=== PATIENT | male | born 1945 | race Caucasian/White ===

== ENCOUNTER 2019-05-14 01:59 | Inpatient (IN) ==
--- OUTSIDE RECORDS SUMMARY | 2019-05-14 02:05 | External Medical Summary | Continuity of Care Document ---
:1945 Author Name Mora Izaguirre, Provider Address Unavailable Unavailable , Care Team Providers Name Role Phone NonMNPG MRonal, Provider Unavailable [email or web address] Unavailable Unavailable Unavailable Unavailable Unavailable Problems BPH (benign prostatic hypertrophy) (600.00) (N40.0) Diastolic dysfunction (429.9) (I51.89) Hypertension (401.9) (I10) Hyponatremia (276.1) (E87.1) Trochanteric bursitis (726.5) (M70.60) Urinary retention with incomplete bladder emptying (788.21) (R33.9) Acid reflux (530.81) (K21.9) Elevated blood pressure reading with diagnosis of hypertensi on (401.9) (I10) First-degree atrioventricular block (426.11) (I44.0) Chronic rhinitis (472.0) (J31.0) Chest pain (786.50) (R07.9) Erectile dysfunction (607.84) (N52.9) Pain, joint, shoulder (719.41) (M25.519) Urinary frequency (788.41) (R35.0) Dermatitis (692.9) (L30.9) Sensorineural hearing loss (SNHL) of both ears (389.18) (H90 .3) Subjective tinnitus (388.31) (H93.19) Exostosis (726.91) (M89.8X9) Labial melanotic macule (709.09) (L81.8) Allergies and Adverse Reactions Atorvastatin Calcium TABS (Allergy) Reac tion: Hives Penicillins (Allergy) Reaction: Hives Plavix TABS (Allergy) Reaction: Hives Medications Vitamin C 500 MG Oral Tablet; TAKE 1 TABLET DAILY. Refills: 0 Glucosamine-Chondroitin 500-400 MG Oral Tablet; TAKE 1 TABLE T DAILY. Refills: 0 Lutein 15-0.7 MG Oral Capsule; TAKE 1 CAPSULE DAILY. Refills: 0 Vitamin B Complex Oral Tablet; TAKE 1 TABLET DAILY. Refills: 0 Turmeric CAPS; TAKE 1 CAPSULE DAILY. Refills: 0 Melville-3 Fish Oil 1000 MG Oral Capsule; TAKE 1 CAPSULE EVERY OTHER DAY. Refills: 0 Aspirin EC 81 MG Oral Tablet Delayed Release; Take 1 tablet twice daily Refills: 0 Triamcinolone Acetonide 0.1 % External L otion; APPLY SPARINGLY TO AFFECTED AREA(S) ONCE DAILY. Refills: 0 Cardura 4 MG Oral Tablet; TAKE 1 TABLET DAILY AT BEDTIME DIRECTED. Refills: 0 Losartan Potassium 25 MG Oral Tablet; TAKE 1 TABLET BY MOUTH DAILY 30 Tablet Bottle Refills: 5 CoQ10 100 MG Oral Capsule; TAKE 1 CAPSULE DAILY. Refills: 0 Procedures History of Colonoscopy Status: Completed Immunizations Immunizations not documented Family History Unknown Family Member Family history of Prostate cancer (185) (C61) Status: Active Comments: Family History Mother Family history of Hypertension (401.9) (I10) Status: Active Family history of Stroke (434.91) (I63.9) Status: Active Family history of Skin cancer (173.90) (C44.90) Status: Acti ve Father Family history of Aortic valve insufficiency (424.1) (I35.1) Status: Active Brother Family history of Endocrine disorder (259.9) (E34.9) Status: Active Family history of Skin cancer (173.90) (C44.90) Status: Acti ve Social History - Smoking Status Former smoker Plan of Treatment Planned Observations Planned Goals not documented Results No Known Results Results not documented Encounters Appointment; Althea Aldana PA-C 05-May-2018 15:00 Encounter Diagnosis: Problem not documented Appointment; Echo/Stress, Echo/Stress 24-Apr-2018 8:45 Encounter Diagnosis: Problem not documented Appointment; Mirza Vasquez M.D. 09-Jul-2017 15:45 Encounter Diagnosis: Problem not documented
[2019-05-14 02:19] LABS: Basophils # (auto) 0.01 K/uL (0-0.2); Basophils % (auto) 0.1 %; Eosinophils # (auto) 0.27 K/uL (0-0.5); Hematocrit (blood only) 40.8 % (42-52); Hemoglobin 14.5 g/dL (14.0-18.0); Immature Granulocytes # (auto) 0.03 K/uL (0.00-0.02); Immature Granulocytes % (auto) 0.4 %; Lymphocytes # (auto) 2.01 K/uL (1.2-3.4); Lymphocytes % (auto) 29.6 %; Mean Corpuscular Hemoglobin 32.5 pg (25-34); Mean Corpuscular Hgb Conc 35.5 g/dL (32-36); Mean Corpuscular Volume 91.5 fL (80-100); Monocytes # (auto) 0.89 K/uL (0.11-0.59); Monocytes % (auto) 13.1 %; Neutrophils # (auto) 3.58 K/uL (1.4-6.5); Neutrophils % (auto) 52.8 %; Platelet Count 168 K/uL (130-400); RDW Coefficient of Variation 12.7 % (11.5-14.5); RDW Standard Deviation 42.2 fL (36.4-46.3); Red Blood Count 4.46 M/uL (4.7-6.1); White Blood Count 6.79 K/uL (4.8-10.8)
[2019-05-14 02:54] LABS: Alanine Aminotransferase 41 U/L (12-78); Albumin Globulin Ratio 1.1 (0.9-2); Albumin Level 3.3 gm/dl (3.4-5.0); Alkaline Phosphatase 114 U/L (45-117); BUN Creatinine Ratio 34.8 (10-20); Bilirubin,Total 0.4 mg/dl (0.2-1); Blood Urea Nitrogen 34 mg/dl (7-18); Calcium 8.3 mg/dl (8.5-10.1); Carbon Dioxide 23 mmol/L (21-32); Chloride 111 mmol/L (98-107); Creatinine Clr Calc Pharmacy 62.4 ml/min; Est GFR (Non-African American) 74.2; Glucose 104 mg/dl (70-99); Sodium 138 mmol/L (136-145); Total Protein 6.3 gm/dl (6.4-8.2); Troponin I 0.556 ng/ml (0-0.045)
[2019-05-14 03:36] LABS: INR 1.1 (0.9-1.1); Partial Thromboplastin Time 26.4 Seconds (21.0-31.0); Potassium 4.3 mmol/L (3.5-5.1); Prothrombin Time 11.1 Seconds (9.0-12.0)
[2019-05-14] MEDS ORDERED: ASPIRIN 81 MG ECTAB PO STA (04:59)
--- NOTE | 2019-05-14 04:59 | History & Physical Report ---
Date of Service May 14, 2019 Assessment & Plan (1) TIA (transient ischemic attack): ? Thrombotic mechanism Hypertension, elevated secondary to possible TIA Troponin elevation possibly secondary to above chronic systolic/diastolic heart failure (EF 45-50% TTE 2018), patient euvolemic aFlutter/atrial fib status post cardioversion status post ablation, NSR on Eliquis BPH past tobacco abuse OBS Medical telemetry Neurochecks MRI/MRA of the brain, Neurology consult RE TIA Aspirin for thrombotic stroke prophylaxis until MRI results known. (Patient agreeable to taking one dose for now citing concerns about increased predisposition to bleeding especially with concomitant Eliquis intake.) Permissive hypertension until stroke ruled out. Additional stroke work-up pending MRI results/Neurology evaluation Trend troponin, TTE if with significant progression DVT prophylaxis. Eliquis Full code History of Present Illness Chief Complaint: Left-sided numbness Primary Care Provider: William Collado MD History obtained from patient, family, and records. Medical history significant for chronic systolic/diastolic heart failure (EF 45- 50% TTE 2018), aFlutter/atrial fib status post cardioversion status post ablation on Eliquis, GERD, BPH, past tobacco abuse. Recent confinement April 2018 for atypical chest pain. No ACS. Around midnight last night, patient woke up not feeling the left side of his body. thought there may have been drooping on the left side of the face. No chest pain, no S OB. No headache. Improving symptoms at the ER. Patient complaining of tingling discomfort on the left upper extremity. 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 Allergies Allergy/AdvReac Type Severity Reaction Status Date / Time Penicillins Allergy Severe Hives Verified 05/14/19 02:13 Home Medications Home Medications Medication Instructions Recorded Confirmed Type Eliquis 5 mg PO BID 05/05/18 05/14/19 History Reservatrol 1 tab PO DAILY 05/05/18 05/14/19 History ascorbic acid (vitamin C) [Vitamin 500 mg PO DAILY 05/05/18 05/14/19 History C] doxazosin [Cardura] 1 tab PO HS 05/05/18 05/14/19 History doxazosin [Cardura] 2 mg PO HS 05/05/18 05/14/19 History glucosamine-chondroitin 1 cap PO DAILY 05/05/18 05/14/19 History losartan [Cozaar] 25 mg PO DAILY 05/05/18 05/14/19 History lutein 0 mg PO Q OTHER DAY 05/05/18 05/14/19 History magnesium 200 mg PO DAILY 05/05/18 05/14/19 History vitamin B complex [Super B-50 1 cap PO DAILY 05/05/18 05/14/19 History Complex] zinc 25 mg PO DAILY 05/05/18 05/14/19 History cholecalciferol (vitamin D3) 2,000 unit PO DAILY 05/14/19 05/14/19 History [Vitamin D3] cinnamon bark [Cinnamon] 500 mg PO DAILY 05/14/19 05/14/19 History omega 9-hay-rrx-fish oil [Fish Oil] 1 cap PO DAILY 05/14/19 05/14/19 History turmeric 400 mg PO DAILY 05/14/19 05/14/19 History Past Med/Surg History Medical History BPH (benign prostatic hyperplasia) (Chronic) HTN (hypertension) (Chronic) Paroxysmal atrial flutter (Chronic) Surgical History History of cardiac catheterization (Resolved) [place] [facility] [place] Hx of tonsillectomy (Resolved) Family History Other Hypertension Stroke Social History Preferred Language: Upper Sorbian Communication Ability: Effective Visual Impairment: No Limitations Hearing Ability: Normal Shelving Supervisor Required: No Beliefs That Will Affect Care: None Current Living Situation: Family Feels Safe at Home: Yes Smoking Status: Former smoker Second Hand Exposure: No ; Hx Alcohol Use: Yes Alcohol type: beer and wine Hx Substance Use: No Review of Systems Review of Systems: As per HPI, all 10 systems reviewed, all other ROS negative Physical Exam Physical Exam: GENERAL: Comfortable, slightly anxious, no respiratory distress SKIN: Normal color, warm HEENT: [place] palpebral conjunctivae, chronic ptosis, dry buccal mucosa NECK : Supple, no tenderness CHEST : CTA, no tenderness HEART : RRR, no obvious murmurs ABDOMEN: Soft, nontender EXTREMITIES : No LE swelling/tenderness, no other conspicuous deformities noted NEUROLOGIC : Coherent, no facial asymmetry, no other gross focality Results & Data Vital Signs (Past 12 Hours) Vital Signs Temp Pulse Pulse Resp BP BP Pulse Ox 05/14/19 03:07 73 18 158/73 H 97 05/14/19 02:41 76 18 159/73 H 97 05/14/19 02:08 36.8 C 91 H 18 161/87 H 98 Laboratory Results Laboratory Results WBC 6.79 K/uL (4.8-10.8) 05/14/19 02:08 RBC 4.46 M/uL (4.7-6.1) L 05/14/19 02:08 Hgb 14.5 g/dL (14.0-18.0) 05/14/19 02:08 Hct 40.8 % (42-52) L 05/14/19 02:08 MCV 91.5 fL (80-100) 05/14/19 02:08 MCH 32.5 pg (25-34) 05/14/19 02:08 MCHC 35.5 g/dL (32-36) 05/14/19 02:08 RDW Std Deviation 42.2 fL (36.4-46.3) 05/14/19 02:08 RDW Coeff of Saira 12.7 % (11.5-14.5) 05/14/19 02:08 Plt Count 168 K/uL (130-400) 05/14/19 02:08 MPV 10.0 fL (7.4-10.4) 05/14/19 02:08 Immature Gran % (Auto) 0.4 % 05/14/19 02:08 Neut % (Auto) 52.8 % 05/14/19 02:08 Lymph % (Auto) 29.6 % 05/14/19 02:08 Dawes % (Auto) 13.1 % 05/14/19 02:08 Eos % (Auto) 4.0 % 05/14/19 02:08 Baso % (Auto) 0.1 % 05/14/19 02:08 Immature Gran # (Auto) 0.03 K/uL (0.00-0.02) H 05/14/19 02:08 Neut # (Auto) 3.58 K/uL (1.4-6.5) 05/14/19 02:08 Lymph # (Auto) 2.01 K/uL (1.2-3.4) 05/14/19 02:08 Dawes # (Auto) 0.89 K/uL (0.11-0.59) H 05/14/19 02:08 Eos # (Auto) 0.27 K/uL (0-0.5) 05/14/19 02:08 Baso # (Auto) 0.01 K/uL (0-0.2) 05/14/19 02:08 PT 11.1 Seconds (9.0-12.0) 05/14/19 03:10 INR 1.1 (0.9-1.1) 05/14/19 03:10 APTT 26.4 Seconds (21.0-31.0) 05/14/19 03:10 PTT Ratio 1.0 05/14/19 03:10 Sodium 138 mmol/L (136-145) 05/14/19 02:08 Potassium 4.3 mmol/L (3.5-5.1) 05/14/19 03:10 Chloride 111 mmol/L (98-107) H 05/14/19 02:08 Carbon Dioxide 23 mmol/L (21-32) 05/14/19 02:08 Anion Gap 4.0 (3-11) 05/14/19 02:08 BUN 34 mg/dl (7-18) H 05/14/19 02:08 Creatinine 0.99 mg/dl (0.6-1.4) 05/14/19 02:08 Est Cr Clr Drug Dosing 62.4 ml/min 05/14/19 02:08 Est GFR ( Amer) 86.0 05/14/19 02:08 Est GFR (Non-Af Amer) 74.2 05/14/19 02:08 BUN/Creatinine Ratio 34.8 (10-20) H 05/14/19 02:08 Glucose 104 mg/dl (70-99) H 05/14/19 02:08 Calcium 8.3 mg/dl (8.5-10.1) L 05/14/19 02:08 Magnesium 2.0 mg/dl (1.8-2.4) 05/14/19 03:10 Total Bilirubin 0.4 mg/dl (0.2-1) 05/14/19 02:08 AST 21 U/L (15-37) 05/14/19 03:10 ALT 41 U/L (12-78) 05/14/19 02:08 Alkaline Phosphatase 114 U/L (45-117) 05/14/19 02:08 Troponin I 0.556 ng/ml (0-0.045) H* 05/14/19 02:08 Total Protein 6.3 gm/dl (6.4-8.2) L 05/14/19 02:08 Albumin 3.3 gm/dl (3.4-5.0) L 05/14/19 02:08 Globulin 3.0 gm/dl (2.5-4.0) 05/14/19 02:08 Albumin/Globulin Ratio 1.1 (0.9-2) 05/14/19 02:[address] head initial read: No acute intracranial process EKG as per my interpretation rate 90, NSR, 1 AVB, normal axis, no ischemia
[2019-05-14] MEDS ORDERED: TRAMADOL HCL 50 MG TABLET PO PRN (05:55)
[2019-05-14] MEDS ORDERED: PROMETHAZINE HCL 12.5 MG in SODIUM CHLORIDE 0.9% 50 ML IV PRN (05:55)
[2019-05-14] MEDS ORDERED: NITROGLYCERIN SL 0.4 MG/TAB TAB SL PRN (05:55)
[2019-05-14] MEDS ORDERED: SODIUM CHLORIDE 0.9% 500 ML IV ONE (05:55)
--- NOTE | 2019-05-14 06:19 | Emergency Department Note ---
Entered by Karen Burns acting as a scribe for Diana Mckeon MD History of Present Illness General Chief complaint: Stroke/CVA Symptoms Stated complaint: STROKE LIKE SYMPTOMS Time Seen by Provider: 05/14/19 02:03 Source: patient and EMS Mode of arrival: EMS History of Present Illness Provider complaint: stroke-like symptoms Onset (ago): minute(s) (prior to arrival ) Location: head Quality: + other (stroke-like symptoms) Associated symptoms: + other (Positive facial droop; Positive left sided weakness; Positive left hand numbness) Treatments prior to arrival: none The patient, who is a 73 year old male with a medical history of chest pain, hypertension and elevated troponin, presents to the Emergency Room with complaints of stroke-like symptoms that occurred prior to arrival. EMS reports that prior to arrival the patient was experiencing facial droop and left sided weakness. EMS states that the patient's symptoms resolved they arrived however the patient was still experiencing numbness in his left hand. EMS reports that at 0130 the patient had continued left handed numbness and disorientation. The patient confirms that he is currently experiencing left handed numbness and he is taking Eliquis. Home Medications Home Medications Medication Instructions Recorded Confirmed Type Reservatrol 1 tab PO DAILY 05/05/18 05/14/19 History ascorbic acid (vitamin C) [Vitamin 500 mg PO DAILY 05/05/18 05/14/19 History C] doxazosin [Cardura] 1 tab PO HS 05/05/18 05/14/19 History doxazosin [Cardura] 2 mg PO HS 05/05/18 05/14/19 History glucosamine-chondroitin 1 cap PO DAILY 05/05/18 05/14/19 History losartan [Cozaar] 25 mg PO DAILY 05/05/18 05/14/19 History lutein 0 mg PO Q OTHER DAY 05/05/18 05/14/19 History magnesium 200 mg PO DAILY 05/05/18 05/14/19 History vitamin B complex [Super B-50 1 cap PO DAILY 05/05/18 05/14/19 History Complex] zinc 25 mg PO DAILY 05/05/18 05/14/19 History cholecalciferol (vitamin D3) 2,000 unit PO DAILY 05/14/19 05/14/19 History [Vitamin D3] cinnamon bark [Cinnamon] 500 mg PO DAILY 05/14/19 05/14/19 History omega 4-yxe-ghy-fish oil [Fish Oil] 1 cap PO DAILY 05/14/19 05/14/19 History turmeric 400 mg PO DAILY 05/14/19 05/14/19 History atorvastatin [Lipitor] 10 mg PO DAILY #30 tab 05/15/19 Rx rivaroxaban [Xarelto] 20 mg PO DAILY #30 tab 05/15/19 Rx Allergies Allergy/AdvReac Type Severity Reaction Status Date / Time Penicillins Allergy Severe Hives Verified 05/14/19 02:13 Past Med/Surg History Medical History BPH (benign prostatic hyperplasia) (Chronic) HTN (hypertension) (Chronic) Paroxysmal atrial flutter (Chronic) Surgical History History of cardiac catheterization (Resolved) 2016 at [facility] [place] Hx of tonsillectomy (Resolved) Family History Other Hypertension Stroke Social History Preferred Language: French Communication Ability: Effective Visual Impairment: No Limitations Hearing Ability: Normal 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 and A total of 10 systems reviewed and were otherwise negative Physical Exam Vital Signs Vital Signs - 24 hr 05/14/19 02:08 05/14/19 02:41 05/14/19 03:07 Temperature 36.8 C Temperature Source Oral Sepsis Recent Fever Within 48 Hours No Sepsis Action Taken by Nursing No Action Required Pulse Rate 91 H Pulse Rate [Apical] 76 73 Respiratory Rate 18 18 18 Blood Pressure 161/87 H Blood Pressure [Right Arm] 159/73 H 158/73 H Blood Pressure Mean 111 Blood Pressure Mean [Right Arm] 101 101 Pulse Oximetry 98 97 97 Oxygen Delivery Method Room Air Room Air Room Air Vital signs reviewed. General: older appearing male, in no significant distress. HEENT: No scleral icterus, PERRLA, neck supple. Atraumatic. Cardiovascular: Rate controlled with occassoinal ectopy, no extra sounds. Pulmonary: Clear to auscultation bilaterally, normal work of breathing. Abdomen: Soft, nontender, nondistended, positive bowel sounds. Musculoskeletal: Atraumatic, no peripheral edema. Neurologic: Patient awake alert and oriented x 3, full strength in all 4 extremities. Cranial nerves 2 through 12 grossly intact. Negative pronator drift. intact finger to nose. Skin: Warm, dry, no rash Course 0201: Past medical records reviewed. The patient was evaluated in room B2. A complete history and physical exam was performed. 0419: I reviewed the patient's case with Dr. Alvares [facility] . He will evaluate the patient for further management. Consultations Consultation #1: [id number]: I [facility] the patient[facility] . He will evaluate the patient for further management. Time: 04:19 Administered Medications Discontinued Medications Apixaban (Eliquis) 5 mg PO BID [facility] Stop: 06/13/19 08:59 Last Admin: 05/15/19 08:23 Dose: 5 mg Documented by: [id number] Admin: 05/14/19 20:33 Dose: 5 mg Documented by: [id number] Admin: 05/14/19 08:38 Dose: 5 mg Documented by: [id number] Aspirin (Ecotrin Ectab) 81 mg PO NOW STA Stop: 05/14/19 05:00 Last Admin: 05/14/19 05:15 Dose: 81 mg Documented by: [id number] [facility]atin Cal[facility] Stop: 06/14/19 08:59 Last Admin: 05/15/19 08:23 Dose: 20 mg Documented by: [id number] Sodium Chloride (Nss) 500 mls @ 50 mls/hr IV .Q10H ONE Stop: 05/14/19 15:54 Last Admin: 05/14/19 06:41 Dose: Not Given Documented by: [id number] Medical Decision Making Differential Diagnosis Differential Diagnosis includes but is not limited to dehydration, stroke, anemia, hypoglycemia, hyponatremia, hypernatremia, urinary tract infection, pneu monia, bronchitis, sepsis, gastroenteritis, additional abdominal pathology, metabolic abnormalities and infections. Medical Records Attestation: I reviewed the patient's medical records. Home Medications Current Medication List: was personally reviewed by me Laboratory Data Attestation: I reviewed the patient's lab results. Result diagrams: 05/15/19 06:39 05/15/19 06:39 Lab Results 05/14/19 05/14/19 05/14/19 Range/Units 02:08 02:08 02:08 WBC 6.79 (4.8-10.8) K/uL RBC 4.46 L (4.7-6.1) M/uL Hgb 14.5 (14.0-18.0) g/dL Hct 40.8 L (42-52) % MCV 91.5 (80-100) fL MCH 32.5 (25-34) pg MCHC 35.5 (32-36) g/dL RDW Std Deviation 42.2 (36.4-46.3) fL RDW Coeff of Saira 12.7 (11.5-14.5) % Plt Count 168 (130-400) K/uL MPV 10.0 (7.4-10.4) fL Immature Gran % (Auto) 0.4 % Neut % (Auto) 52.8 % Lymph % (Auto) 29.6 % [place] % (Auto) 13.1 % Eos % (Auto) 4.0 % Baso % (Auto) 0.1 % Immature Gran # (Auto) 0.03 H (0.00-0.02) K/uL Neut # (Auto) 3.58 (1.4-6.5) K/uL Lymph # (Auto) 2.01 (1.2-3.4) K/uL [place] # (Auto) 0.89 H (0.11-0.59) K/uL Eos # (Auto) 0.27 (0-0.5) K/uL Baso # (Auto) 0.01 (0-0.2) K/uL PT Cancelled INR Cancelled APTT Cancelled PTT Ratio Cancelled Sodium 138 (136-145) mmol/L Potassium TNP Chloride 111 H (98-107) mmol/L Carbon Dioxide 23 (21-32) mmol/L Anion Gap 4.0 (3-11) BUN 34 H (7-18) mg/dl Creatinine 0.99 (0.6-1.4) mg/dl Est Cr Clr Drug Dosing 62.4 ml/min Est GFR ( Amer) 86.0 Est GFR (Non-Af Amer) 74.2 BUN/Creatinine Ratio 34.8 H (10-20) Glucose 104 H (70-99) mg/dl Calcium 8.3 L (8.5-10.1) mg/dl Magnesium TNP Total Bilirubin 0.4 (0.2-1) mg/dl AST TNP ALT 41 (12-78) U/L Alkaline Phosphatase 114 (45-117) U/L Troponin I 0.556 H* (0-0.045) ng/ml Total Protein 6.3 L (6.4-8.2) gm/dl Albumin 3.3 L (3.4-5.0) gm/dl Globulin 3.0 (2.5-4.0) gm/dl Albumin/Globulin Ratio 1.1 (0.9-2) 05/14/19 05/14/19 05/14/19 Range/Units 03:10 03:10 07:50 WBC (4.8-10.8) K/uL RBC (4.7-6.1) M/uL Hgb (14.0-18.0) g/dL Hct (42-52) % MCV (80-100) fL MCH (25-34) pg MCHC (32-36) g/dL RDW Std Deviation (36.4-46.3) fL RDW Coeff of Saira (11.5-14.5) % Plt Count (130-400) K/uL MPV (7.4-10.4) fL Immature Gran % (Auto) % Neut % (Auto) % Lymph % (Auto) % [place] % (Auto) % Eos % (Auto) % Baso % (Auto) % Immature Gran # (Auto) (0.00-0.02) K/uL Neut # (Auto) (1.4-6.5) K/uL Lymph # (Auto) (1.2-3.4) K/uL [place] # (Auto) (0.11-0.59) K/uL Eos # (Auto) (0-0.5) K/uL Baso # (Auto) (0-0.2) K/uL PT 11.1 INR 1.1 APTT 26.4 PTT Ratio 1.0 Sodium (136-145) mmol/L Potassium 4.3 Chloride (98-107) mmol/L Carbon Dioxide (21-32) mmol/L Anion Gap (3-11) BUN (7-18) mg/dl Creatinine (0.6-1.4) mg/dl Est Cr Clr Drug Dosing ml/min Est GFR ( Amer) Est GFR (Non-Af Amer) BUN/Creatinine Ratio (10-20) Glucose (70-99) mg/dl Calcium (8.5-10.1) mg/dl Magnesium 2.0 Total Bilirubin (0.2-1) mg/dl AST 21 ALT (12-78) U/L Alkaline Phosphatase (45-117) U/L Troponin I 0.530 H* (0-0.045) ng/ml Total Protein (6.4-8.2) gm/dl Albumin (3.4-5.0) gm/dl Globulin (2.5-4.0) gm/dl Albumin/Globulin Ratio (0.9-2) Imaging Data Radiologist's Impression: Radiology results as stated below per my review and the radiologist's interpretation: CT Head: No acute intracranial process. Radiologist: Yesenia Cantu MD Study ready at 02:23 and initial results transmitted at 02:28 ECG Data Attestation: I personally reviewed and interpreted this ECG as follows: Indication: + other (stroke) Rate (beats per minute): 92 Rhythm: + sinus rhythm ECG Findings: + PACs (frequent) and + Other (Vs atrial fibrillation) Comparison ECG Date: from (05/06/18) Change: no significant change Blood Pressure Blood Pressure Findings: Elevated blood pressure Blood Pressure Disposition: elevated BP felt to be situational MDM Narrative This pt was evaluated and appeared to be in no distress. PE is fairly reassuring. CT head was ordered however the pt delayed the study as he was not initially comfortable with the radiation exposure. Pt was reassured the n ecessity of the study. It was obtained and is negative. CXR is clear. EKG reveals a sinus rhythm with PACs. Lab work reveals a mildly elevated trop, with concerns that this may actually be cardiac in etiology. Pt is anticoagulated with Xarelto. Pt has some recurrence of LUE numbness, but no weakness or facial droop was visualized. Pt was educated on the findings. Pt was d/w the hospitalist for further management. Impression & Plan TIA (transient ischemic attack), Elevated troponin Discharge Plan Visit Data *Final* Discharge Date/Time: 05/14/19 05:34 Chief Complaint: Stroke/CVA Symptoms Stated Complaint: STROKE LIKE SYMPTOMS ED Provider: Diana Mckeon Discharge Problem: TIA (transient ischemic attack), Elevated troponin Patient Disposition: Admitted As Inpatient Condition: Good Discharge Instructions Interventions: ED Discharge Assessment Last Done: 05/14/19 05:34 The scribe's documentation has been prepared under my direction and personally reviewed by me in its entirety. I confirm that the note above accurately reflects all work, treatment, procedures, and medical decision making performed by me.
--- NOTE | 2019-05-14 06:30 | CT Scan Report ---
CT head/brain wo con CLINICAL HISTORY: 73 years-old Male with Stroke evaluation . Acute strokelike symptoms TECHNIQUE: Multiple axial CT images of the head were obtained without contrast. A dose lowering tech nique was utilized adhering to the principles of ALARA. CT DOSE: 614.27 mGy.cm COMPARISON: Head CT 05/05/2018 FINDINGS: No acute intracranial hemorrhage, midline shift, intracranial mass, hydrocephalus, territorial ischem ia or abnormal extra-axial collection. Mild age-related involutional change. Cerebral vascular calcif ications are noted. Minimal white matter hypodensities suggest background chronic microvascular ische moraima disease. The calvarium is intact. The paranasal sinuses, mastoid air cells, and middle ear cavities are clear . IMPRESSION: No acute intracranial abnormality. The above report was generated using voice recognition software. It may contain grammatical, syntax o r spelling errors. Electronically signed by: Christian Yeh M.D. 05/14/2019 6:28 AM
[2019-05-14] MEDS: APIXABAN 5 MG TABLET PO SCH ×2 (08:38→20:33)
--- NOTE | 2019-05-14 09:54 | Magnetic Resonance Report ---
MR brain wo con HISTORY: 73 years-old Male tia acute strokelike symptoms COMPARISON: CT head and MRA head of same day TECHNIQUE: Multiplanar multisequence MRI of the brain was obtained without the use of IV contrast. FINDINGS: Large bnnbz-aq-hvow skiver blockers localizer images demonstrate no gross extracranial abnormality. Linear area of restricted diffusion involves the subcortical distribution of the right frontal parietal lobe on image 15 series 5 measuring up to 2.6 cm demonstrating mildly decreased signal on the ADC map. No acu te territorial infarct identified. Midline structures including the corpus callosum, brainstem, optic chiasm, pituitary and pineal glands appear unremarkable on the sagittal T1 series. There is no cereb ellar tonsillar herniation. Degenerative changes noted about the imaged cervical spine. Mild age-related involutional change. There is no acute intracranial hemorrhage, midline shift, abnor mal extra axial collection, hydrocephalus or intracranial mass. Study is mildly motion degraded. No s ignificant T2/flair signal abnormalities of the brain parenchyma. Major flow voids at the level of th e skull base appear patent. Trace left mastoid effusion. Mild mucosal thickening of the nasal turbina prakash and paranasal sinuses. The orbits, skull and soft tissues are unremarkable. IMPRESSION: 1. Linear area of restricted diffusion within the right frontal parietal lobe junction measures up to 2.6 cm compatible with area of acute or subacute infarction. 2. No acute territorial infarct, intracranial hemorrhage or midline shift. The above report was generated using voice recognition software. It may contain grammatical, syntax o r spelling errors. Electronically signed by: Christian Yeh M.D. 05/14/2019 9:53 AM
--- NOTE | 2019-05-14 09:55 | Magnetic Resonance Report ---
MR angio head wo con CLINICAL HISTORY: 73 years-old Male presenting with TIA, left-sided body numbness. TECHNIQUE: MR angiography of the head was performed without the use of intravenous contrast using 3-D [id number] technique. 3-D volumetric and/or maximum intensity projection (MIP) images were subse quently reconstructed for review. IV contrast: None. COMPARISON: CT head performed earlier the same day. FINDINGS: Localizer images: Unremarkable. Anterior circulation: Intracranial portions of the internal carotid arteries patent to the level of t he termini. Anterior cerebral arteries patent. Middle cerebral arteries patent. Anterior communicatin g artery patent. Posterior circulation: Codominant vertebral arteries. Intradural portions of the vertebral arteries p atent. Posterior inferior cerebellar arteries patent. Basilar artery patent. Anterior inferior cerebe llar arteries poorly visualized. Superior cerebellar arteries patent. Posterior cerebral arteries pat ent. Posterior communicating arteries hypoplastic or aplastic. IMPRESSION: 1. No significant stenosis, aneurysm, or focal vessel occlusion. Electronically signed by: Antwon Holguin M.D. 05/14/2019 9:54 AM
--- NOTE | 2019-05-14 15:16 | Hospitalist Progress Note ---
Date of Service May 14, 2019 Assessment & Plan (1) TIA (transient ischemic attack): Presented with inability to feel left side of the body and the noted to have drooping of the left side of the face Did not meet criteria for TPA CT scan of the head was negative but MRI did show -Linear area of restricted diffusion within the right frontal parietal lobe junction measures up to 2.6 cm compatible with area of acute or subacute infarction. Likely secondary to thrombotic mechanism Received 1 dose of aspirin and Eliquis was continued Echo and lipid panel have been pending Awaiting evaluation by neurologist for further recommendation Hypertension, elevated secondary to possible TIA Blood pressure seems to be stable now Troponin elevation possibly secondary to above and has been trending down Chronic systolic/diastolic heart failure (EF 45-50% TTE 2018), patient euvolemic Will repeat echo to rule out any clot History of atrial flutter/atrial fib status post cardioversion status post ablation, NSR on Eliquis We will continue Eliquis BPH Denies any acute symptoms past tobacco abuse Full code Subjective 05/14 The patient was seen and examined in medical telemetry unit He has significant past medical history including chronic systolic/diastolic heart failure with EF 40 to 45% in 2018 with atrial flutter/fibrillation on Eliquis with history of past tobacco abuse Was admitted with strokelike symptoms involving left-sided extremities and face Symptoms have improved with remaining numbness involving the left forearm Denies any other symptoms Review of Systems Review of Systems: All systems reviewed and are unremarkable except as noted below Neurologic: Numbness involving the left forearm. No weakness involving any of the extremities, no dysarthria and/or dysphasia Physical Exam Physical Exam: Lying in bed comfortably Constitutional: well developed Looked very anxious Eyes: PERRL, conjunctivae normal, anicteric sclerae ENMT: external ear and nose normal, oropharynx normal Neck: trachea midline, no thyromegaly Respiratory: normal respiratory effort; no respiratory distress Auscultation: lungs clear to auscultation bilaterally Cardiovascular: Rate/Rhythm: regular rate and regular rhythm Heart Sounds: no murmur Gastrointestinal (Abdomen): Inspection/Auscultation: abdomen normal to inspection and normal bowel sounds Percussion/Palpation: abdomen soft Musculoskeletal: No acute arthritis in any joints Neurologic: moves all extremities; no focal motor deficits (Except numbness involving left forearm and hand) Alert, awake and oriented x3. Psychiatric: A+Ox3, euthymic affect Results & Data Vital Signs (Past 12 Hours) Vital Signs Temp Pulse Pulse Pulse Resp BP Pulse Ox 05/14/19 11:25 36.3 C L 68 16 147/81 H 99 05/14/19 07:34 69 05/14/19 06:19 05/14/19 06:00 36.6 C 67 68 18 161/75 H 97 05/14/19 05:10 69 18 142/72 H 96 Pulse Ox 05/14/19 11:25 05/14/19 07:34 05/14/19 06:19 97 05/14/19 06:00 05/14/19 05:10 Laboratory Results Short CBC 05/14/19 Range/Units 02:08 WBC 6.79 (4.8-10.8) K/uL Hgb 14.5 (14.0-18.0) g/dL Hct 40.8 L (42-52) % Plt Count 168 (130-400) K/uL BMP 05/14/19 05/14/19 02:08 03:10 Sodium 138 Potassium TNP 4.3 Chloride 111 H Carbon Dioxide 23 BUN 34 H Creatinine 0.99 Glucose 104 H Calcium 8.3 L Cardiac Enzymes 05/14/19 05/14/19 Range/Units 02:08 07:50 Troponin I 0.556 H* 0.530 H* (0-0.045) ng/ml Liver Function 05/14/19 05/14/19 Range/Units 02:08 03:10 Total Bilirubin 0.4 (0.2-1) mg/dl AST TNP 21 ALT 41 (12-78) U/L Alkaline Phosphatase 114 (45-117) U/L Albumin 3.3 L (3.4-5.0) gm/dl Medications Administered Current Inpatient Medications Apixaban (Eliquis) 5 mg PO BID [facility] Stop: 06/13/19 08:59 Last Admin: 05/14/19 08:38 Dose: 5 mg Documented by: Promethazine HCl 12.5 mg/ (Sodium Chloride) 50.5 mls @ 202 mls/hr IV Q6H PRN PRN Reason: Nausea And Vomiting Stop: 06/13/19 05:54 Sodium Chloride (Nss) 500 mls @ 50 mls/hr IV .Q10H ONE Stop: 05/14/19 15:54 Last Admin: 05/14/19 06:41 Dose: Not Given Documented by: Nitroglycerin (Nitrostat) 0.4 mg SL UD PRN PRN Reason: Chest Pain Stop: 06/13/19 05:54 Tramadol HCl (Ultram) 25 mg PO Q4H PRN PRN Reason: Pain Stop: 06/13/19 05:54
--- NOTE | 2019-05-14 15:20 | Neurology Consultation ---
Date of Consultation May 14, 2019 Assessment & Plan (1) Stroke due to embolism: 1. CTA neck - ordered 2. MRI - right frontal parietal lobe junction measures up to 2.6 cm 3. PT/OT speech for discharge needs 4. continue Eliquis 5 mg twice daily for now 5. cardiology - consult for further evaluation of possible need for switch to coumadin?? 6. appear to be in sinus rhythm now but on admitting EKG he was in afib 7. Recommend starting Statin medicaiton, Crestor 10 mg daily Supervising Physician Co-Signing Physician Notes Patient discussed with Daiana Flores PA-C. Imaging reviewed. I did not see the patient. Patient was off the floor for echocardiogram both times I visited this afternoon on rounds. His was at bedside. MRI brain reviewed and shows embolic appearing right MCA ischemic stroke. He is on Eliquis for atrial fibrillation. He also had an MRA intracranial which shows no large vessel occlusion or high grade stenosis. Recommend CTA of the neck but patient declined. If patient refusing CTA of the neck would obtain a carotid ultrasound. Would continue Eliquis for now. Neck vessel imaging will help in regards to further anticoagulation recommendations. Would recommend consulting cardiology for anticoagulation recommendations also. Would check HA1c and lipid panel. Permissive HTN for 24-hours, treat for SBP>220, DBP>110 mm HG. History of Present Illness Reason for Consultation: TIA/CVA Requesting Physician: Bigg Cerna MD Attending Physician: Bigg Cerna MD History of Present Illness [place] is a 73 year old male with PMH CP, HTN, elevated troponin, TIA who presents to [facility] with stroke like symptoms. He states he went to bed at approx. 12:15a and woke around 12:30a when he thought someone was holding down his hand and foot. He states there was a numbness in his left face, hand, leg, foot. His states she woke up because he was acting odd and went to get his daughter. She knew something was wrong so she called EMS. When EMS arrived he states the symptoms had resolved but reoccured several time on the way to the hospital and in the ED. At [facility] he had an PVI ablation 11/04. He states he was found to be in a fib about 1 year ago after some vision issues. He has been taking Eliquis for about 1 year. He was taking aspirin 81 mg but he was getting too much bruising and stopped it. He states the numbness is still there in his hand and he thinks the strength in his arm is worse than his normal rotator cuff issues. He is a past smoker, EtOH and caffeine use minimal. denies CP, SOB, abdominal pain, bowel or bladder is sues, N, V, swallowing issues, vision changes, falls. Allergies Allergy/AdvReac Type Severity Reaction Status Date / Time Penicillins Allergy Severe Hives Verified 05/14/19 02:13 Home Medications Home Medications Medication Instructions Recorded Confirmed Type Eliquis 5 mg PO BID 05/05/18 05/14/19 History Reservatrol 1 tab PO DAILY 05/05/18 05/14/19 History ascorbic acid (vitamin C) [Vitamin 500 mg PO DAILY 05/05/18 05/14/19 History C] doxazosin [Cardura] 1 tab PO HS 05/05/18 05/14/19 History doxazosin [Cardura] 2 mg PO HS 05/05/18 05/14/19 History glucosamine-chondroitin 1 cap PO DAILY 05/05/18 05/14/19 History losartan [Cozaar] 25 mg PO DAILY 05/05/18 05/14/19 History lutein 0 mg PO Q OTHER DAY 05/05/18 05/14/19 History magnesium 200 mg PO DAILY 05/05/18 05/14/19 History vitamin B complex [Super B-50 1 cap PO DAILY 05/05/18 05/14/19 History Complex] zinc 25 mg PO DAILY 05/05/18 05/14/19 History cholecalciferol (vitamin D3) 2,000 unit PO DAILY 05/14/19 05/14/19 History [Vitamin D3] cinnamon bark [Cinnamon] 500 mg PO DAILY 05/14/19 05/14/19 History omega 9-tbq-pjl-fish oil [Fish Oil] 1 cap PO DAILY 05/14/19 05/14/19 History turmeric 400 mg PO DAILY 05/14/19 05/14/19 History Patient History Medical History BPH (benign prostatic hyperplasia) (Chronic) HTN (hypertension) (Chronic) Paroxysmal atrial flutter (Chronic) Surgical History History of cardiac catheterization (Resolved) 2016 at [facility] Hx of tonsillectomy (Resolved) Family History Other Hypertension Stroke Social History Preferred Language: Bahraini Communication Ability: Effective Visual Impairment: No Limitations Hearing Ability: Normal Marionette Performer Required: No Beliefs That Will Affect Care: None Current Living Situation: Spouse Other Information That Helps Us Care for You: No Feels Safe at Home: Yes Safety Concerns: Feels Safe At This Time Smoking Status: Never smoker Do You Dip or Chew Tobacco: No ; Second Hand Exposure: No ; Hx Alcohol Use: No Hx Substance Use: No Physical Exam Physical Exam: Physical Exam: Constitutional: appearance nourished, healthy and normal Ears, Nose, Mouth and Throat: mucous membranes moist, no injection and skin normal, eyes normal Cardiovascular: normal S-1 and S-2 and regular rate and rhythm Respiratory: clear to auscultation (CTA) and no rales, ronchi or wheeze Musculoskeletal: no peripheral edema and good distal pulses Skin: no stigmata of neurocutaneous disease noted and normal and intact Eyes: extraocular muscles intact (EOMI) and pupils equal, round and reactive to light (PERRL), gross peripheral woods in tact NEUROLOGIC EXAMINATION: Mental status: Alert and interactive Oriented to full date, [facility], identified button, thumb Oriented to person Speech fluent with no evidence of aphasia Cranial Nerves smile eye brow raise Reflexes: Deep tendon reflexes were symmetrical and graded 2/5. Sensory: decreased touch on left arm hand Coordination: finger to nose dysmetric on left, no bipass on right Gait/Stance: Posture normal lying in bed Motor: unable to maintain arm elevation on left Strength: right hand finger buffs assembler biceps triceps 5/5, left hand finger buffs assembler biceps triceps 4/5, deltiod 0/5 Results & Data Vital Signs (Past 12 Hours) Vital Signs Temp Pulse Pulse Pulse Resp BP Pulse Ox 05/14/19 11:25 36.3 C L 68 16 147/81 H 99 05/14/19 07:34 69 05/14/19 06:19 05/14/19 06:00 36.6 C 67 68 18 161/75 H 97 05/14/19 05:10 69 18 142/72 H 96 Pulse Ox 05/14/19 11:25 05/14/19 07:34 05/14/19 06:19 97 05/14/19 06:00 05/14/19 05:10 Laboratory Results Abnormal lab results 05/14/19 05/14/19 05/14/19 Range/Units 02:08 02:08 07:50 RBC 4.46 L (4.7-6.1) M/uL Hct 40.8 L (42-52) % Immature Gran # (Auto) 0.03 H (0.00-0.02) K/uL Travis # (Auto) 0.89 H (0.11-0.59) K/uL Chloride 111 H (98-107) mmol/L BUN 34 H (7-18) mg/dl BUN/Creatinine Ratio 34.8 H (10-20) Glucose 104 H (70-99) mg/dl Calcium 8.3 L (8.5-10.1) mg/dl Troponin I 0.556 H* 0.530 H* (0-0.045) ng/ml Total Protein 6.3 L (6.4-8.2) gm/dl Albumin 3.3 L (3.4-5.0) gm/dl Diagnostic Findings MRI brain-Linear area of restricted diffusion within the right frontal parietal lobe junction measures up to 2.6 cm compatible with area of acute or subacute infarction. No acute territorial infarct, intracranial hemorrhage or midline shift. MRA brain No significant stenosis, aneurysm, or focal vessel occlusion.
--- NOTE | 2019-05-15 06:15 | Ultrasound Report ---
US carotid doppler BI HISTORY: Mental status change stroke COMPARISON: None. TECHNIQUE: Real-time, grayscale, and color Doppler sonography of the carotid arteries was performed. Imaging reviewed in the transverse and longitudinal planes. All measurements were calculated based on NASCET criteria. FINDINGS: Antegrade flow is seen in the bilateral vertebral arteries. The brachial pressures are hemodynamically similar. Mild plaque formation bilaterally The peak systolic velocity within the right ICA is 84. The right systolic ratio is 0.84. The peak systolic velocity within the left ICA is 82. The left systolic ratio is 1.0. IMPRESSION: No hemodynamically significant stenosis seen within the carotid arteries. Mild plaque formation bilat erally The above report was generated using voice recognition software. It may contain grammatical, syntax or spelling errors. Electronically signed by: Lj Hawkins M.D. 05/15/2019 6:13 AM
[2019-05-15 07:03] LABS: Basophils # (auto) 0.03 K/uL (0-0.2); Basophils % (auto) 0.4 %; Eosinophils # (auto) 0.34 K/uL (0-0.5); Hematocrit (blood only) 40.4 % (42-52); Hemoglobin 14.8 g/dL (14.0-18.0); Immature Granulocytes # (auto) 0.04 K/uL (0.00-0.02); Immature Granulocytes % (auto) 0.5 %; Lymphocytes # (auto) 2.03 K/uL (1.2-3.4); Lymphocytes % (auto) 23.8 %; Mean Corpuscular Hemoglobin 32.7 pg (25-34); Mean Corpuscular Hgb Conc 36.6 g/dL (32-36); Mean Corpuscular Volume 89.4 fL (80-100); Mean Platelet Volume 9.4 fL (7.4-10.4); Monocytes % (auto) 10.5 %; Neutrophils % (auto) 60.8 %; Platelet Count 168 K/uL (130-400); RDW Coefficient of Variation 12.4 % (11.5-14.5); Red Blood Count 4.52 M/uL (4.7-6.1); White Blood Count 8.54 K/uL (4.8-10.8)
[2019-05-15 07:41] LABS: BUN Creatinine Ratio 25.2 (10-20); Calcium 9.1 mg/dl (8.5-10.1); Creatinine Clr Calc Pharmacy 61.2 ml/min; Est GFR (Non-African American) 74.2; Potassium 3.9 mmol/L (3.5-5.1)
[2019-05-15 07:48] LABS: Estimated Average Glucose 94 mg/dl; Hemoglobin A1C 4.9 % (4.5-5.6)
[2019-05-15] MEDS: APIXABAN 5 MG TABLET PO SCH (08:23)
[2019-05-15] MEDS ORDERED: ATORVASTATIN 20 MG TAB PO SCH (09:00)
--- NOTE | 2019-05-15 14:12 | Neurology Progress Note ---
Date of Service May 15, 2019 Assessment & Plan (1) Stroke due to embolism: 1. CTA neck - ordered- patient refused felt this may effect his vocal cords- carotid doppler done and no significant stenosis 2. MRI - right frontal parietal lobe junction measures up to 2.6 cm 3. PT/OT speech for discharge needs 4. continue Eliquis 5 mg twice daily for now 5. cardiology - consult recommend either remaining on Eliquis twice daily or switching to Xarelto once daily for convenience of once per day dosing 6. appear to be in sinus rhythm now but on admitting EKG he was in afib 7. Lipitor 20 mg started 8. would not recommend adding aspirin at this time 9. TTE- completed but results are not reported Supervising Physician Co-Signing Physician Notes I have discussed above patient with Dr Daiana You, neurology. Discussed with Alfonso pt already jitendra. Images, hx reviewed.Hx of a fib sp cardioversion Pt with pble embolic infarct (neg carotids, no high grade intracranial stenosis, cortical infarct) while on Eliquis. continue risk mod, gradual reduction of bp, goal LDL of 70 or less. Defer to cardiology as to whether to switch anticoagulant agents as pt denies noncompliance and had breakthrough stroke. 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 He states he went to bed at approx. 12:15a and woke around 12:30a when he thought someone was holding down his hand and foot. He states there was a numbness in his left face, hand, leg, foot. His states she woke up because he was acting odd and went to get his daughter. She knew something was wrong so she called EMS. When EMS arrived he states the symptoms had resolved but reoccured several time on the way to the hospital and in the ED. At [facility] he had an PVI ablation 11/04. He states he was found to be in a fib about 1 year ago after some vision issues. He has been taking Eliquis for about 1 year. He was taking aspirin 81 mg but he was getting too much bruising and stopped it. He states the numbness is still there in his hand and he thinks the strength in his arm is better today. He is a past smoker, EtOH and caffeine use minimal. denies CP, SOB, abdominal pain, bowel or bladder issues, N, V, swallowing issues, vision changes, falls. Physical Exam Physical Exam: Gen: alert NAD lungs course breath sounds CV RRR smile eye brow raise symmetric PERRL/EOMI right hand supplier diversity director biceps triceps 5/5, left hand supplier diversity director 4+/5, hip flex plantar flex ext 5/5 slight decrease sensation and with touch pins and needles in left hand finger to nose no bipass bilaterally Results & Data Vital Signs (Past 12 Hours) Vital Signs Temp Pulse Pulse Resp BP Pulse Ox 05/15/19 12:04 36.6 C 72 22 156/83 H 05/15/19 07:17 70 05/15/19 06:59 36.9 C 69 18 129/67 97 05/15/19 04:00 36.8 C 76 16 129/73 97 Laboratory Results Abnormal lab results 05/15/19 05/15/19 Range/Units 06:39 06:39 RBC 4.52 L (4.7-6.1) M/uL Hct 40.4 L (42-52) % MCHC 36.6 H (32-36) g/dL Immature Gran # (Auto) 0.04 H (0.00-0.02) K/uL Mckinley # (Auto) 0.90 H (0.11-0.59) K/uL Chloride 109 H (98-107) mmol/L BUN 25 H (7-18) mg/dl BUN/Creatinine Ratio 25.2 H (10-20) Diagnostic Findings carotid doppler-No hemodynamically significant stenosis seen within the carotid arteries. Mild plaque formation bilaterally
--- NOTE | 2019-05-15 14:25 | Cardiology Consultation ---
Date of Consultation May 15, 2019 Assessment & Plan (1) Atrial fibrillation: It is unclear whether he continues to cycle in and out of atrial fibrillation. I do not have any EKG or tracing of atrial fibrillation other than the 1 which confirmed his diagnosis in April of 2018. He is not appear to be overtly symptomatic from the arrhythmia. While he did undergo pulmonary vein isolation possibly with good result, this does not reduce his overall risk of thromboembolic events. He will require continued anticoagulation. He appears to be compliant with his medications and is appropriately dosed with respect to Eliquis. I do not think there is another intervention which would lower his stroke risk more than simply taking his current medication. As such, I would recommend continuing Eliquis 5 mg twice daily. I did speak to him regarding the possibility of a daily dose medication which may improve compliance, but he feels that he rarely ever misses a dose of medication. (2) Elevated troponin: Does have some mild elevations in his cardiac biomarkers. 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 He did not present with symptoms of chest pain. His EKG did not suggest any injury or ischemia. He should continue standard risk factor modification which in his case would include use of a potent hMG Co a reductase inhibitor. (3) Valvular heart disease: He has an element of aortic and mitral regurgitation. No current symptoms. Preserved LV systolic function with normal chamber dimensions. This can be followed over time. History of Present Illness Reason for Consultation: Stroke, atrial fibrillation Requesting Physician: Eryn Attending Physician: Bigg Cerna MD History of Present Illness The patient is a 73-year-old gentleman with a history of atrial fibrillation and prior pulmonary vein isolation who presented to the hospital with symptoms of left-sided paresthesias and neglect. It seems that the patient awoke from sleep and had reduced sensation on both the left arm and left leg. Based on the symptoms he presented to the hospital and was later diagnosed with what appeared to be an embolic stroke. Patient has had a variety of symptoms over the years involving visual disturbances, paresthesias and headaches. In the past he has been evaluated for atypical chest pains and even underwent coronary angiography at [facility] few years ago. Due to some diffuse symptoms including element of exercise intolerance and feeling as if he was going to , patient was evaluated but his primary care physician a little over a year ago and discovered to have atrial fibrillation. Subsequent to that evaluation the patient sought consultation at the [facility] and seems to have undergone a pulmonary vein isolation in October of this year. Patient has no sensation of palpitations. He does have a history of exercise intolerance and some other diffuse symptoms that he attributes to atrial fibrillation. Since his ablation he was felt to have some atrial fibrillation on remote monitoring for approximately a month and a half by his report. This eventually converted to a sinus rhythm. Since that time he believes he has had other episodes of atrial fibrillation manifest primarily by an irregular heart rate and exercise intolerance. He has been maintained on Eliquis for stroke prophylaxis. He claims to be compliant with the medications and while he may not take his dose exactly on time, he did not report missing doses or running out of medication. Allergies Allergy/AdvReac Type Severity Reaction Status Date / Time Penicillins Allergy Severe Hives Verified 05/14/19 02:13 Home Medications Home Medications Medication Instructions Recorded Confirmed Type Eliquis 5 mg PO BID 05/05/18 05/14/19 History Reservatrol 1 tab PO DAILY 05/05/18 05/14/19 History ascorbic acid (vitamin C) [Vitamin 500 mg PO DAILY 05/05/18 05/14/19 History C] doxazosin [Cardura] 1 tab PO HS 05/05/18 05/14/19 History doxazosin [Cardura] 2 mg PO HS 05/05/18 05/14/19 History glucosamine-chondroitin 1 cap PO DAILY 05/05/18 05/14/19 History losartan [Cozaar] 25 mg PO DAILY 05/05/18 05/14/19 History lutein 0 mg PO Q OTHER DAY 05/05/18 05/14/19 History magnesium 200 mg PO DAILY 05/05/18 05/14/19 History vitamin B complex [Super B-50 1 cap PO DAILY 05/05/18 05/14/19 History Complex] zinc 25 mg PO DAILY 05/05/18 05/14/19 History cholecalciferol (vitamin D3) 2,000 unit PO DAILY 05/14/19 05/14/19 History [Vitamin D3] cinnamon bark [Cinnamon] 500 mg PO DAILY 05/14/19 05/14/19 History omega 9-[id number]-[id number]-fish oil [Fish Oil] 1 cap PO DAILY 05/14/19 05/14/19 History turmeric 400 mg PO DAILY 05/14/19 05/14/19 History Patient History Medical History BPH (benign prostatic hyperplasia) (Chronic) HTN (hypertension) (Chronic) Paroxysmal atrial flutter (Chronic) Surgical History History of cardiac catheterization (Resolved) 2016 at [facility] [place] Hx of tonsillectomy (Resolved) Family History Other Hypertension Stroke Social History Preferred Language: Hungarian Communication Ability: Effective Visual Impairment: No Limitations Hearing Ability: Normal It Audit Manager Required: No Beliefs That Will Affect Care: None Current Living Situation: Spouse Other Information That Helps Us Care for You: No Feels Safe at Home: Yes Safety Concerns: Feels Safe At This Time Smoking Status: Never smoker Do You Dip or Chew Tobacco: No ; Second Hand Exposure: No ; Hx Alcohol Use: No Hx Substance Use: No Review of Systems Review of Systems: All systems reviewed & are unremarkable except as noted in HPI & below Physical Exam Physical Exam: The patient is alert and oriented. Mood and affect appeared normal. He answered all questions appropriately. HEENT: Pupils are equal and reactive to light and accommodation. Extraocular movements are intact. The sclerae are anicteric. Neuro: Cranial nerves intact Neck: Patient's neck is supple. He has palpable carotid pulses bilaterally without bruits on auscultation. There is no evidence of jugular venous distention. The thyroid is not enlarged. Lungs: Clear to auscultation bilaterally. He has good air movement without use of accessory muscles. No rales wheezes or rhonchi. Cardiac: Heart demonstrates a regular rate and rhythm. Normal S1 and S2. Soft holosystolic murmur. Pulses: The patient has palpable radial pulses bilaterally that are equal in intensity Extremities: There was no evidence of hypoperfusion. There is no cyanosis or clubbing. There is no edema. Skin: I did not appreciate any rashes on examination today. Results & Data Vital Signs (Past 12 Hours) Vital Signs Temp Pulse Pulse Resp BP Pulse Ox 05/15/19 12:04 36.6 C 72 22 156/83 H 05/15/19 07:17 70 05/15/19 06:59 36.9 C 69 18 129/67 97 05/15/19 04:00 36.8 C 76 16 129/73 97 Laboratory Results Abnormal Lab Results 05/15/19 05/15/19 05/15/19 06:39 06:39 06:39 WBC 8.54 RBC 4.52 L Hgb 14.8 Hct 40.4 L MCV 89.4 MCH 32.7 MCHC 36.6 H RDW Std Deviation 40.0 RDW Coeff of Saira 12.4 Plt Count 168 MPV 9.4 Immature Gran % (Auto) 0.5 Neut % (Auto) 60.8 Lymph % (Auto) 23.8 [place] % (Auto) 10.5 Eos % (Auto) 4.0 Baso % (Auto) 0.4 Immature Gran # (Auto) 0.04 H Neut # (Auto) 5.20 Lymph # (Auto) 2.03 [place] # (Auto) 0.90 H Eos # (Auto) 0.34 Baso # (Auto) 0.03 Sodium 140 Potassium 3.9 Chloride 109 H Carbon Dioxide 23 Anion Gap 8.0 BUN 25 H Creatinine 0.99 Est Cr Clr Drug Dosing 61.2 Est GFR ( Amer) 86.0 Est GFR (Non-Af Amer) 74.2 BUN/Creatinine Ratio 25.2 H Glucose 87 Estimat Average Glucose 94 Hemoglobin A1c 4.9 Calcium 9.1 Triglycerides 87 Cholesterol 128 LDL Cholesterol, Calc 75 VLDL Cholesterol, Calc 17 HDL Cholesterol 36 Cholesterol/HDL Ratio 4 Diagnostic Findings Echocardiogram performed yesterday revealed preserved LV systolic function with an element of aortic and mitral regurgitation. Brain MRI obtained on 05/14/2019 revealed a right parietal lobe lesion consistent with an embolic stroke. Carotid duplex examination obtained 05/14/2019 revealed mild carotid plaque without evidence of obstructive disease. ECG Additional Comments: EKG obtained at the time of admission revealed normal sinus rhythm. Subsequent EKGs and telemetry demonstrates frequent atrial ectopy. PG Care Time/CCT Total # of Minutes Spent Total Time Spent with Patient: Total time spent is greater than 50% in coordination of care (as documented) at patient's floor/unit and/or counseling patient:
--- NOTE | 2019-05-15 15:07 | Hospitalist Progress Note ---
Date of Service May 15, 2019 Assessment & Plan (1) TIA (transient ischemic attack): Presented with inability to feel left side of the body and the noted to have drooping of the left side of the face Did not meet criteria for TPA CT scan of the head was negative but MRI did show -Linear area of restricted diffusion within the right frontal parietal lobe junction measures up to 2.6 cm compatible with area of acute or subacute infarction. Likely secondary to thrombotic mechanism Received 1 dose of aspirin and Eliquis was continued Echo and lipid panel have been pending Awaiting evaluation by neurologist for further recommendation Appreciate neurology and cardiology evaluation Will not be given at any aspirin and he will continue with Xarelto 20 mg once a day from tomorrow Hypertension, elevated secondary to possible TIA Blood pressure seems to be stable now Troponin elevation possibly secondary to above and has been trending down Chronic systolic/diastolic heart failure (EF 45-50% TTE 2018), patient euvolemic Will repeat echo to rule out any clot Repeat echo did not show any significant change History of atrial flutter/atrial fib status post cardioversion status post ablation, NSR on Eliquis We will continue Eliquis BPH Denies any acute symptoms past tobacco abuse Full code Will discharge home today Subjective 05/14 The patient was seen and examined in medical telemetry unit He has significant past medical history including chronic systolic/diastolic heart failure with EF 40 to 45% in 2018 with atrial flutter/fibrillation on Eliquis with history of past tobacco abuse Was admitted with strokelike symptoms involving left-sided extremities and face Symptoms have improved with remaining numbness involving the left forearm Denies any other symptoms 05/15 The patient was seen and examined in medical telemetry unit He is numbness has improved involving the right forearm Denies any weakness or any other symptoms Review of Systems Review of Systems: All systems reviewed and are unremarkable except as noted below Neurologic: Numbness involving the left forearm. No weakness involving any of the extremities, no dysarthria and/or dysphasia Physical Exam Constitutional: well developed Eyes: PERRL, conjunctivae normal, anicteric sclerae ENMT: external ear and nose normal, oropharynx normal Neck: trachea midline, no thyromegaly Respiratory: normal respiratory effort; no respiratory distress Auscultation: lungs clear to auscultation bilaterally Cardiovascular: Rate/Rhythm: regular rate and regular rhythm Heart Sounds: no murmur Gastrointestinal (Abdomen): Inspection/Auscultation: abdomen normal to inspection and normal bowel sounds Percussion/Palpation: abdomen soft Neurologic: moves all extremities; no focal motor deficits (Except numbness involving left forearm and hand) Right forearm numbness has decreased Psychiatric: A+Ox3, euthymic affect Results & Data Vital Signs (Past 12 Hours) Vital Signs Temp Pulse Pulse Resp BP Pulse Ox 05/15/19 14:55 36.9 C 70 18 153/72 H 98 05/15/19 12:04 36.6 C 72 22 156/83 H 05/15/19 07:17 70 05/15/19 06:59 36.9 C 69 18 129/67 97 05/15/19 04:00 36.8 C 76 16 129/73 97 Laboratory Results Short CBC 05/15/19 Range/Units 06:39 WBC 8.54 (4.8-10.8) K/uL Hgb 14.8 (14.0-18.0) g/dL Hct 40.4 L (42-52) % Plt Count 168 (130-400) K/uL BMP 05/15/19 06:39 Sodium 140 Potassium 3.9 Chloride 109 H Carbon Dioxide 23 BUN 25 H Creatinine 0.99 Glucose 87 Calcium 9.1 Medications Administered Current Inpatient Medications Apixaban (Eliquis) 5 mg PO BID STARLA Stop: 06/13/19 08:59 Last Admin: 05/15/19 08:23 Dose: 5 mg Documented by: Atorvastatin Calcium (Lipitor) 20 mg PO QAM STARLA Stop: 06/14/19 08:59 Last Admin: 05/15/19 08:23 Dose: 20 mg Documented by: Promethazine HCl 12.5 mg/ (Sodium Chloride) 50.5 mls @ 202 mls/hr IV Q6H PRN PRN Reason: Nausea And Vomiting Stop: 06/13/19 05:54 Nitroglycerin (Nitrostat) 0.4 mg SL UD PRN PRN Reason: Chest Pain Stop: 06/13/19 05:54 Tramadol HCl (Ultram) 25 mg PO Q4H PRN PRN Reason: Pain Stop: 06/13/19 05:54
--- NOTE | 2019-05-16 07:29 | Discharge Summary ---
Date of Service May 16, 2019 Admission HPI Per Admitting Provider History obtained from patient, family, and records. Medical history significant for chronic systolic/diastolic heart failure (EF 45- 50% TTE 2018), aFlutter/atrial fib status post cardioversion status post ablation on Eliquis, GERD, BPH, past tobacco abuse. Recent confinement April 2018 for atypical chest pain. No ACS. Around midnight last night, patient woke up not feeling the left side of his body. thought there may have been drooping on the left side of the face. No chest pain, no S OB. No headache. Improving symptoms at the ER. Patient complaining of tingling discomfort on the left upper extremity. 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 Admission Exam Per Admitting Provider Physical Exam: GENERAL: Comfortable, slightly anxious, no respiratory distress SKIN: Normal color, warm HEENT: [place] palpebral conjunctivae, chronic ptosis, dry buccal mucosa NECK : Supple, no tenderness CHEST : CTA, no tenderness HEART : RRR, no obvious murmurs ABDOMEN: Soft, nontender EXTREMITIES : No LE swelling/tenderness, no other conspicuous deformities noted NEUROLOGIC : Coherent, no facial asymmetry, no other gross focality Principal Diagnosis Right frontal parietal lobe of stroke, hypertension, chronic systolic/diastolic heart failure, history of atrial flutter on Xarelto Discharge Exam Constitutional well developed Eyes PERRL, conjunctivae normal, anicteric sclerae ENMT external ear and nose normal, oropharynx normal Neck trachea midline, no thyromegaly Respiratory normal respiratory effort; no respiratory distress Auscultation: lungs clear to auscultation bilaterally Cardiovascular Rate/Rhythm: regular rate and regular rhythm Heart Sounds: no murmur Gastrointestinal (Abdomen) Inspection/Auscultation: abdomen normal to inspection and normal bowel sounds Percussion/Palpation: abdomen soft Neurologic moves all extremities; no focal motor deficits (Except numbness involving left forearm and hand) Psychiatric A+Ox3, euthymic affect Discharge Data Allergies Allergy/AdvReac Type Severity Reaction Status Date / Time Penicillins Allergy Severe Hives Verified 05/14/19 02:13 Consultations 05/14/19 04:19 ED Decision to Admit Stat 05/14/19 05:55 Consult Case Management - Discharge Planning Routine Consult Neurology Routine 05/14/19 17:32 Consult Cardiology Routine Ordered Studies 05/14/19 02:09 CT head/brain wo con Urgent 05/14/19 05:55 MR angio head wo con Routine MR brain wo con Routine 05/15/19 08:00 US carotid doppler BI Routine Hospital Course (1) TIA (transient ischemic attack): Presented with inability to feel left side of the body and the noted to have drooping of the left side of the face Did not meet criteria for TPA CT scan of the head was negative but MRI did show -Linear area of restricted diffusion within the right frontal parietal lobe junction measures up to 2.6 cm compatible with area of acute or subacute infarction. Likely secondary to thrombotic mechanism Received 1 dose of aspirin and Eliquis was continued Echo and lipid panel have been pending Awaiting evaluation by neurologist for further recommendation Appreciate neurology and cardiology evaluation Will not be given at any aspirin and he will continue with Xarelto 20 mg once a day from tomorrow Hypertension, elevated secondary to possible TIA Blood pressure seems to be stable now Troponin elevation possibly secondary to above and has been trending down Chronic systolic/diastolic heart failure (EF 45-50% TTE 2018), patient euvolemic Will repeat echo to rule out any clot Repeat echo did not show any significant change History of atrial flutter/atrial fib status post cardioversion status post ablation, NSR on Eliquis We will continue Eliquis BPH Denies any acute symptoms past tobacco abuse Full code Will discharge home today Total Time Total Time Spent Total Time Spent (In Minutes): 40 minutes Total Time Includes: Examination of the Patient, Discharge Planning, Medication Reconciliation and Communication With Other Providers Discharge Plan Discharge Items Patient Disposition: Home - Self-Care Reason For Visit: TIA Discharge Diagnosis: Right frontal parietal lobe of stroke, hypertension, chronic systolic/diastolic heart failure, history of atrial flutter on Xarelto Condition on Discharge: Good Activity: Resume your previous activity Non-emergency contact: Primary Care Provider Call non-emergency contact if: you have any medication questions and your symptoms worsen Follow-up/Referrals: William Collado MD [Primary Care Provider] - 05/22/19 11:05 am Diet: Heart Healthy Addtl Attending Provider Instructions: Take tonight's dose of Eliquis and then Continue Xarelto 20 mg once a day. Do not take any more Eliquis Lipitor 10 mg once a day Pending Studies at Discharge: No Stand-Alone Forms: My [facility], Smoking Cessation Medications and DC Order Prescriptions: New Xarelto 20 mg tablet 20 mg PO DAILY Qty: 30 RF: 0 atorvastatin [Lipitor] 10 mg tablet 10 mg PO DAILY Qty: 30 RF: 0 Continued ascorbic acid (vitamin C) [Vitamin C] 500 mg Tablet 500 mg PO DAILY RF: 0 lutein 6 mg Capsule PO Q OTHER DAY RF: 0 losartan [Cozaar] 25 mg tablet 25 mg PO DAILY RF: 0 doxazosin [Cardura] 4 mg tablet 1 tab PO HS RF: 0 zinc 50 mg Tablet 25 mg PO DAILY RF: 0 vitamin B complex [Super B-50 Complex] Capsule 1 cap PO DAILY RF: 0 glucosamine-chondroitin 167-133 mg Capsule 1 cap PO DAILY RF: 0 Reservatrol 1 tab PO DAILY RF: 0 doxazosin [Cardura] 2 mg Tablet 2 mg PO HS RF: 0 magnesium 200 mg Tablet 200 mg PO DAILY RF: 0 cholecalciferol (vitamin D3) [Vitamin D3] 1,000 unit Capsule 2,000 unit PO DAILY RF: 0 cinnamon bark [Cinnamon] 500 mg Capsule 500 mg PO DAILY RF: 0 turmeric 400 mg Capsule 400 mg PO DAILY RF: 0 omega 7-[id number]-fish oil [Fish Oil] 1,000 mg (120 mg-180 mg) Capsule 1 cap PO DAILY RF: 0 Discontinued Eliquis 5 mg tablet 5 mg PO BID RF: 0 Discharge Orders: Discharge Order (Routine); Ordered 05/15/19 Ordered By: Bigg Cerna Admission Data Admit Date/Time: 05/14/19 13:42 Attending Provider: Bigg Cerna Admit Provider: Luis Antonio Dunlap Primary Care Provider: William Collado Other Providers: Luis Antonio Dunlap ; Daiana Flores ; Phong Gleason ; Daiana You ; Kong Strong ; Mirza Vasquez Other Interventions: Discharge Summary Assessment (RN) Last Done: 05/15/19 15:20 DC Date/Time DO NOT enter until pt leaves facility: 05/15/19 15:52
== END 2019-05-15 15:52 | disposition home or self-care (01) | DRG 65 ==
LOC: ED 01:59 → 2W 01:59

== ENCOUNTER 2019-09-19 00:28 | Inpatient (IN) ==
[2019-09-19 01:00] LABS: Basophils # (auto) 0.02 K/uL (0-0.2); Basophils % (auto) 0.3 %; Eosinophils # (auto) 0.26 K/uL (0-0.5); Hematocrit (blood only) 40.4 % (42-52); Hemoglobin 14.2 g/dL (14.0-18.0); Immature Granulocytes # (auto) 0.02 K/uL (0.00-0.02); Immature Granulocytes % (auto) 0.3 %; Lymphocytes # (auto) 2.02 K/uL (1.2-3.4); Lymphocytes % (auto) 31.1 %; Mean Corpuscular Hemoglobin 31.8 pg (25-34); Mean Corpuscular Hgb Conc 35.1 g/dL (32-36); Mean Corpuscular Volume 90.6 fL (80-100); Mean Platelet Volume 9.9 fL (7.4-10.4); Monocytes # (auto) 0.89 K/uL (0.11-0.59); Monocytes % (auto) 13.7 %; Neutrophils # (auto) 3.28 K/uL (1.4-6.5); Neutrophils % (auto) 50.6 %; Platelet Count 170 K/uL (130-400); RDW Coefficient of Variation 12.7 % (11.5-14.5); RDW Standard Deviation 41.9 fL (36.4-46.3); Red Blood Count 4.46 M/uL (4.7-6.1); White Blood Count 6.49 K/uL (4.8-10.8)
[2019-09-19 01:09] LABS: Alanine Aminotransferase 51 U/L (12-78); Albumin Level 3.5 gm/dl (3.4-5.0); Aspartate Aminotransferase 37 U/L (15-37); BUN Creatinine Ratio 36.8 (10-20); Blood Urea Nitrogen 39 mg/dl (7-18); Calcium 8.4 mg/dl (8.5-10.1); Carbon Dioxide 27 mmol/L (21-32); Chloride 111 mmol/L (98-107); Est GFR (African American) 78.6; Est GFR (Non-African American) 67.8; Glucose 108 mg/dl (70-99); Magnesium 2.1 mg/dl (1.8-2.4); Sodium 142 mmol/L (136-145)
[2019-09-19 01:11] LABS: INR 1.5 (0.9-1.1); Partial Thromboplastin Ratio 1.3; Partial Thromboplastin Time 35.1 Seconds (21.0-31.0); Prothrombin Time 15.6 Seconds (9.0-12.0)
[2019-09-19 01:21] LABS: Albumin Globulin Ratio 1.3 (0.9-2); Alkaline Phosphatase 141 U/L (45-117); Bilirubin,Total 0.3 mg/dl (0.2-1); Globulin 2.8 gm/dl (2.5-4.0); Total Protein 6.3 gm/dl (6.4-8.2)
[2019-09-19] MEDS ORDERED: OPTIRAY 320 125ml IV PRN (01:21)
--- NOTE | 2019-09-19 01:40 | Emergency Department Note ---
ED Provider Note NAME: ANALILIA WANG AGE: 74 SEX: M ARRIVES VIA: Ambulance INFORMANT: [Patient][ ] ED PROVIDER(S): [Danielle Nassar DO] CHIEF COMPLAINT: [Trouble speaking] IMPRESSION: Acute CVA Elevated troponin PLAN: [facility] Condition: [Good] MEDICAL DECISION MAKING: This is a 74-year-old male patient who presents to the emergency department with an episode of dysarthria at home. He has a history of a previous CVA. The patient's strokelike symptoms seem to be waxing and waning here in the emergency department. His blood pressure did seem to remain elevated here in the ER and he was treated with IV labetalol. The patient did have an elevated troponin and was given oral aspirin. There was some concern that this episode could be seizure and he was loaded with a gram of IV Keppra. We worked in coordination with [facility] to care for this patient. He was not a TPA candidate as the patient takes Xarelto. Triage Nursing notes reviewed and agree them. [Additional history obtained from EMS and the patient's [Prior medical records reviewed with regards to the patient's stroke in May 2019 Vital Signs: reviewed and remarkable for hypertension Differential diagnosis: Recurrent CVA, TIA, seizure, hypertensive crisis ER treatment provided: IV normal saline hydration Oral aspirin IV Keppra IV labetalol Diagnostics interpreted by me: ECG: Normal sinus rhythm at a rate of 75 with a first-degree AV block. No acute coronary ischemia. No ST segment elevation no ectopy Cardiac Monitoring: Normal sinus rhythm at a rate of 62 Laboratory studies: [See below] Imaging studies: CT scan of the brain as per stat rad: Direct comparison is made to a prior study from May 14, 2019. No ICH, mass- effect or edema. No evidence of acute cortical stroke. Visualized sinuses and mastoid air cells are clear CTA of brain: No significant stenosis, occlusion, or aneurysm within the tetlin of [place]. CTA of neck: No significant stenosis, occlusion, or dissection identified within the carotid or vertebral arteries. Consultation(s): [none] HPI: This is a 74-year-old male patient who presents to the emergency department with dysarthria ROS: See above HPI for pertinent positives & negatives. A total of [10] systems reviewed and were otherwise negative. PAST MEDICAL HISTORY:[See Below] PAST SURGICAL HISTORY:[See Below] FAMILY HISTORY:[See Below] SOCIAL HISTORY:[See Below] HOME MEDICATIONS:[See Below] ALLERGIES:[See Below] VITALS:[See Below] PHYSICAL EXAMINATION: [HEENT: Head - normocephalic and atraumatic. Pupils are equal, round, and reactive to light. Extraocular eye muscles are intact and sclera are anicteric. Ears - bilaterally patent canals with noninjected tympanic membranes and no evidence of hemotympanum. Nose - moist nasal mucosa without discharge. Mouth - moist buccal mucosa. Oropharynx is nonerythematous and there is no tonsillar exudate or edema noted. Neck: Supple; no JVD, nuchal rigidity, cervical lymphadenopathy, or auscultated bruits. Heart: Regular rate and rhythm. There is a normal S1 and S2 with no murmurs, clicks, or gallops appreciated. Lungs: Clear to auscultation bilaterally with no wheezes, rales, or rhonchi. Abdomen: Soft, completely nontender, nondistended, with good bowel sounds. There are no palpable pulsatile masses or hepatosplenomegaly. There is no guarding, rigidity, or rebound noted. Extremities: No evidence of cyanosis, clubbing, or edema. There are easily palpable peripheral pulses. Neuro:The patient is awake and alert, oriented to day, time, and place. Muscle strength is 5/5 in all 4 extremities. 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 There are no cerebellar signs. The patient has difficulty forming words at times and seems to get frustrated easily. There is a very slight droop to the left side of the patient's mouth. ED COURSE: 0050: The patient was evaluated in c9. An order was placed for continuous cardiac monitoring. The patient remained in a normal sinus rhythm at a rate of 62. A complete history and physical was performed. Nursing staff stated that his stroke score was a 2. An IV lock was initiated and labs were drawn as above. A twelve-lead EKG was obtained. A stroke alert was called. The patient will go to stat CT scan and then be transferred to . 112: I briefly discussed the case with Dr. Mccray from [place]. We reviewed the results of the patient's initial CAT scan and he recommended sending the patient back over for a CT angiogram of the patient's brain and neck with contrast. After this, he will perform tele-stroke to evaluate the patient. 114: I reevaluated the patient and some of his neurological symptoms seem to be resolving. I explained that he would go back to radiology for the CT angiogram. 0150: I rechecked the patient at this time. He is hemodynamically stable at this time and his neurological symptoms seem to have completely resolved. Dr. Mccray continues to talk to the family. 0212: I have another conversation with Dr. Mccray and he believes that the patient has suffered a slight left hemispheric stroke. We did talk about the possibility of a seizure. He explained to the patient should be admitted to the hospital through medicine and undergo MRI of the brain along with EEG. Because the patient does have a positive troponin, we will give him a full-strength aspirin and try to tightly control his blood pressure and heart rate. We will shoot for a target of 160/90. 0235: Nursing staff alerted me that the patient's symptoms appear to be worsening. He has a stroke score now of 3 and seems to be having significant difficulty with speech. When I enter the room just 1-2 minutes later, the patient's symptoms seem to be resolved. The patient symptoms seem to be waxing and waning. We talked about the possibility of this being a seizure. We will load him with 1 g of Keppra. His blood pressure is currently 188/97. He will be given 10 mg of IV labetalol. The case will be discussed with Dr. Lantigua. I have personally spent greater than 125 minutes of critical care time in the direct management of this patient. This includes bedside care, interpretation of diagnostic studies, and testing, discussion with consultants, patient, and family members, and other required patient management activities. This 125 minutes is in excess of all separately billable procedures. 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 Movement Required: No Beliefs That Will Affect Care: None marital status: Current Living Situation: Spouse Feels Safe at Home: Yes Safety Concerns: Feels Safe At This Time Smoking Status: Former smoker Second Hand Exposure: No ; Hx Alcohol Use: No Hx Substance Use: No Results & Data Vital Signs Vital Signs - 24 hr 09/19/19 00:40 09/19/19 01:12 09/19/19 01:57 Temperature 36.9 C Temperature Source Oral Pulse Rate 84 Pulse Rate [Right Finger] 72 70 Pulse Rate from SpO2 Sensor Pulse Rhythm Regular Pulse Rhythm [Right Finger] Regular Regular Pulse Strength Normal Pulse Strength [Right Finger] Normal Normal Respiratory Rate 16 68 H 20 Respiratory Effort / Characteristics Non-Labored Spontaneous Non-Labored Spontaneous Non-Labored Spontaneous Respiratory Depth Normal Normal Normal Respiratory Pattern Regular Regular Regular Blood Pressure 181/73 H Blood Pressure [Right Arm] 186/84 H 180/81 H Blood Pressure Mean 109 Blood Pressure Mean [Right Arm] 118 114 Blood Pressure Position Sitting Blood Pressure Position [Right Arm] Sitting Sitting Pulse Oximetry 99 100 100 Oxygen Delivery Method Room Air Room Air Room Air Sepsis Recent Fever Within 48 Hours No Sepsis New/Unexplained Change in Mental Status No Sepsis Action Taken by Nursing No Action Required 09/19/19 02:23 09/19/19 02:41 09/19/19 02:45 Temperature Temperature Source Pulse Rate 73 Pulse Rate [Right Finger] 62 83 Pulse Rate from SpO2 Sensor 73 Pulse Rhythm Pulse Rhythm [Right Finger] Regular Regular Pulse Strength Pulse Strength [Right Finger] Normal Normal Respiratory Rate 20 20 22 Respiratory Effort / Characteristics Non-Labored Spontaneous Non-Labored Spontaneous Respiratory Depth Normal Normal Respiratory Pattern Regular Blood Pressure 146/98 H Blood Pressure [Right Arm] 171/78 H 188/97 H Blood Pressure Mean 110 Blood Pressure Mean [Right Arm] 109 127 Blood Pressure Position Blood Pressure Position [Right Arm] Sitting Pulse Oximetry 96 99 97 Oxygen Delivery Method Room Air Room Air Room Air Sepsis Recent Fever Within 48 Hours Sepsis New/Unexplained Change in Mental Status Sepsis Action Taken by Nursing 09/19/19 03:02 09/19/19 03:16 09/19/19 03:31 Temperature Temperature Source Pulse Rate 74 64 62 Pulse Rate [Right Finger] Pulse Rate from SpO2 Sensor 72 65 63 Pulse Rhythm Pulse Rhythm [Right Finger] Pulse Strength Pulse Strength [Right Finger] Respiratory Rate 19 22 18 Respiratory Effort / Characteristics Respiratory Depth Respiratory Pattern Blood Pressure 157/80 H 160/69 H 102/77 Blood Pressure [Right Arm] Blood Pressure Mean 129 113 85 Blood Pressure Mean [Right Arm] Blood Pressure Position Blood Pressure Position [Right Arm] Pulse Oximetry 99 97 97 Oxygen Delivery Method Room Air Room Air Room Air Sepsis Recent Fever Within 48 Hours Sepsis New/Unexplained Change in Mental Status Sepsis Action Taken by Nursing 09/19/19 03:52 09/19/19 04:00 09/19/19 04:16 Temperature Temperature Source Pulse Rate 62 65 66 Pulse Rate [Right Finger] Pulse Rate from SpO2 Sensor 62 63 66 Pulse Rhythm Pulse Rhythm [Right Finger] Pulse Strength Pulse Strength [Right Finger] Respiratory Rate 26 H 26 H 22 Respiratory Effort / Characteristics Respiratory Depth Respiratory Pattern Blood Pressure 170/69 H 167/83 H 157/116 H Blood Pressure [Right Arm] Blood Pressure Mean 122 126 140 Blood Pressure Mean [Right Arm] Blood Pressure Position Blood Pressure Position [Right Arm] Pulse Oximetry 98 97 98 Oxygen Delivery Method Room Air Room Air Room Air Sepsis Recent Fever Within 48 Hours Sepsis New/Unexplained Change in Mental Status Sepsis Action Taken by Nursing Laboratory Data Result diagrams: 09/20/19 05:53 09/20/19 05:53 Lab Results 09/19/19 09/19/19 09/19/19 Range/Units 00:36 00:36 00:36 WBC 6.49 (4.8-10.8) K/uL RBC 4.46 L (4.7-6.1) M/uL Hgb 14.2 (14.0-18.0) g/dL Hct 40.4 L (42-52) % MCV 90.6 (80-100) fL MCH 31.8 (25-34) pg MCHC 35.1 (32-36) g/dL RDW Std Deviation 41.9 (36.4-46.3) fL RDW Coeff of Saira 12.7 (11.5-14.5) % Plt Count 170 (130-400) K/uL MPV 9.9 (7.4-10.4) fL Immature Gran % (Auto) 0.3 % Neut % (Auto) 50.6 % Lymph % (Auto) 31.1 % [place] % (Auto) 13.7 % Eos % (Auto) 4.0 % Baso % (Auto) 0.3 % Immature Gran # (Auto) 0.02 (0.00-0.02) K/uL Neut # (Auto) 3.28 (1.4-6.5) K/uL Lymph # (Auto) 2.02 (1.2-3.4) K/uL [place] # (Auto) 0.89 H (0.11-0.59) K/uL Eos # (Auto) 0.26 (0-0.5) K/uL Baso # (Auto) 0.02 (0-0.2) K/uL PT 15.6 H (9.0-12.0) Seconds INR 1.5 H (0.9-1.1) APTT 35.1 H (21.0-31.0) Seconds PTT Ratio 1.3 Sodium (136-145) mmol/L Potassium (3.5-5.1) mmol/L Chloride (98-107) mmol/L Carbon Dioxide (21-32) mmol/L Anion Gap (3-11) BUN (7-18) mg/dl Creatinine (0.6-1.4) mg/dl Est Cr Clr Drug Dosing Est GFR ( Amer) Est GFR (Non-Af Amer) BUN/Creatinine Ratio (10-20) Glucose (70-99) mg/dl POC Glucose (70-99) mg/dl Calcium (8.5-10.1) mg/dl Magnesium (1.8-2.4) mg/dl Total Bilirubin (0.2-1) mg/dl AST (15-37) U/L ALT (12-78) U/L Alkaline Phosphatase (45-117) U/L Troponin I (0-0.045) ng/ml Total Protein (6.4-8.2) gm/dl Albumin (3.4-5.0) gm/dl Globulin (2.5-4.0) gm/dl Albumin/Globulin Ratio (0.9-2) Blood Type B Positive Antibody Screen NEGATIVE 09/19/19 09/19/19 Range/Units 00:36 01:09 WBC (4.8-10.8) K/uL RBC (4.7-6.1) M/uL Hgb (14.0-18.0) g/dL Hct (42-52) % MCV (80-100) fL MCH (25-34) pg MCHC (32-36) g/dL RDW Std Deviation (36.4-46.3) fL RDW Coeff of Saira (11.5-14.5) % Plt Count (130-400) K/uL MPV (7.4-10.4) fL Immature Gran % (Auto) % Neut % (Auto) % Lymph % (Auto) % [place] % (Auto) % Eos % (Auto) % Baso % (Auto) % Immature Gran # (Auto) (0.00-0.02) K/uL Neut # (Auto) (1.4-6.5) K/uL Lymph # (Auto) (1.2-3.4) K/uL [place] # (Auto) (0.11-0.59) K/uL Eos # (Auto) (0-0.5) K/uL Baso # (Auto) (0-0.2) K/uL PT (9.0-12.0) Seconds INR (0.9-1.1) APTT (21.0-31.0) Seconds PTT Ratio Sodium 142 (136-145) mmol/L Potassium 4.0 (3.5-5.1) mmol/L Chloride 111 H (98-107) mmol/L Carbon Dioxide 27 (21-32) mmol/L Anion Gap 4.0 (3-11) BUN 39 H (7-18) mg/dl Creatinine 1.06 (0.6-1.4) mg/dl Est Cr Clr Drug Dosing Not Reportable Est GFR ( Amer) 78.6 Est GFR (Non-Af Amer) 67.8 BUN/Creatinine Ratio 36.8 H (10-20) Glucose 108 H (70-99) mg/dl POC Glucose 98 (70-99) mg/dl Calcium 8.4 L (8.5-10.1) mg/dl Magnesium 2.1 (1.8-2.4) mg/dl Total Bilirubin 0.3 (0.2-1) mg/dl AST 37 (15-37) U/L ALT 51 (12-78) U/L Alkaline Phosphatase 141 H (45-117) U/L Troponin I 0.180 H* (0-0.045) ng/ml Total Protein 6.3 L (6.4-8.2) gm/dl Albumin 3.5 (3.4-5.0) gm/dl Globulin 2.8 (2.5-4.0) gm/dl Albumin/Globulin Ratio 1.3 (0.9-2) Blood Type Antibody Screen Administered Medications Atorvastatin Calcium (Lipitor) 10 mg PO DAILY STARLA Stop: 10/19/19 08:59 Last Admin: 09/19/19 11:16 Dose: 10 mg Documented by: [id number] Gadobutrol (Gadavist 65ml) 7.5 ml IV ONCE PRN PRN Reason: Interaction Checking Stop: 09/23/19 11:38 Last Admin: 09/19/19 11:39 Dose: 7.5 ml Documented by: [id number] Vitamin B Complex (Vitamin B Complex) 1 tab PO DAILY STARLA Stop: 10/19/19 08:59 Last Admin: 09/19/19 11:16 Dose: 1 tab Documented by: [id number] Discontinued Medications Aspirin (Aspirin) 324 mg PO NOW STA Stop: 09/19/19 02:45 Last Admin: 09/19/19 02:55 Dose: 324 mg Documented by: [id number] Sodium Chloride (Nss) 500 mls @ 999 mls/hr IV .Q31M ONE Stop: 09/19/19 02:14 Last Infusion: 09/19/19 02:56 Dose: 0 mls/hr Documented by: [id number] Admin: 09/19/19 02:16 Dose: 999 mls/hr Documented by: [id number] Sodium Chloride (Nss) 500 mls @ 125 mls/hr IV .Q4H STARLA Stop: 10/19/19 01:44 Last Admin: 09/19/19 06:30 Dose: Not Given Documented by: [id number] Infusion: 09/19/19 06:30 Dose: 0 mls/hr Documented by: [id number] Admin: 09/19/19 02:56 Dose: 125 mls/hr Documented by: [id number] Levetiracetam 1,000 mg/ Sodium (Chloride) 110 mls @ 440 mls/hr IV NOW STA Stop: 09/19/19 02:58 Last Infusion: 09/19/19 03:27 Dose: 0 mls/hr Documented by: [id number] Admin: 09/19/19 02:56 Dose: 440 mls/hr Documented by: [id number] Calcium Gluconate 1,000 mg/ (Sodium Chloride) 60 mls @ 240 mls/hr IV NOW STA Stop: 09/19/19 03:40 Last Infusion: 09/19/19 04:27 Dose: 0 mls/hr Documented by: [id number] Admin: 09/19/19 03:38 Dose: 240 mls/hr Documented by: [id number] Sodium Chloride (1/2 Nss) 1,000 mls @ 50 mls/hr IV .Q20H ONE Stop: 09/20/19 01:46 Last Infusion: 09/20/19 02:48 Dose: 0 mls/hr Documented by: [id number] Admin: 09/19/19 06:48 Dose: 50 mls/hr Documented by: [id number] Ioversol (Optiray 320 125ml) 120 ml IV ONCE PRN PRN Reason: Interaction Checking Stop: 09/23/19 01:20 Last Admin: 09/19/19 01:23 Dose: 120 ml Documented by: [id number] Labetalol HCl (Normodyne) 10 mg IV NOW STA Stop: 09/19/19 02:45 Last Admin: 09/19/19 05:12 Dose: 10 mg Documented by: [id number] Cosigned by: [id number] Rivaroxaban (Xarelto) 20 mg PO DAILY [facility] Stop: 10/19/19 08:59 Last Admin: 09/19/19 11:16 Dose: 20 mg Documented by: [id number] Discharge Plan Visit Data *Final* Discharge Date/Time: 09/19/19 05:18 Chief Complaint: Stroke/CVA Symptoms Stated Complaint: STROKE SYMPTOMS ED Provider: Danielle Nassar Discharge Problem: Acute CVA (cerebrovascular accident), Elevated troponin I level Patient Disposition: Admitted As Inpatient Discharge Instructions Interventions: ED Discharge Assessment Last Done: 09/19/19 05:18
[2019-09-19] MEDS ORDERED: SODIUM CHLORIDE 0.9% 500 ML IV ONE (01:44)
[2019-09-19] MEDS ORDERED: levETIRAcetam 1,000 MG in 0.9 % SODIUM CHLORIDE 100 ML IV STA (02:44)
[2019-09-19] MEDS ORDERED: ASPIRIN CHEW 324 MG PO STA (02:44)
[2019-09-19] MEDS ORDERED: LABETALOL HCL IV 5 MG/ML 20ML IV STA (02:44)
[2019-09-19] MEDS: SODIUM CHLORIDE 0.9% 500 ML IV SCH ×2 (02:56→06:30)
[2019-09-19] MEDS ORDERED: CALCIUM GLUCONATE 10% 1,000 MG in SODIUM CHLORIDE 0.9% 50 ML IV STA (03:26)
--- NOTE | 2019-09-19 04:21 | History & Physical Report ---
Date of Service September 19, 2019 Assessment & Plan (1) TIA (transient ischemic attack): hx embolic CVA hx aFlutter/atrial fib status post cardioversion status post ablation on Xarelto ? NOAC resistance Rule out seizure disorder Hypertension, elevated secondary to above Troponin elevation secondary to above chronic diastolic heart failure (EF 55-60% TTE 2019), patient euvolemic past tobacco abuse OBS Medical telemetry Neurochecks Continue home Xarelto MRI/MRA brain, EEG for work-up of possible seizure dso as per [facility] [place] Neurology consult RE TIA Hold additional Keppra until work-up results in and patient evaluated by Neurology. Permissive hypertension for now Follow troponin, TTE if with significant progression DVT prophylaxis. Xarelto Full code Text document was generated using MuseAmi voice recognition software. It may contain grammatical or spelling errors. Kindly contact undersigned for clarification of any documentation item in question. History of Present Illness Chief Complaint: Strokelike symptoms Primary Care Provider: William Collado MD History obtained from patient, family, and records. Medical history significant for chronic diastolic heart failure (EF 55-60% TTE 2019), aFlutter/atrial fib status post cardioversion status post ablation on Xarelto, hx embolic CVA, GERD, BPH, past tobacco abuse. Recent confinement May 2019 for transient left-sided weakness attributed to embolic CVA. Patient BID Eliquis changed to nightly Xarelto to facilitate compliance. Patient was working out on the treadmill last night when he noted a strange sensation that something was not right. Possibly blank episode as per patient without witnessed seizures, incontinence, tongue biting. Patient later noted by to be struggling with use of the TV remote control. Patient used the word granola to refer to remote control. Patient denies headache, chest pain, S OB. Compliant with home medications. EMS summoned by . Blood pressure noted to be high at home as per . Patient given aspirin upon arrival at the ER. Stroke alert called. Patient given IV Keppra for seizure prophylaxis as per [facility] [place]eneurolog[place] recommendation. Improving symptoms as per but patient still struggling to get some words out. 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 Allergy/AdvReac Type Severity Reaction Status Date / Time Penicillins Allergy Severe Hives Verified 09/19/19 01:10 Home Medications Home Medications Medication Instructions Recorded Confirmed Type Reservatrol 1 tab PO DAILY 05/05/18 09/19/19 History ascorbic acid (vitamin C) [Vitamin 500 mg PO DAILY 05/05/18 09/19/19 History C] doxazosin [Cardura] 2 mg PO HS 05/05/18 09/19/19 History glucosamine-chondroitin 1 cap PO DAILY 05/05/18 09/19/19 History losartan [Cozaar] 25 mg PO DAILY 05/05/18 09/19/19 History lutein 0 mg PO Q OTHER DAY 05/05/18 09/19/19 History magnesium 200 mg PO DAILY 05/05/18 09/19/19 History vitamin B complex [Super B-50 1 cap PO DAILY 05/05/18 09/19/19 History Complex] zinc 25 mg PO DAILY 05/05/18 09/19/19 History cholecalciferol (vitamin D3) 2,000 unit PO DAILY 05/14/19 09/19/19 History [Vitamin D3] cinnamon bark [Cinnamon] 500 mg PO DAILY 05/14/19 09/19/19 History omega 5-tsz-csm-fish oil [Fish Oil] 1 cap PO DAILY 05/14/19 09/19/19 History atorvastatin [Lipitor] 10 mg PO DAILY #30 tab 05/15/19 09/19/19 Rx rivaroxaban [Xarelto] 20 mg PO DAILY #30 tab 05/15/19 09/19/19 Rx Past Med/Surg History Social History Preferred Language: Kiswahili Communication Ability: Impaired Visual Impairment: No Limitations Hearing Ability: Normal Slag Skimmer Required: No Beliefs That Will Affect Care: None Current Living Situation: Spouse Feels Safe at Home: Yes Safety Concerns: Feels Safe At This Time Smoking Status: Former smoker Second Hand Exposure: No ; Hx Alcohol Use: No Hx Substance Use: No Review of Systems Review of Systems: As per HPI, all 10 systems reviewed, all other ROS negative Physical Exam Physical Exam: GENERAL: Comfortable, slightly anxious, no respiratory distress, episodic dysphasia SKIN: Normal color, warm HEENT: [place] palpebral conjunctivae, chronic ptosis, dry buccal mucosa NECK : Supple, no tenderness CHEST : CTA, no tenderness HEART : RRR, no obvious murmurs ABDOMEN: Soft, nontender EXTREMITIES : No LE swelling/tenderness, no other conspicuous deformities noted NEUROLOGIC : Coherent, no facial asymmetry, episodic dysphasia, no pronator drift, gait and stance not assessed Results & Data Vital Signs (Past 12 Hours) Vital Signs Temp Pulse Pulse Resp BP BP Pulse Ox 09/19/19 03:31 62 18 102/77 97 09/19/19 03:16 64 22 160/69 H 97 09/19/19 03:02 74 19 157/80 H 99 09/19/19 02:45 73 22 146/98 H 97 09/19/19 02:41 83 20 188/97 H 99 09/19/19 02:23 62 20 171/78 H 96 09/19/19 01:57 70 20 180/81 H 100 09/19/19 01:12 72 68 H 186/84 H 100 09/19/19 00:40 36.9 C 84 16 181/73 H 99 Laboratory Results Laboratory Results WBC 6.49 K/uL (4.8-10.8) 09/19/19 00:36 RBC 4.46 M/uL (4.7-6.1) L 09/19/19 00:36 Hgb 14.2 g/dL (14.0-18.0) 09/19/19 00:36 Hct 40.4 % (42-52) L 09/19/19 00:36 MCV 90.6 fL (80-100) 09/19/19 00:36 MCH 31.8 pg (25-34) 09/19/19 00:36 MCHC 35.1 g/dL (32-36) 09/19/19 00:36 RDW Std Deviation 41.9 fL (36.4-46.3) 09/19/19 00:36 RDW Coeff of Saira 12.7 % (11.5-14.5) 09/19/19 00:36 Plt Count 170 K/uL (130-400) 09/19/19 00:36 MPV 9.9 fL (7.4-10.4) 09/19/19 00:36 Immature Gran % (Auto) 0.3 % 09/19/19 00:36 Neut % (Auto) 50.6 % 09/19/19 00:36 Lymph % (Auto) 31.1 % 09/19/19 00:36 Dare % (Auto) 13.7 % 09/19/19 00:36 Eos % (Auto) 4.0 % 09/19/19 00:36 Baso % (Auto) 0.3 % 09/19/19 00:36 Immature Gran # (Auto) 0.02 K/uL (0.00-0.02) 09/19/19 00:36 Neut # (Auto) 3.28 K/uL (1.4-6.5) 09/19/19 00:36 Lymph # (Auto) 2.02 K/uL (1.2-3.4) 09/19/19 00:36 Dare # (Auto) 0.89 K/uL (0.11-0.59) H 09/19/19 00:36 Eos # (Auto) 0.26 K/uL (0-0.5) 09/19/19 00:36 Baso # (Auto) 0.02 K/uL (0-0.2) 09/19/19 00:36 PT 15.6 Seconds (9.0-12.0) H 09/19/19 00:36 INR 1.5 (0.9-1.1) H 09/19/19 00:36 APTT 35.1 Seconds (21.0-31.0) H 09/19/19 00:36 PTT Ratio 1.3 09/19/19 00:36 Sodium 142 mmol/L (136-145) 09/19/19 00:36 Potassium 4.0 mmol/L (3.5-5.1) 09/19/19 00:36 Chloride 111 mmol/L (98-107) H 09/19/19 00:36 Carbon Dioxide 27 mmol/L (21-32) 09/19/19 00:36 Anion Gap 4.0 (3-11) 09/19/19 00:36 BUN 39 mg/dl (7-18) H 09/19/19 00:36 Creatinine 1.06 mg/dl (0.6-1.4) 09/19/19 00:36 Est Cr Clr Drug Dosing Not Reportable 09/19/19 00:36 Est GFR ( Amer) 78.6 09/19/19 00:36 Est GFR (Non-Af Amer) 67.8 09/19/19 00:36 BUN/Creatinine Ratio 36.8 (10-20) H 09/19/19 00:36 Glucose 108 mg/dl (70-99) H 09/19/19 00:36 POC Glucose 98 mg/dl (70-99) 09/19/19 01:09 Calcium 8.4 mg/dl (8.5-10.1) L 09/19/19 00:36 Magnesium 2.1 mg/dl (1.8-2.4) 09/19/19 00:36 Total Bilirubin 0.3 mg/dl (0.2-1) 09/19/19 00:36 AST 37 U/L (15-37) 09/19/19 00:36 ALT 51 U/L (12-78) 09/19/19 00:36 Alkaline Phosphatase 141 U/L (45-117) H 09/19/19 00:36 Troponin I 0.180 ng/ml (0-0.045) H* 09/19/19 00:36 Total Protein 6.3 gm/dl (6.4-8.2) L 09/19/19 00:36 Albumin 3.5 gm/dl (3.4-5.0) 09/19/19 00:36 Globulin 2.8 gm/dl (2.5-4.0) 09/19/19 00:36 Albumin/Globulin Ratio 1.3 (0.9-2) 09/19/19 00:36 Blood Type B Positive 09/19/19 00:36 Antibody Screen NEGATIVE 09/19/19 00:[address] head initial read: No ICH, mass-effect, or edema. No evidence of acute cortical stroke. CT angio head initial read: Intracranial vascular structures enhance normally with no aneurysm, dissection, or occlusion. No enhancing mass. Cervical vascular structures enhance normally. EKG as per my interpretation rate 75, NSR, 1 AVB, LAD, LAFB, no ischemia
--- NOTE | 2019-09-19 05:02 | CT Scan Report ---
CT head/brain wo con CT DOSE: 614.27 mGy.cm HISTORY: Mental status change Stroke evaluation TECHNIQUE: Multiaxial CT images of the head were performed without the use of intravenous contrast. A dose lowering technique was utilized adhering to the principles of ALARA. Comparison: 05/14/2019 Findings: The paranasal sinuses and mastoid air cells are clear. The calvarium and skull base are int act. The ventricles and sulci are within normal limits. There is no mass, hematoma, midline shift, or acute infarct. Impression: No acute intracranial abnormality. Chronic small vessel change. ACT 112: Negative or not required by law. The above report was generated using voice recognition software. It may contain grammatical, syntax or spelling errors. Electronically signed by: Lj Hawkins M.D. 09/19/2019 5:00 AM
--- NOTE | 2019-09-19 05:14 | CT Scan Report ---
CT angio head w con HISTORY: Mental status change STROKE ALERT TECHNIQUE: Multiaxial CT angiography of the head was performed IV contrast: None. Maximum intensit y projection images were also obtained. A dose lowering technique was utilized adhering to the princ iplAleida. COMPARISON: None. FINDINGS: There is no mass, hematoma, midline shift, or acute infarct. Visualized intracranial internal combustion engine inspector al carotid arteries, distal vertebral arteries, and basilar artery are widely patent. There is no sig nificant stenosis, occlusion, or aneurysm seen within the bilateral ACAs, MCAs, or regional sales manager. IMPRESSION: No significant stenosis, occlusion, or aneurysm within the [place] of [place]. ACT 112: Negative or not required by law. The above report was generated using voice recognition software. It may contain grammatical, syntax or spelling errors. Electronically signed by: Lj Hawkins M.D. 09/19/2019 5:13 AM
--- NOTE | 2019-09-19 05:15 | CT Scan Report ---
CT angio neck with con HISTORY: Mental status change STROKE ALERT TECHNIQUE: Multiaxial CT angiography of the neck was performed IV contrast: None. All measurements w ere calculated based on NASCET criteria. Maximum intensity projection images were also obtained. A dose lowering technique was utilized adhering to the principles of ALARA. COMPARISON STUDY: None. FINDINGS: The aortic arch and proximal great vessels are widely patent. There is no significant sten osis, occlusion, or dissection identified within the bilateral common carotid, internal carotid, or v ertebral arteries. Minimal scattered plaque formation IMPRESSION: No significant stenosis, occlusion, or dissection identified within the carotid or vertebral arteries . ACT 112: Negative or not required by law. The above report was generated using voice recognition software. It may contain grammatical, syntax or spelling errors. Electronically signed by: Lj Hawkins M.D. 09/19/2019 5:13 AM
[2019-09-19] MEDS ORDERED: LORazepam 1 MG/2 ML VIAL IV PRN (05:47)
[2019-09-19] MEDS ORDERED: OXYCODONE HCL IR 5 MG TAB (IMMEDIATE RELEASE) PO PRN (05:47)
[2019-09-19] MEDS ORDERED: SODIUM CHLORIDE 0.45 % 1,000 ML IV ONE (05:47)
[2019-09-19] MEDS ORDERED: ACETAMINOPHEN 325 MG TAB PO PRN (05:47)
[2019-09-19] MEDS ORDERED: NITROGLYCERIN SL 0.4 MG/TAB TAB SL PRN (05:47)
[2019-09-19] MEDS ORDERED: RIVAROXABAN 20 MG TAB PO SCH (09:00)
[2019-09-19] MEDS: ATORVASTATIN 10 MG TAB PO SCH (11:16)
[2019-09-19] MEDS: VITAMIN B COMPLEX TAB PO SCH (11:16)
[2019-09-19] MEDS ORDERED: GADOBUTROL 65ML VIAL IV PRN (11:39)
--- NOTE | 2019-09-19 11:40 | Magnetic Resonance Report ---
MR angio head wo con HISTORY: Mental status change tia TECHNIQUE: 3-D [id number] MRA of the brain was performed without contrast. COMPARISON STUDY: 05/14/2019 FINDINGS: Visualized intracranial internal carotid arteries, distal vertebral arteries, and basilar a rtery are widely patent. There is no significant stenosis, occlusion, or aneurysm seen within the jami ateral ACAs, MCAs, or head start teacher. IMPRESSION: No significant stenosis, occlusion, or aneurysm within the [place]. ACT 112: Negative or not required by law. The above report was generated using voice recognition software. It may contain grammatical, syntax or spelling errors. Electronically signed by: Lj Hawkins M.D. 09/19/2019 11:38 AM
--- NOTE | 2019-09-19 11:49 | Magnetic Resonance Report ---
MR brain seizure wo/w con CLINICAL HISTORY: poss seizures mental status change COMPARISON STUDY: 05/14/2019 TECHNIQUE: Utilizing a 1.5 Ya magnet and dedicated coil, multiplanar, multiecho imaging of the br ain was performed pre and postcontrast administration. IV administration of 8 mL of Gadavist contras t was uneventful. Thin cut coronal T2 imaging was performed according to seizure protocol. FINDINGS: Diffusion images show a small patchy parenchymal infiltrate superior aspect left temporal l obe. No additional foci of acute ischemic change are present. There are findings of an old right periventricular infarct. There are age-related components of atrop hy as well as chronic small vessel change. Ventricular system is midline. The sella and parasellar re gions are unremarkable. The internal lateral canals are symmetric. IMPRESSION: 1. Small acute infarct left superior temporal lobe. 2. Age-related atrophy and chronic small vessel change. 3. 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 4. No abnormal postcontrast enhancement. ACT 112: Negative or not required by law. The above report was generated using voice recognition software. It may contain grammatical, syntax or spelling errors. Electronically signed by: Lj Hawkins M.D. 09/19/2019 11:48 AM
--- NOTE | 2019-09-19 12:01 | Electrocardiogram Report ---
Test Reason : Blood Pressure : / mmHG Vent. Rate : 075 BPM Atrial Rate : 075 BPM P-R Int : 222 ms QRS Dur : 086 ms QT Int : 382 ms P-R-T Axes : -01 -03 046 degrees QTc Int : 426 ms Sinus rhythm with 1st degree A-V block Otherwise normal ECG When compared with ECG of 14-MAY-2019 02:05, Premature atrial complexes are no longer Present IN interval has increased Confirmed by Dilan Dyer ([id number]) on 09/19/2019 12:00:53 PM Referred By: REFERRED SELF Confirmed By:Dilan Dyer
--- NOTE | 2019-09-19 12:15 | Communication Note ---
Date of Service: September 19, 2019 I have seen Mr. Glass today examined him in the presence of physical therapy and his daughter and have reviewed the preliminary images of his MRI scan which is still not officially interpreted It appears that he has had an embolic or presumptively embolic event involving the deep portions of the left hemisphere in the posterior parietal region and he clearly has a language disturbance with a aphasia characterized by deficits in comprehension, repetition, naming, reading and with a lot of word finding deficits and circumloction, all occurring without visual field cut, hemiparesis or facial asymmetry that I can demonstrate on exam but in the setting of a mild nonspecific gait imbalance. He has failed apparently 1 prior NOAC trial and has been switched now to Xarelto daily hoping for better compliance and at one point was on a combination of aspirin and an NOAC but was told by 1 of his providers that the aspirin was not necessary At this point I would suggest cardiology get involved and render an opinion about whether he needs to go on to Coumadin or whether we need to sustain a trial of combined aspirin and NOAC Full consultation has been dictated but will not be typed until this afternoon I will check back with him tomorrow Phong Gleason MD
--- NOTE | 2019-09-19 13:31 | Hospitalist Progress Note ---
Date of Service September 19, 2019 Assessment & Plan (1) Acute CVA (cerebrovascular accident): Presented on admission with stroke like symptoms Hx CVA in the past while on Eliquis that was changed to Xarelto CT abd/pelvis showed no acute intracranial abnormality CTA head/neck showed no significant stenosis, occlusion, or aneurysm within the [place] of [place]. MRI brain showed small acute infarct left superior temporal lobe. Pt said that he is compliant with the xarelto, seems to fail Xarelto therapy In the ER received Asa 324mg and (Keppra 1 g for possible seizure) Neuro on board recommended cardiology consult for anticoagulant management Will cancel EEG since MRI confirmed acute stroke ECHO pending Cardiology consult Continue PT/OT Fall precaution Continue neuro check Hypertension BP elevated on admission Will keep SBP above 150 to 160 for now to allow permissive hypertension Continue monitor BP Elevated troponin Possible related to elevate BP Troponin 0.530 on admission, then peak to 0.248 Continue Aspirin and xarelto for now ECHO pending Cardiology on board Continue Aspirin, statin and Xarelto Continue monitor closely P. Atrial Flutter/Fib S/P cardioversion status and s/p ablation Failed Eliquis and now on Xarelto had an embolic stroke Cardiology consult to help with anticoagulant Might consider to change to coumadin DVT px on Xarelto Code status Full code Admission and Anticipated Discharge Date Admission Date: September 19, 2019 Subjective Pt was seen and examined Lying in bed with no distress with daughter at bedside Pt is getting frustrated because he kept saying that he wants answer he is not able to comprehend things Daughter said that he is very active and sharp as baseline Denies any chest pain, palpitation, dizziness and SOB Physical Exam Physical Exam: General- No acute distress Head- atraumatic Eyes- PERRL, EOMI, ENT- oropharynx clear Neck- supple, no JVD Lungs- clear to auscultation Heart- regular rhythm; no murmur Abdomen- normal bowel sounds, soft, nontender Extremities- no calf tenderness Neuro- alert, oriented x 3; PERRL, EOMI; no facial palsy; no dysarthria Skin- warm & dry Results & Data ([facility] [place]) Vital Signs (Past 12 Hours) Vital Signs Temp Pulse Pulse Resp BP BP Pulse Ox 09/19/19 11:39 36.3 C L 59 L 20 157/81 H 98 09/19/19 07:16 36.3 C L 66 20 137/84 98 09/19/19 05:47 36.5 C 67 66 20 145/68 H 92 09/19/19 05:15 67 153/71 H 09/19/19 05:00 63 14 170/75 H 95 09/19/19 04:45 82 25 H 164/79 H 97 09/19/19 04:30 66 23 172/83 H 97 09/19/19 04:16 66 22 157/116 H 98 09/19/19 04:00 65 26 H 167/83 H 97 09/19/19 03:52 62 26 H 170/69 H 98 09/19/19 03:31 62 18 102/77 97 09/19/19 03:16 64 22 160/69 H 97 09/19/19 03:02 74 19 157/80 H 99 09/19/19 02:45 73 22 146/98 H 97 09/19/19 02:41 83 20 188/97 H 99 09/19/19 02:23 62 20 171/78 H 96 09/19/19 01:57 70 20 180/81 H 100 Pulse Ox 09/19/19 11:39 09/19/19 07:16 09/19/19 05:47 92 09/19/19 05:15 09/19/19 05:00 09/19/19 04:45 09/19/19 04:30 09/19/19 04:16 09/19/19 04:00 09/19/19 03:52 09/19/19 03:31 09/19/19 03:16 09/19/19 03:02 09/19/19 02:45 09/19/19 02:41 09/19/19 02:23 09/19/19 01:57
--- NOTE | 2019-09-19 14:21 | Consultation Report ---
DATE OF CONSULTATION: 09/19/2019 NEUROLOGY CONSULTATION CONSULTATION FOR: Jerrod Olivier MD. HISTORY OF PRESENT ILLNESS: Ford is a 74-year-old white right-handed man from [facility] who is known to the neurology service from a prior evaluation of a CVA/ TIA back in May, felt to be embolic and was treated with adding aspirin to his novel oral anticoagulant. Apparently after that, he had a switch of his NOAC to a single daily dosing with Xarelto as he was having trouble with compliance, and at some point, the aspirin was stopped, although I am not sure which provider recommended this be done. He does have chronic atrial flutter, atrial fibrillation and has had ablation, which was apparently not very successful and continues to be at risk for events. In this setting, he then presented with a confusional state yesterday, then clearcut language deficits and was brought to the hospital and apparently has declined a bit in terms of his comprehension and word output. He was seen by the tele stroke service and an EEG was recommended because of some of the atypical features of his presentation but aspirin was again added to his novel anticoagulant and local neurology consultation was recommended which I am providing today. He was given some Keppra preventatively just in case this was a seizure and this is going to be held appropriately at the present time. A subsequent MRI scan has demonstrated evidence for a new infarction involving the parietal temporal area on the left, which is a nice explanation for his confusion and aphasia. PAST MEDICAL HISTORY: Pretty much as outlined in the chart and includes chronic diastolic heart failure, atrial flutter, atrial fibrillation, post-cardioversion and ablation, currently on Xarelto with a history of an embolic event involving the contralateral right hemisphere back in May, GERD, BPH, past tobacco abuse. MEDICATIONS: His medications list at home includes sorbitol, ascorbic acid, doxazosin, glucosamine chondroitin, losartan, Lutein, magnesium, vitamin B complex, cholecalciferol, cinnamon bark, [place]-3, atorvastatin, and Xarelto. Again, at some point, he was on aspirin, but this was stopped and it is not clear when. SOCIAL HISTORY: Reveals him to be a nonsmoker, nonconsumer of ethanol, living with his and has several children. He is currently retired. FAMILY HISTORY: Noncontributory. REVIEW OF SYSTEMS: Reveals reasonable recent health. No weight loss, weight gain, fevers, sweats, chills, or hospitalization other than the one in May and he apparently is quite active, in fact was on the treadmill when the current event occurred. He has no significant issues referable to his head, eyes, ears, nose and throat, cardiovascular system other than those surrounding his atrial fibrillation, diastolic heart failure and embolic events, no pulmonary problems, no significant gastrointestinal issues other than those described above. No genitourinary or musculoskeletal problems other than those related to his past medical history. Neurologically, he has had no significant deficits after the old right hemisphere CVA, but now has significant speech issues with deficits in comprehension of language, word finding, naming, repetition, etc. PHYSICAL EXAMINATION: VITAL SIGNS: He had a blood pressure of 102/77, pulse was 62 and slightly irregular, respirations are 18. GENERAL: He was awake, alert and oriented. He was thin, well developed, well nourished, appeared slightly younger than his stated age of 74. HEENT: He has normal eye movements, normal visual woods. Normal examination of head, eyes, ears, nose and throat. Normal dentition. No audible bruits. HEART: Slightly irregular heart rate. No murmurs were appreciated. ABDOMEN: Soft, nontender. LUNGS: Clear. EXTREMITIES: Free of edema. There were good peripheral pulses. NEUROLOGIC: Today, neurologically he is awake, but dazed in appearance. He has difficulty expressing himself, will use words inappropriately, has very sparse speech output, hesitates frequently, cannot read or comprehend what he reads and has difficulty naming body parts. When asked to name a watch, he began to tell me what it was used for, but was even vague on that. He was able to follow some simple commands. Cranial nerves are actually normal. Otherwise, I was not impressed with any right facial asymmetry. Eye movements were normal. I could not slate picker any field cuts. Facial motility and strength are normal. Speech was clear. Gait was a little unsteady and he was going down the salgado with physical therapy, requiring minimal assistance, but with 2 persons paying attention to his movements. I was not impressed with any clearcut right or left hemiparesis, however, and on exam, there is no real drift or pronation, tremor, tics, choreiform activity, reflex asymmetry, strength abnormalities or clearcut sensory loss, although his comprehension and sensory examination was limited. I do not think there is any question this was a recurrent embolic stroke. The only question now is how best to prevent strokes in the future. It appears that he has failed novel oral anticoagulants on 2 occasions. He claims good compliance. The options here as far as I can see would be to add an antiplatelet drug in combination with Xarelto and sustain this. Another option of course would be to switch over to Coumadin. His daughter has requested that cardiology get involved and I certainly agreed and I am going to suggest to his primary care team that he have a cardiology evaluation with them making recommendations about where to go next in terms of anticoagulation. I personally would favor the combined NOAC and aspirin, but there may be strong arguments for an alternative approach. At this point, I do not think this was a seizure. I would not do the EEG and I certainly would not sustain the Keppra. I will drop by tomorrow and see how he is doing, but he is going to need speech therapy and may actually need some time in a rehabilitation facility if his gait imbalance does not improve and perhaps I will be able to do a little more thorough examination tomorrow in terms of his motor and sensory systems in the event that his language function begins to return. [place]
[2019-09-19] MEDS ORDERED: Heparin IV Standard *NO* Bolus IV SCH (17:00)
--- NOTE | 2019-09-19 17:08 | Cardiology Consultation ---
Date of Consultation September 19, 2019 Assessment & Plan (1) Acute CVA (cerebrovascular accident): (2) Atrial fibrillation: This appears to be the patient's third neurologic event. The event in May,, took place post pulmonary vein isolation, in the setting of recurrent paroxysmal atrial fibrillation (low A. fib burden less than 1% noted on follow-up to 2-week monitor) with adherence of appropriately dosed Eliquis 5 mg twice daily leading up to that event. The patient was appropriately transitioned to a different direct oral anticoagulant, Xarelto, 20 mg daily, which is once again an appropriate dose for him, but has had recurrent event. I spoke to his spouse. The patient takes his Xarelto without missed doses at 10 PM. He actually has an alarm set with his cell phone that reminds him. Therefore this event seems to have occurred while on uninterrupted appropriate anticoagulation. The differential diagnosis includes lack of therapeutic response to Eliquis and Xarelto In terms of stroke prophylaxis in the setting of paroxysmal atrial fibrillation, or stroke due to another etiology such as small vessel disease, or even a different etiology of cardioembolic stroke. Typically adding aspirin therapy to the direct oral anticoagulant therapy has not the next step of choice due to increased risk of intracranial hemorrhage without dedicated evidence of providing improved stroke prophylaxis benefit. Therapeutics: We will start unfractionated heparin, 24 hours after his most recent Xarelto dose, therefore it is to start on 09/20/2019 at 11 AM. If heparin infusion tolerated well tomorrow, will add coumadin for goal INR of 2.5 (range 2-3). Update lipid panel. Historically LDL cholesterol had been in the mid 70s prior to treatment with atorvastatin 10 mg. We will recheck response tomorrow. Diagnostics: Plan for transesophageal echocardiogram to assess for left atrial, left atrial appendage thrombus, or other cardioembolic source of stroke. Plan for SAHARA with Anesthesia consult on Saturday09/21/19 as long as he is stable from A neurologic standpoint at that time to allow sedation. Case discussed with Dr Gleason and Dr Olivier. Dr Paul as notified of routine anesthesiology consultation by phone call. Pharmacy notified of plan to start heparin infusion 09/19 at 11 am NOT now. History of Present Illness Attending Physician: Jerrod Olivier MD History of Present Illness Dr. 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 Olivier for assessment of recurrent stroke. The patient has followed with Dr Chapman of [facility] with most recent visit in August,. More recently patient has followed with Dr Jean Paul Singh of electrophysiology at the [facility]. The patient's 2 daughters as well as his spouse, Melissa, are present at the bedside during my assessment. He was in his normal state of health yesterday exercising on the treadmill when he was observed to have difficulty utilizing the television remote control. On further conversation with him, Melissa noted that he was having difficulty finding his words. EMS was summoned, and he was brought to the emergency room. Work-up thus far included an MRI of the brain which revealed a small acute infarct in the left superior temporal lobe. Age-related atrophy and chronic small vessel changes were also noted as well as an old right periventricular infarction.MRA of the neck and brain without culprit. Of note an MRI of the brain performed in May, revealed evidence of a subacute right frontal parietal lobe infarct. At present, the patient has ongoing issues with providing history and therefore history was obtained by interview with his family and review of his records. He has difficulty with word finding. Past Cardiac / Vascular History: 1. 06/2017: TIA episode Prompting MRI of the brain in June, with small vessel ischemic changes noted at that time (reviewed within the [facility] outpatient record) 2. 04/2018: Diagnosed with paroxysmal atrial fibrillation April 2018, 63% atrial fibrillation burdent noted on Zio Monitor. Pt was placed on Eliquis for stroke prevention. 3. Aug, and September 2018, Trials of direct-current cardioversion x1 in August,, 2 additional attempts performed September,, with noted to have reverted back to atrial fibrillation shortly after the procedures 4. 11/04/18: Pulmonary vein isolation/ablation performed [facility] 5. 05/2019, admission to [facility] stroke symptoms, Subacute right frontal parietal lobe infarction on MRI despite being adherent to therapeutic Eliquis 5 mg twice daily, prompting transition to Xarelto 20 mg daily in the evening 6. 09/18/19: Recurrent stroke episode, MRI findings of small acute infarct of the left superior temporal lobe 7. 05/2019: Noted valvular heart disease, mild to moderate mitral regurgitation, moderate aortic valve regurgitation, transthoracic echocardiogram 2018, [facility] 8. 2016: Remote cardiac catheterization, [facility] 2016 Without evidence of significant coronary artery disease 9. 06/2019: 14 Day Zio patient monitor, Paroxysmal atrial fibrillation noted, less than 1% burden, longest lasting episode was 3 hours and 50 minutes with an average rate of 122 bpm. Frequent supraventricular ectopy, 7.5% Allergies Allergy/AdvReac Type Severity Reaction Status Date / Time Penicillins Allergy Severe Hives Verified 09/19/19 01:10 Home Medications Home Medications Medication Instructions Recorded Confirmed Type Reservatrol 1 tab PO DAILY 05/05/18 09/19/19 History ascorbic acid (vitamin C) [Vitamin 500 mg PO DAILY 05/05/18 09/19/19 History C] doxazosin [Cardura] 2 mg PO HS 05/05/18 09/19/19 History glucosamine-chondroitin 1 cap PO DAILY 05/05/18 09/19/19 History losartan [Cozaar] 25 mg PO DAILY 05/05/18 09/19/19 History lutein 0 mg PO Q OTHER DAY 05/05/18 09/19/19 History magnesium 200 mg PO DAILY 05/05/18 09/19/19 History vitamin B complex [Super B-50 1 cap PO DAILY 05/05/18 09/19/19 History Complex] zinc 25 mg PO DAILY 05/05/18 09/19/19 History cholecalciferol (vitamin D3) 2,000 unit PO DAILY 05/14/19 09/19/19 History [Vitamin D3] cinnamon bark [Cinnamon] 500 mg PO DAILY 05/14/19 09/19/19 History omega 4-gam-glp-fish oil [Fish Oil] 1 cap PO DAILY 05/14/19 09/19/19 History atorvastatin [Lipitor] 10 mg PO DAILY #30 tab 05/15/19 09/19/19 Rx rivaroxaban [Xarelto] 20 mg PO DAILY #30 tab 05/15/19 09/19/19 Rx Patient History Medical History BPH (benign prostatic hyperplasia) (Chronic) HTN (hypertension) (Chronic) Paroxysmal atrial flutter (Chronic) Surgical History History of cardiac catheterization (Resolved) 2016 at [facility] Hx of tonsillectomy (Resolved) Family History Other Hypertension Stroke Social History Preferred Language: Vietnamese Communication Ability: Impaired Visual Impairment: No Limitations Hearing Ability: Normal Card Painter Required: No Beliefs That Will Affect Care: None marital status: Current Living Situation: Spouse Feels Safe at Home: Yes Safety Concerns: Feels Safe At This Time Smoking Status: Former smoker Second Hand Exposure: No ; Hx Alcohol Use: No Hx Substance Use: No Review of Systems Review of Systems: All systems reviewed & are unremarkable except as noted in HPI & below Physical Exam Physical Exam: Temp Pulse Resp BP Pulse Ox 36.4 C L 57 L 20 144/82 H 97 09/19/19 14:40 09/19/19 14:40 09/19/19 14:40 09/19/19 14:40 09/19/19 14:40 Constitutional: WD/WN, vitals as above Respiratory: normal respiratory effort, lungs clear to auscultation Cardiovascular: RRR, no murmur, no edema Gastrointestinal (Abdomen): normal bowel sounds, soft, nontender, no hepatosplenomegaly Neurologic: no focal motor deficits Speech / Cognition: + abnormal speech (Expressive aphasia noted) Results & Data ([facility]) Vital Signs (Past 12 Hours) Vital Signs Temp Pulse Pulse Resp BP BP Pulse Ox 09/19/19 14:40 36.4 C L 57 L 20 144/82 H 97 09/19/19 11:39 36.3 C L 59 L 20 157/81 H 98 09/19/19 07:16 36.3 C L 66 20 137/84 98 09/19/19 05:47 36.5 C 67 66 20 145/68 H 92 09/19/19 05:15 67 153/71 H 09/19/19 05:00 63 14 170/75 H 95 Pulse Ox 09/19/19 14:40 09/19/19 11:39 09/19/19 07:16 09/19/19 05:47 92 09/19/19 05:15 09/19/19 05:00 Diagnostic Findings EKG performed today 09/19/2019 revealed sinus rhythm at 75 bpm with first-degree AV block. Troponin I 0.180, 0.248, 0.52 ng/ml.
[2019-09-20 06:31] LABS: Basophils # (auto) 0.02 K/uL (0-0.2); Basophils % (auto) 0.2 %; Eosinophils # (auto) 0.36 K/uL (0-0.5); Eosinophils % (auto) 4.3 %; Hematocrit (blood only) 42.4 % (42-52); Hemoglobin 14.8 g/dL (14.0-18.0); Immature Granulocytes # (auto) 0.02 K/uL (0.00-0.02); Immature Granulocytes % (auto) 0.2 %; Lymphocytes # (auto) 1.95 K/uL (1.2-3.4); Lymphocytes % (auto) 23.1 %; Mean Corpuscular Hemoglobin 31.7 pg (25-34); Mean Corpuscular Hgb Conc 34.9 g/dL (32-36); Mean Corpuscular Volume 90.8 fL (80-100); Mean Platelet Volume 10.3 fL (7.4-10.4); Monocytes # (auto) 0.97 K/uL (0.11-0.59); Monocytes % (auto) 11.5 %; Neutrophils # (auto) 5.13 K/uL (1.4-6.5); Neutrophils % (auto) 60.7 %; Platelet Count 160 K/uL (130-400); RDW Coefficient of Variation 12.8 % (11.5-14.5); RDW Standard Deviation 42.2 fL (36.4-46.3); Red Blood Count 4.67 M/uL (4.7-6.1); White Blood Count 8.45 K/uL (4.8-10.8)
[2019-09-20 06:50] LABS: INR 1.2 (0.9-1.1); Prothrombin Time 12.1 Seconds (9.0-12.0)
[2019-09-20 07:03] LABS: Creatinine Clr Calc Pharmacy 65.4 ml/min; Est GFR (African American) 92.1; Est GFR (Non-African American) 79.5; Potassium 3.9 mmol/L (3.5-5.1)
[2019-09-20] MEDS: VITAMIN B COMPLEX TAB PO SCH (08:19)
[2019-09-20] MEDS: ATORVASTATIN 10 MG TAB PO SCH (08:19)
--- NOTE | 2019-09-20 08:25 | Anesthesiology Consultation ---
Date of Service September 20, 2019 Assessment & Plan (1) Encounter for pre-operative examination: Chart Review Chart Review: Acceptable Risk for Surgery (at increased risk of further CVA in setting of recent CVA - will speak with Dr Marie about risk/benefits of procedure) History Height/Weight Height: 5 ft 8 in Weight: 66.4 kg Allergies Allergy/AdvReac Type Severity Reaction Status Date / Time Penicillins Allergy Severe Hives Verified 09/19/19 01:10 Medications Home Medications Medication Instructions Recorded Confirmed Last Taken Reservatrol 1 tab PO DAILY 05/05/18 09/19/19 Unknown ascorbic acid (vitamin C) [Vitamin 500 mg PO DAILY 05/05/18 09/19/19 Unknown C] doxazosin [Cardura] 2 mg PO HS 05/05/18 09/19/19 05/04/18 glucosamine-chondroitin 1 cap PO DAILY 05/05/18 09/19/19 Unknown losartan [Cozaar] 25 mg PO DAILY 05/05/18 09/19/19 05/05/18 07:30 lutein 0 mg PO Q OTHER DAY 05/05/18 09/19/19 Unknown magnesium 200 mg PO DAILY 05/05/18 09/19/19 05/05/18 vitamin B complex [Super B-50 1 cap PO DAILY 05/05/18 09/19/19 Unknown Complex] zinc 25 mg PO DAILY 05/05/18 09/19/19 Unknown cholecalciferol (vitamin D3) 2,000 unit PO DAILY 05/14/19 09/19/19 Unknown [Vitamin D3] cinnamon bark [Cinnamon] 500 mg PO DAILY 05/14/19 09/19/19 Unknown omega 3-zwb-qjb-fish oil [Fish Oil] 1 cap PO DAILY 05/14/19 09/19/19 Unknown atorvastatin [Lipitor] 10 mg PO DAILY #30 tab 05/15/19 09/19/19 Unknown rivaroxaban [Xarelto] 20 mg PO DAILY #30 tab 05/15/19 09/19/19 Unknown Active Medications Generic Name Dose Route Start Last Admin Trade Name Freq PRN Reason Stop Dose Admin Atorvastatin Calcium 10 mg 09/19/19 09:00 09/20/19 08:19 Lipitor PO 10/19/19 08:59 10 mg DAILY STARLA Administration Gadobutrol 7.5 ml 09/19/19 11:39 09/19/19 11:39 Gadavist 65ml IV 09/23/19 11:38 7.5 ml ONCE PRN Administration Interaction Checking Vitamin B Complex 1 tab 09/19/19 09:00 09/20/19 08:19 Vitamin B Complex PO 10/19/19 08:59 1 tab DAILY STARLA Administration Past Medical History Medical History (Updated 09/20/19 @ 08:25 by Govind Paul MD) Acute CVA (cerebrovascular accident) (Acute) BPH (benign prostatic hyperplasia) (Chronic) Elevated troponin I level (Acute) HTN (hypertension) (Chronic) Paroxysmal atrial flutter (Chronic) Past Family History Family History Other Hypertension Stroke Past Surgical History Surgical History (Updated 09/20/19 @ 08:19 by Govind Paul MD) History of cardiac catheterization (Resolved) 2016 at [facility] [place] Hx of prior ablation treatment Hx of tonsillectomy (Resolved) Social History Smoking Status: Former smoker Hx Alcohol Use: No Alcohol type: beer and wine alcohol intake frequency: a few times a week Hx Substance Use: No substance use type: does not use Physical Exam Vital Signs Last Vital Signs Temp 36.7 C 09/20/19 07:08 Pulse 64 09/20/19 07:45 Resp 19 09/20/19 07:08 BP 169/80 H 09/20/19 07:08 Pulse Ox 98 09/20/19 07:08 Testing Laboratory Results 09/20/19 05:53 09/20/19 05:53 PT 12.1 Seconds (9.0-12.0) H 09/20/19 05:53 INR 1.2 (0.9-1.1) H 09/20/19 05:53 APTT 35.1 Seconds (21.0-31.0) H 09/19/19 00:36 Blood Type B Positive 09/19/19 00:36 Antibody Screen NEGATIVE 09/19/19 00:36 Electrocardiogram Date: 09/19/19 Findings: + NSR @ (75 1st degree AV block) Echocardiogram Date: 05/14/19 EF: 55-60% LV Function: normal Other Findings: + diastolic dysfunction Valvular Disease: + AI (moderate) and + MR (mild to moderate) elevated RV pressure (30-40mmHg)
[2019-09-20 09:50] LABS: Partial Thromboplastin Time 28.1 Seconds (21.0-31.0)
[2019-09-20] MEDS: HEPARIN SODIUM/DEXTROSE 25,000 UNITS/500 ML BAG IV SCH (11:01)
--- NOTE | 2019-09-20 14:26 | Communication Note ---
Date of Service: September 20, 2019 I saw Mr. Herndon today in the presence of his family and and pleased to report that he is significantly better, is beginning to find a few words you some appropriately is able to converse with his family although there is still significant deficits in comprehension, naming, repetition, reading and occasional neologisms and paraphasias He has had a completed left deep parietal temporal infarction with a resultant aphasia and will need speech therapy. The rest of his neurologic examination reveals no motor or sensory deficits of significance Dr. Alvarez of cardiology has seen him and he and I had a long discussion yesterday about some of the unusual features of the current case. This man has been compliant with his latest novel anti-coagulant if has had another embolic or presumptive embolic event and the source of this is not clear. He has been in sinus rhythm and outpatient studies have shown that this is been maintained and while we cannot exclude the possibility that he had a transient episode of atrial fibrillation while on his treadmill we do need to strongly consider other sources of emboli specifically from the aortic root, from an atrial appendage that may not have been dissolved completely, or from a paradoxical embolism through a patent foramen ovale Dr. Alvarez did review the [facility] studies and no transesophageal echocardiographic evaluation has been done so I believe he is going to be switched over to Coumadin and a transesophageal echo performed and recommendations for anticoagulation made based on the results of that study Neurology is going to withdraw from the case at this point as we really do not have much more to offer other than recommendations for ongoing speech therapy Would be quite happy to follow-up on him in 4 to 6 weeks after this event in our outpatient clinic in [facility] Phong Gleason MD
[2019-09-20] MEDS: LOSARTAN POTASSIUM 25 MG TAB PO SCH (14:39)
--- NOTE | 2019-09-20 15:20 | Cardiology Progress Note ---
Date of Service September 20, 2019 Assessment & Plan (1) Acute CVA (cerebrovascular accident): (2) Atrial fibrillation: Acute left temporal lobe stroke in the setting of known paroxysmal atrial fibrillation. As noted in my initial consultation this is his third TIA/stroke event, with 2 events, one in May, and then this event having occurred in September, having taken place on uninterrupted appropriately dosed treatment with a direct oral anticoagulant agents Eliquis, and most recently Xarelto. Transthoracic echocardiogram performed today revealed mild AI, mild MR, normal LVEF, mild left atrial dilatation. Recommend proceeding with transesophageal echocardiogram to exclude left atrial/left atrial appendage thrombus, or other cardiac source of embolism. He is anticoagulated with unfractionated heparin which was started 24 hours after his most recent dose of Xarelto. We will add Coumadin 5 mg daily this evening. His LDL cholesterol is less than 70 mg/dL and will therefore continue his current dose of atorvastatin. Informed consent for transesophageal echocardiogram was obtained. Due to concerns about his cognitive status, the patient's spouse also cosigned the consent form. We will plan on proceeding with a transesophageal echocardiogram with anesthesia 09/21/2019. The patient has already been seen in anesthesia consultation. DVT prophylaxis: Patient is fully anticoagulated with unfractioned heparin as noted above Subjective Patient seen and examined in the company of his daughter and his spouse, Brianda. He continues to have an aphasia, he is however doing marginally better than what he was last night per his family. Telemetry reveals sinus rhythm in the range of 60 to 80 bpm with occasional PACs. Review of Systems Review of Systems: All systems reviewed & are unremarkable except as noted in HPI & below Physical Exam Physical Exam: Temp Pulse Resp BP Pulse Ox 36.5 C 62 16 145/76 H 99 09/20/19 11:15 09/20/19 14:37 09/20/19 11:15 09/20/19 14:37 09/20/19 11:15 Constitutional: WD/WN, vitals as above Respiratory: normal respiratory effort, lungs clear to auscultation Cardiovascular: RRR, no murmur, no edema Gastrointestinal (Abdomen): normal bowel sounds, soft, nontender, no hepatosplenomegaly Neurologic: moves all extremities; no focal motor deficits Speech / Cognition: + abnormal speech Results & Data Vital Signs (Past 12 Hours) Vital Signs Temp Pulse Pulse Resp BP Pulse Ox 09/20/19 14:37 62 145/76 H 09/20/19 11:15 36.5 C 63 16 170/69 H 99 09/20/19 07:45 64 09/20/19 07:08 36.7 C 62 19 169/80 H 98 Laboratory Results Coagulation 09/20/19 09/20/19 Range/Units 05:53 09:27 PT 12.1 H (9.0-12.0) Seconds APTT 28.1 (21.0-31.0) Seconds Lipids 09/20/19 Range/Units 05:53 Triglycerides 60 (0-150) mg/dl Cholesterol 103 (0-200) mg/dl HDL Cholesterol 42 mg/dl Cholesterol/HDL Ratio 3 CBC 09/20/19 Range/Units 05:53 WBC 8.45 (4.8-10.8) K/uL RBC 4.67 L (4.7-6.1) M/uL Hgb 14.8 (14.0-18.0) g/dL Hct 42.4 (42-52) % Plt Count 160 (130-400) K/uL Neut # (Auto) 5.13 (1.4-6.5) K/uL Lymph # (Auto) 1.95 (1.2-3.4) K/uL [place] # (Auto) 0.97 H (0.11-0.59) K/uL Eos # (Auto) 0.36 (0-0.5) K/uL Baso # (Auto) 0.02 (0-0.2) K/uL Comprehensive Metabolic Panel 09/20/19 Range/Units 05:53 Sodium 143 (136-145) mmol/L Potassium 3.9 (3.5-5.1) mmol/L Chloride 112 H (98-107) mmol/L Carbon Dioxide 26 (21-32) mmol/L BUN 20 H (7-18) mg/dl Creatinine 0.93 (0.6-1.4) mg/dl Glucose 87 (70-99) mg/dl Calcium 9.0 (8.5-10.1) mg/dl Intake and Output 09/20/19 09/20/19 09/20/19 06:59 14:59 22:59 Intake Total 1090 / 1430 276.667 / 276.667 Balance 1090 / 1430 276.667 / 276.667 Intake: IV 1000 / 1000 1.667 / 1.667 HEPARIN SODIUM/DEXTROSE 25,000 1.667 / 1.667 units In 500 ml @ 1,250 UNITS/ HR 25 mls/hr IV .Q20H STARLA Rx#: [id number] 1/2 Nss 1,000 ml @ 50 mls/hr IV 1000 / 1000 .Q20H ONE Rx#:[id number] Oral 90 / 430 275 / 275 Other: # Unmeasured Voids 1 Weight 66.4 kg 66.4 kg Patient Weight 09/21/19 06:59 Weight 66.4 kg Diagnostic Findings LDL cholesterol is measured this morning was 49 mg/dL.
[2019-09-20] MEDS: WARFARIN SOD 5 MG TAB PO SCH (16:15)
[2019-09-20 17:25] LABS: Partial Thromboplastin Ratio 2.2
[2019-09-20 17:34] LABS: Partial Thromboplastin Time 62.3 Seconds (21.0-31.0)
--- NOTE | 2019-09-20 18:29 | Hospitalist Progress Note ---
Date of Service September 20, 2019 Assessment & Plan (1) Acute CVA (cerebrovascular accident): Presented on admission with stroke like symptoms Hx CVA in the past while on Eliquis that was changed to Xarelto CT abd/pelvis showed no acute intracranial abnormality CTA head/neck showed no significant stenosis, occlusion, or aneurysm within the [place]. MRI brain showed small acute infarct left superior temporal lobe. Pt said that he is compliant with the xarelto, seems to fail Xarelto therapy In the ER received Asa 324mg and (Keppra 1 g for possible seizure) Neuro on board recommended cardiology consult for anticoagulant management EEG cancelled since MRI confirmed acute stroke ECHO showed no wall motion abnormality with EF 55 to 60% Cardiology on board recommended to D/C xarelto since pt failed Xarelto Failed Eliquis and xarelto Starting on heparin drip. Plan to transition to coumadin Case discussed with cardiology who plan to do an SAHARA tomorrow Continue PT/OT Fall precaution Continue neuro check Hypertension BP elevated on admission Will keep SBP above 150 to 160 for now to allow permissive hypertension Continue monitor BP Elevated troponin Possible related to elevate BP Troponin 0.530 on admission, then peak to 0.248 Continue Aspirin and xarelto for now ECHO pending Cardiology on board Continue Aspirin, statin and Xarelto Continue monitor closely P. Atrial Flutter/Fib S/P cardioversion status and s/p ablation Failed Eliquis and now on Xarelto had an embolic stroke Cardiology consult to help with anticoagulant Starting on heparin drip Consider to change to coumadin DVT px on Xarelto discontinued Starting on heparin drip Code status Full code Admission and Anticipated Discharge Date Admission Date: September 19, 2019 Subjective Pt was seen and examined Walking in the hallway with no distress Pt refused to start on the heparin drip After explaining to him and he was OK to take the heparin drip Denies any chest pain, fever and SOB Physical Exam Physical Exam: General- No acute distress Head- atraumatic Eyes- PERRL, EOMI, ENT- oropharynx clear Neck- supple, no JVD Lungs- clear to auscultation Heart- regular rhythm; no murmur Abdomen- normal bowel sounds, soft, nontender Extremities- no calf tenderness Neuro- alert, oriented x 3; PERRL, EOMI; no facial palsy; no dysarthria Skin- warm & dry Results & Data ([facility]) Vital Signs (Past 12 Hours) Vital Signs Temp Pulse Pulse Resp BP Pulse Ox 09/20/19 15:42 64 09/20/19 15:21 36.8 C 85 18 151/81 H 93 09/20/19 14:37 62 145/76 H 09/20/19 11:15 36.5 C 63 16 170/69 H 99 09/20/19 07:45 64 09/20/19 07:08 36.7 C 62 19 169/80 H 98
[2019-09-21 05:54] LABS: INR 1.2 (0.9-1.1); Partial Thromboplastin Ratio 3.5; Prothrombin Time 12.7 Seconds (9.0-12.0)
[2019-09-21 05:58] LABS: Partial Thromboplastin Time 98.5 Seconds (21.0-31.0)
[2019-09-21] MEDS ORDERED: HydrALAZINE HCL 20 MG/ML VIAL IV STA (07:18)
[2019-09-21] MEDS ORDERED: HydrALAZINE HCL 20 MG/ML VIAL ONE (07:21)
--- NOTE | 2019-09-21 07:29 | Cardiology Progress Note ---
Date of Service September 21, 2019 Assessment & Plan (1) Acute CVA (cerebrovascular accident): (2) HTN (hypertension): (3) Atrial fibrillation: H/o PAF, in SR. BP medications initially held on admission due to stroke, however, BP trending above goal. Losartan restarted 09/19. Per my impression, cognitive status is worse. Will administer hydralazine 10 mg IV x 1 now for hypertension. SAHARA placed on hold. Will proceed with Stat CT of brain, rule out progression or hemorrhagic conversion. Discussed with Dr Wilhelm of anesthesia. Subjective Patient seen and examined prior to planned SAHARA in the cardiac procedure suite. BP high overnight despite reinitiating losartan yesterday, 183/82 most recently. Aphasia is worse this am. He has been on a heparin infusion ,held this am as PTT was mildly above goal. Review of Systems Review of Systems: Unobtainable due to cognitive status Physical Exam Physical Exam: Temp Pulse Resp BP Pulse Ox 36.6 C 70 16 183/82 H 98 09/21/19 07:07 09/21/19 07:07 09/21/19 07:07 09/21/19 07:07 09/21/19 07:07 Constitutional: no acute distress, comfortable, not agitated. Respiratory: normal respiratory effort, lungs clear to auscultation Cardiovascular: RRR, no murmur, no edema Gastrointestinal (Abdomen): normal bowel sounds, soft, nontender, no hepatosplenomegaly Neurologic: moves al 4 extremities. Expressive aphasia noted. Unable to name a day of the week for me. Is able to communicate concept of SAHARA procedure to me. Results & Data Vital Signs (Past 12 Hours) Vital Signs Temp Pulse Pulse Pulse Resp BP BP 09/21/19 07:07 36.6 C 70 16 183/82 H 09/21/19 06:51 36.6 C 57 L 18 151/80 H 09/21/19 04:00 36.4 C L 70 18 165/77 H 09/20/19 23:39 36.4 C L 68 20 198/98 H 09/20/19 23:01 67 09/20/19 19:42 36.8 C 64 13 172/62 H Pulse Ox 09/21/19 07:07 98 09/21/19 06:51 98 09/21/19 04:00 96 03/15/20 23:39 99 09/20/19 23:01 09/20/19 19:42 97 Laboratory Results Coagulation 09/20/19 09/20/19 09/21/19 Range/Units 09:27 16:44 05:21 PT 12.7 H (9.0-12.0) Seconds APTT 28.1 62.3 H* 98.5 H* (21.0-31.0) Seconds Intake and Output 09/20/19 09/21/19 09/21/19 22:59 06:59 14:59 Intake Total 718.333 / 1297.083 302.083 / 1297.083 Balance 718.333 / 1297.083 302.083 / 1297.083 Intake: IV 158.333 / 462.083 302.083 / 462.083 HEPARIN SODIUM/DEXTROSE 25,000 158.333 / 462.083 302.083 / 462.083 units In 500 ml @ 0 UNITS/HR IV .Q0M [facility] Rx#:[id number] Oral 560 / 835 Other: Other Intake Source NPO Weight 65.2 kg
--- NOTE | 2019-09-21 07:39 | CT Scan Report ---
CT head/brain wo con CT DOSE: 614.27 mGy.cm HISTORY: recent temporal stroke, worsening mental status TECHNIQUE: Multiaxial CT images of the head were performed without the use of intravenous contrast. A dose lowering technique was utilized adhering to the principles of ALARA. Comparison: 09/19/2019 Findings: The paranasal sinuses and mastoid air cells are clear. The calvarium and skull base are int act. The ventricles and sulci are within normal limits. There is no mass, hematoma, midline shift, or acute infarct. Mild age-related atrophy and chronic small vessel change. Small old right periventric ular infarct. Impression: No acute intracranial abnormality. No significant change from the prior study. ACT 112: Negative or not required by law. The above report was generated using voice recognition software. It may contain grammatical, syntax or spelling errors. Electronically signed by: Lj Hawkins M.D. 09/21/2019 7:38 AM
--- NOTE | 2019-09-21 09:13 | Anesthesiology Progress Note ---
Date of Service September 21, 2019 Anesthesia Post Procedure Vital Signs Vital Signs: Temp Pulse Pulse Pulse Resp BP BP 09/21/19 07:07 36.6 C 70 16 183/82 H 09/21/19 06:51 36.6 C 57 L 18 151/80 H 09/21/19 04:00 36.4 C L 70 18 165/77 H 09/20/19 23:39 36.4 C L 68 20 198/98 H 09/20/19 23:01 67 09/20/19 19:42 36.8 C 64 13 172/62 H 09/20/19 19:05 75 09/20/19 15:42 64 09/20/19 15:21 36.8 C 85 18 151/81 H 09/20/19 14:37 62 145/76 H 09/20/19 11:15 36.5 C 63 16 170/69 H Pulse Ox 09/21/19 07:07 98 09/21/19 06:51 98 09/21/19 04:00 96 09/20/19 23:39 99 09/20/19 23:01 09/20/19 19:42 97 09/20/19 19:05 09/20/19 15:42 09/20/19 15:21 93 09/20/19 14:37 09/20/19 11:15 99 Pain Intensity Left Ribs: Pain Intensity: 1 Transfer of Care Handoff Completed per policy Notes Mental Status: alert / awake / arousable Patient Amnestic to Procedure: Yes Nausea / Vomiting: adequately controlled Pain: adequately controlled Airway Patency, RR, SpO2: stable & adequate BP & HR: stable & adequate Hydration State: stable & adequate Anesthetic Complications: no major complications apparent and Pt Satisfied with anesthetic care Notes: The patient is awake and stable at baseline.
[2019-09-21] MEDS ORDERED: HydrALAZINE HCL 20 MG/ML VIAL IV PRN (09:19)
--- NOTE | 2019-09-21 09:24 | Post Operative Brief Note ---
Cardiology Brief Post Op Date of Surgery September 21, 2019 Pre & Post Diagnosis Preprocedure diagnosis: assess for embolic cause of stroke Postprocedue diagnosis: There is a 0.9 cm x 0.5 cm non-mobile atheromatous plaque noted in the aortic arch. Operation Date: 09/21/19 07:30 Procedure Transfer back to telemetry. Suction Drum Drier Operator Ayo Marie DO Testing Analyst Farzaneh Gonzales, RCS Estimated Blood Loss 0 Findings Consistent with Post-Op Diagnosis Transesophageal echocardiogram: After informed consent was obtained and a timeout was performed the patient was sedated with the assistance of the anesthesia team receiving a total of 300 mg of IV propofol and 60 mg of IV lidocaine. The aortic valve was trileaflet in morphology, with mild aortic valve regurgitation. The mitral valve anatomy was normal without mitral valve prolapse or vegetation, mild mitral vegetation was present. The left atrium was mildly dilated. The left atrium was free of thrombus. There is no evidence of left atrial appendage thrombus. Interatrial septum was intact with no atrial septal defect or PFO. A 0.9 cm x 0.5 cm non-mobile atherosclerotic plaque was noted in the aortic arch. Recommendations: Resume heparin infusion per protocol. Continue Coumadin loading. Given the fact that this is his second stroke while on therapeutic anticoagulation, would likely add low-dose aspirin at some point in the future after he is stable and on Coumadin with a therapeutic INR. Bandar plan to update his electrophysiology provider at the [facility] of this admission the SAHARA results. Anesthesia Type MAC
[2019-09-21] MEDS: HEPARIN SODIUM/DEXTROSE 25,000 UNITS/500 ML BAG IV SCH (09:29)
[2019-09-21] MEDS: LOSARTAN POTASSIUM 25 MG TAB PO SCH (09:30)
[2019-09-21] MEDS: ATORVASTATIN 10 MG TAB PO SCH (09:30)
[2019-09-21] MEDS: VITAMIN B COMPLEX TAB PO SCH (09:30)
[2019-09-21] MEDS ORDERED: LIDOCAINE HCL 2% 2 ML VIAL/AMP(20MG/ML) INFIL ONE (09:48)
[2019-09-21] MEDS ORDERED: PROPOFOL IV EMULSION 10 MG/ML 20 ML VIAL IV ONE (09:48)
[2019-09-21 16:19] LABS: Partial Thromboplastin Ratio 2.1
[2019-09-21 16:28] LABS: Partial Thromboplastin Time 59.7 Seconds (21.0-31.0)
[2019-09-21] MEDS: WARFARIN SOD 5 MG TAB PO SCH (17:44)
--- NOTE | 2019-09-21 18:50 | Hospitalist Progress Note ---
Date of Service September 21, 2019 Assessment & Plan (1) Acute CVA (cerebrovascular accident): Presented on admission with stroke like symptoms Hx CVA in the past while on Eliquis that was changed to Xarelto CT abd/pelvis showed no acute intracranial abnormality CTA head/neck showed no significant stenosis, occlusion, or aneurysm within the [place]. MRI brain showed small acute infarct left superior temporal lobe. Repeat CT head today showed no intracranial bleeding Pt said that he is compliant with the xarelto, seems to fail Xarelto therapy In the ER received Asa 324mg and (Keppra 1 g for possible seizure) Neuro on board recommended cardiology consult for anticoagulant management EEG cancelled since MRI confirmed acute stroke ECHO showed no wall motion abnormality with EF 55 to 60% Cardiology on board recommended to D/C xarelto since pt failed Xarelto Failed Eliquis and xarelto SAHARA done today showed SAHARA showed a focal non-mobile atherosclerosis plaque noted at the level of the aortic arch that protrudes into the aortic lumen 5 mm. No mass or thrombus noted Case discussed with cardiology and recommended to continue heparin drip bridge. starting on coumadin today Hypercoagulable work up pending Continue PT/OT Fall precaution Continue neuro check Hypertension BP elevated on admission Will keep SBP above 150 to 160 for now to allow permissive hypertension Will increase Losartan to 50mg daily Continue IV hydralazine prn Continue monitor BP Elevated troponin Possible related to elevate BP Troponin 0.530 on admission, then peak to 0.248 Continue Aspirin and xarelto for now ECHO showed no wall motion abnormality with EF 55 to 60% Cardiology on board Continue Aspirin, statin and heparin drip Continue monitor closely P. Atrial Flutter/Fib S/P cardioversion status and s/p ablation Failed Eliquis and now on Xarelto had an embolic stroke Cardiology consult to help with anticoagulant recommended to d/c xarelto and started on heparin drip. Will discharge on Coumadin Monitor PT/INR DVT px on Xarelto discontinued Continue heparin drip Code status Full code Admission and Anticipated Discharge Date Admission Date: September 21, 2019 Subjective Pt was seen and examined He has been walking in the hallway with no distress He had SAHARA done today and tolerated the procedure He is mental status is much better today Denies any chest pain, palpitation and SOB Physical Exam Physical Exam: General- No acute distress Head- atraumatic Eyes- PERRL, EOMI, ENT- oropharynx clear Neck- supple, no JVD Lungs- clear to auscultation Heart- regular rhythm; no murmur Abdomen- normal bowel sounds, soft, nontender Extremities- no calf tenderness Neuro- alert, oriented x 3; PERRL, EOMI; no facial palsy; no dysarthria Skin- warm & dry Results & Data ([facility]) Vital Signs (Past 12 Hours) Vital Signs Temp Pulse Pulse Resp BP BP Pulse Ox 09/21/19 15:42 36.8 C 78 19 180/80 H 99 09/21/19 15:09 67 09/21/19 09:46 36.5 C 65 18 139/77 97 09/21/19 09:43 76 09/21/19 07:07 36.6 C 70 16 183/82 H 98 09/21/19 06:51 36.6 C 57 L 18 151/80 H 98
[2019-09-22 06:19] LABS: INR 1.5 (0.9-1.1); Partial Thromboplastin Ratio 3.5; Prothrombin Time 15.2 Seconds (9.0-12.0)
[2019-09-22] MEDS: HEPARIN SODIUM/DEXTROSE 25,000 UNITS/500 ML BAG IV SCH ×3 (06:21→07:39)
[2019-09-22 06:27] LABS: Partial Thromboplastin Time 97.1 Seconds (21.0-31.0)
[2019-09-22] MEDS: ATORVASTATIN 10 MG TAB PO SCH (09:13)
[2019-09-22] MEDS: VITAMIN B COMPLEX TAB PO SCH (09:13)
[2019-09-22] MEDS: LOSARTAN POTASSIUM 50 MG TAB PO SCH (09:13)
--- NOTE | 2019-09-22 09:13 | Anesthesiology Progress Note ---
Date of Service September 22, 2019 Anesthesia Post Procedure Vital Signs Vital Signs: Temp Pulse Pulse Pulse Resp BP BP 09/22/19 08:16 36.4 C L 85 18 123/74 09/22/19 08:08 65 09/22/19 04:15 36.8 C 68 14 162/69 H 09/22/19 00:36 72 09/22/19 00:01 146/76 H 09/21/19 23:34 36.8 C 74 81 16 170/77 H 09/21/19 22:20 72 09/21/19 19:12 36.6 C 72 20 156/76 H 09/21/19 15:42 36.8 C 78 19 180/80 H 09/21/19 15:09 67 09/21/19 09:46 36.5 C 65 18 139/77 09/21/19 09:43 76 Pulse Ox 09/22/19 08:16 98 09/22/19 08:08 09/22/19 04:15 97 09/22/19 00:36 09/22/19 00:01 09/21/19 23:34 99 09/21/19 22:20 09/21/19 19:12 100 09/21/19 15:42 99 09/21/19 15:09 09/21/19 09:46 97 09/21/19 09:43 Pain Intensity Left Ribs: Pain Intensity: 0 Notes Mental Status: alert / awake / arousable Patient Amnestic to Procedure: No (pt recalls talking but was comfortable ) Nausea / Vomiting: adequately controlled Pain: adequately controlled Airway Patency, RR, SpO2: stable & adequate BP & HR: stable & adequate Anesthetic Complications: no major complications apparent and Pt Satisfied with anesthetic care
--- NOTE | 2019-09-22 12:03 | Cardiology Progress Note ---
Date of Service September 22, 2019 Assessment & Plan (1) Acute CVA (cerebrovascular accident): Patient presented with expressive aphasia, has been found to have a small left temporal lobe infarct on MRI this admission. -05/2019, 2.6 cm right frontoparietal lobe infarct -Paroxysmal atrial fibrillation, status post pulmonary vein isolation in October,, less than 1% A. fib burden noted on monitor June,. -The 05/2019 stroke episode in the 09/2019 stroke episodes both occurred on th erapeutic treatment with appropriately dose direct oral anticoagulants, Eliquis and then Xarelto. -0.5 x 0.9 mm focal atherosclerotic plaque noted in the aortic arch on SAHARA yesterday 09/21/2019 protruding 5 mm into the aortic lumen (grade 3-4). Recommendations: The only source of embolism unified on the transesophageal echocardiogram was the focal atherosclerotic plaque in the ascending aortic arch. Other etiologies on the differential include chronic small vessel disease for which the treatment is antiplatelet therapy. He is currently on a heparin bridge having discontinued his Xarelto. His PTT this morning was above goal at 97, INR after having received 2 doses of 5 mg is 1.5. Plan to continue heparin bridge until his INR is greater than 2. After he has been on therapeutic heparin with stable INR for about 2 weeks, will likely add low-dose aspirin. Would prefer to add the aspirin after 2-week interval in order to minimize the risk of provoking intracranial hemorrhage given his recent stroke. The patient was very interested in discussing further potential treatment options. I discussed the theoretical option of an aortic arch endarterectomy, however I have never referred the patient for that operation in my cardiology practice. I am not certain that the benefit of the procedure would be worth the risk given the relatively small focal amount of plaque, but since he has a relationship with an carpet winder at the [facility], perhaps he can seek an opinion there. I did leave a message with his electrophysiologists office yesterday and expect a phone call back so that I can update him regarding the events of this hospital stay for further coordination of care. At present, his blood pressure has trended toward improvement, and he is on his prior to hospital dose of losartan and I will start him back on his prior to hospital dose of doxazosin. Disposition: Remain in hospital on heparin bridge for now until INR is therapeu tic. CAD, patient would like to follow-up with me locally from a cardiology standpoint. Subjective Chief complaint: Follow-up stroke Subjective: Patient seen and examined in room 222. He tolerated transesophageal echocardiogram well yesterday. Today he is sitting in the bedside chair. He has been walking in the hallway. His expressive aphasia seems to be significantly improved at present. He was able to tell me that today is Saturday which she was not able to do yesterday morning, and he was able to identify that I was wearing a "wristwatch "when I asked him. Telemetry reveals sinus rhythm in the range of 6070 bpm with occasional PACs and no evidence of prolonged atrial fibrillation episodes. Review of Systems Review of Systems: All systems reviewed & are unremarkable except as noted in HPI & below Physical Exam Physical Exam: Temp Pulse Resp BP Pulse Ox 36.4 C L 85 18 123/74 98 09/22/19 08:16 09/22/19 08:16 09/22/19 08:16 09/22/19 08:16 09/22/19 08:16 Constitutional: WD/WN, vitals as above Respiratory: normal respiratory effort, lungs clear to auscultation Cardiovascular: RRR, no murmur, no edema Gastrointestinal (Abdomen): normal bowel sounds, soft, nontender, no hepatosplenomegaly Neurologic: moves all extremities; no focal motor deficits Expressive aphasia still noted, but improved compared to yesterday, 09/21/2019 Results & Data Vital Signs (Past 12 Hours) Vital Signs Temp Pulse Pulse Resp BP BP Pulse Ox 09/22/19 08:16 36.4 C L 85 18 123/74 98 09/22/19 08:08 65 09/22/19 04:15 36.8 C 68 14 162/69 H 97 09/22/19 00:36 72 09/22/19 00:01 146/76 H
[2019-09-22 14:21] LABS: Partial Thromboplastin Ratio 2.4
[2019-09-22 14:22] LABS: Partial Thromboplastin Time 66.6 Seconds (21.0-31.0)
[2019-09-22] MEDS: WARFARIN SOD 5 MG TAB PO SCH (15:38)
--- NOTE | 2019-09-22 19:23 | Hospitalist Progress Note ---
Date of Service September 22, 2019 Assessment & Plan (1) Acute CVA (cerebrovascular accident): Presented on admission with stroke like symptoms Hx CVA in the past while on Eliquis that was changed to Xarelto CT abd/pelvis showed no acute intracranial abnormality CTA head/neck showed no significant stenosis, occlusion, or aneurysm within the [place]. MRI brain showed small acute infarct left superior temporal lobe. Repeat CT head today showed no intracranial bleeding Pt said that he is compliant with the xarelto, seems to fail Xarelto therapy In the ER received Asa 324mg and (Keppra 1 g for possible seizure) Neuro on board recommended cardiology consult for anticoagulant management EEG cancelled since MRI confirmed acute stroke ECHO showed no wall motion abnormality with EF 55 to 60% Cardiology on board recommended to D/C xarelto since pt failed Xarelto Failed Eliquis and xarelto SAHARA done today showed SAHARA showed a focal non-mobile atherosclerosis plaque noted at the level of the aortic arch that protrudes into the aortic lumen 5 mm. No mass or thrombus noted Case discussed with cardiology and recommended to continue heparin drip bridge with coumadin until INR 2 Plan to add aspirin after 2 weeks if tolerated coumadin Hypercoagulable work up pending Continue PT/OT Fall precaution Continue neuro check Hypertension BP elevated on admission Will keep SBP above 150 to 160 for now to allow permissive hypertension Losartan increased to 50mg daily Continue IV hydralazine prn Continue monitor BP Elevated troponin Possible related to elevate BP Troponin 0.530 on admission, then peak to 0.248 Continue Aspirin and xarelto for now ECHO showed no wall motion abnormality with EF 55 to 60% Cardiology on board Continue Aspirin, statin and heparin drip Continue monitor closely P. Atrial Flutter/Fib S/P cardioversion status and s/p ablation Failed Eliquis and now on Xarelto had an embolic stroke Cardiology consult to help with anticoagulant recommended to d/c xarelto and started on heparin drip. Will discharge on Coumadin Monitor PT/INR DVT px on Xarelto discontinued Continue heparin drip Code status Full code Admission and Anticipated Discharge Date Admission Date: September 21, 2019 Subjective Pt was seen an examined He said that he feels fine He has been walking in the hallway Denies any chest pain, palpitation, dizziness and SOB Physical Exam Physical Exam: General- No acute distress Head- atraumatic Eyes- PERRL, EOMI, ENT- oropharynx clear Neck- supple, no JVD Lungs- clear to auscultation Heart- regular rhythm; no murmur Abdomen- normal bowel sounds, soft, nontender Extremities- no calf tenderness Neuro- alert, oriented x 3; PERRL, EOMI; no facial palsy; no dysarthria Skin- warm & dry Results & Data ([facility]) Vital Signs (Past 12 Hours) Vital Signs Temp Pulse Pulse Resp BP BP Pulse Ox 09/22/19 16:00 88 09/22/19 15:26 36.6 C 66 20 152/79 H 100 09/22/19 11:58 36.8 C 66 19 133/71 98 09/22/19 08:16 36.4 C L 85 18 123/74 98 09/22/19 08:08 65
[2019-09-22 20:59] LABS: Partial Thromboplastin Ratio 2.3
[2019-09-22] MEDS ORDERED: DOXAZosin MESYLATE TAB 2 MG TAB PO SCH (21:00)
[2019-09-22 21:05] LABS: Partial Thromboplastin Time 65.2 Seconds (21.0-31.0)
[2019-09-23 08:00] LABS: INR 2.2 (0.9-1.1); Partial Thromboplastin Ratio 2.8; Prothrombin Time 21.9 Seconds (9.0-12.0)
[2019-09-23] MEDS: ATORVASTATIN 10 MG TAB PO SCH (08:19)
[2019-09-23] MEDS: VITAMIN B COMPLEX TAB PO SCH (08:19)
[2019-09-23 08:50] LABS: Partial Thromboplastin Time 79.5 Seconds (21.0-31.0)
[2019-09-23] MEDS: LOSARTAN POTASSIUM 50 MG TAB PO SCH (08:54)
[2019-09-23] MEDS: HEPARIN SODIUM/DEXTROSE 25,000 UNITS/500 ML BAG IV SCH (09:19)
--- NOTE | 2019-09-23 11:59 | Hospitalist Progress Note ---
Date of Service September 23, 2019 Assessment & Plan Admission and Anticipated Discharge Date Admission Date: September 21, 2019 Results & Data ([facility]) Vital Signs (Past 12 Hours) Vital Signs Temp Pulse Pulse Resp BP Pulse Ox 09/23/19 08:00 74 09/23/19 07:46 36.7 C 64 20 142/70 H 98 09/23/19 04:12 36.6 C 69 18 146/76 H 96 09/23/19 00:00 36.8 C 67 17 137/72 97
--- NOTE | 2019-09-23 12:08 | Cardiology Progress Note ---
Date of Service September 23, 2019 Assessment & Plan (1) Acute CVA (cerebrovascular accident): Patient presented with expressive aphasia, has been found to have a small left temporal lobe infarct on MRI this admission. -05/2019, 2.6 cm right frontoparietal lobe infarct -Paroxysmal atrial fibrillation, status post pulmonary vein isolation in October,, less than 1% A. fib burden noted on monitor June,. -The 05/2019 stroke episode in the 09/2019 stroke episodes both occurred on th erapeutic treatment with appropriately dose direct oral anticoagulants, Eliquis and then Xarelto. -0.5 x 0.9 mm focal atherosclerotic plaque noted in the aortic arch on SAHARA 09/21/2019 protruding 5 mm into the aortic lumen (grade 3-4). h/o HTN LDL optimally controlled on low dose atorvastatin, 49 mg/LD on 09/20/19 Mild troponin elevation due to CVA. Recommendations: Blood work for hypercoagulable evaluation obtained this admission. These results are still pending with the exception of homocystine which was very minimally elevated at 11.9, upper limit of normal 11.4, and I do not think we need to proceed with any specific intervention for this. INR today is 2.2. Plan to discharge him on Coumadin, 5 mg daily, goal INR 2.5 with a range of 2-3. Coumadin replaces his prior to hospital treatment with Xarelto. Although aspirin 81 mg was listed on his prior to hospital medication list at [facility], he was not taking aspirin on a regular basis prehospital. We will plan to add aspirin in after it is determined that he is on a therapeutic stable dose of warfarin with a stable INR readings for about 2 weeks. Regarding hypertension, he is back on his prior to home dosing of losartan and doxazosin. I plan to add low-dose metoprolol succinate for further blood pressure control, and given his history of paroxysmal atrial fibrillation. Disposition: Transfer [facility] for inpatient stroke rehab/speech therapy. I have already placed a referral to the [facility] anticoagulation clinic so that I may manage his Coumadin as an outpatient. Patient is to follow-up with me in terms of general cardiology as an outpatient. We will plan for outpatient visit with me in approximately 1 month. Patient is not to drive in the interim, until reassessed by PCP, and the undersigned. Subjective Chief complaint: Follow-up stroke Subjective: Patient feeling relatively well today. The severity of his expr essive aphasia continues to wax and wane, a little bit worse this morning compared to when I had spoken to them yesterday. He had apparently spoken to his brother on the phone and had a good conversation. He is eager to proceed with aggressive speech therapy. Telemetry reveals sinus rhythm in the 60 bpm range with a 3 beat run of wide-complex tachycardia overnight. Review of Systems Review of Systems: All systems reviewed & are unremarkable except as noted in HPI & below Physical Exam Physical Exam: Temp Pulse Resp BP Pulse Ox 36.7 C 74 20 142/70 H 98 09/23/19 07:46 09/23/19 08:00 09/23/19 07:46 09/23/19 07:46 09/23/19 07:46 Constitutional: WD/WN, vitals as above Respiratory: normal respiratory effort, lungs clear to auscultation Cardiovascular: RRR, no murmur, no edema Gastrointestinal (Abdomen): normal bowel sounds, soft, nontender, no hepatosplenomegaly Neurologic: moves all extremities; no focal motor deficits Ongoing expressive aphasia noted Results & Data Vital Signs (Past 12 Hours) Vital Signs Temp Pulse Pulse Resp BP Pulse Ox 09/23/19 08:00 74 09/23/19 07:46 36.7 C 64 20 142/70 H 98 09/23/19 04:12 36.6 C 69 18 146/76 H 96 09/23/19 00:00 36.8 C 67 17 137/72 97 Laboratory Results 09/23/2019, INR: 2.2, PTT 79.5 seconds Medications Administered Current Inpatient Medications Acetaminophen (Tylenol) 650 mg PO Q4H PRN PRN Reason: Pain or Fever Stop: 10/19/19 05:46 Atorvastatin Calcium (Lipitor) 10 mg PO DAILY STARLA Stop: 10/19/19 08:59 Last Admin: 09/23/19 08:19 Dose: 10 mg Documented by: Doxazosin Mesylate (Cardura) 2 mg PO HS STARLA Stop: 10/22/19 20:59 Last Admin: 09/22/19 20:16 Dose: 2 mg Documented by: Hydralazine HCl (Hydralazine Hcl) 10 mg IV Q6H PRN PRN Reason: for SBP above 170 Stop: 10/21/19 09:29 Losartan Potassium (Cozaar) 50 mg PO QAM [facility] Stop: 10/22/19 08:59 Last Admin: 09/23/19 08:54 Dose: 50 mg Documented by: Nitroglycerin (Nitrostat) 0.4 mg SL UD PRN PRN Reason: Chest Pain Stop: 10/19/19 05:46 Oxycodone HCl (Roxicodone Immediate Rel) 5 mg PO Q4H PRN PRN Reason: Pain Stop: 10/03/19 05:46 Vitamin B Complex (Vitamin B Complex) 1 tab PO DAILY [facility] Stop: 10/19/19 08:59 Last Admin: 09/23/19 08:19 Dose: 1 tab Documented by: Warfarin Sodium (Coumadin) 5 mg PO DAILY@1600 [facility] Stop: 10/20/19 15:59 Last Admin: 09/22/19 15:38 Dose: 5 mg Documented by:
[2019-09-23] MEDS ORDERED: METOPROLOL SUCC 25MG EXT REL TAB PO SCH (12:15)
--- NOTE | 2019-09-23 12:49 | Discharge Summary ---
Date of Service September 23, 2019 Admission HPI Per Admitting Provider History obtained from patient, family, and records. Medical history significant for chronic diastolic heart failure (EF 55-60% TTE 2018), aFlutter/atrial fib status post cardioversion status post ablation on Xarelto, hx embolic CVA, GERD, BPH, past tobacco abuse. Recent confinement May 2019 for transient left-sided weakness attributed to embolic CVA. Patient BID Eliquis changed to nightly Xarelto to facilitate compliance. Patient was working out on the treadmill last night when he noted a strange sensation that something was not right. Possibly blank episode as per patient without witnessed seizures, incontinence, tongue biting. Patient later noted by to be struggling with use of the TV remote control. Patient used the word granola to refer to remote control. Patient denies headache, chest pain, S OB. Compliant with home medications. EMS summoned by . Blood pressure noted to be high at home as per . Patient given aspirin upon arrival at the ER. Stroke alert called. Patient given IV Keppra for seizure prophylaxis as per [facility] [place]. Improving symptoms as per but patient still struggling to get some words out. 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 Exam Per Admitting Provider GENERAL: Comfortable, slightly anxious, no respiratory distress SKIN: Normal color, warm HEENT: [place] palpebral conjunctivae, chronic ptosis, dry buccal mucosa NECK : Supple, no tenderness CHEST : CTA, no tenderness HEART : RRR, no obvious murmurs ABDOMEN: Soft, nontender EXTREMITIES : No LE swelling/tenderness, no other conspicuous deformities noted NEUROLOGIC : Coherent, no facial asymmetry, no other gross focality Principal Diagnosis Acute CVA Small acute left superior temoral lobe infarct Hypertension Discharge Exam Constitutional well developed and well nourished; no acute distress Eyes PERRL, conjunctivae normal, anicteric sclerae ENMT external ear and nose normal, oropharynx normal Respiratory normal respiratory effort, lungs clear to auscultation Cardiovascular RRR, no murmur, no edema Heart Sounds: normal S1 and normal S2 Gastrointestinal (Abdomen) normal bowel sounds, soft, nontender, no hepatosplenomegaly Musculoskeletal no cyanosis or clubbing, extremities motor strength 5/5 Neurologic PERRL, EOMI, accommodation nl, no face palsy, no dysarthria Occasional word finding difficulty noted Psychiatric A+Ox3, euthymic affect Discharge Data Allergies Allergy/AdvReac Type Severity Reaction Status Date / Time Penicillins Allergy Severe Hives Verified 09/19/19 01:10 Consultations 09/19/19 02:45 ED Decision to Admit Stat 09/19/19 05:47 Consult Case Management - Discharge Planning Routine Consult Neurology Routine 09/19/19 12:43 Consult Cardiology Routine 09/19/19 16:34 Consult Anesthesiology Routine Procedures Performed Operation Date: 09/21/19 07:30 Actual Procedures p Echo Transesophageal - DO jania Coyle Echo Color Flow - DO jania Coyle Echo Doppler Complete - Ayo Marie DO Ordered Studies 09/19/19 00:52 CT head/brain wo con Stat Findings: The paranasal sinuses and mastoid air cells are clear. The calvarium and skull base are intact. The ventricles and sulci are within normal limits. There is no mass, hematoma, midline shift, or acute infarct. Impression: No acute intracranial abnormality. Chronic small vessel change. 09/19/19 01:19 CT angio head w con Routine FINDINGS: There is no mass, hematoma, midline shift, or acute infarct. Visualized intracranial internal carotid arteries, distal vertebral arteries, and basilar artery are widely patent. There is no significant stenosis, occlusion, or aneurysm seen within the bilateral ACAs, MCAs, or ground operations crew member. IMPRESSION: No significant stenosis, occlusion, or aneurysm within the [place] of [place]. CT angio neck with con Routine FINDINGS: The aortic arch and proximal great vessels are widely patent. There is no significant stenosis, occlusion, or dissection identified within the bilateral common carotid, internal carotid, or vertebral arteries. Minimal scattered plaque formation IMPRESSION: No significant stenosis, occlusion, or dissection identified within the carotid or vertebral arteries. 09/19/19 05:47 MR angio head wo con Routine FINDINGS: Visualized intracranial internal carotid arteries, distal vertebral arteries, and basilar artery are widely patent. There is no significant stenosis, occlusion, or aneurysm seen within the bilateral ACAs, MCAs, or ground operations crew member. IMPRESSION: No significant stenosis, occlusion, or aneurysm within the [place] MR brain seizure wo/w con Routine FINDINGS: Diffusion images show a small patchy parenchymal infiltrate superior aspect left temporal lobe. No additional foci of acute ischemic change are present. There are findings of an old right periventricular infarct. There are age- related components of atrophy as well as chronic small vessel change. Ventricular system is midline. The sella and parasellar regions are unremarkable. The internal lateral canals are symmetric. IMPRESSION: 1. Small acute infarct left superior temporal lobe. 2. Age-related atrophy and chronic small vessel change. 3. 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 4. No abnormal postcontrast enhancement. 09/21/19 07:19 CT head/brain wo con Stat Hospital Course (1) Acute CVA (cerebrovascular accident): Presented on admission with stroke like symptoms Hx CVA in the past while on Eliquis that was changed to Xarelto CT abd/pelvis showed no acute intracranial abnormality CTA head/neck showed no significant stenosis, occlusion, or aneurysm within the [place]. MRI brain showed small acute infarct left superior temporal lobe. Repeat CT head showed no intracranial bleeding Patient said that he had been compliant with the xarelto, seems to fail Xarelto therapy In the ER received Asa 324mg and (Keppra 1 g for possible seizure) Neuro on board recommended cardiology consult for anticoagulant management EEG initially ordered on admission cancelled since MRI confirmed acute stroke ECHO showed no wall motion abnormality with EF 55 to 60% Cardiology on board recommended to D/C xarelto since pt failed Xarelto Failed Eliquis and xarelto SAHARA done showed a focal non-mobile atherosclerosis plaque noted at the level of the aortic arch that protrudes into the aortic lumen 5 mm. No mass or thrombus noted Case discussed with cardiology and recommended to do heparin drip bridge with coumadin until INR was 2-3. INR is 2.2 today Provided extensive warfarin education. Will need to check INR in 2 days and next week Discharge on warfarin 5mg daily for now. To follow up with anticoagulation clinic Will follow up with Production Floater who may start aspirin at a later date Hypercoagulable work up pending Was evaluated by PT/OT/SUPERVISOR COMPOSING ROOM Patient's expressive aphasia has continued to improve. Still has occasional word finding difficulty but communicating appropriately Currently on atorvastatin 10mg with LDL optimally controlled at 49mg/dl on 09/20/19 Discharge to rehab (2) Hypertension BP elevated on admission Did permissive hypertension initially Discharge on increased Losartan at 50mg daily Started on metoprolol XL 12.5mg daily Continue monitor BP (3) Elevated troponin Troponin 0.180 on admission and went up slightly to 0.25 Patient did not have any chest pain or ischemic changes on EKG Trop has been chronically elevated in the past Unclear if this may be related to elevated BP on admission ?Demand Continue Aspirin and xarelto for now ECHO showed no wall motion abnormality with EF 55 to 60% (4) Paroxysmal Atrial Flutter/Fib S/P cardioversion status and s/p ablation Failed Eliquis and now on Xarelto and had an embolic stroke Discharge on warfarin as discussed above Total Time Total Time Spent Total Time Spent (In Minutes): 50 Total Time Includes: Examination of the Patient, Discharge Planning, Medication Reconciliation and Communication With Other Providers Discharge Plan Discharge Items Patient Disposition: Transfer Inpatient Rehab Fac Reason For Visit: Aphasia Discharge Diagnosis: Acute CVA (cerebrovascular accident) Condition on Discharge: Good Activity: Resume your previous activity Activity Comment: Per physical and speech therapist instructions Non-emergency contact: Primary Care Provider, Production Floater and Neurologist Call non-emergency contact if: you have any medication questions Follow-up/Referrals: Phong Gleason MD [Physician] - 11/02/19 2:45 pm (Follow up in 4-6 weeks) William Collado MD [Primary Care Provider] - Diet: Regular and Heart Healthy Ambulatory Orders: Prothrombin Time INR (Routine) Timeframe: 2 Days Location: Determined by Patient Ordered By: Skye Hawkins Attending Provider Instructions: Mr Huffman. You came to the hospital due to problem expressing yourself and some weakness. You were evaluated and found to have a stroke. You have had recurrent stroke now while on blood thinners. Part of the evaluation involved an Echocardiogram (SAHARA) which showed a small plaque in your aorta. You were comanaged with the Production Floater and Neurologist. Due to failure of previous new oral anticoagulation therapies (eliquis and xarelto), you were started on coumadin. You are to check INR regularly. INR is the blood test done to assess how thin blood is with coumadin. Your goal INR is 2-3. Please check INR in 2 days and another in 1 week. Your Coumadin dose may be adjusted based on these levels. Certain medications (like antibiotics) and foods also affect INR levels. It is very important that you let any doctor taking care of you know you are on coumadin before starting any medication or before any procedure. Please follow up with anticoagulation clinic as well. Metoprolol was added to your medications. You will follow up with the Production Floater who may add aspirin to your medication at a later date. It is very important that you follow up with the Neurologist and your Primary doctor. DO NOT DRIVE UNTIL CLEARED BY REAL ESTATE FIRM MANAGER AND YOUR PRIMARY DOCTOR. Please continue physical and speech therapy at rehab It was a pleasure taking care of you. Pending Studies at Discharge: No Stand-Alone Forms: My [facility] Skilled Items Patient informed of condition?: Yes DNR: No Discharge Level of Care: Acute rehab Communicable Disease: No Discharge Prognosis: Stable Lines: None Urinary Catheter: No Medications and DC Order Prescriptions: New warfarin 5 mg tablet 5 mg PO DAILY Qty: 30 RF: 1 metoprolol succinate 25 mg tablet extended release 24 hr 12.5 mg PO DAILY Qty: 30 RF: 0 Continued ascorbic acid (vitamin C) [Vitamin C] 500 mg Tablet 500 mg PO DAILY RF: 0 lutein 6 mg Capsule 0 mg PO Q OTHER DAY RF: 0 zinc 50 mg Tablet 25 mg PO DAILY RF: 0 vitamin B complex [Super B-50 Complex] Capsule 1 cap PO DAILY RF: 0 glucosamine-chondroitin 167-133 mg Capsule 1 cap PO DAILY RF: 0 doxazosin [Cardura] 2 mg Tablet 2 mg PO HS RF: 0 magnesium 200 mg Tablet 200 mg PO DAILY RF: 0 cholecalciferol (vitamin D3) [Vitamin D3] 1,000 unit Capsule 2,000 unit PO DAILY RF: 0 cinnamon bark [Cinnamon] 500 mg Capsule 500 mg PO DAILY RF: 0 omega 4-[id number]-tfs-fish oil [Fish Oil] 1,000 mg (120 mg-180 mg) Capsule 1 cap PO DAILY RF: 0 atorvastatin [Lipitor] 10 mg tablet 10 mg PO DAILY Qty: 30 RF: 0 Changed losartan [Cozaar] 25 mg tablet 50 mg PO DAILY 30 Days Qty: 60 RF: 0 Discontinued Reservatrol 1 tab PO DAILY RF: 0 Xarelto 20 mg tablet 20 mg PO DAILY Qty: 30 RF: 0 Discharge Orders: Discharge Order (Routine); Ordered 09/23/19 Ordered By: Skye Bradshaw/Other Patient Handouts: Using Blood Thinners Anticoagulants, What to Know When TakingWarfarin, Warfarin tablets Admission Data Admit Date/Time: 09/21/19 09:20 Attending Provider: Skye Gordon I. Admit Provider: Luis Antonio Dunlap Primary Care Provider: William Collado Other Providers: [facility] ; Govind Paul ; Ayo Marie ; Daiana Flores ; Phong Gleason ; Daiana You ; Kong Strong ; Luis Antonio Dunlap ; Jerrod Olivier Other Interventions: Discharge Summary Assessment (RN) Last Done: 09/23/19 12:51 DC Date/Time DO NOT enter until pt leaves facility: 09/23/19 15:19
[2019-09-24 15:15] LABS: Anti Cardiolipin Ab IgG <14 GPL; Anti Cardiolipin Ab IgM <12 MPL; Anti-Cardiolipin Ab IgA <11 APL; Anti-Thrombin III Activity 59 % activity (80-120); B2 Glycoprotein IgA <9 SAU (<=20); B2 Glycoprotein IgG <9 SGU (<=20); B2 Glycoprotein IgM <9 SMU (<=20); Protein S Functional(Activity) 77 % (70-150)
== END 2019-09-23 15:19 | DRG 65 ==
LOC: ED 00:28 → 2W 00:28 → SUATTDRO 09-21 09:20 → 2S 09-21 12:23

== ENCOUNTER 2023-05-23 09:40 | Inpatient (IN) ==
[2023-05-23] MEDS ORDERED: ACETAMINOPHEN 325 MG TAB PO PRN (11:37)
--- NOTE | 2023-05-23 12:11 | History & Physical Report ---
Date of Service May 23, 2023 Assessment & Plan (1) Pleural effusion: (2) Chronic heart failure with preserved ejection fraction (HFpEF): (3) Severe tricuspid regurgitation: Plan: Admit to [facility] Patient presenting by referral of outpatient pulmonary office for evaluation and management of recurrent right-sided pleural effusion. 04/25/2023 s/p right-sided thoracentesis for 2.2L with effusion reaccumulating quickly. History of chronic HFpEF and tricuspid regurgitation. Currently managed on furosemide, spironolactone, metolazone. Follows with [facility] cardiology. Update echo Patient currently on Coumadin. INR pending. Will provide Vit K if needed, patient will require bridging given history of paroxysmal atrial fibrillation with multiple CVAs. Case discussed with Cornelius Garcia PA-C -- plan for possible thoracentesis here and/or transfer [place] [facility] for evaluation by thoracic surgery for possible VATs evaluation and pleurodesis (4) Paroxysmal atrial fibrillation: Plan: Rate controlled on metoprolol Coumadin management as above (5) Hyperthyroidism: Plan: Chronic, stable TSH 3.08 05/09/2023 Continue methimazole (6) Hypertension: Plan: Chronic, stable Continue losartan and metoprolol (7) BPH (benign prostatic hyperplasia): Plan: Chronic, stable Continue doxazosin DVT PROPHYLAXIS SCDs when INR <2.0 or not receiving bridging Patient seen in collaboration with Dr. Duenas. I spent a total of 75 minutes coordinating, documenting, and providing care for this patient excluding time spent in the performance of separately billed services. This included personally reviewing all current laboratories and imaging studies, medication reconciliation, outpatient chart review, and discussion with specialists. Admission and Anticipated Discharge Date Admission Date: May 23, 2023 History of Present Illness Chief Complaint: Shortness of breath, pleural effusion Primary Care Provider: Lito Pandey DO 77-year-old male with PMH dyslipidemia, hyperthyroidism, pulmonary HTN, chronic HFpEF, HTN, paroxysmal atrial fibrillation anticoagulated on Coumadin, history of multiple CVAs, GERD, BPH, and other problems listed below who presents as a direct admission from referral of pulmonary office for evaluation and management of recurrent right-sided pleural effusion. History obtained from the patient and review of outpatient PCP, cardiology, pulmonary records. Summary of recent events: 02/26/2023 -admitted to [facility] for 2 weeks due to severe volume overload treated with furosemide infusion, diuresing off 20 pounds of fluid. Underwent right heart cath and echocardiogram that showed tricuspid regurgitation was graded as mild compared to severe. 04/25/2023 -s/p right-sided thoracentesis for 2.2L About 2 weeks post thoracentesis, patient reports his shortness of breath returned. He reports shortness of breath with minimal exertion. No shortness of breath at rest. Reports gradually gaining 8 pounds since the thoracentesis. No chest pain. Denies lightheadedness, dizziness, diaphoresis, syncopal events. No abdominal pain, nausea, vomiting, diarrhea. Denies fevers and chills. No urinary symptoms. Patient reevaluated in pulmonary office on 05/21/2023 with x- ray showing reaccumulated right-sided pleural effusion. Patient referred for admission for further management. Allergies Allergy/AdvReac Type Severity Reaction Status Date / Time Penicillins Allergy Severe Hives Verified 05/17/23 13:02 clopidogrel [From Plavix] Allergy Intermediate hives Verified 05/17/23 13:02 omeprazole AdvReac Severe PAIN IN Verified 05/17/23 13:02 CHEST, PASSED OUT. Home Medications Medication Instructions Recorded Confirmed Type cholecalciferol (vitamin D3) 25 1,000 unit PO DAILY 05/14/19 05/23/23 History mcg (1,000 unit) capsule (Vitamin D3) aspirin 81 mg tablet,delayed 81 mg PO DAILY 09/13/20 05/23/23 History release atorvastatin 10 mg tablet (Lipitor) 10 mg PO QAM 09/13/20 05/23/23 History coenzyme Q10 200 mg capsule 200 mg PO DAILY 09/13/20 05/23/23 History metoprolol succinate 25 mg 25 mg PO QAM #30 tabs 09/15/20 05/23/23 Rx tablet,extended release 24 hr famotidine 20 mg tablet 20 mg PO DAILY 10/15/22 05/23/23 History ascorbic acid (vitamin C) 500 mg 1,000 mg PO DAILY 04/08/23 05/23/23 History tablet (Vitamin C) doxazosin 2 mg tablet (Cardura) 2 mg PO TID 04/08/23 05/23/23 History empagliflozin 10 mg tablet 10 mg PO QAM 04/08/23 05/23/23 History (Jardiance) furosemide 20 mg tablet 60 mg PO BID 04/08/23 05/23/23 History glucosamine-chondroitin 167 mg-133 1 cap PO WK 04/08/23 05/23/23 History mg capsule losartan 25 mg tablet (Cozaar) 25 mg PO QAM 04/08/23 05/23/23 History magnesium 200 mg tablet 100 mg PO DAILY 04/08/23 05/23/23 History spironolactone 25 mg tablet 12.5 mg PO MOWEFR 04/08/23 05/23/23 History warfarin 5 mg tablet 2.5 mg PO FR 05/17/23 05/23/23 History warfarin 5 mg tablet 5 mg PO SUMOTUWETHSA 05/17/23 05/23/23 History garlic 100 mg tablet 100 mg PO DAILY 05/23/23 05/23/23 History methimazole 5 mg tablet 10 mg PO DAILY 05/23/23 05/23/23 History omega-3 fatty acids 1,000 mg 1,000 mg PO DAILY 05/23/23 05/23/23 History capsule vit C-vit L-pwnawz-fuwkzerp capsule 1 cap PO Q2D 05/23/23 05/23/23 History Past Med/Surg History Medical History Hyperthyroidism Paroxysmal atrial fibrillation Severe tricuspid regurgitation Chronic heart failure with preserved ejection fraction (HFpEF) History of CVA (cerebrovascular accident) Hypertension BPH (benign prostatic hyperplasia) HTN (hypertension) Surgical History History of thoracentesis Thoracentesis 04/25/2023 Hx of prior ablation treatment History of cardiac catheterization 2015 at [facility] Hx of tonsillectomy Family History Other Hypertension Stroke Social History Smoking Status: Never smoker Second Hand Exposure: No; Do You Dip or Chew Tobacco: No; Hx Alcohol Use: Yes Alcohol type: beer and wine Hx Substance Use: No Preferred Language: Hungarian Communication Ability: Effective Visual Impairment: No Limitations Hearing Ability: Normal Electronic Assembly Required: No Beliefs That Will Affect Care: None marital status: Current Living Situation: Spouse Feels Safe at Home: Yes Safety Concerns: Feels Safe At This Time Assistive Devices: None Physical Exam Constitutional: WD/WN, vitals as above no acute distress Eyes: PERRL, conjunctivae normal, anicteric sclerae ENMT: external ear and nose normal, oropharynx normal Respiratory: normal respiratory effort; no respiratory distress Auscultation: + diminished lung sounds (right) Cardiovascular: Rate/Rhythm: regular rate and regular rhythm Vessels: normal peripheral pulses Extremities: no edema Gastrointestinal (Abdomen): normal bowel sounds, soft, nontender, no hepatosplenomegaly Musculoskeletal: no cyanosis or clubbing, extremities motor strength 5/5 Skin: no rashes, warm and dry Neurologic: PERRL, EOMI, accommodation nl, no face palsy, no dysarthria Psychiatric: A+Ox3, euthymic affect Results & Data Results & Data Vital Signs (Past 12 Hours) Vital Signs Temp Pulse Resp BP Pulse Ox O2 Del Method 05/23/23 11:18 36.3 C L 78 16 116/68 95 Room Air 05/23/23 11:17 36.6 C 78 16 116/68 95 Room Air Code Status & VTE Plan VTE Prophylaxis Plan VTE Prophylaxis will be ordered: No Supervising Physician Co-Signing Physician Notes I have seen and discussed the case with the collaborating SOCKET WELDER HELPER I agree with the above H&P. I have reviewed and confirmed the patients medical history, the findings on physical examination, and the patients diagnosis and treatment plan with SOCKET WELDER HELPER and agree with the information documented. In short, Mr. Huffman is a 77-year-old gentleman with PMH dyslipidemia, hyperthyroidism, pulmonary HTN, chronic HFpEF, HTN, paroxysmal atrial fibrillation anticoagulated on Coumadin, history of multiple CVAs, GERD, BPH, admitted due to progressive VALDOVINOS iso recurrent right pleural effusion. He is directly admitted with plans for possible thoracentesis once INR <1.7; also with plans to have thoracic evaluate the patient. Recent pleural fluid cytology negative fore malignancy. VS stable. Admission labs pending. Exam notable for pleasant gentleman with no remarkable findings outside of absent breath sounds on right lung woods. Plan #Recurrent Right Pleural Effusion -Follow up INR, possible thoracentesis -Consult thoracic for eval--transfer for pleurodesis? #HFmrEF (LVEF 50% on 09/2022) #Severe tricuspid regurgitation #PHTN - TTE , RVSP 61mmhg - Home diuretics: Lasix 60mg BID - GDMT: BetaB:reduced from Metoprolol xl 25 BID, only daily now *RAAS: Losartan 25mg daily *Hitesh: Spironolactone 12.5 mg MWF (limited reportedly 2/2 hyperkalemia) *SGLT: previously considered, not added as of 03/2023 cardiology visit -Continue home regimen for now -Consider ECHO s/p Thoracentesis #paraoxsymal a fib -holding warfarin iso of possible procedure, resume when able -Continue metoprolol XL 25mg daily #CKDIII -avoid nephrotoxic agents #PRIOR CVA #HLD -Failed DOAC per history, on warfarin; occasional issues with expressive aphasia -Continue asa and statin #Hyperthyroid -Continue Methimazole 10mg daily
--- NOTE | 2023-05-23 12:12 | Pulmonary Consultation ---
Date of Consultation May 23, 2023 Assessment & Plan (1) Recurrent pleural effusion on right: (2) Dyspnea on exertion: (3) Orthopnea: (4) Pulmonary hypertension: Plan IMPRESSION: 77-year-old male with a significant past medical history of recurrent RIGHT-sided pleural effusion who presents as direct admission for semiurgent evaluation and management of the patient's recurrent pleural effusion with need for thoracentesis and pleural fluid characterization. RECOMMENDATIONS: 1. RIGHT-sided pleural effusion - Recurrent effusion with relatively rapid reaccumulation since last drainage on 04/25/2023. Patient remains symptomatic with significant dyspnea exertion as well as orthopnea. Thankfully, he is saturating well on room air today. Unfortunately, his thoracentesis procedures have been complicated by his need for anticoagulation therapy in the setting of failed DOAC therapy with recurrent CVAs and dependence on Coumadin. Patient will require diagnostic and therapeutic thoracentesis at this time as he does warrant reevaluation from a pathologic standpoint for benign mesothelial cells that were appreciated with an exudative effusion. Additionally, given the rapidity of recurrence, patient may warrant thoracic surgery evaluation for possible pleurodesis. Will obtain CT without contrast to evaluate given his recent chest x-ray findings with what appears to be more of an upper lobe lung field effusion as he is with preserved costophrenic angle on the lateral view of his chest films. 2. Anticoagulated on Coumadin - We will provide the patient with 5 mg of vitamin K today. We will repeat INR tomorrow morning with plan thoracentesis at that time. Patient may warrant being bridged on Lovenox moving forward until he can be back on his routine Coumadin dosing with therapeutic INR. 3. Spoke with Dr. Hernández of thoracic surgery at [facility]. Explained the patient in great detail. He agrees the patient does warrant evaluation, but on a outpatient basis. He recommends proceeding with the thoracentesis continuing with outpatient referral as previously placed. Certainly if something were to change or worsen, he is available if necessary. Otherwise, he is in agreement with current approach. 4. Pulmonary hypertension - As previously assessed. Patient is scheduled for an echocardiogram today. We will obtain while inpatient for assessment given his ongoing and rapid reaccumulation of pleural fluid. Thank you for allowing us to participate in the care of this pleasant patient. We will continue to follow along while inpatient. History of Present Illness Reason for Consultation: Recurrent Pleural Effusion Requesting Physician: GEOVANNA Bauer Attending Physician: Claribel Duenas MD History of Present Illness Patient is a 77-year-old male with significant past medical history of recurrent RIGHT-sided pleural effusion. The patient has been managed in the outpatient setting by pulmonary with thoracentesis x2 at this point. His most recent thoracentesis was performed on 04/25/2023. There is been abrupt recurrence in the effusion and he was seen in the office on 05/21/2023 with progressively worsening dyspnea and orthopnea. 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 Patient is on Coumadin for history of recurrent CVAs while on DOAC therapy. Unfortunately, it has been difficult to coordinate his bridging off of Coumadin while being on Lovenox in the outpatient setting. Unfortunately, given his rapid accumulation of pleural fluid and worsening symptoms with need for semiurgent thoracentesis with characterization of the fluid given this pathology findings, patient warrants inpatient evaluation of his effusion on an urgent basis. Upon evaluation of the patient in room 3801, he is awake, alert, and oriented. He reports that he has difficulty with breathing when laying flat. Additionally, he reports that he can walk approximately 20 feet without becoming significantly short of breath. He reports occasional upper chest discomfort after coughing spells. Otherwise, no presyncope episodes appreciated. He denies headaches, dizziness, lightheadedness, or abdominal discomfort. Allergies Allergy/AdvReac Type Severity Reaction Status Date / Time Penicillins Allergy Severe Hives Verified 05/17/23 13:02 clopidogrel [From Plavix] Allergy Intermediate hives Verified 05/17/23 13:02 omeprazole AdvReac Severe PAIN IN Verified 05/17/23 13:02 CHEST, PASSED OUT. Home Medications Medication Instructions Recorded Confirmed Type cholecalciferol (vitamin D3) 25 1,000 unit PO DAILY 05/14/19 05/23/23 History mcg (1,000 unit) capsule (Vitamin D3) aspirin 81 mg tablet,delayed 81 mg PO DAILY 09/13/20 05/23/23 History release atorvastatin 10 mg tablet (Lipitor) 10 mg PO QAM 09/13/20 05/23/23 History coenzyme Q10 200 mg capsule 200 mg PO DAILY 09/13/20 05/23/23 History metoprolol succinate 25 mg 25 mg PO QAM #30 tabs 09/15/20 05/23/23 Rx tablet,extended release 24 hr famotidine 20 mg tablet 20 mg PO DAILY 10/15/22 05/23/23 History ascorbic acid (vitamin C) 500 mg 1,000 mg PO DAILY 04/08/23 05/23/23 History tablet (Vitamin C) doxazosin 2 mg tablet (Cardura) 2 mg PO TID 04/08/23 05/23/23 History empagliflozin 10 mg tablet 10 mg PO QAM 04/08/23 05/23/23 History (Jardiance) furosemide 20 mg tablet 60 mg PO BID 04/08/23 05/23/23 History glucosamine-chondroitin 167 mg-133 1 cap PO WK 04/08/23 05/23/23 History mg capsule losartan 25 mg tablet (Cozaar) 25 mg PO QAM 04/08/23 05/23/23 History magnesium 200 mg tablet 100 mg PO DAILY 04/08/23 05/23/23 History spironolactone 25 mg tablet 12.5 mg PO MOWEFR 04/08/23 05/23/23 History warfarin 5 mg tablet 2.5 mg PO FR 05/17/23 05/23/23 History warfarin 5 mg tablet 5 mg PO SUMOTUWETHSA 05/17/23 05/23/23 History garlic 100 mg tablet 100 mg PO DAILY 05/23/23 05/23/23 History methimazole 5 mg tablet 10 mg PO DAILY 05/23/23 05/23/23 History omega-3 fatty acids 1,000 mg 1,000 mg PO DAILY 05/23/23 05/23/23 History capsule vit C-vit X-aqchio-eqlyjufw capsule 1 cap PO Q2D 05/23/23 05/23/23 History Patient History Medical History Hyperthyroidism Paroxysmal atrial fibrillation Severe tricuspid regurgitation Chronic heart failure with preserved ejection fraction (HFpEF) History of CVA (cerebrovascular accident) Hypertension BPH (benign prostatic hyperplasia) HTN (hypertension) Surgical History History of thoracentesis Thoracentesis 04/25/2023 Hx of prior ablation treatment History of cardiac catheterization 2015 at [facility] Hx of tonsillectomy Family History Other Hypertension Stroke Social History Smoking Status: Never smoker Second Hand Exposure: No; Do You Dip or Chew Tobacco: No; Hx Alcohol Use: Yes Alcohol type: beer and wine Hx Substance Use: No Preferred Language: Greenlandic Communication Ability: Effective Visual Impairment: No Limitations Hearing Ability: Normal Industrial Methods Consultant Required: No Beliefs That Will Affect Care: None marital status: Current Living Situation: Spouse Feels Safe at Home: Yes Safety Concerns: Feels Safe At This Time Assistive Devices: None Review of Systems Review of Systems: A complete 10 point review of systems was reviewed with the patient with pertinent positives and negatives as per history of present illness. All else were negative. Physical Exam Physical Exam: VITAL SIGNS - Vital signs and nursing notes were reviewed. GENERAL - 77-year-old male appearing his stated age who is in no acute distress. Communicates well with provider and answers questions appropriately. SKIN - Without rashes or lesions. NOSE - Midline and without cyanosis. MOUTH/OROPHARYNX - Without perioral cyanosis. NECK - Neck with FROM. LUNGS - Chest wall evaluation demonstrates normal chest wall A:P diameter. Auscultation reveals decreased breath sounds to the RIGHT sided lung field and normal breath sounds on the left without wheezes, rales or rhonchi. CARDIAC - RRR with S1/S2. No murmur, rubs, or gallops appreciated. ABDOMEN - Abdominal inspection demonstrates a protuberant abdomen. BS normoactive all four quadrants. No tenderness, palpable masses, or ascites noted. EXTREMITIES - Nail clubbing not present. No peripheral cyanosis. Mild pretibial edema present. +3/5 radial palpated throughout. PSYCH - A&Ox3 and cooperates fully with examiner. Pt is very pleasant and interacts well with examiner. Results & Data Results & Data Vital Signs (Past 12 Hours) Vital Signs Temp Pulse Resp BP Pulse Ox O2 Del Method 05/23/23 11:18 36.3 C L 78 16 116/68 95 Room Air 05/23/23 11:17 36.6 C 78 16 116/68 95 Room Air PG Care Time/CCT Total # of Minutes Spent Total Time Spent with Patient: Total time spent is greater than 50% in coordination of care (as documented) at patient's floor/unit and/or counseling patient: Coding Level of Care Code 25248 INT INP/OBS CARE MIN Diagnoses Recurrent pleural effusion on right J90 Dyspnea on exertion R06.09 Orthopnea R06.01 Pulmonary hypertension I27.20
[2023-05-23] MEDS ORDERED: PHYTONADIONE 5 MG in DEXTROSE 5% 50 ML IV ONE (13:45)
[2023-05-23] MEDS ORDERED: DOXAZosin MESYLATE TAB 2 MG TAB PO SCH (14:00)
[2023-05-23 14:43] LABS: Hemoglobin 15.1 g/dl (14.0-18.0); Mean Corpuscular Hemoglobin 32.1 pg (25.0-34.0); Mean Corpuscular Hgb Conc 33.6 g/dL (32.0-36.0); Mean Corpuscular Volume 95.5 fL (80.0-100.0); Mean Platelet Volume 9.5 fL (9.4-12.4); Platelet Count 157 K/uL (130-400); RDW Standard Deviation 49.9 fL (36.4-46.3); Red Blood Count 4.71 M/uL (4.70-6.10); White Blood Count 10.24 K/ul (4.8-10.8)
[2023-05-23 15:05] LABS: BUN Creatinine Ratio 29.3 (10-20); Calcium 8.8 mg/dl (8.6-10.3); Creatinine Clr Calc Pharmacy 37.3 ml/min; Est GFR (African American) 50.6 ml/min; Est GFR (Non-African American) 43.7 ml/min; Magnesium 2.4 mg/dl (1.7-2.4); Potassium 3.9 mmol/L (3.5-5.1)
[2023-05-23 15:16] LABS: INR 1.3 (0.9-1.1); Prothrombin Time 13.6 Seconds (9.0-12.0)
[2023-05-23] MEDS ORDERED: ENOXAPARIN 1 MG/KG SQ SCH (17:45)
--- NOTE | 2023-05-23 17:47 | Communication Note ---
Date of Service: May 23, 2023 s/p thoracentesis for 2L Discussed with Cornelius Garcia PA-C. [place] [facility] [place] Will start therapeutic dose Lovenox for bridging. First dose tonight. Plan for d/c home tomorrow. GEOVANNA Bauer
[2023-05-23 18:36] LABS: Total Protein 6.9 gm/dl (6.0-8.3)
--- NOTE | 2023-05-23 18:57 | XRay Report ---
XR chest 1V portable HISTORY: S/P Thoracentesis COMPARISON: Chest 05/21/2023. FINDINGS: Decrease in size in the now moderate right pleural effusion. No pneumothorax. No left pleur al effusion. Right basilar densities persist. The heart remains mildly enlarged. No evidence for pulm onary edema. IMPRESSION: Decrease in size in the now moderate right pleural effusion. No pneumothorax. ACT 112: Negative or not required by law. Electronically signed by: Javier Alejandra M.D. 05/23/2023 6:55 PM
[2023-05-23 19:08] LABS: Total Protein Pleural Fluid 4.4 gm/dl
[2023-05-23 19:38] LABS: Appearance Pleural Fluid Hazy; Color Pleural Fluid Yellow; RBC Pleural Fluid Auto < 2000 /uL; Source Pleural Fluid Right Lung; WBC Pleural Fluid Auto 227 /uL
[2023-05-23] MEDS: ENOXAPARIN 80 MG/0.8 ML SYR SQ SCH (19:45)
[2023-05-23] MEDS: FUROSEMIDE 20 MG TAB PO SCH (19:50)
[2023-05-23] MEDS ORDERED: Nursing to Pharmacy Communication SCH (20:00)
--- NOTE | 2023-05-23 20:00 | CT Scan Report ---
CT chest diagnostic wo con CT DOSE: 302.74 mGy.cm HISTORY: recurrent RIGHT sided effusion TECHNIQUE: Multiaxial CT images of the chest were performed without contrast. A dose lowering techni que was utilized adhering to the principles of ALARA. COMPARISON: Chest CT 11/03/2020. FINDINGS: Small amount of mucoid material within the trachea. No pneumothorax. There is a large right pleural effusion which results in near complete compressive atelectasis of the right lung and mass e ffect along the bronchus intermedius and central bronchi. There is associated mild left mediastinal s hift from the large right pleural effusion. No left pleural effusion. Only a small amount of the ante rior right upper lobe remains aerated. The remaining right lung is compressed from the pleural effusi on. The left lung is essentially clear. No acute fractures. No suspicious lytic or blastic osseous le sions. Limited views of the upper abdomen demonstrate a normal spleen and adrenal glands. There is a 1.6 cm hypodense lesion within the left kidney which favors a cyst. This is similar to the prior stud y. Normal caliber esophagus. The heart is normal in size. Mild calcified plaque within the normal adrienne iber thoracic aorta. There are few punctate calcified granulomas within the collapsed/compressed righ t lung. Mediastinal lymph nodes measure subcentimeter in short axis diameter and therefore do not janette t CT criteria for pathologic involvement. No definite hilar lymphadenopathy. IMPRESSION: 1. Large right pleural effusion resulting in near complete collapse/compression of the right lung. An underlying mass would be difficult to exclude but not clearly identified on this study. Therefore, f ollow-up recommended once the patient's pleural effusion has resolved. 2. Mild left mediastinal shift due to the right pleural effusion. 3. No lymphadenopathy. ACT 112: Negative or not required by law. Electronically signed by: Javier Alejandra M.D. 05/23/2023 7:58 PM
[2023-05-23 20:38] LABS: Basophils, Fluid 4 %; Eosinophils, Fluid 6 %; Lymphocytes, Fluid 12 %; Mono,Macrophage,Mesothelial 67 %; Neutrophils, Fluid 11 %
[2023-05-23] MEDS: DOXAZosin MESYLATE TAB 2 MG TAB PO SCH (22:57)
[2023-05-24] MEDS: ENOXAPARIN 80 MG/0.8 ML SYR SQ SCH (05:07)
[2023-05-24 07:59] LABS: Hematocrit (blood only) 43.3 % (42.0-52.0); Mean Corpuscular Hemoglobin 33.1 pg (25.0-34.0); Mean Corpuscular Hgb Conc 34.6 g/dL (32.0-36.0); Mean Corpuscular Volume 95.6 fL (80.0-100.0); Mean Platelet Volume 9.6 fL (9.4-12.4); Platelet Count 146 K/uL (130-400); RDW Coefficient of Variation 13.8 % (11.5-14.5); RDW Standard Deviation 48.5 fL (36.4-46.3); Red Blood Count 4.53 M/uL (4.70-6.10); White Blood Count 9.31 K/ul (4.8-10.8)
[2023-05-24 08:22] LABS: BUN Creatinine Ratio 24.7 (10-20); Calcium 8.7 mg/dl (8.6-10.3); Creatinine Clr Calc Pharmacy 37.3 ml/min; Est GFR (African American) 50.6 ml/min; Est GFR (Non-African American) 43.7 ml/min; INR 1.1 (0.9-1.1); Magnesium 2.1 mg/dl (1.7-2.4); Potassium 3.9 mmol/L (3.5-5.1); Prothrombin Time 12.3 Seconds (9.0-12.0)
[2023-05-24] MEDS: DOXAZosin MESYLATE TAB 2 MG TAB PO SCH ×2 (08:57→15:02)
[2023-05-24] MEDS: FUROSEMIDE 20 MG TAB PO SCH (08:58)
[2023-05-24] MEDS ORDERED: CHOLECALCIFEROL 1,000 UNITS 25 MCG TAB PO SCH (09:00)
[2023-05-24] MEDS ORDERED: methIMAzole 5 MG TABLET PO SCH (09:00)
[2023-05-24] MEDS ORDERED: MAGNESIUM OXIDE 400 MG TAB PO SCH (09:00)
[2023-05-24] MEDS ORDERED: NON-FORMULARY MEDICATION (Coenzyme Q10 200 mg Capsule) PO SCH (09:00)
[2023-05-24] MEDS ORDERED: METOPROLOL SUCC 25MG EXT REL TAB PO SCH (09:00)
[2023-05-24] MEDS ORDERED: ASPIRIN 81 MG ECTAB PO SCH (09:00)
[2023-05-24] MEDS ORDERED: ATORVASTATIN 10 MG TAB PO SCH (09:00)
[2023-05-24] MEDS ORDERED: EMPAGLIFLOZIN 10 MG TAB PO SCH (09:00)
[2023-05-24] MEDS ORDERED: LOSARTAN POTASSIUM 25 MG TAB PO SCH (09:00)
[2023-05-24] MEDS ORDERED: SPIRONOLACTONE 12.5 MG TAB PO SCH (09:00)
[2023-05-24] MEDS ORDERED: FAMOTIDINE 20 MG TAB PO SCH (09:00)
--- NOTE | 2023-05-24 10:31 | XRay Report ---
XR chest 1V portable CLINICAL HISTORY: pleural effusion TECHNIQUE: Single frontal radiograph of the chest was obtained. Comparison: Comparison is made to chest radiograph 05/23/2023 FINDINGS: No lines and tubes are seen. The cardiomediastinal silhouette is normal. Moderate right pleural effus ion is seen, slightly decreased in size from the prior exam. Underlying airspace opacity is noted. IMPRESSION: Moderate right pleural effusion is again seen, decreased in size from prior exam, with underlying air space opacity. ACT 112: Negative or not required by law. Electronically signed by: Drew Wiggins M.D. 05/24/2023 10:29 AM
--- NOTE | 2023-05-24 13:26 | Discharge Summary ---
Date of Service May 24, 2023 Admission HPI Per Admitting Provider 77-year-old male with PMH dyslipidemia, hyperthyroidism, pulmonary HTN, chronic HFpEF, HTN, paroxysmal atrial fibrillation anticoagulated on Coumadin, history of multiple CVAs, GERD, BPH, and other problems listed below who presents as a direct admission from referral of pulmonary office for evaluation and management of recurrent right-sided pleural effusion. History obtained from the patient and review of outpatient PCP, cardiology, pulmonary records. Summary of recent events: 02/26/2023 -admitted to [facility] for 2 weeks due to severe volume overload treated with furosemide infusion, diuresing off 20 pounds of fluid. Underwent right heart cath and echocardiogram that showed tricuspid regurgitation was graded as mild compared to severe. 04/25/2023 -s/p right-sided thoracentesis for 2.2L About 2 weeks post thoracentesis, patient reports his shortness of breath returned. He reports shortness of breath with minimal exertion. No shortness of breath at rest. Reports gradually gaining 8 pounds since the thoracentesis. No chest pain. Denies lightheadedness, dizziness, diaphoresis, syncopal events. No abdominal pain, nausea, vomiting, diarrhea. Denies fevers and chills. No urinary symptoms. Patient reevaluated in pulmonary office on 05/21/2023 with x- ray showing reaccumulated right-sided pleural effusion. Patient referred for admission for further management. Admission Exam Per Admitting Provider Constitutional: WD/WN, vitals as above no acute distress Eyes: PERRL, conjunctivae normal, anicteric sclerae ENMT: external ear and nose normal, oropharynx normal Respiratory: normal respiratory effort; no respiratory distress Auscultation: + diminished lung sounds (right) Cardiovascular: Rate/Rhythm: regular rate and regular rhythm Vessels: normal peripheral pulses Extremities: no edema Gastrointestinal (Abdomen): normal bowel sounds, soft, nontender, no hepatosplenomegaly Musculoskeletal: no cyanosis or clubbing, extremities motor strength 5/5 Skin: no rashes, warm and dry Neurologic: PERRL, EOMI, accommodation nl, no face palsy, no dysarthria Psychiatric: A+Ox3, euthymic affect Principal Diagnosis recurrent pleural effusion x right Dyspnea on exertion pulmonary hypertension Discharge Exam GENERAL: Alert and oriented x3. NAD, on RA. HEENT: No pallor, no icterus. Pupils equal, round and reactive to light. Oral mucosa moist. NECK: No JVD, no neck masses. HEART: S1 and S2 heard. Regular rate and rhythm. No murmur, no gallop. RESPIRATORY SYSTEM: Normal AP diameter. No accessory muscle use. No wheezing, no crackles. decreased breathsounds x rll. ABDOMEN: Soft, bowel sounds present, nontender, no distention. CENTRAL NERVOUS SYSTEM: No facial droop. Speech is clear. Obeys simple commands. Moves extremities. EXTREMITIES: No edema, no erythema seen. Discharge Data Allergies Allergy/AdvReac Type Severity Reaction Status Date / Time Penicillins Allergy Severe Hives Verified 05/17/23 13:02 clopidogrel [From Plavix] Allergy Intermediate hives Verified 05/17/23 13:02 omeprazole AdvReac Severe PAIN IN Verified 05/17/23 13:02 CHEST, PASSED OUT. Consultations 05/23/23 11:37 Consult Pulmonology Routine Ordered Studies 05/23/23 13:37 CT chest diagnostic wo con Urgent 05/23/23 16:59 sono, invasive monitoring [US point of care ultrasound] Urgent Hospital Course (1) Recurrent pleural effusion on right: Plan Patient was sent from pulmonology office due to recurrent right-sided pleural effusion and dyspnea on exertion. Patient underwent thoracentesis with improvement in his shortness of breath, currently hemodynamically stable. Pleural fluid culture and pathology studies pending. Discussed with pulmonology, okay to discharge from their point of view. Patient will need repeat chest x-ray in a week time, follow-up with pulmonology in 1 to 2 weeks time. Patient made aware to follow-up with primary care physician within a week time and set up appointment with thoracic surgeon as an outpatient. He voiced understanding and was agreeable to plan of care. He is also being discharged on Lovenox bridge until Coumadin levels are therapeutic which has been explained to the patient. Also explained was importance of following up with Coumadin clinic in 2 to 3 days time upon discharge. He is being discharged with following instruction at the point of discharge: Follow-up with your primary care physician within a week time and likely you will need labs CBC/CMP/magnesium/phosphorus. Establish and follow-up with thoracic surgeon at [facility] for your recurrent pleural effusion. Coordinate with your PCP office to set up the referral. You need chest x-ray in a week time, coordinate with your PCP office to set up the test. Follow-up with your pulmonology in 1 to 2 weeks time. Follow-up on final results of your pleural fluid studies during your visit with PCP within a week time. You will be discharged on Lovenox subcutaneous as a part of bridging dose until your PT/INR is therapeutic on coumadin. Continue your Coumadin dose as prior. Follow-up with your Coumadin clinic in 2 to 3 days upon discharge and follow their recommendation regarding Lovenox/Coumadin thereafter. It is very important that your Lovenox be stopped as soon as your PT/INR becomes therapeutic; hence visiting Coumadin clinic on Saturday (in 2-3 days) and getting assessed for continuation of Lovenox on top of your prior Coumadin is very important. Please make sure that you are able to get your medications today by calling your pharmacy before you leave the hospital so that your treatment continuity is not broken. Home Health Attestation I certify that this patient is under my care and that I, or a physicians senior sales assistant working with me, had a face to-face encounter that meets the home health [id number] encounter requirements with this patient. The encounter with the patient was in whole, or in part, for the following medical condition, which is the primary reason for home health care (list medical condition): I certify that, based on my findings, the following services are medically necessary home health services: My clinical findings support the need for the above services because: Further, I certify that my clinical findings support that this patient is homebound (i.e. absences from home require considerable and taxing effort and are for medical reasons or protestant services or infrequently or of short duration when for other reasons) because: Certification for Home Health Services: Based on the above findings, I certify that this patient is confined to the home and needs intermittent fpc care, physical therapy and/or speech therapy or continues to need occupational therapy. The patient is under my care, and I have initiated the establishment of the plan of care. This patient will be followed by a physician who will periodically review the plan of care. Total Time Total Time Spent Total Time Spent (In Minutes): 45 Discharge Plan Discharge Items Patient Disposition: Home - Self-Care Reason For Visit: RECURRENT PLURAL EFFUSION Discharge Diagnosis: recurrent pleural effusion x right Dyspnea on exertion pulmonary hypertension Activity: Resume your previous activity Non-emergency contact: Primary Care Provider Call non-emergency contact if: you have any medication questions and your symptoms worsen Follow-up/Referrals: Lito Pandey DO [Primary Care Provider] - Diet: Heart Healthy and Low Sodium (2gm) Addtl Attending Provider Instructions: Follow-up with your primary care physician within a week time and likely you will need labs CBC/CMP/magnesium/phosphorus. Establish and follow-up with thoracic surgeon at [facility] for your recurrent pleural effusion. Coordinate with your PCP office to set up the referral. You need chest x-ray in a week time, coordinate with your PCP office to set up the test. Follow-up with your pulmonology in 1 to 2 weeks time. Follow-up on final results of your pleural fluid studies during your visit with PCP within a week time. You will be discharged on Lovenox subcutaneous as a part of bridging dose until your PT/INR is therapeutic on coumadin. Continue your Coumadin dose as prior. Follow-up with your Coumadin clinic in 2 to 3 days upon discharge and follow their recommendation regarding Lovenox/Coumadin thereafter. It is very important that your Lovenox be stopped as soon as your PT/INR becomes therapeutic; hence visiting Coumadin clinic on Saturday (in 2-3 days) and getting assessed for continuation of Lovenox on top of your prior Coumadin is very important. Please make sure that you are able to get your medications today by calling your pharmacy before you leave the hospital so that your treatment continuity is not broken. Pending Studies at Discharge: Yes Stand-Alone Forms: My [facility] Disruptor Beam, Smoking Cessation Medications and DC Order Prescriptions: New enoxaparin [Lovenox] 80 mg/0.8 mL Syringe 70 mg subcut Q12H 4 Days Qty: 8 0RF Continued famotidine 20 mg tablet 20 mg PO DAILY spironolactone 25 mg tablet 12.5 mg PO MOWEFR furosemide 20 mg tablet 60 mg PO BID Jardiance 10 mg tablet 10 mg PO QAM doxazosin [Cardura] 2 mg tablet 2 mg PO TID glucosamine-chondroitin 167-133 mg capsule 1 cap PO WK Rx Instructions: pt takes one time weekly magnesium 200 mg tablet 100 mg PO DAILY cholecalciferol (vitamin D3) [Vitamin D3] 1,000 unit Capsule 1,000 unit PO DAILY atorvastatin [Lipitor] 10 mg tablet 10 mg PO QAM aspirin 81 mg Tablet,Delayed Release (Dr/Ec) 81 mg PO DAILY Rx Instructions: pt states he takes in the morning coenzyme Q10 200 mg Capsule 200 mg PO DAILY metoprolol succinate 25 mg tablet extended release 24 hr 25 mg PO QAM Qty: 30 2RF ascorbic acid (vitamin C) [Vitamin C] 500 mg tablet 1,000 mg PO DAILY losartan [Cozaar] 25 mg tablet 25 mg PO QAM warfarin 5 mg tablet 2.5 mg PO FR warfarin 5 mg tablet 5 mg PO SUMOTUWETHSA garlic 100 mg Tablet 100 mg PO DAILY methimazole 5 mg tablet 10 mg PO DAILY omega-3 fatty acids 1,000 mg Capsule 1,000 mg PO DAILY Lutein Vison Formula Capsule 1 cap PO Q2D Discharge Orders: Discharge Order (Routine); Ordered 05/24/23 Ordered By: Ru Trejo Admission Data Admit Date/Time: 05/23/23 10:56 Attending Provider: Ru Trejo Admit Provider: Claribel Duenas Primary Care Provider: Lito Pandey Other Providers: Alexa Montez
--- OUTSIDE RECORDS SUMMARY | 2023-07-03 09:17 | External Medical Summary | Summary of Care ---
Author Name Unknown Organization [facility] Address [address] [place] [address] Phone [phone] Care Team Providers Care Railway Station Manager Name Role Phone Lito Pandey DO Primary Care Provider [phone] Reason for Visit * Reason Comments Follow Up Encounter Details Date Type Department Care Team (Late st Contact Info) Description 06/24/2023 11:20 AM EST Office Visit Family Practice [address] [place] [address] [address] [place] [id number] Lito Pandey DO [address] [phone] Recurrent right pleural effusion*; Pneumothorax of right lung after biopsy; Essential hypertension with goal blood pressure less than 140/90; Pulmonary HTN (HCC); Paroxysmal atrial fibrillation (HCC); Severe tricuspid regurgitation; Hepatic cirrhosis, unspecified hepatic cirrhosis type, unspecified whether ascites present (HCC); Chronic kidney disease, stage 3a (HCC) Allergies Active Allergy Reactions Criticality Noted Date Comments Omeprazole Other (Please comment) 05/25/2019 Pt reports it made him feel like med was affecting his heart health, felt like someone "pulled the plug". Penicillins Hives 03/31/2007 hives Clopidogrel Bisulfate Hives 05/21/2016 Pt on several new meds when hives developed, unclear which was the direct cause documented as of this encounter (statuses as of 06/24/2023) Medications Medication Sig Dispensed Refills Start Date End Date Status GLUCOSAMINE CHONDRO COMPLEX 500-400 MG PO TABS Take 1 Tablet by mouth. Once a week 0 8 Active LUTEIN 15-0.7 MG PO CAPS Take 1 Capsule by mouth once a week. 0 8 Active VITAMIN C 500 MG PO TABS Take 2 Tablets by mouth once a week. 0 Active Coenzyme Q10 200 MG Capsule [...] for ED 50 Tab 5 1 Active Famotidine 20 MG Oral Tablet (Pepcid)Indications: Gastroesophageal reflux disease without esophagitis Take 1 Tablet by mouth every night at bedtime. 90 Tablet 1 3 Active Additional Information Patient taking differently:20 mg [id number], Reported on 06/14/2023 Doxazosin Mesylate 2 MG Oral Tablet (Cardura)Indications :HTN, goal below 130/80 Take 1 Tablet by mouth in the morning and 1 Tablet before bedtime. 90 Tablet 2 3 Active Metoprolol Succinate [...] the morning. 90 Tablet 3 3 Active Losartan Potassium 25 MG Oral Tablet (Cozaar)Indications: HTN, goal below 130/80 Take 1 Tablet by mouth in the morning. 90 Tablet 3 3 Active Furosemide 20 MG Oral Tablet (Lasix)Indications:H TN, goal below 130/80 Take 3 Tablets by mouth in the morning and 3 Tablets before bedtime. 540 Tablet 3 3 Active Spironolactone 25 MG Oral Tablet (Aldactone)Indicatio ns:HTN, goal below 130/80 Take 0.5 Tablets by mouth daily. One half tablet by mouth Saturday and fridays 45 Tablet 3 3 Active Additional Information Patient taking differently:12.5 mg OralMWF, (No instructions reported), Reported on 06/14/2023 Atorvastatin Calcium 10 MG Oral Tablet (Lipitor)Indications :Acute ischemic cerebrovascular accident (CVA) involving middle cerebral artery territory (HCC),HTN, goal below 130/80,Hypertensive kidney disease with stage 3 chronic kidney disease (HCC) TAKE 1 TABLET DAILY 90 Tablet 1 3 Active Garlic 100 MG Oral Tablet Take 1 Tablet by mouth in the morning. 0 Active documented as of this encounter (statuses as of 06/24/2023) Active Problems Patient Care Coordination No te Formatting of this note migh t be different from the original. 11/05/2019dismissed from speech and home health 11/04/19. 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 own therapy. OT was dismissed 10/30/19. 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 Subcutaneous emphysema after procedure 3 Hepatic cirrhosis 05/09/2023 Severe tricuspid regurgitation 05/09/2023 Recurrent right pleural effusion 05/09/2023 Hyperthyroidism 02/27/2023 Glaucoma 12/01/2021 Essential hypertension with goal blood pressure less than 140/90 11/30/2021 Gastroesophageal reflux disease without esophagi tis 11/30/2021 Pulmonary HTN 02/15/2021 Overview: 02/15/2021 Has had ECHO and commented relatively unchanged compared to the 1 performed a little over a month ago at [facility] with ongoing findings suggestive high blood [...] AF burden Paroxysmal atrial fibrillation 09/23/2019 Overview: [facility]: He has a history of persistent [...] admissionto [facility] Cardiac Catheterization 05/2016 [facility] 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 Advance directive discussed with patient 015 Overview: 1 POA Bethe 2 POA daughter Tammy [phone] POA father Ammon [phone] Urinary retention with incomplete bladder emptyi ng [...] as of this encounter (statuses as of 06/24/2023) Resolved Problems Problem Noted Date Diagnosed Date [...] as of this encounter (statuses as of 06/24/2023) Immunizations Name Administration Dates Next Due COVID-19 mRNA, LNP-s, No Pre serve, 2-Dose Series (Moderna) 09/08/2020,08/11/2020 COVID-19, mRNA, LNP-s, PF, B ooster, 100mcg/0.5mg (Moderna) 01/31/2022 Pneumococcal Conjugate Vacc, 13 Valent (Prevnar) 05/11/2016 Pneumococcal Polysaccharide PPV23 (Pneumovax) 05/12/2016,01/11/2009 Season Influenza, Quad, PF, Adjuvanted, 65+ Yrs, IM (FLUAD) 04/14/2020 Seasonal Influenza Virus Vac cine, Unspecified Formulation 04/14/2020,03/23/2019,03/06/2018,04/11,05/12/2016,05/11/2016,04/05/2016 ,02/17/2015,06/10/2014,04/09/2013,03/09,03/22/2010,05/05/2009, 8,05/14/2006 Seasonal Influenza, PF, 6 M & above, IM , (FluLaval or Fluzone) 03/23/2019,04/11/2017 Seasonal Influenza, Quadriva lent Hd (Fluzone Hd) [...] Sign Reading Time Taken Comments Blood Pressure 96/60 06/24/2023 11:32 AM EST Pulse 82 06/24/2023 11:32 AM EST Temperature 36.3 C (97.3 F) 06/24/2023 1 1:32 AM EST Respiratory Rate - - Oxygen Saturation 96% 06/24/2023 11: 32 AM EST Inhaled Oxygen Concentration - - Weight 69.7 kg (153 lb 11.2 oz) 023 11:32 AM EST Height - - Body Mass Index 25.19 06/14/2023 9:20 AM EST documented in this encounter Functional Status Functional Status Response Date of Assess ment Are you deaf or do you have serious difficulty h earing? No 06/07/2023 Are you blind or do you have serious difficulty seeing, even when wearing glasses? No 06/07/2023 Do you have serious difficul ty walking or climbing stairs? (5 years old or older) No 06/07/2023 Do you have difficulty dress ing or bathing? (5 years old or older) No 06/07/2023 Because of a physical, menta l, or emotional condition, do you have difficulty doing errands alone such as visiting a doctor s office or shopping? (15 years old or older) No 06/07/20 Cognitive Status Response Date of Assessm ent Because of a physical, menta l, or emotional condition, do you have serious difficulty concentrating, remembering, or making decisions? (5 years old or older) No 06/07/2023 documented as of this encounter Progress Notes * Lito Pandey DO - 06/24/2023 12:10 PM EST Images from the original note were not included. History of Present Illness B Ammon Huffman OD is a 77 year old male that presents for Follow Up Patient is a 77-year-old male with history of recurrent right pleural effusion status post right VATS procedure on 06/07/2023. Patient also has history of hypertension, pulmonary hypertension, paroxysmal atrial fibrillation, tricuspid regurgitation, hepatic cirrhosis and CKD 3 Patient states shortness breath has improved with minimal drainage from pleural catheter. Patient complains of intermittent shortness breath with bending forward. Patient denies chest pain palpitations or edema. Patient denies fever chills or sweats. Patient denies cough or sputum. Patient complains of intermittent shallow breathing. Patient is tolerating general diet. Review of systems otherwise negative Lab studies showed cytology of pleural fluid consistent with chronic reactive effusion. Right pleural biopsy showed findings consistent with chronic fibrinous and fibrous pleuritis negative for malignancy. XR CHEST 2 VIEWS Narrative: EXAM XR CHEST 2 VIEWS-06/12/2023 11:21 am HISTORY evaluate for right pleural effusion, pleur x catheter in place COMPARISON Prior studies including chest single view dated 06/08/2023; chest single view dated 06/07/2023; chest single view dated 06/07/2023; chest single view dated 06/07/2023; chest single view dated 06/06/2023 and prior TECHNIQUE PA/lateral FINDINGS There has been unfavorable interval change. A right pleural catheter is again seen laterally in the right hemithorax. There is a right pneumothorax measuring approximally 1.4 cm in diameter at the right lung apex. There is a right pleural effusion. Noted in the right upper lung field and noted anteriorly on lateral view is an air-fluid level suggesting hydropneumothorax. The degree of pleuroparenchymal density as increased as compared to 06/08/2023 not occupying approximately the lower half to 2/3 of the right hemithorax. This is suggestive of pleural fluid collection and associated parenchymal density likely atelectasis/volume loss but perhaps infiltrate etcetera. Left lung is well-expanded. There is a tiny left pleural effusion. There is no left focal parenchymal consolidation or pulmonary vascular congestion. The visualized portion of cardiomediastinal silhouette and osseous thorax appears stable. Thoracic aorta is atherosclerotic with calcification and tortuous. There is osseous degenerative change. There is subcutaneous emphysema again seen in the lateral right hemithorax and supraclavicular location. Impression: IMPRESSION Unfavorable interval change with increasing pleuroparenchymal density right hemithorax. Right pneumothorax again noted with hydropneumothorax component. Please see the above discussion In accordance with [place] act 112 this report is included in the radiology department communication/reporting system with results relayed to ordering clinician and notification of patient. Physical Exam Vitals: 06/24/23 1132 Temp: 36.3 C (97.3 F) Pulse: 82 SpO2: 96% BP: 96/60 BP Readings from Last 3 Encounters: 06/24/23 96/60 06/14/23 98/50 06/08/23 98/53 Wt Readings from Last 3 Encounters: 06/24/23 69.7 kg (153 lb 11.2 oz) 06/14/23 70.9 kg (156 lb 3.2 oz) 06/07/23 70.7 kg (155 lb 14.4 oz) BMI Readings from Last 3 Encounters: 06/24/23 25.19 kg/m 06/14/23 25.60 kg/m 06/07/23 25.55 kg/m BP 96/60 | Pulse 82 | Temp 36.3 C (97.3 F) | Wt 69.7 kg (153 lb 11.2 oz) | SpO2 96% | BMI 25.19kg/m | BSA 1.79 m General: alert, healthy, and no distress [...] palpable lymphadenopathy Heart: regular rate & rhythm, grade 2/6 systolic ejection murmur and no gallops, occasional ectopy Lungs: chest symmetric with normal AP diameter, no chest deformities noted, no chest wall tenderness, decreased breath sounds right lung base with crackles, no rhonchi or wheeze Pulses: carotid=2/4 w/o bruits Abdomen: abdomen soft, [...] Skin: skin color, texture, turgor are normal, no rashes or significant lesions I have reviewed the following results: PT INR Assessment and Plan Recurrent right pleural effusion Pneumothorax of right lung after biopsy status post right VATS procedure. Repeat chest x-ray Continue present medical therapy Follow with thoracic surgeon for possible removal of pleural catheter Incentive spirometry Essential hypertension with goal blood pressure less than 140/90 Continue present medication Losartan 25 mg 1 tab once daily Pulmonary HTN (HCC) Continue present medication Lasix 20 mg 3 tabs twice daily Spironolactone 25 mg 1/2 tab daily on Saturday and Saturday Paroxysmal atrial fibrillation (HCC) Continue present medication Metoprolol succinate ER 25 mg 1 tab once daily Warfarin 5 mg 1 tab daily or as directed by anticoagulation clinic Severe tricuspid regurgitation Follow with Cardiology Hepatic cirrhosis, unspecified hepatic cirrhosis type, unspecified whether ascites present (HCC) Avoid alcohol Chronic kidney disease, stage 3a (HCC) Avoid NSAIDs Wrap-Up Time: I spent a total of 40-54 minutes (exact time 40 mins) on the date of service in preparation, delivery, and documentation of the care provided to Madyson Huffman OD excluding any time spent in the performance of separately billed services. documented in this encounter Plan of Treatment Upcoming Encounters Date Type Department Care Team (Late st Contact Info) Description 07/09/2023 10:50 AM EST Anticoagulation Pharmacy, [place] [address] [place] [id number] Pharmacist1, [facility] [address] [place] [id number] 07/22/2023 11:00 AM EST Nutrition Services Nutrition Services [address] [place] [address] [address] [place] [id number] Melani No, RDN 30 [facility] [address] [address] 08/01/2023 1:30 PM EST Office Visit Cardiology, [facility] [address] [address] Ayo Marie DO [address] [id number] 08/16/2023 10:40 AM EST Office Visit Family Practice [address] [place] [address] [address] [place] [address] Lito Pandey DO [address] [place] [id number] 10/03/2023 11:00 AM EDT Telemedicine Endocrinology, [place] [facility] [address] [place] [address] Geremias Hammonds, [address] [place] [address] 10/04/2023 11:20 AM EDT Office Visit Dermatology, [facility] [place] [address] [place] [address] [place] [address] Caitlin Yuan PA-C [address] [place] [phone] 10/15/2023 1:40 PM EDT Office Visit Nephrology, [facility] [address] [place] [address] Tami Wilson MD [address] [place] [address] Scheduled Orders Name Type Priority Associated Diagnoses Orde r Schedule XR CHEST 2 VIEWS Medical Imaging Routine Recurrent right pleural effusion Pneumothorax of right lung after biopsy Ordered: 06/24/2023 Health Maintenance Due Date Last Done Comments Hepatitis C Screening 1963 Hepatitis B (1 of 3 - Risk 3-dose series) 2003 COVID-19 Vaccine () 03/08/2023 01/31/2022, 09/08/2020, 08/11/2020 GFR 11/26/2023 05/28/2023, 08/2022, 04/18/2023, Additional history exists Albumin/Creatinine Ratio 05/09/2024 05/09/2023 Depression Screening 05/09/2024 05/09/2023 CKD HGB USE SMARTSET 51985 05/28/202405/28, 05/28/2023, 09/21/2022, Additional history exists CKD PHOS USE SMARTSET 93481 05/28/202405/09, 02/06/2023, 02/01/2023, Additional history exists DTaP,Tdap,and Td Vaccines (2 - Td or [...] this encounter Medical Devices Implanted Type Area Architectural Drafting Instructor Device Identifier Shelf Expiration Date Model / Serial / Lot Cath Thermodilution 6fr - [id number] Implanted:Qty: 1 on 10/24/2022 by Rene Webber MD at [facility] Radiation Monitoring Devices [id number] 06/06/2024 [id number] / / [id number] documented as of this encounter Visit Diagnoses Diagnosis Recurrent right pleural effusion- Primary Unspecified pleural effusion Pneumothorax of right lung after biopsy Iatrogenic pneumothorax Essential hypertension with goal blood pressure less than 140/90 Pulmonary HTN (HCC) Other chronic pulmonary heart diseases Paroxysmal atrial fibrillation (HCC) Atrial fibrillation Severe tricuspid regurgitation Diseases of tricuspid valve Hepatic cirrhosis, unspecified hepatic cirrhosis type, unspecified whether ascites present (HCC) Chronic kidney disease, stage 3a (HCC) documented in this encounter Advance Directives Latest [...] the patient have Health Care Power of Power Plant Engineer? No Care Teams Railway Station Manager Relationship Specialty Start Date End Date Lito Pandey DO [address] [place] [id number] PCP - General Family Medicine 05/09/23 documented as of this encounter
--- OUTSIDE RECORDS SUMMARY | 2023-07-03 09:17 | External Medical Summary ---
Author Name Unknown Address Unknown Organization K01:LABORATORY [facility] - [address] [place] [address] Laboratory Report Ordering Provider Test Date Status WILMER ANDERSON 06/24/2023 12:22:41 Final Observation Date Value Abnormality Reference (Units ) Status T3, Free 06/24/2023 12:22:41 5.1 Above high normal 2. 5-4.3 (pg/mL) Final Performing Location LABORATORY [facility] - [address] [place] [address]
--- OUTSIDE RECORDS SUMMARY | 2023-07-03 09:17 | External Medical Summary ---
Author Name Unknown Address Unknown Organization K01:LABORATORY [facility] - [address] [place] [address] Laboratory Report Ordering Provider Test Date Status YFN [place] 06/24/2023 12:22:41 Final Exclude Heart Failure: <300 pg/mL
Diagnose Heart Failure:
Age <50 yr: >450 pg/mL
50-75 yr: >900 pg/mL
>75 yr: >1800 pg/mL
GFR is 30-59 mL/min: >1200 pg/mL or Age- adjusted values
GFR <30 mL/min: do not use, not reliable

Prognostic threshold: 1000 pg/mL Observation Date Value Abnormality Reference (Units ) Status BNP, Pro-hormone 06/24/2023 12:22:41 2561 Above high no rmal <300 (pg/mL) Final Performing Location LABORATORY [facility] - [address] [place] [address]
--- OUTSIDE RECORDS SUMMARY | 2023-07-03 09:17 | External Medical Summary | Summary of Care ---
Author Name Unknown Organization [facility] Address [address] [place] [address] Phone [phone] Care Team Providers Care Managing Manager Name Role Phone Lito Pandey DO Primary Care Provider Reason for Visit * Reason Comments Follow Up Encounter Details Date Type Department Care Team (Late st Contact Info) Description 06/24/2023 11:20 AM EST Office Visit Family Practice [address] [place] [address] [address] [place] [address] Lito Pandey DO [address] [place] [phone] Recurrent right pleural effusion*; Pneumothorax of right [...] Active Additional Information Patient taking differently:20 mg [id number], Reported on 06/14/2023 Doxazosin Mesylate 2 MG [...] 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 Advance directive discussed with patient 015 Overview: 1 POA Bethe 2 POA daughter Tammy [phone] POA father Ammon [phone] Urinary retention with incomplete bladder emptyi ng [...] Description 07/09/2023 10:50 AM EST Anticoagulation Pharmacy, [place] [address] [place] [place] [address] Pharmacist1, [facility] [place] [address] [place] [address] 07/22/2023 11:00 AM EST Nutrition Services Nutrition Services [address] [place] [address] [address] [place] [address] Melani No, RDN 30 [facility] [address] [place] [address] 08/01/2023 1:30 PM EST Office Visit Cardiology, [facility] [address] [place] [address] Ayo Marie DO [address] [place] [address] 08/16/2023 10:40 AM EST Office Visit Family Practice [address] [place] [address] [address] [place] [address] Lito Pandey DO [address] [place] [address] 10/03/2023 11:00 AM EDT Telemedicine Endocrinology, [place] 3 [facility] [address] [place] [address] Geremias Hammonds, [address] [place] [address] 10/04/2023 11:20 AM EDT Office Visit Dermatology, [facility] [place] [address] [place] [address] [place] [address] Caitlin Yuan PA-C [address] [place] [address] [place] [phone] 10/15/2023 1:40 PM EDT Office Visit Nephrology, [facility] [address] [place] [address] Tami Wilson MD [address] [place] [address] Scheduled Orders Name Type Priority Associated Diagnoses [...] Screening 05/09/2024 05/09/2023 CKD HGB USE SMARTSET 98642 05/28/202405/28, 05/28/2023, 09/21/2022, Additional history exists CKD PHOS USE SMARTSET 03462 05/28/202405/09, 02/06/2023, 02/01/2023, Additional history exists DTaP,Tdap,and [...] this encounter Medical Devices Implanted Type Area Auto Air Conditioning Apprentice Device Identifier Shelf Expiration Date Model / Serial / Lot Cath Thermodilution 6fr - [id number] Implanted:Qty: 1 on 10/24/2022 [place] Rene Webber [place] [facility] [place] [id number] 06/06/2024 [id number] / / [id number] documented as of this encounter Visit Diagnoses [...] the patient have Health Care Power of Aprn? No Care Teams Managing Manager Relationship Specialty Start Date End Date Lito Pandey DO [address] [place] [address] PCP - General Family Medicine 05/09/23 documented as of this encounter
--- OUTSIDE RECORDS SUMMARY | 2023-07-03 09:17 | External Medical Summary ---
Author Name Unknown Address Unknown Organization [id number]:LABORATORY [facility] [place] - [address] [place] [address] Laboratory Report Ordering Provider Test Date Status WILMER ANDERSON 06/24/2023 12:22:41 Final Observation Date Value Abnormality Reference (Units ) Status T4, Free 06/24/2023 12:22:41 2.3 Above high normal 0. 9-1.7 (ng/dL) Final Performing Location [facility] - [address] [place] [address]
--- OUTSIDE RECORDS SUMMARY | 2023-07-03 09:17 | External Medical Summary ---
Author Name Unknown Address Unknown Organization [id number]:[facility] [place] [address] [place] [address] Laboratory Report Ordering Provider Test Date Status WILMER ANDERSON 06/24/2023 12:22:41 Final Observation Date Value Abnormality Reference (Units ) Status ALT (Alanine aminotransferase) 06/24/2023 12:22:41 32 10-50 (U/L) Final Performing Location [facility] - [address] [place] [address]
--- OUTSIDE RECORDS SUMMARY | 2023-07-03 09:17 | External Medical Summary ---
Author Name Unknown Address Unknown Organization [id number]:[facility] [place] [address] [place] [address] Laboratory Report Ordering Provider Test Date Status WILMER ANDERSON 06/24/2023 12:22:41 Final Observation Date Value Abnormality Reference (Units ) Status TSH 06/24/2023 12:22:41 <0.01 Below low normal 0.2 7-4.20 (uIU/mL) Final Performing Location [facility] - [address] [place] [address]
--- OUTSIDE RECORDS SUMMARY | 2023-07-03 09:17 | External Medical Summary | Summary of Care ---
Author Name Unknown Organization [facility] Address [address] [place] [address] Phone [phone] Care Team Providers Care Lift Team Technician Name Role Phone Lito Pandey DO Primary Care Provider [phone] Reason for Visit * Reason Onset Date Comments Test Results 06/25/2023 Encounter Details Date Type Department Care Team (Late st Contact Info) Description 06/25/2023 Telephone Family Practice 65 [facility], [place] [address] [place] [address] Lito Pandey DO [address] [place] [address] Test Results Allergies Active [...] as of this encounter (statuses as of 06/25/2023) Medications Medication Sig Dispensed Refills Start Date [...] Active Additional Information Patient taking differently:20 mg [id number], Reported on 06/14/2023 Doxazosin Mesylate 2 MG [...] as of this encounter (statuses as of 06/25/2023) Active Problems Patient Care Coordination No te Formatting of this note migh t be different from the original. 11/05/2019dismissed from speech and home health 11/04/19. 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] as of this encounter (statuses as of 06/25/2023) Resolved Problems Problem Noted Date Diagnosed Date [...] as of this encounter (statuses as of 06/25/2023) Immunizations Name Administration Dates Next Due COVID-19 [...] (15 years old or older) No 06/07/20 23 Cognitive Status Response Date of Assessm ent Because of a physical, menta l, or emotional condition, do you have serious difficulty concentrating, remembering, or making decisions? (5 years old or older) No 06/07/2023 documented as of this encounter Miscellaneous Notes * Telephone Encounter - Lito Pandey DO - 06/25/2023 4:26 PM EST Spoke with patient. Chest x-ray reviewed showing stable findings compared to previous chest x-ray 06/12/2023. Patient advise continue present medical care and follow with thoracic surgeon. Patient advise continued close observation and call if symptoms worsen or persist, fever, increasedshortness of breath or increased drainage from pleural catheter. documented in this encounter Plan of Treatment Upcoming Encounters Date Type Department Care Team (Late st Contact Info) Description 07/09/2023 10:50 AM EST Anticoagulation Pharmacy, [place] [address] [place] [address] Pharmacist1, [facility] [place] [address] [place] [address] 07/22/2023 11:00 AM EST Nutrition Services Nutrition Services [address] [place] [address] 10 [facility] [place] [address] Melani No RDN 30 [facility] 11 [place] [address] 08/01/2023 1:30 PM EST Office Visit Cardiology, [facility] [address] [place] [address] Ayo Marie, [address] [place] [address] 08/16/2023 10:40 AM EST Office Visit Family Practice [address] [place] [address] [address] [place] [address] Lito Pandey, [address] [place] [address] 10/03/2023 11:00 AM EDT Telemedicine Endocrinology, [place] 3 [facility] [address] [place] [address] Geremias Hammonds, DO [address] [place] [address] 10/04/2023 11:20 AM EDT Office Visit Dermatology, [facility] [place] [address] [place] [address] [place] [address] Caitlin Yuan PA-C [address] [place] [address] [place] [address] 10/15/2023 1:40 PM EDT Office Visit Nephrology, [facility] 400 [place], [place] [phone] Tami Wilson MD 400 [place] [address] Health Maintenance Due Date Last Done Comments Hepatitis C Screening 1963 Hepatitis B (1 of 3 - Risk 3-dose series) 2003 COVID-19 Vaccine ( season) 2023 01/31/2022, 09/08/2020, 08/11/2020 GFR 11/26/2023 05/28/2023, 1108/2022, 04/18/2023, Additional history exists Albumin/Creatinine Ratio 05/09/2024 05/09/2023 Depression Screening 05/09/2024 05/09/2023 CKD HGB USE SMARTSET 76565 05/28/202405/28, 05/28/2023, 09/21/2022, Additional history exists CKD PHOS USE SMARTSET 17171 05/28/202405/09, 02/06/2023, 02/01/2023, Additional history exists DTaP,Tdap,and [...] this encounter Medical Devices Implanted Type Area Director Fraud Device Identifier Shelf Expiration Date Model / Serial / Lot Cath Thermodilution 6fr - [id number] Implanted:Qty: 1 on 10/24/2022 by Rene Webber [place] [facility] [place] [employer] [place]IESHA [id number] 06/06/2024 [id number] / / [id number] documented as of this encounter Advance Directives [...] the patient have Health Care Power of Sash Repairer? No Care Teams Lift Team Technician Relationship Specialty Start Date End Date Lito Pandey DO [address] [place] [address] PCP - General Family Medicine 05/09/23 documented as of this encounter
--- OUTSIDE RECORDS SUMMARY | 2023-07-03 09:17 | External Medical Summary | Summary of Care ---
Author Name Unknown Organization [facility] Address [address] [place] [address] Phone [phone] Care Team Providers Care Geophysical Drafter Name Role Phone Lito Pandey DO Primary Care Provider Reason for Visit * Reason Comments Outpatient Testing Encounter Details Date Type Department Care Team (Late st Contact Info) Description 06/24/2023 12:20 PM EST Laboratory Laboratory, [place] [address] [place] [address] [place], [facility] [address] [place] [phone] Hyperthyroidism; Acute on chronic heart failure with preserved ejection fraction (HFpEF) (HCC) Allergies Active Allergy Reactions Criticality Noted [...] Active Additional Information Patient taking differently:20 mg [id number], Reported on 06/14/2023 Doxazosin Mesylate 2 MG [...] 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 [...] a little over a month ago at [facility] with ongoing findings suggestive high [...] Dr Santos Will obtain pulmonary notes from [facility] and testing done since 09/2020 re pulm HTN Erectile dysfunction is present will try sildenafil (and await pulm assessment of pulm HTN) Last Assessment & Plan: obtain pulmonary notes from [facility] and testing done since 09/2020 [...] Paroxysmal atrial fibrillation 09/23/2019 Overview: [facility]: He has a history of persistent atrial [...] 06/08/2018 Overview: see May 06 2018 admissionto [facility] Cardiac [place] [facility] 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 Advance directive discussed with patient 015 Overview: 1 POA Du 2 POA daughter Tammy [phone] POA father Ammon [phone] Urinary retention with incomplete bladder emptyi ng [...] No 06/07/2023 documented as of this encounter Plan of Treatment Upcoming Encounters Date Type Department Care Team (Late st Contact Info) Description 07/09/2023 10:50 AM EST Anticoagulation Pharmacy, [place] [address] [place] [address] Pharmacist1, [facility] [place] [address] [place] [address] 07/22/2023 11:00 AM EST Nutrition Services Nutrition Services [address] [place] [address] [address] [place] [address] Melani No, ALFREDO 30 [facility] [address] [place] [address] 08/01/2023 1:30 PM EST Office Visit Cardiology, [facility] 132 [facility] [place] [address] Ayo Marie, DO 132 [facility] [place] [address] 08/16/2023 10:40 AM EST Office Visit Family Practice 65 [facility] [place] [address] [place] [address] Lito Pandey DO [address] [place] [address] 10/03/2023 11:00 AM EDT Telemedicine Endocrinology, [place] 3 [facility] [address] [place] [address] Geremias Hammonds, DO [address] [place] [address] [place] [address] 10/04/2023 11:20 AM EDT Office Visit Dermatology, [facility] [place] [address] [place] [address] [place] [address] Caitlin Yuan PA-C [address] [place] [address] [place] [address] 10/15/2023 1:40 PM EDT Office Visit Nephrology, [facility] 400 [facility] [place] [address] Tami Wilson MD [address] [place], [place] [address] [place] [address] Pending Results Name Type Priority Associated Diagnoses Date /Time TSH Lab Routine Hyperthyroidism 06/24/2023 12:22 PM EST T4, FREE Lab Routine Hyperthyroidism 06/24/2023 12:22 PM EST T3, FREE Lab Routine Hyperthyroidism 06/24/2023 12:22 PM EST ALT Lab Routine Hyperthyroidism 06/24/2023 12:22 PM EST BNP, NT-PRO Lab Routine Acute on chronic heart failure with preserved ejection fraction (HFpEF) (HCC) 06/24/2023 12:22 PM EST Health Maintenance Due Date Last Done Comments Hepatitis C Screening 1963 Hepatitis B (1 of 3 - Risk 3-dose series) 2003 COVID-19 Vaccine ( season) 2023 01/31/2022, 09/08/2020, 08/11/2020 GFR 11/26/2023 05/28/2023, 08/2022, 04/18/2023, Additional history exists Albumin/Creatinine Ratio 05/09/2024 05/09/2023 Depression Screening 05/09/2024 05/09/2023 CKD HGB USE SMARTSET 19382 05/28/202405/28, 05/28/2023, 09/21/2022, Additional history exists CKD PHOS USE SMARTSET 63088 05/28/202405/09, 02/06/2023, 02/01/2023, Additional history exists DTaP,Tdap,and [...] this encounter Medical Devices Implanted Type Area Retirement Administrator Device Identifier Shelf Expiration Date Model / Serial / Lot Cath Thermodilution 6fr - [id number] Implanted:Qty: 1 on 10/24/2022 by Rene Webber MD at [facility] [employer] [id number] 06/06/2024 [id number] / / [id number] documented as of this encounter Visit Diagnoses Diagnosis Hyperthyroidism Thyrotoxicosis without mention of goiter or other cause, without mention of thyrotoxic crisis or storm Acute on chronic heart failure with preserved ejection fraction (HFpEF) ([facility]) documented in this encounter Advance Directives Latest [...] the patient have Health Care Power of Drugless Physician? No Care Teams Geophysical Drafter Relationship Specialty Start Date End Date Lito Pandey DO [address] [place] [address] PCP - General Family Medicine 05/09/23 documented as of this encounter
--- OUTSIDE RECORDS SUMMARY | 2023-07-03 09:17 | External Medical Summary | Summary of Care ---
Author Name Unknown Organization [facility] Address [address] [place] [address] Phone [phone] Care Team Providers Care Crusher Operator Name Role Phone Lito Pandey DO Primary Care Provider [phone] Reason for Visit * Reason Onset Date Comments Drainage 06/24/2023 Encounter Details Date Type Department Care Team (Late st Contact Info) Description 06/24/2023 Telephone Thoracic Surg [facility] [address] [place] [address] Lesvia Bee RN Drainage Allergies Active Allergy Reactions Criticality Noted Date [...] Active Additional Information Patient not taking.Reported on 06/14/2023 Famotidine 20 MG Oral Tablet (Pepcid)Indications: Gastroesophageal reflux disease without esophagitis Take 1 Tablet by mouth every night at bedtime. 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 [...] over a month ago at [facility] with ongoing findings suggestive high blood [...] obtain pulmonary notes from [facility] and testing done since 09/2020 re pulm HTN Erectile dysfunction is present will try sildenafil (and await pulm assessment of pulm HTN) Last Assessment & Plan: obtain pulmonary notes from [facility] and testing done since 09/2020 [...] AF burden Paroxysmal atrial fibrillation 09/23/2019 Overview: [facility]: He has a history of persistent atrial [...] May 06 2018 [facility] Cardiac Catheterization 05/2016 [facility] 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 They are draining every 3 days. She asked for direction moving forward. I returned call this morning and left a VM stating to drain weekly. If remains low we can bring himin to remove the pleurX. I provided my name and call back number if they had any questions. Lesvia Bee RN MSN [facility] Thoracic Surgery Nurse Navigator [facility] documented in this encounter Plan of Treatment Upcoming Encounters Date Type Department Care Team (Late st Contact Info) Description 06/24/2023 11:20 AM EST Office Visit Family Practice [address] [place] [address] [address] [place] [address] Lito Pandey DO [address] [place] [address] 07/09/2023 10:50 AM EST Anticoagulation Pharmacy, [place] [address] [place] [address] Pharmacist1, [facility] [place] [address] [place] [address] 07/22/2023 11:00 AM EST Nutrition Services Nutrition Services 65 [facility] 10 [place] [facility] [place] [address] Melani No, LSAHAN 30 [facility] 11 [place] [address] 08/01/2023 1:30 PM EST Office Visit Cardiology, [facility] [address] [place] [place] [address] Ayo Marie, DO [address] [place] [address] 08/16/2023 10:40 AM EST Office Visit Family Practice [address] [place] [address], [place] [address] [place] [address] Lito Pandey, DO [address] [place] [address] 10/03/2023 11:00 AM EDT Telemedicine Endocrinology, [address] [place] [address] Geremias Hammonds, DO [address] [place] [address] 10/04/2023 11:20 AM EDT Office Visit Dermatology, [facility] [place] 27 [facility] [place] [address] [place] [phone] Caitlin Yuan PA-C 27 [facility] 140 [place] [address] 10/15/2023 1:40 PM EDT Office Visit Nephrology, [facility] 400 [place], [place] [phone] Tami Wilson MD 400 [place] [address] Health Maintenance Due Date Last Done Comments Hepatitis C Screening 1963 Hepatitis B (1 of 3 - Risk 3-dose series) 2003 COVID-19 Vaccine ( season) 2023 01/31/2022, 09/08/2020, 08/11/2020 GFR 11/26/2023 05/28/2023, 08/2022, 04/18/2023, Additional history exists Albumin/Creatinine Ratio 05/09/2024 05/09/2023 Depression Screening 05/09/2024 05/09/2023 CKD HGB USE SMARTSET 50610 05/28/202405/28, 05/28/2023, 09/21/2022, Additional history exists CKD PHOS USE SMARTSET 52171 05/28/202405/09, 02/06/2023, 02/01/2023, Additional history exists DTaP,Tdap,and [...] this encounter Medical Devices Implanted Type Area Street Vendor Device Identifier Shelf Expiration Date Model / Serial / Lot Cath Thermodilution 6fr - [id number] Implanted:Qty: 1 on 10/24/2022 by Rene Webber [place] [facility] [place] [employer] [facility] [place]HA [id number] 06/06/2024 [id number] / / [id number] documented as of this encounter Advance Directives [...] the patient have Health Care Power of Outside Maintenance Worker? No Care Teams Crusher Operator Relationship Specialty Start Date End Date Lito Pandey DO [address] [place] [phone] PCP - General Family Medicine 05/09/23 documented as of this encounter
--- OUTSIDE RECORDS SUMMARY | 2023-07-03 09:18 | External Medical Summary | Summary of Care ---
Author Name Unknown Organization [facility] Address [address] [place] [address] Phone [phone] Care Team Providers Care Communications Technician Name Role Phone Lito Pandey DO Primary Care Provider [phone] Reason for Visit * Reason Comments Follow Up Encounter Details Date Type Department Care Team (Late st Contact Info) Description 06/14/2023 9:00 AM EST Office Visit Thoracic Surg [facility] [address] [place] [address] Laura Zafar PA-C [address] [place] [address] Recurrent right pleural effusion* Allergies Active Allergy Reactions Criticality Noted Date Comments Omeprazole Other (Please comment) 05/25/2019 Pt reports it made him feel like med was affecting his heart health, felt like someone "pulled the plug". Penicillins Hives 03/31/2007 hives Clopidogrel Bisulfate Hives 05/21/2016 Pt on several new meds when hives developed, unclear which was the direct cause documented as of this encounter (statuses as of 06/14/2023) Medications Medication Sig Dispensed Refills Start Date [...] on 06/14/2023 Famotidine 20 MG Oral Tablet (Pepcid)Indications :Gastroesophageal reflux disease without esophagitis Take 1 Tablet by mouth every night at bedtime. 90 Tablet 1 3 Active Additional Information Patient taking differently:20 mg [id number], Reported on 06/14/2023 Doxazosin Mesylate 2 MG Oral Tablet (Cardura)Indication s:HTN, goal below 130/80 Take 1 Tablet by [...] 3 Active Furosemide 20 MG Oral Tablet (Lasix)Indications: HTN, goal below 130/80 Take 3 Tablets by mouth in the morning and 3 Tablets before bedtime. 540 Tablet 3 3 Active Spironolactone 25 MG Oral Tablet (Aldactone)Indicati ons:HTN, goal below 130/80 Take 0.5 Tablets by mouth daily. One half tablet by mouth Saturday and fridays 45 Tablet 3 3 Active Additional Information Patient taking differently:12.5 mg OralMWF, (No instructions reported), Reported on 06/14/2023 Atorvastatin Calcium 10 MG Oral Tablet (Lipitor)Indication [...] before bedtime. As directed by Anticoagulation clinic.. 8 mL 0 3 06/14/20 23 Discontin ued(Medic ation/Dos e Changed) documented as of this encounter (statuses as of 06/14/2023) Active Problems Patient Care Coordination No te Formatting of this note migh t be different from the original. 11/05/2019dismissed from speech and home health 11/04/19. 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 own therapy. OT was dismissed 10/30/19. 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 Subcutaneous emphysema after procedure [...] a little over a month ago at [facility] with ongoing findings suggestive high blood [...] Dr Santos Will obtain pulmonary notes from [facility] and testing done since 09/2020 re pulm HTN Erectile dysfunction is present will try sildenafil (and await pulm assessment of pulm HTN) Last Assessment & Plan: obtain pulmonary notes from [facility] and testing done since 09/2020 [...] AF burden Paroxysmal atrial fibrillation 09/23/2019 Overview: [facility]: He has a history of persistent atrial [...] 06/08/2018 Overview: see May 06 2018 admissionto [facility] Cardiac Catheterization 05/2016 [facility] 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 Advance directive discussed with patient 015 Overview: 1 POA Bethe 2 POA daughter Tammy [phone] POA father Ammon [phone] Urinary retention with incomplete bladder emptyi ng [...] as of this encounter (statuses as of 06/14/2023) Resolved Problems Problem Noted Date Diagnosed Date [...] as of this encounter (statuses as of 06/14/2023) Immunizations Name Administration Dates Next Due COVID-19 [...] Sign Reading Time Taken Comments Blood Pressure 98/50 06/14/2023 9:20 AM EST Pulse 84 06/14/2023 9:20 AM EST Temperature - - Respiratory Rate - - Oxygen Saturation 92% 06/14/2023 9:20 AM EST Inhaled Oxygen Concentration - - Weight 70.9 kg (156 lb 3.2 oz) 06/14/2023 9:20 AM EST Height 166.4 cm (5' 5.5") 06/14/2023 9:20 AM EST Body Mass Index 25.6 06/14/2023 9:20 AM EST documented in this [...] Care Team (Late st Contact Info) Description 06/17/2023 10:50 AM EST Anticoagulation Pharmacy, [place] [address] [place] [address] Pharmacist1, [facility] [place] [address] [place] [address] 06/24/2023 11:20 AM EST Office Visit Family Practice [facility] [address] [place] [address] Lito Pandey DO [address] [place] [address] 07/22/2023 11:00 AM EST Nutrition Services Nutrition Services 65 [facility] [place] [address] [facility] [place] [phone] Melani No RDN 30 [facility] [address] [place] [address] 08/16/2023 10:40 AM EST Office Visit Family Practice [address] [place] [address], [place] [address] [place] [address] Lito Pandey, [address] [place] [phone] 10/03/2023 11:00 AM EDT Telemedicine Endocrinology, [place] 3 [facility] [address] [place] [address] Geremias Hammonds, DO [address] [place] [address] 10/04/2023 11:20 AM EDT Office Visit Dermatology, [place] [facility] [place] 27 [facility] [address] [place], [place] [phone] Caitlin Yuan PA-C [address] [facility] [place] [address] [place] [address] 10/15/2023 1:40 PM EDT Office Visit Nephrology, [facility] [address] [place], [place] [phone] Tami Wilson MD [address] [place], [place] [phone] Health Maintenance Due Date Last Done Comments [...] this encounter Medical Devices Implanted Type Area Junior Programmer Analyst Device Identifier Shelf Expiration Date Model / Serial / Lot Cath Thermodilution 6fr - [id number] Implanted:Qty: 1 on 10/24/2022 by Rene Webber MD at [facility] [employer] [id number] 06/06/2024 [id number] / / [id number] documented as of this encounter Visit Diagnoses Diagnosis Recurrent right pleural effusion- Primary Unspecified pleural effusion documented in [...] the patient have Health Care Power of Gun Perforator? No Care Teams Communications Technician Relationship Specialty Start Date End Date Lito Pandey DO [address] [place] [address] PCP - General Family Medicine 05/09/23 documented as of this encounter
--- OUTSIDE RECORDS SUMMARY | 2023-07-03 09:18 | External Medical Summary | Summary of Care ---
Author Name Unknown Organization [facility] Address [address] [place] [address] Phone [phone] Care Team Providers Care Architecture Consultant Name Role Phone Lito Pandey DO Primary Care Provider Reason for Visit * Reason Comments Dosage Adjustment In Person (Anticoag Cl inic) Encounter Details Date Type Department Care Team (Latest Contact Info) Description 06/12/2023 10:00 AM [facility] Anticoagulation Pharmacy, [place] [address] [place] [address] Pharmacist1, [facility] [place] [address] [place] [phone] Paroxysmal atrial fibrillation (HCC)*; Cerebrovascular disease, arteriosclerotic, post-stroke; Anticoagulation 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 Once a week 0 8 Active LUTEIN 15-0.7 MG PO CAPS Take 1 Capsule by mouth once a week. 0 8 Active VITAMIN C 500 MG PO TABS 2 Tablets. 0 Active Coenzyme Q10 200 MG Capsule [...] by Anticoagulation clinic.. 8 mL 0 3 Active documented as of this encounter (statuses as of 06/12/2023) Active Problems Patient Care Coordination No te Formatting of this note migh t be different from the original. 11/05/2019dismissed from speech and home health 11/04/19. 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 [...] a little over a month ago at [facility] with ongoing findings suggestive high blood [...] Santos Will obtain pulmonary notes from [facility] and testing done since 09/2020 re pulm HTN Erectile dysfunction is present will try sildenafil (and await pulm assessment of pulm HTN) Last Assessment & Plan: obtain pulmonary notes from [facility] and testing done since 09/2020 re [...] burden Paroxysmal atrial fibrillation 09/23/2019 Overview: [facility]: He has a history of [...] Overview: see May 06 2018 admissionto [facility] Cardiac Catheterization 05/2016 [facility] 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 Medication Therapy Disease Management - Anticoagulation Patient: Madyson Huffman OD | : 1945 Subjective Patient-Reported Symptoms: Patient Findings Positives: Signs/symptoms of bleeding (Reports bleeding/drainage around procedure site, monitoring and has been in contact with thoracic surgery office), Change in medications (Methimazole discontinued), Change in diet/appetite (decreased appetite since procedure 06/07) Negatives: Signs/symptoms of thrombosis, Change in health, Change in alcohol use, Change in activity, Upcoming invasive procedure, Missed doses, Extra doses, Bruising Objective Current Warfarin Dose As of 06/12/2023 Warfarin maintenance plan: 2.5 mg (5 mg x 0.5) every Fri; 5 mg (5 mg x 1) all other days INR Result As of 06/12/2023 INR goal: 2.0-3.0 INR used for dosin.8 (06/12/2023) Assessment & Plan Warfarin Plan As of 06/12/2023 Full warfarin instructions: 2.5 mg every Fri; 5 mg all other days No change documented: Yoni Matias RPh Next INR check: 06/17/2023 Repeat PT/INR in 5 day(s) Weekly dose: Restarting WEB CONTENT DEVELOPER dose Additional Dosing Information: Description Prefers every 2-3 weeks Dental procedure to be rescheduled. Tanner Boswell DMD, would like INR to be obtained on two days prior and be < 3.0. Fax results to [phone] *Methimazole discontinued 06/07/23* Yoni Matias RPh Clinical Pharmacist 06/12/2023, 10:12 AM documented in this encounter Plan of Treatment Upcoming Encounters Date Type Department Care Team (Late st Contact Info) Description 06/14/2023 9:00 AM EST Office Visit Thoracic Surg [facility], [place] [address] [place] [address] Laura Zafar PA-C [address] [place] [address] 06/17/2023 10:50 AM EST Anticoagulation Pharmacy, [place] [address] [place] [phone] Pharmacist1, [facility] [place] [address] [place] [address] 06/24/2023 11:20 AM EST Office Visit Family Practice [address] [place] [address] [address] [place] [address] Lito Pandey, DO [address] [place] [address] 07/22/2023 11:00 AM EST Nutrition Services Nutrition Services [address] [place] [address] [address] [place] [address] Melani No, LASHAN 30 [facility] [address] [place] [address] 08/16/2023 10:40 AM EST Office Visit Family Practice [address] [place] [address] [address] [place] [phone] Lito Pandey DO [address] [place] [phone] 10/03/2023 11:00 AM EDT Telemedicine Endocrinology, [place] 3 [facility] [address] [place] [address] Geremias Hammonds, DO [address] [place] [address] [address] [place] [address] 10/04/2023 11:20 AM EDT Office Visit Dermatology, [facility] [place] [address] [place] [address] [place] [address] Caitlin Yuan PA-C [address] [place] [address] [place] [address] 10/15/2023 1:40 PM EDT Office Visit Nephrology, [facility] [address] [place] [address] Tami Wilson MD 400 [place] [address] Health Maintenance Due Date Last Done Comments [...] this encounter Medical Devices Implanted Type Area Baker Doughnut Device Identifier Shelf Expiration Date Model / Serial / Lot Cath Thermodilution 6fr - [id number] Implanted:Qty: 1 on 10/24/2022 by Rene Webber MD at [facility] [employer] [id number] 06/06/2024 [id number] / / [id number] documented as of this encounter Procedures Procedure Name Priority Date/Time Associated Diagnosis Comments INR FINGERSTICK, POINT OF CARE STAT 06/12/2023 10:16 AM EST Paroxysmal atrial fibrillation (HCC) Cerebrovascular disease, arteriosclerotic, post-stroke Anticoagulation management encounter [facility] current use of anticoagulant therapy documented in this encounter Results * INR FINGERSTICK, POINT OF CARE (06/12/2023 10:16 AM EST) Fingerstick INR 1.8 INR 10:17 AM EST LABORATORY [address] Blood 06/12/2023 10:1 6 AM EST 06/12/2023 10:17 AM EST Narrative LABORATORY [place] 46-89 - 06/12/2023 10:17 AM EST Therapeutic ranges for non-operative patients: Prophylaxsis/treatment of DVT: (Range:2.0-3.0) Treatment of pulmonary embolism:(Range:2.0-3.0) Prevention of systemic embolism from: -tissue heart valves -acute myocardial infarction -valvular heart disease -atrial fibrillation (Range: 2.0-3.0) Mechanical prosthetic valves: (Range: 2.5-3.5) Millie Carter [facility] LAB POINT OF CARE TEST DOCKED DEVICE UNSOLICITED RESULTS [address] [address] documented in this encounter Visit Diagnoses Diagnosis Paroxysmal atrial fibrillation (HCC)- Primary Atrial fibrillation Cerebrovascular disease, arteriosclerotic, post-stroke Cerebral atherosclerosis Anticoagulation management encounter Encounter for therapeutic drug monitoring [facility] current use of anticoagulant therapy documented in [...] the patient have Health Care Power of Assistant Professor Of Communication? No Care Teams Architecture Consultant Relationship Specialty Start Date End Date Lito Pandey DO [address] [place] [address] PCP - General Family Medicine 05/09/23 documented as of this encounter
--- OUTSIDE RECORDS SUMMARY | 2023-07-03 09:18 | External Medical Summary ---
Author Name Unknown Address Unknown Organization : Laboratory Report Ordering Provider Test Date Status NEIL PRESTON 06/17/2023 10:55:17 Final Therapeutic ranges for non-o perative patients:
Prophylaxsis/treatment of DVT: (Range:2.0-3.0)
Treatment of pulmonary embolism:(Range:2.0-3.0)
Prevention of systemic embolism from:
-tissue heart valves
-acute myocardial infarction
-valvular heart disease
-atrial fibrillation
(Range: 2.0-3.0)
Mechanical prosthetic valves: (Range: 2.5-3.5) Observation Date Value Abnormality Reference (Units ) Status INR in Capillary blood by Coagulation assay 06/17/2023 10:55:17 2.3 (INR) Final Performing Location
--- OUTSIDE RECORDS SUMMARY | 2023-07-03 09:18 | External Medical Summary | Summary of Care ---
Author Name Unknown Organization [facility] Address [address] [place] [address] Phone [phone] Care Team Providers Care Fish Hatchery Manager Name Role Phone iLto Pandey DO Primary Care Provider Reason for Visit * Reason Comments Dosage Adjustment In Person (Anticoag Cl inic) Encounter Details Date Type Department Care Team (Latest Contact Info) Description 06/17/2023 10:50 AM EST Anticoagulation Pharmacy, [place] [address] [place] [address] Pharmacist1, [facility] [place] [address] [place] [phone] Paroxysmal atrial fibrillation (HCC)*; Cerebrovascular disease, arteriosclerotic, post-stroke; Anticoagulation management encounter; [facility] current use of anticoagulant therapy Allergies Active [...] as of this encounter (statuses as of 06/17/2023) Medications Medication Sig Dispensed Refills Start Date [...] Active Additional Information Patient taking differently:20 mg [id number], Reported on 06/14/2023 Doxazosin Mesylate 2 MG [...] as of this encounter (statuses as of 06/17/2023) Active Problems Patient Care Coordination No te Formatting of this note migh t be different from the original. 11/05/2019dismissed from speech and home health 11/04/19. 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 [...] a little over a month ago at [facility] with ongoing findings suggestive high [...] Paroxysmal atrial fibrillation 09/23/2019 Overview: [facility]: He has a history of persistent atrial [...] [facility] Cardiac Catheterization 05/2016 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 Advance directive discussed with patient 015 Overview: 1 POA Du 2 POA daughter Tammy [phone] POA father Ammon [phone] Urinary retention with incomplete bladder emptyi ng [...] as of this encounter (statuses as of 06/17/2023) Resolved Problems Problem Noted Date Diagnosed Date [...] 31 FINAL 10/08/13 12:18P 10/08/13 24 FINAL 3/29/12 10:55A 10/04/11 24 FINAL 09/08/10 7:30A 09/08/10 [...] as of this encounter (statuses as of 06/17/2023) Immunizations Name Administration Dates Next Due COVID-19 [...] Progress Notes * Yoni Matias RPh - 06/17/2023 10:51 AM EST Medication Therapy Disease Management - Anticoagulation Patient: Madyson Huffman OD | : 1945 Subjective Patient-Reported Symptoms: Patient Findings Negatives: Signs/symptoms of thrombosis, Signs/symptoms of bleeding, Change in health, Change in alcohol use, Change in activity, Upcoming invasive procedure, Missed doses, Extra doses, Change in medications, Change in diet/appetite, Bruising Objective Current Warfarin Dose As of 06/17/2023 Warfarin maintenance plan: 2.5 mg (5 mg x 0.5) every Fri; 5 mg (5 mg x 1) all other days INR Result As of 06/17/2023 INR goal: 2.0-3.0 INR used for dosin.3 (06/17/2023) Assessment & Plan Warfarin Plan As of 06/17/2023 Full warfarin instructions: 2.5 mg every Fri; 5 mg all other days No change documented: Yoni Matias RPh Next INR check: 07/09/2023 Repeat PT/INR in 3 week(s) Weekly dose: not changed Additional Dosing Information: Description Prefers every 2-3 weeks Dental procedure to be rescheduled. Tanner Boswell DMD, would like INR to be obtained on two days prior and be < 3.0. Fax results to [phone] *Methimazole discontinued 06/07/23* Yoni Matias RPh Clinical Pharmacist 06/17/2023, 10:51 AM documented in this encounter Plan of Treatment Upcoming Encounters Date Type Department Care Team (Late st Contact Info) Description 06/24/2023 11:20 AM EST Office Visit Family Practice 65 [facility] [place] [address] [place] [address] Lito Pandey DO [address] [place] [address] 07/09/2023 10:50 AM EST Anticoagulation Pharmacy, [place] [address] [place] [address] Pharmacist1, [facility] [place] [address] [place] [address] 07/22/2023 11:00 AM EST Nutrition Services Nutrition Services [address] [place] [address] [place] [address] [place] [address] Melani No, RDN 30 [facility] [address] [place] [address] 08/16/2023 10:40 AM EST Office Visit Family Practice [address] [place] [address] [place] [address] [place] [address] Lito Pandey DO [address] [place] [address] 10/03/2023 11:00 AM EDT Telemedicine Endocrinology, [address] [address] Geremias Hammonds, DO [address] [place] [address] 10/04/2023 11:20 AM EDT Office Visit Dermatology, [facility] [place] [address] [place] [place] [address] Caitlin Yuan PA-C [address] [place] [address] [place] [address] 10/15/2023 1:40 PM EDT Office Visit Nephrology, [address] [place] [address] Tami Wilson MD [address] [place] [address] [place] [address] Health Maintenance Due Date Last Done [...] this encounter Medical Devices Implanted Type Area Bench Inspector Device Identifier Shelf Expiration Date Model / Serial / Lot Cath Thermodilution 6fr - [id number] Implanted:Qty: 1 on 10/24/2022 by Rene Webber MD at [facility] [place] [employer] [id number] 06/06/2024 [id number] / / [id number] documented as of this encounter Procedures Procedure Name Priority Date/Time Associated Diagnosis Comments INR FINGERSTICK, POINT OF CARE STAT 06/17/2023 10:55 AM EST Paroxysmal atrial fibrillation (HCC) Cerebrovascular disease, arteriosclerotic, post-stroke Anticoagulation management encounter [facility] current use of anticoagulant therapy documented in this encounter Results * INR FINGERSTICK, POINT OF CARE (06/17/2023 10:55 AM EST) Fingerstick INR 2.3 INR 10:56 AM EST LABORATORY [place] 46-89 Blood 06/17/2023 10:5 5 AM EST 06/17/2023 10:56 AM EST Narrative LABORATORY [place] 46-89 - 06/17/2023 10:56 AM EST Therapeutic ranges for non-operative patients: Prophylaxsis/treatment of DVT: (Range:2.0-3.0) Treatment of pulmonary embolism:(Range:2.0-3.0) Prevention of systemic embolism from: -tissue heart valves -acute myocardial infarction -valvular heart disease -atrial fibrillation (Range: 2.0-3.0) Mechanical prosthetic valves: (Range: 2.5-3.5) Millie Carter [facility] LAB POINT OF CARE TEST DOCKED DEVICE UNSOLICITED RESULTS [place] [address] 10 [facility] [place] [id number] documented in this encounter Visit Diagnoses Diagnosis Paroxysmal atrial fibrillation (HCC)- Primary Atrial fibrillation Cerebrovascular disease, arteriosclerotic, post-stroke Cerebral atherosclerosis Anticoagulation management encounter Encounter for therapeutic drug monitoring 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 No Care Teams Fish Hatchery Manager Relationship Specialty Start Date End Date Lito Pandey DO [address] [place] [address] PCP - General Family Medicine 05/09/23 documented as of this encounter
--- OUTSIDE RECORDS SUMMARY | 2023-07-03 09:19 | External Medical Summary | Summary of Care ---
Author Name Unknown Organization [facility] Address [address] [place] [address] Phone [phone] Care Team Providers Care Psychology Lecturer Name Role Phone Rogelio Ahmadi MD Primary Care Provider Encounter Details Date Type Department Care Team (Latest Contact Info) Description 09/18/2022 12:05 PM EDT - 09/18/2022 11:59 PM EDT Hospital Encounter Radiology Film File [address] [place] [address] Discharge Disposition: Home - Self [...] as of this encounter (statuses as of 06/07/2023) Medications Medication Sig Dispensed Refills Start Date End Date Status GLUCOSAMINE CHONDRO COMPLEX 500-400 MG PO TABS Take 1 Tablet by mouth. Once a week 0 10/01/2007 Suspended LUTEIN 15-0.7 MG PO CAPS Take 1 Capsule by mouth once a week. 0 10/01/2007 Suspended VITAMIN C 500 MG PO TABS 2 Tablets. 0 Suspended Coenzyme Q10 200 MG Capsule Take 1 Capsule by mouth in the morning. 0 Suspended Cholecalciferol (VITAMIN D) 1000 units Tablet Take 1 Tablet by mouth in the morning. Once a week. 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 30 Tab 11 10/06/2019 Suspended Additional Information Sildenafil Citrate 20 MG Oral Tablet (Revatio) Use 2-5 tabs daily as needed for ED 50 Tab 5 04/13/2021 Suspended Additional Information documented as of this encounter (statuses as of 06/07/2023) Active Problems Patient Care Coordination No te Formatting of this note migh t be different from the original. 11/05/2019dismissed from speech and home health 11/04/19. 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 OT was dismissed 10/30/19. 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 Hepatic cirrhosis 05/09/2023 Severe tricuspid regurgitation 05/09/2023 Recurrent right pleural effusion 05/09/2023 Hyperthyroidism 02/27/2023 Glaucoma 12/01/2021 Essential hypertension with goal blood pressure less than 140/90 11/30/2021 Gastroesophageal reflux disease without esophagi tis 11/30/2021 Pulmonary HTN 02/15/2021 Overview: 02/15/2021 Has had ECHO and commented relatively unchanged compared to the 1 performed a little over a month ago at [facility] with ongoing findings suggestive high blood [...] obtain pulmonary notes from [facility] and testing done since 09/2020 re pulm HTN Erectile dysfunction is present will try sildenafil (and await pulm assessment of pulm HTN) Last Assessment & Plan: obtain pulmonary notes from [facility] and testing done since 09/2020 re pulm [...] atrial fibrillation 09/23/2019 Overview: [facility]: He has a history of persistent [...] May 06 2018 admissionto [facility] Cardiac Catheterization 05/2016 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 Advance directive discussed with patient 015 Overview: 1 POA Bethe 2 POA daughter Tammy [phone] POA father Ammon [phone] Urinary retention with incomplete bladder emptyi ng [...] as of this encounter (statuses as of 06/07/2023) Resolved Problems Problem Noted Date Diagnosed Date [...] 09/14/2009 11/30/2021 Overview: PSA Results: PSA(ng/mL) Wyatt Castañeda/Stephen Resulted Value Status 03/23/19 4:50P 03/24/19 1.03 [...] as of this encounter (statuses as of 06/07/2023) Immunizations Name Administration Dates Next Due COVID-19 [...] Seasonal Influenza, Quadriva lent Hd (Fluzone Hd) 03/15/2022,04/20/2021 Seasonal Influenza, Quadriva lent, No Preserve, IM [...] drink = 0.6 oz pur e alcohol) wine AUDIT-C Answer Date Recorded Frequency of Alcohol [...] Care Team (Late st Contact Info) Description 06/12/2023 10:00 AM EST Anticoagulation Pharmacy, [place] [address] [place] [address] Pharmacist1, [facility] [place] [address] [place] [phone] 06/24/2023 11:20 AM EST Office Visit Family Practice [address] [place] [address] [address] [place] [address] Lito Pandey DO [address] [place] [id number] 07/22/2023 11:00 AM EST Nutrition Services Nutrition Services [address] [place] [address] [address] [place] [address] Melani No, RDN [address] [facility] [address] [place] [address] 08/16/2023 10:40 AM EST Office Visit Family Practice [address] [place] [address] [address] [place] [address] Lito Pandey DO [address] [place] [address] 10/03/2023 11:00 AM EDT Telemedicine Endocrinology, [place] [address] [facility] [address] [place] [address] Geremias Hammonds, DO [address] [place] [address] 10/04/2023 11:20 AM EDT Office Visit Dermatology, Joe Carball[place] [address] [place] [phone] Caitlin Yuan PA-C [address] [facility] [address] [place] [address] 10/15/2023 1:40 PM EDT Office Visit Nephrology, [facility] [address] [facility] [place] [address] Tami Wilson MD [address] [place] [address] Scheduled Procedures Name Priority Associated Diagnoses Date/Ti me THORACOSCOPY W/PLEURA BIOPSY Pleural effusion 06/07/2023 8:35 AM EST INSERTION INDWELLING PLEURAL CATH Pleural effusion 06/07/2023 8:35 AM EST Health Maintenance Due Date Last Done [...] this encounter Medical Devices Implanted Type Area Strip Presser Device Identifier Shelf Expiration Date Model / Serial / Lot Cath Thermodilution 6fr - [id number] Implanted:Qty: 1 on 10/24/2022 by Rene Webber MD at [facility] [employer] [place] [id number] 06/06/2024 [id number] / / [id number] documented as of this encounter Procedures Procedure Name Priority Date/Time Associated Diagnosis Comments RADIOLOGY EXAM - US (IMAGES ONLY, NO REPORT) Routine 09/18/2022 12:05 PM EDT documented in this encounter Results * RADIOLOGY EXAM - US (IMAGES ONLY, NO REPORT) (09/18/2022 12:05 PM EDT) 09/18/2022 12:0 5 PM EDT Narrative Scheduling, Silent - 06/06/2023 10:08 AM EST This is an imaging study not interpreted or resulted by a [employer] or [employer] contracted radiologist. Ochoa Hernández MD RAD ULTRASOUND documented in this encounter Advance Directives Latest [...] the patient have Health Care Power of Program Director Air Talent? No Care Teams Psychology Lecturer Relationship Specialty Start Date End Date Rogelio Ahmadi MD [address] [facility] [address] [place] [address] PCP - General Family Medicine 12/22/21 05/08/23 documented as of this encounter
--- OUTSIDE RECORDS SUMMARY | 2023-07-03 09:19 | External Medical Summary ---
Author Name Unknown Address Unknown Organization K01:[facility] - [address] [place] [address] Laboratory Report Ordering Provider Test Date Status JAMIN BYRD 06/08/2023 00:47:00 Final Observation Date Value Abnormality Reference (Units ) Status Bacteria identified in Specimen by Culture 06/08/2023 00:47:00 No growth Final Test: Culture, Blood (Site 2)
Specimen Source: Blood, Venous
Specimen Type: Blood
Specimen Date: 06/08/2023 12:47 AM
Result Date: 06/13/2023 2:01 AM
Result Status: Final result
Resulting Lab: [facility]
[address]
[place] [address]

CULTURE

No growth

null Performing Location [facility] - [address] [place] [address]
--- OUTSIDE RECORDS SUMMARY | 2023-07-03 09:19 | External Medical Summary | Summary of Care ---
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 30 Tab 11 10/06/2019 Suspended Additional Information Sildenafil Citrate 20 MG Oral Tablet (Revatio) Use 2-5 tabs daily as needed for ED 50 Tab 5 04/13/2021 Suspended Additional Information Famotidine 20 MG Oral Tablet (Pepcid)Indicati ons:Gastroesopha geal reflux disease without esophagitis Take 1 Tablet by mouth every night at bedtime. 90 Tablet 1 01/30/2023 Suspended Additional Information Doxazosin Mesylate 2 MG Oral Tablet (Cardura)Indicat ions:HTN, goal below 130/80 Take one tablet three times daily by mouth. 90 Tablet 2 03/20/2023 Suspended Metoprolol Succinate ER 25 MG Oral Tablet Extended Release 24 Hour (toPROL XL) Take 1 Tablet by mouth in the morning. 90 Tablet 3 03/20/2023 Suspended Warfarin Sodium 5 MG Oral Tablet (Coumadin) TAKE 1 TABLET DAILY OR DIRECTED BY ANTICOAGULATION CLINIC 90 Tablet 1 03/26/2023 Suspended Additional Information Patient not taking.Reported on 06/06/2023 Empagliflozin 10 MG Oral Tablet (Jardiance) Take 1 Tablet by mouth in the morning. 90 Tablet 3 03/31/2023 Suspended Additional Information methIMAzole 5 MG Oral Tablet (Tapazole) 2 tablets or 10 mg by mouth daily since 04/18/2023 360 Tablet 3 04/18/2023 Suspended Losartan Potassium 25 MG Oral Tablet (Cozaar)Indicati ons:HTN, goal below 130/80 Take 1 Tablet by mouth in the morning. 90 Tablet 3 04/23/2023 Suspended Additional Information Furosemide 20 MG Oral Tablet (Lasix)Indicatio ns:HTN, goal below 130/80 Take 3 Tablets by mouth in the morning and 3 Tablets before bedtime. 540 Tablet 3 04/23/2023 Suspended Additional Information Patient taking differently:60 mg Oral BID (.AM/PM),Alternating 60/80mg in the AM, always 60mg PM, Reported on 05/09/2023 Spironolactone 25 MG Oral Tablet (Aldactone)Indic ations:HTN, goal below 130/80 Take 0.5 Tablets by mouth daily. One half tablet by mouth Saturday and fridays 45 Tablet 3 04/23/2023 Suspended Additional Information documented as of this encounter (statuses as of 06/07/2023) Active Problems Patient Care Coordination No te Formatting of this note migh t be different from the original. 11/05/2019dismissed from speech and home health 11/04/19. 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 [...] Will obtain pulmonary notes from [facility] and testing done since 09/2020 re pulm HTN Erectile dysfunction is present will try sildenafil (and await pulm assessment of pulm HTN) Last Assessment & Plan: obtain pulmonary notes from [facility] and testing done since 09/2020 re pulm [...] AF burden Paroxysmal atrial fibrillation 09/23/2019 Overview: [facility]: He has a history of persistent [...] see May 06 2018 admissionto [facility] Cardiac Catheterization 05/2016 [facility] 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 [address] [place] [address] 06/24/2023 11:20 AM EST Office Visit Family [address] [place] [address] Lito Pandey DO [address] [place] [address] 07/22/2023 11:00 AM EST Nutrition Services Nutrition Services [address] [place] [address] [place] [address] [place] [phone] Melani No, RDN 30 [facility] [address] [place] [address] 08/16/2023 10:40 AM EST Office Visit Family [address] [place] [address] Lito Pandey DO [address] [place] [address] 10/03/2023 11:00 AM EDT Telemedicine Endocrinology, [address] [place] [address] Geremias Hammonds, DO [address] [place] [address] [place] [address] 10/04/2023 11:20 AM EDT Office Visit Dermatology, [place] [facility] [place] [address] [place] [address] Caitlin Yuan PA-C [address] [place] [address] 10/15/2023 1:40 PM EDT Office Visit Nephrology, [address], [place] [phone] Tami Wilson MD [address] [place] [address] [place] [address] Scheduled Procedures Name Priority Associated Diagnoses Date/Ti [...] this encounter Medical Devices Implanted Type Area Woodworking Machine Feeder Device Identifier Shelf Expiration Date Model / Serial / Lot Cath Thermodilution 6fr - [id number] Implanted:Qty: 1 on 10/24/2022 by Rene Webber MD [place] [facility] [place] [employer] [id number] 06/06/2024 [id number] / / [id number] documented as of this encounter Procedures Procedure Name Priority Date/Time Associated Diagnosis Comments RADIOLOGY EXAM - GENERAL RAD (IMAGES ONLY,NO REPORT) Routine 04/25/2023 8:50 AM EDT documented in this encounter Results * RADIOLOGY EXAM - GENERAL RAD (IMAGES ONLY,NO REPORT) (04/25/2023 8:50 AM EDT) 04/25/2023 8:46 AM EDT Narrative Scheduling, Silent - 06/06/2023 10:08 AM EST This is an imaging study not interpreted or resulted by a [facility] or [facility] contracted radiologist. Ochoa Hernández MD RADIOLOGY (RAD GENE RAL) documented in this encounter Advance Directives Latest [...] patient have Health Care Power of Director [facility]? No Care Teams Blurb Writer Relationship Specialty Start Date End Date Rogelio Ahmadi MD [address] [facility] [address] [place] [address] [place] [address] PCP - General Family Medicine 12/22/21 05/08/23 documented as of this encounter
--- OUTSIDE RECORDS SUMMARY | 2023-07-03 09:19 | External Medical Summary ---
Author Name Unknown Address Unknown Organization K01:[facility] [place] [address] [place] [address] Laboratory Report Ordering Provider Test Date Status JAMIN BYRD 06/08/2023 00:50:00 Final Observation Date Value Abnormality Reference (Units ) Status Bacteria identified in Specimen by Culture 06/08/2023 00:50:00 No growth Final Test: Culture, Blood
Sp ecimen Source: Blood, Venous
Specimen Type: Blood
Specimen Date: 06/08/2023 12:50 AM
Result Date: 06/13/2023 2:01 AM
Result Status: Final result
Resulting Lab: [facility]
[address]
[place] [address]

CULTURE

No growth

null Performing Location [facility] [place] [address] [facility] [address]
--- OUTSIDE RECORDS SUMMARY | 2023-07-03 09:19 | External Medical Summary | Summary of Care ---
Author Name Unknown Organization [facility] Address [address] [place] [address] Phone [phone] Care Team Providers Care Air Operations Manager Name Role Phone Lito Pandey DO Primary Care Provider [phone] Reason for Visit * Auth/Cert Specialty Diagnoses / Procedures Referred By Carmen t Referred To Contact Diagnoses Pleural effusion Pleural effusion [J90] Procedures THORACOSCOPY W/PLEURA BIOPSY PLEURAL CATH W/ CUFF INDWELLING, INSERT THORACOSCOPY W/PLEURA BIOPSY INSERTION INDWELLING PLEURAL CATH Referral ID Status Reason Start Date Expiration Date Visits Re quested Visits Authorized [id number] Encounter Details Date Type Department Care Team (Latest Contact Info) Description 06/07/2023 6:47 AM EST - 06/08/2023 3:18 PM EST Hospital Encounter [facility] 8th [address] [place] [address] Ochoa Hernández MD [address] [place] [address] Discharge Disposition: Home - Self Care Allergies [...] as of this encounter (statuses as of 06/09/2023) Medications Medication Sig Dispensed Refills Start Date [...] as of this encounter (statuses as of 06/09/2023) Active Problems Patient Care Coordination No te Formatting of this note migh t be different from the original. 11/05/2019dismissed from speech and home health 11/04/19. 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 He has instruction to continue [...] little over a month ago at [facility] with ongoing findings suggestive high blood [...] Santos Will obtain pulmonary notes from [facility] and testing done since 09/2020 re pulm HTN Erectile dysfunction is present will try sildenafil (and await pulm assessment of pulm HTN) Last Assessment & Plan: obtain pulmonary notes from [facility] and testing done since 09/2020 re pulm [...] AF burden Paroxysmal atrial fibrillation 09/23/2019 Overview: [facility]: He has a history of persistent [...] Overview: see May 06 2018 admissionto [facility] Cardiac Catheterization 05/2016 [facility] [place] 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 Advance directive discussed with patient 015 Overview: 1 POA Bethe 2 POA daughter Tammy [phone] POA father Ammon [phone] Urinary retention with incomplete bladder emptyi ng [...] as of this encounter (statuses as of 06/09/2023) Resolved Problems Problem Noted Date Diagnosed Date [...] as of this encounter (statuses as of 06/09/2023) Immunizations Name Administration Dates Next Due COVID-19 [...] 1958 Smokeless Tobacco: Never Tobacco Cessation:Counseling Given: Not Answered Alcohol Use Standard Drinks/Week Comments Yes 1 [...] Sign Reading Time Taken Comments Blood Pressure 98/53 06/08/2023 10:31 AM EST Pulse 81 06/08/2023 10:31 AM EST Temperature 37.2 C (99 F) 06/08/2023 10: 31 AM EST Respiratory Rate 18 06/08/2023 10:3 1 AM EST Oxygen Saturation 90% 06/08/2023 10: 31 AM EST Inhaled Oxygen Concentration - - Weight 70.7 kg (155 lb 14.4 oz) 06/07/2023 6:45 AM EST Height 166.4 cm (5' 5.5") 06/07/2023 6:45 AM EST Body Mass Index 25.55 06/07/2023 6:45 AM EST documented in this encounter Functional [...] No 06/07/2023 documented as of this encounter Discharge Instructions * Discharge Instr - AVS* Brenda Hutton PA-C - 06/07/2023 11:08 AM EST Discharge Date: 06/07/2023 You may call the department of Thoracic Surgery at [phone] during business hours for any questions or test results. For after-hours emergencies call [phone] and have the doctor or physicianassistant conventional underwriter paged. The information below provides you with the instructions and the list of medications you need to betaking following discharge from the hospital. If you have any questions, please ask before leaving.Please carry this letter with you when you see your doctor in the clinic. If you have questions, you can reach us at the numbers above. Diet: Start with clear liquids for the next 24 hours (jello, tea, apple juice), avoid dairy products (milk, cheese, pudding, ice cream) and fried, greasy foods. Progress to prescribed diet as tolerated. If nausea should occur, have clear liquids only until soft foods can be tolerated. Activity: A responsible adult must be with the patient for 24 hours after surgery. Rest today and tomorrow, and then increase activity as tolerated. DO NOT drive, operate any appliances and/or machinery or sign legal documents for 24 hours. Control of Pain: Tylenol as needed for pain. Do not exceed 4,000mg of Tylenol in a 24 hour period. Warnings: Call your surgeon promptly in case of: A. Excessive bleeding B. Fever greater than 101 degrees F (38.3 degrees centigrade) C. Persistent nausea and vomiting D. Redness, swelling or pus-like drainage E. Pain that is not relieved by the medicine you were told to take Operations and Procedures: Right VATS (thoracoscopy) -- pleural biopsies, talc poudrage pleurodesis, and tunneled pleural catheter placement Complications: Subcutaneous emphysema Special Instructions: Please drain your Pleur X catheter daily (about the same time every day) and record drainage amounts. Please call the Thoracic Surgery department (Anabell Bee RN) at [phone] to report drainage amounts after one week. We will then decide your drainage schedule Refer to Pleur X catheter packet provided for ordering supplies/instructions. Please call with any questions/concerns or if you develop fever/chills or if the catheter site wereto become red or start draining. Warfarin dosing instructions for after discharge: You should have a prescription for Warfarin 5 mg tablets. Please take the following doses of warfarin by mouth after Discharge: Date Dose using warfarin 5 mg Tablets Friday 06/08 Take 1.5 tablets = 7.5 mg Saturday 06/09 Take 1.5 tablets = 7.5 mg Sunday 06/10 Take 1.5 tablets = 7.5 mg Monday 06/11 Resume SECURITY OPERATIONS ANALYST plan of 2.5 mg on Mondays/Fridays and 5 mg all other days Tuesday 06/12 INR check with [facility] Per Anticoagulation Clinic Notes: 06/07/23 Post-Procedure bridging instructions: 12/2 - Coumadin 7.5mg bedtime, Lovenox 70mg 8PM only 06/09 - Coumadin 7.5mg bedtime, Lovenox 70mg 8AM & 8PM 06/10 - Coumadin 7.5mg bedtime, Lovenox 70mg 8AM & 8PM 06/11 - Resume Coumadin 2.5mg MF/5mg all other days Your dose of ENOXAPARIN is 70 mg subcutaneous injection twice daily. You should use this medicationalong with warfarin until you are instructed to stop. The anticoagulation clinic pharmacist will provide you with further dosing and appointment instructions. If you have any questions regarding your anticoagulation therapy, please Contact Anticoagulation Clinic at [phone] or . Please share the following information with your provider: You were continued on WARFARIN for Atrial Fibrillation. This is an Existing diagnosis. Because you have been placed on a blood thinner, your therapy will need to be monitored on a regular basis. * Pharmacy Instr - AVS* Patrick Benoit, [facility] - 06/07/2023 11:43 AM EST Warfarin dosing instructions for after discharge: You should have a prescription for Warfarin 5 mg tablets. Please take the following doses of warfarin by mouth after Discharge: Date Dose using warfarin 5 mg Tablets Friday 06/08 Take 1.5 tablets = 7.5 mg Saturday 06/09 Take 1.5 tablets = 7.5 mg Sunday 06/10 Take 1.5 tablets = 7.5 mg Monday 06/11 Resume SECURITY OPERATIONS ANALYST plan of 2.5 mg on Mondays/Fridays and 5 mg all other days Tuesday 06/12 INR check with [facility] Per Anticoagulation Clinic Notes: 06/07/23 Post-Procedure bridging instructions: 06/08 - Coumadin 7.5mg bedtime, Lovenox 70mg 8PM only 06/09 - Coumadin 7.5mg bedtime, Lovenox 70mg 8AM & 8PM 06/10 - Coumadin 7.5mg bedtime, Lovenox 70mg 8AM & 8PM 06/11 - Resume Coumadin 2.5mg MF/5mg all other days Your dose of ENOXAPARIN is 70 mg subcutaneous injection twice daily. You should use this medicationalong with warfarin until you are instructed to stop. The anticoagulation clinic pharmacist will provide you with further dosing and appointment instructions. If you have any questions regarding your anticoagulation therapy, please Contact Anticoagulation Clinic at [phone] or . Please share the following information with your provider: You were continued on WARFARIN for Atrial Fibrillation. This is an Existing diagnosis. Because you have been placed on a blood thinner, your therapy will need to be monitored on a regular basis. While you were in the hospital, you medication doses received and your corresponding labs were: No results found for: "INR" No results found for: "HGB" No results found for: "HCT" No results found for: "PLT" Warfarin Administrations (last 720 hours) None documented in this encounter H&P Notes * Brenda Hutton PA-C - 06/07/2023 7:37 AM EST HISTORY & PHYSICAL INTERVAL NOTE - Thoracic Surgery Service [facility] [address] History and Physical Update: Name: Madyson Huffman CHRIS Location: [facility] Date: 06/07/2023 Time: 7:37 AM DATE OF HISTORY AND PHYSICAL: 06/06/2023 BP: 114 mmHg/65 mmHg (06/07/23729) Pulse: 76 (06/07/23729) Temp: 36.22 C (06/07/23729) Resp: 28 (06/07/23729) SpO2: 98 % (06/07/23729) Heart Exam: irregularly irregular Lung Exam: decreased breath sounds at right lung base Other Pertinent Physical Exam: This patient has undergone a preprocedural evaluation. A determination has been made to proceed with the planned procedure under [facility] procedural guidelines and the [facility] Non-Emergent, Elective Medical Services and Treatment Recommendations (published on 10-13-19). The community and hospital prevalence of COVID-19 has been discussed as well as this patient's specific risks associated with SARS-CoV-19 infection. Based upon the clinical acuity and patient-specific care considerations, this procedure is deemed a Tier II - Intermediate acuity treatment or service with either progression or the threat of progressive disease related to the delay in treatment. Not providing the service has the potential for increasing morbidity or mortality. I have reviewed the H&P previously performed and examined the patient today. There are no new findings noted. Did you CONFIRM beta-blockade? Patient did not take his metoprolol this morning. Will be given IV dose in pre-op Did you CONFIRM anticoagulation? yes - patient stopped anticoagulation as prescribed Did you CONFIRM EKG? yes - EKG done within prior 6 months and reviewed Bronchoscopy Risk Assessment: Is this patient suspected of having pulmonary Mycobacterium tuberculosis or microorganism spread via airborne dissemination? No Operative plan reviewed with patient. All questions answered to apparent satisfaction. ALYSE Cage PA-C Thoracic Surgery 06/07/2023 Associated attestation - Ochoa Hernández MD - 06/07/2023 8:24 AM EST I have reviewed the advanced practitioner documentation and agree. I saw and evaluated the patient on date of service referenced in note and have performed the following medically appropriate historyand/or exam: see below. No new problems overnight since we saw him in clinic yesterday. Bronchoscopy Risk Assessment: Is this patient suspected of having pulmonary Mycobacterium tuberculosis or microorganism spread via airborne dissemination? No Operative plan reviewed with patient. Right chest marked for surgical incisions. All questions answered to apparent satisfaction. Source Note - Laura Zafar PA-C - 06/05/2023 12:10 PM EST THORACIC SURGERY CLINIC @ [facility] 06/05/2023 REFERRING PROVIDER: Lito Pandey DO CC: Pleural effusion HPI: Madyson Huffman OD is a 77 year old male presenting for evaluation of a recurrent right sided pleural effusion. He has undergone three thoracenteses total: in September 18, 2022 for 800 mL, 04/25/23 for 2.2 L, and 05/23/2023 for 2L. Cytology sent in September and April has been benign with cultures negative. His pleural effusion was initially noted on an abdominal US 08/29/2022 ordered for an elevated alkaline phosphatase. Follow up CXR completed 09/04 then showed a moderate right sided effusion. He then underwent his first thoracentesis in September. He recently presented to [facility] ED 05/31 complaining of worsening dyspnea. Imaging showed a large right sided pleural effusion. He was admitted overnight and underwent a thoracentesis by Dr. Santos for 2700 mL the next day. PMH significant for HFpEF, paroxysmal atrial fibrillation s/p pulmonary vein isolation in [address] [facility] (on Coumadin), multiple strokes, HTN, pulmonary HTN, severe TR, and hypothyroid. 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 for ~ 2 weeks in 02/2023 for management of severe hypervolemia requiring a lasix infusion. He is accompanied today by his , Brianda. He mentions that he does feel some symptomatic relief after his most recent thoracentesis. Allergies: Review of patient's allergies indicates: Allergen Reactions Omeprazole Other (Please comment) Pt reports it made him feel like med was affecting his heart health, felt like someone "pulled the plug". Penicillin [Penicillins] Hives hives Plavix [Clopidogrel Bisulfate] Hives Pt on several new meds when hives developed, unclear which was the direct cause Current Outpatient Medications Medication Sig Dispense Refill GLUCOSAMINE CHONDRO COMPLEX 500-400 MG PO TABS Take 1 Tablet by mouth. Once a week 0 LUTEIN 15-0.7 MG PO CAPS Take 1 Capsule by mouth once a week. 0 VITAMIN C 500 MG PO TABS 2 Tablets. Coenzyme Q10 200 MG Capsule Take 1 Capsule by mouth in the morning. Cholecalciferol (VITAMIN D) 1000 units Tablet Take 1 Tablet by mouth in the morning. Once a week. aspirin enteric coated 81 MG TBEC Take 1 Tab by mouth daily. 30 Tab 11 Sildenafil Citrate 20 MG Oral Tablet (Revatio) Use 2-5 tabs daily as needed for ED 50 Tab 5 Famotidine 20 MG Oral Tablet (Pepcid) Take 1 Tablet by mouth every night at bedtime. 90 Tablet 1 Doxazosin Mesylate 2 MG Oral Tablet (Cardura) Take one tablet three times daily by mouth. 90 Tablet2 Metoprolol Succinate ER 25 MG Oral Tablet Extended Release 24 Hour (toPROL XL) Take 1 Tablet by mouth in the morning. 90 Tablet 3 Empagliflozin 10 MG Oral Tablet (Jardiance) Take [...] 1 Tablet by mouth in the morning. Enoxaparin Sodium 80 MG/0.8ML Injection Solution Prefilled Syringe (Lovenox) Inject 70 mg under theskin in the morning and 70 mg before bedtime. As directed by Anticoagulation clinic.. 8 mL 0 Warfarin Sodium 5 MG Oral Tablet (Coumadin) TAKE 1 TABLET DAILY OR DIRECTED BY ANTICOAGULATION CLINIC (Patient not taking: Reported on 06/06/2023) 90 Tablet 1 No current facility-administered medications for this visit. Patient Active Problem List Diagnosis Code Dyslipidemia, [...] regurgitation I07.1 Pleural effusion on right J90 Past Medical History: Diagnosis Date BPH (benign prostatic hyperplasia) Flomax Convergence insufficiency Cupping of optic disc 0.7/0.4 (11/22, [place]) Encounter for anticoagulation discussion and counseling 04/17/2018 Erectile dysfunction 08/09/2014 10/04/2016 Libido good ,erections ok ESOPHAGEAL REFLUX no sxs with lifestyle modification 03/31/2007 03/22/2010 no sxs 04/15/2009 No LATASHA sxs with lifestyle modification not eating late now 10/01/2007 denies any sign reflux sxs Off meds This may be since changed his lifestyle and doesn't eat late. 03/31/2007 tums help . Given lifestyle mod Exophoria EXOSTOSIS EXT,RIGHT TM,STABLE 01/28/2008 History of first degree AV block 04/17/2018 HTN, goal below 130/80 02/16/2016 04/11/2017 will sub Losartan for Grey d/t cough grey added p hosp 02/16/2016 will increase DOzxazosinTo 1/2 qd ( has been taking 3x/week) INFORMATION right frontal AVM Subjective tinnitus 01/28/2008 Past Surgical History: Procedure Laterality Date COLONOSCOPY 2008 COLONOSCOPY W/ BLEEDING CONTROL N/A 07/13/2022 COLONOSCOPY FLEXIBLE CONTROL BLEEDING ANY METHOD performed by Cee Marsh DO at ENDOSCOPY [facility] COLONOSCOPY, DIAGNOSTIC (RECTUM) N/A 07/13/2022 internal hemorrhoids/Colonoscopy CORONARY ANGIOGRAPHY W/RIGHT+LEFT CATH Right 10/24/2022 CORONARY ANGIOGRAPHY W/RIGHT+LEFT CATH performed by Rene Webber MD at CARDIAC LABS [facility] EGD, FLEXIBLE, DIAGNOSTIC N/A 07/13/2022 small hiatal hernia/biopsies from esophagus show mild reflux/EGD EGD, FLEXIBLE, W/BIOPSY N/A 07/13/2022 ESOPHAGOGASTRODUODENOSCOPY (EGD), FLEXIBLE, TRANSORAL, WITH BIOPSY SINGLE OR MULTIPLE performed by Cee Marsh DO at ENDOSCOPY [facility] EGD, W/ENDOSCOPIC US N/A 01/09/2023 small hiatal hernia/gastritis/liver cyst/biopsies from stomach show mild inflammation/ESOPHAGOGASTRODUODENOSCOPY (EGD), FLEXIBLE, TRANSORAL, ENDOSCOPIC ULTRASOUND performed by Cee Marsh DO at ENDOSCOPY [facility] IMPLANT PROCEDURE INFORMATION heart cath MISCELLANEOUS ORDER ([facility] ONLY) "pulmonaruy abl;ation to help with A-Fib" REMOVAL OF TONSILS, UNDER AGE 10 1948 REPAIR DROOPING EYELID Bilateral 08/06/2019 Upper eyelids /Amado Marquis Social History Socioeconomic History Marital status: Spouse name: Not on file Number of children: Not on file Years of education: Not on file Highest education level: Not on file Occupational History Not on file Tobacco Use Smoking status: Former Packs/day: 1.00 Years: 1.00 Additional pack years: 0.00 Total pack years: 1.00 Types: Cigarettes Quit date: 1956 Years since quittin.9 Smokeless tobacco: Never Vaping Use Vaping Use: Never used Substance and Sexual Activity Alcohol use: Yes Alcohol/week: 1.0 standard drink of alcohol Types: 1 5 oz of wine per week Comment: weekly Drug use: No Sexual activity: Yes Partners: Female Other Topics Concern Not on file Social History Narrative . Two children. Ammon is one of four siblings. Youngest brother in 2019 related to HTN problems. Mom: HTN. Dad: at 95 of prostate cancer. Social Determinants of Health Financial Resource Strain: Not on file Food Insecurity: No Food Insecurity (05/09/2023) Hunger Vital Sign Worried About Running Out of Food in the Last Year: Never true Ran Out of Food in the Last Year: Never true Transportation Needs: Not on file Physical Activity: Not on file Stress: Not on file Social Connections: Not on file Intimate Partner Violence: Not on file Housing Stability: Not on file Family History Problem Relation Age of Onset Hypertension Mother Stroke Mother Other (skin cancer) Mother No Past Hx Father aortic valve insufficiency in 90s Prostate cancer Father mets to bones Cataracts Father Endocrine Disorder Brother thyroid problem hypo? Thyroid Disorder Brother Other (sarcodosis) Brother Stroke Brother Hypertension Brother REVIEW OF SYSTEMS: Pertinent positives noted in HPI, otherwise negative. PHYSICAL EXAM: Filed Vitals: 06/06/23 1034 BP: 110/62 Pulse: 76 SpO2: 98% Weight: 71.5 kg (157 lb 11.2 oz) Height: 1.67 m (5' 5.75") Body mass index is 25.65 kg/m. Constitutional: no acute distress Eyes: sclera and conjunctiva normal Neck: supple CV: irregularly irregular Chest: normal respiratory effort, significantly decreased breath sounds at right base Abdomen: nondistended Extremities: no edema, no cyanosis Skin: warm, dry, intact: Neuro: alert, oriented to person, place, and time, normal mental status exam IMAGING: I personally interpreted the images of the following studies: 05/27/2023 CXR: -- moderate to large right pleural effusion 06/01/2023 CXR: -- s/p thoracentesis -- moderate residual right pleural effusion 05/29/2023 CXR: -- moderate to large right pleural effusion 05/23/2023 CT Chest: -- large right pleural effusion 02/26/2023 CXR (report only): -- moderate right pleural effusion 09/21/2022 CXR: -- s/p thoracentesis -- no pleural effusion -- no pneumothorax 09/04/2022 CXR: -- moderate right sided pleural effusion -- blunting of left costophrenic angle 04/25/2023 PATHOLOGY ([facility]): Pleural fluid, right pleural cavity: -- benign -- many mesothelial cells PHYSIOLOGY: 11/23/2021 Pulmonary Function Tests: FEV1: 3.63 L (100% predicted) DLCO: 70% predicted ASSESSMENT: 1. New patient referral from Lito Pandey DO for evaluation of recurrent right sided pleural effusion. 2. Has undergone a total of four thoracentesis with recurrence of his effusion. PLAN: 1. Plan for right VATS with pleural biopsy with possible talc pleurodesis v tunneled pleural catheter placement tomorrow. 2. Holding Lovenox for 24 hours prior to procedure. Laura Zafar PA-C Physician Colorer, Thoracic Surgery Thoracic Surg [place] [phone] THORACIC SURGERY CLINIC @ [facility] 06/06/2023 I have reviewed the advanced practitioner documentation and agree. I saw and evaluated the patient on date of service referenced in note and have performed the following medically appropriate historyand/or exam: see below. ASSESSMENT: 1. New referral from Dr. Lito Pandey for evaluation and management of a symptomatic (exertional dyspnea and orthopnea) recurrent/persistent right pleural effusion. 2. I have independently interpreted the following images today, 06/06/2023: -- 05/27/2023 CXR -- large right pleural effusion -- 05/24/2023 CXR -- large right pleural effusion -- 05/23/2023 CXR -- large right pleural effusion -- post-thoracentesis -- smaller effusion vs CT earlier same day -- 05/23/2023 CT Chest -- massive right pleural effusion -- 09/21/2022 CXR -- status post thoracentesis -- clear lung woods on both sides -- 09/04/2022 CXR -- small to moderate right pleural effusion 3. He has undergone four prior thoracenteses at [facility] with good relief (not perfect) and benign cytology. 4. Chronic anticoagulation (usually warfarin) for atrial fibrillation. Currently on an enoxaparin bridge for procedures. Other medical comorbidities as noted in today's note by Andrade, including heart failure. 5. I have discussed this case with Dr. Santos, his direct support staff member, and we are in agreement with the recommendation to consider pleural biopsies (diagnostic) along with surgical pleurodesis (therapeutic). 6. Images, differential diagnoses, and management options reviewed with Dr. Huffman and his , Brianda. My recommendation is to proceed with diagnostic pleural biopsies and therapeutic pleurodesis (talc and/or tunneled pleural catheter depending upon visual findings at the time of surgery). We reviewed the goals, conduct, risks, benefits, and alternatives to the options and he is agreeable to proceeding. PLAN: 1. Surgery tomorrow as follows: -- right VATS (thoracoscopy) -- pleural biopsies -- surgical pleurodesis (talc and/or tunneled catheter) 2. The rationale, risks, benefits, and alternatives to the proposed surgical procedure were discussed thoroughly with the patient and his . I specifically discussed the potential for ANY possiblecomplication, including serious morbidity and/or mortality as a direct result of the operation. Themore common or typical complications of the proposed procedure were discussed, as well as the potential for human error on the part of the healthcare team. All of the patient's questions, and those of his , were answered to apparent satisfaction. The patient willingly provided informed consent. Ochoa Hernández MD FACS System Chief, Thoracic Surgery [facility] [place] [address] [place] [phone] documented in this encounter Consult Notes * Patrick Benoit RPh - 06/07/2023 3:29 PM ESTAssociated Order(s): PHARMACY CONSULT IP Warfarin dosing instructions for after discharge: You should have a prescription for Warfarin 5 mg tablets. Please take the following doses of warfarin by mouth after Discharge: Date Dose using warfarin 5 mg Tablets Friday 06/08 Take 1.5 tablets = 7.5 mg Saturday 06/09 Take 1.5 tablets = 7.5 mg Sunday 06/10 Take 1.5 tablets = 7.5 mg Monday 06/11 Resume SECURITY OPERATIONS ANALYST plan of 2.5 mg on Mondays/Fridays and 5 mg all other days Tuesday 06/12 INR check with [facility] Per Anticoagulation Clinic Notes: 06/07/23 Post-Procedure bridging instructions: 06/08 - Coumadin 7.5mg bedtime, Lovenox 70mg 8PM only 06/09 - Coumadin 7.5mg bedtime, Lovenox 70mg 8AM & 8PM 06/10 - Coumadin 7.5mg bedtime, Lovenox 70mg 8AM & 8PM 06/11 - Resume Coumadin 2.5mg MF/5mg all other days Your dose of ENOXAPARIN is 70 mg subcutaneous injection twice daily. You should use this medicationalong with warfarin until you are instructed to stop. The anticoagulation clinic pharmacist will provide you with further dosing and appointment instructions. If you have any questions regarding your anticoagulation therapy, please Contact Anticoagulation Clinic at [phone] or . Please share the following information with your provider: You were continued on WARFARIN for Atrial Fibrillation. This is an Existing diagnosis. Because you have been placed on a blood thinner, your therapy will need to be monitored on a regular basis. While you were in the hospital, you medication doses received and your corresponding labs were: No results found for: "INR" No results found for: "HGB" No results found for: "HCT" No results found for: "PLT" Warfarin Administrations (last 720 hours) None Patrick Benoit RPh documented in this encounter Nursing Notes * Rosa Schumacher RN - 06/07/2023 6:43 PM EST Dual Licensed Skin Assessment completed by Rosa RN and Yvette RN. The patient is/has a N/A Skin Breakdown (includes non blanchable erythema): Yes - Surgical/Procedural changes only. * Momo Mendosa RN - 06/07/2023 12:26 PM EST PERIOP TO IP HANDOFF COMMUNICATION NOTE [address] [address] Name: Madyson Huffman OD AGE: [age] year old Location: OR [facility] Date: 06/07/2023 Attention to: Jeannette Schumacher Report from: Momo Mendosa RN Patient arriving via: Bed Time of call: 12:26 PM Phone Ext: [phone] Reason for SBAR (Situation, Background, Assessment, Recommendation) handoff: OR Sending to: [id number] Emotional/Personal Events & Special Needs: none Prescriptions in chart: No Code Status: No code status on file Safety Concerns: crepitus forming in right chest will need to continue to monitor Allergies: Omeprazole, Penicillin [penicillins], and Plavix [clopidogrel bisulfate] PMH: Past Medical History: Diagnosis Date BPH (benign prostatic hyperplasia) Flomax Convergence insufficiency Cupping of optic disc 0.7/0.4 (11/22, [place]) Encounter for anticoagulation discussion and counseling 04/17/2018 Erectile dysfunction 08/09/2014 10/04/2016 Libido good ,erections ok ESOPHAGEAL REFLUX no sxs with lifestyle modification 03/31/2007 03/22/2010 no sxs 04/15/2009 No LATASHA sxs with lifestyle modification not eating late now 10/01/2007 denies any sign reflux sxs Off meds This may be since changed his lifestyle and doesn't eat late. 03/31/2007 tums help . Given lifestyle mod Exophoria EXOSTOSIS EXT,RIGHT TM,STABLE 01/28/2008 History of first degree AV block 04/17/2018 HTN, goal below 130/80 02/16/2016 04/11/2017 will sub Losartan for Grey d/t cough grey added p hosp 02/16/2016 will increase DOzxazosinTo 1/2 qd ( has been taking 3x/week) INFORMATION right frontal AVM Subjective tinnitus 01/28/2008 PSH: Past Surgical History: Procedure Laterality Date COLONOSCOPY 2008 COLONOSCOPY W/ BLEEDING CONTROL N/A 07/13/2022 COLONOSCOPY FLEXIBLE CONTROL BLEEDING ANY METHOD performed by Cee Marsh DO at ENDOSCOPY [facility] COLONOSCOPY, DIAGNOSTIC (RECTUM) N/A 07/13/2022 internal hemorrhoids/Colonoscopy CORONARY ANGIOGRAPHY W/RIGHT+LEFT CATH Right 10/24/2022 CORONARY ANGIOGRAPHY W/RIGHT+LEFT CATH performed by Rene Webber MD at CARDIAC LABS [facility] EGD, FLEXIBLE, DIAGNOSTIC N/A 07/13/2022 small hiatal hernia/biopsies from esophagus show mild reflux/EGD EGD, FLEXIBLE, W/BIOPSY N/A 07/13/2022 ESOPHAGOGASTRODUODENOSCOPY (EGD), FLEXIBLE, TRANSORAL, WITH BIOPSY SINGLE OR MULTIPLE performed by Cee Marsh DO at ENDOSCOPY [facility] EGD, W/ENDOSCOPIC US N/A 01/09/2023 small hiatal hernia/gastritis/liver cyst/biopsies from stomach show mild inflammation/ESOPHAGOGASTRODUODENOSCOPY (EGD), FLEXIBLE, TRANSORAL, ENDOSCOPIC ULTRASOUND performed by Cee Marsh DO at ENDOSCOPY [facility] IMPLANT PROCEDURE INFORMATION heart cath MISCELLANEOUS ORDER ([facility] ONLY) "pulmonaruy abl;ation to help with A-Fib" REMOVAL OF TONSILS, UNDER AGE 10 1948 REPAIR DROOPING EYELID Bilateral 08/06/2019 Upper eyelids /Amado Marquis Isolation: Isolation: Procedure: THORACOSCOPY SURGICAL PLEURODESIS - Right Type of Anesthesia: General endotracheal anesthesia Block: none IV intake: 650 mL EBL: OR: 10 mL PACU: 0 mL Urine output: OR 0 mL PACU 0 mL IUBC (Metz): Incision location: right thoracotomy area Dressing location: right thoracotomy area Time of last skin assessment: 1130 Pressure injuries or areas of concern: none Lines: Peripheral Line Lower;Right (Active) Status Fluids infusing 06/07/231099 Tubing Changed No 06/07/231099 Phlebitis Scale 0 06/07/231099 Infiltration Scale 0 06/07/231099 Site Description (Other) Without redness, swelling or drainage 06/07/231099 Site Intervention None required 06/07/231099 Dressing Assessment Dressing clean, dry, and intact 06/07/231099 Dressing Intervention None required 06/07/231099 Number of days: 0 Pleurex Cath Right Chest (Active) Number of days: 0 Vital Signs: BP: 95/51 (06/07/23 1145) Temp: 36 C (96.8 F) (06/07/23 113) Pulse: 68 (06/07/23 1200) Resp: 16 (06/07/23 1200) SpO2: 98 % (06/07/23 1200) Time of last pain medication: 1024 Med: dilaudid Time of last antibiotic: 0941 Med: ancef Time of last antiemetic: unknown Med: none SR. MANAGER MARKETING: no Drips: no Neurological: Speech: Clear (06/07/23 1052) Level of Consciousness: Alert (06/07/23 113) RUE Motor Strength: 5-Active movement with full resistance (06/07/23 113) RLE Motor Strength: 5-Active movement with full resistance (06/07/23 113) LUE Motor Strength: 5-Active movement with full resistance (06/07/23 113) LLE Motor Strength: 5-Active movement with full resistance (06/07/23 1130) Coma Score: 15 (06/07/23 1130) Respiratory: Respiratory WNL: X - Exceptions to WNL as documented below (06/07/23 1145) Cough: Non-Productive (06/07/23 1052) Depth/Rhythm: Regular (06/07/23 114) Dyspnea Occurance: (patient states that he feels like he can't take a deep breath) (06/07/23 114) Effort: Unlabored (06/07/23 1130) Oxygen therapy/ Mechanical vent Supplemental O2 Delivery: Room Air, None (06/07/23 113) Cardiac: Cardiovascular WNL: X - Exceptions to WNL as documented below (06/07/23 113) Rhythm: NSR (06/07/23 1130) Pulses Right: Dorsalis Pedis +;Radial + (06/07/231129) Pulses Left: Dorsalis Pedis +;Radial + (06/07/231129) Edema: No (06/07/23 1052) GI: GI WNL: WNL - within normal limits (06/07/231129) Abdomen: Non-distended;Soft;Non-tender (06/07/23 113) Bowel Sounds: All Quadrants;Hyperactive (06/07/23 113) : WNL: X - Exceptions to WNL as documented below (06/07/231129) Urine Description: (no urine to assess at this time) (06/07/231129) Due to Void: 1652 Integumentary:Integumentary WNL: X - Exceptions to WNL as documented below (06/07/231129) Skin Description: Dry;Warm (06/07/231129) Skin Color: [place] (06/07/231129) Skin Lesion: Ecchymosis (lower abdomen) (06/07/231129) Family updated on transfer: yes Additional Assessment Information: Norberto quinteros here and did teaching on care of catheter here at home, patient was going to go home but forming some crepitus around catheter, service is aware and keeping to monitor * Momo Mendosa RN - 06/07/2023 11:34 AM EST Dual Licensed Skin Assessment completed by cherri. The patient is/has a N/A Skin Breakdown (includes non blanchable erythema): Yes - Surgical/Procedural changes only. * Carola Posada RN - 06/07/2023 8:12 AM EST Dual Licensed Skin Assessment completed by Carola Posada RN and Autumn Zimmerman RN. The patient is/has a N/A Skin Breakdown (includes non blanchable erythema): No * Maria Luisa Munson RN - 06/06/2023 2:54 PM EST NO ANESTHESIA EVAL REQUESTED PER CASE DOCUMENTATION. Pre-operative chart review completed. PREOP PATIENT INFORMATION AND EDUCATION: MEDICATION INSTRUCTIONS: The day of surgery/procedure, you may TAKE the following medications with a sip of water up to 2 hours prior to your arrival time: -patient plans to take no medications am of surgery STOP taking the following medications the noted number of days prior to surgery/procedure unless otherwise specified by your surgeon: Please follow surgeon's instructions regarding use of Aspirin, Coumadin, Plavix, Eliquis, and any other blood thinner including NSAIDs (non-steroidal anti- inflammatory drugs, eg, Advil, Ibuprofen, Motrin, Aleve, Naproxen). 10 days prior to surgery/procedure Stop all Herbal supplements, Green Tea, Turmeric, Melatonin, CBD, THC, etc. Stop all Vitamins (including Vitamin E) 24 hours prior to surgery/procedure DO NOT consume any alcohol. DO NOT use medical marijuana. DO NOT smoke or use tobacco products of any kind after midnight prior to surgery. *Using any of these products may increase your risks of procedural complications. IF IT IS LESS THAN RECOMMENDED STOPPAGE TIME PLEASE STOP AT TIME OF NOTIFICATION. FASTING RECOMMENDATIONS: To reduce risk, it is important for all elective surgery patients to follow the specific fasting guidelines listed below. DO NOT EAT after midnight on the night prior to your surgery date. You are allowed to drink clear liquids up to two hours prior to arrival time to the hospital or surgery center. Examples of clear liquids include water, clear fruit juice without pulp, clear carbonated beverages, clear tea, and black coffee. Any drinks given by your surgical service take as directed. Infant/pediatric patients who currently drink breast milk, formula, and non-human milk must not eat after midnight. These patients are allowed to drink only the liquids listed below up to two hours prior to arrival time to the hospital or surgery center: Ingested Material Minimum Fasting Time Clear liquid After midnight up to 2 hours prior to arrival time Breast milk Up to 4 hours prior to arrival time formula Up to 6 hours prior to arrival time Non-human milk Up to 6 hours prior to arrival time THE DAY BEFORE YOUR SURGERY: -Drink plenty of fluid the day before your surgery. Contact your surgeon's office if you develop any of the following within 2 weeks of surgery: A cold Infection Fever Shingles Chicken pox or exposure to chicken pox Open areas such as scrapes, cuts, francisco or other skin conditions Rashes GENERAL INSTRUCTIONS FOR PREPARING FOR SURGERY: BATHING INSTRUCTIONS: Bathe the evening prior to and the morning of surgery/procedure. Cleanse your body using ONLY anti-bacterial soap (eg, Dial, Safeguard) or any specific soap/cleansers and instructions provided by your surgeon (eg, Chlorhexidine). -You should brush your teeth the morning of surgery. Do NOT apply any lotions, powders, sprays, creams, oils, make-up, or deodorants after bathing. No hairspray, or nail austrian on fingers or toes. Day of surgery/procedure do not use tampons. If you wear contacts wear your eyeglasses if available otherwise bring your contact supplies with you to remove them prior to your surgery/procedure. If you wear glasses or dentures, please bring cases in which you can store them during your surgery. Please remove all piercings and jewelry and leave them at home. Wear comfortable and loose clothing. -Please leave all valuables at home. -If you use a CPAP and are staying overnight, please bring your mask and tubing with you to the hospital. -If you use an assistive mobility device (walker, cane, etc), please label it with your name and bring to hospital. -An escort backhaul driver is required if you are being discharged the same day of the surgery. You should have a responsible adult over the age of 18 [address] you home. This person should be present with youin the hospital at the time of discharge and for the first 24 hours after the surgery to support your needs. If you are taking a taxi home, you must have your responsible alliance party accompany you in the taxi ride home at the time of discharge. OR times subject to change. Please check voicemail messages the day/evening before your surgery forany updates. PRE-OP: You will be taken to the pre-op area where your vital signs (blood pressure, pulse and temperature)will be taken. Any preparations that need to be done will be done there. When it is time for your surgery, you will be taken to the operating room. PARENTS OF PEDIATRIC PATIENTS WILL BE ALLOWED TO STAY WITH THEIR CHILDREN UNTIL THEY ARE ESCORTED TO THE OPERATING ROOM OUTPATIENT SURGERY PATIENTS: After your surgery you will be taken to the Same Day Surgery Unit when you are awake and will go home from there. You will get instructions about your home care before you leave. Arrange to have someone drive you home from the hospital. You may not drive for 24 hours after anesthesia. You must havean adult stay with you at home for 24 hours after your operation. This is very important. If you are not able to comply with these guidelines, your Short Stay surgery cannot be done. ADMISSION PATIENTS: After your stay in the recovery area, you will be taken to your room. Your family may visit you in your room based on current visitation policy. If a next day discharge is expected, it is important to make arrangements for a backhaul driver to take you home. Please be aware our visitation policies are subject to change Professionals, attendants, caregivers or family members are allowable visitors for patients with intellectual, developmental or cognitive disabilities, communication barriers or behavioral concerns. Because patients' and families' needs vary, they will be taken into account when applying visitation restrictions. [facility]: Contact # [phone] Directions to Surgical Suite in from the [place] Entrance The Surgical Waiting Room can be found in the Lobby of [facility]. Enter through Main Lobby Entrance and the Waiting Room is directly in front of you. Proceed to check in and give them your name. Directions to Surgical Suite from the East Entrance Enter the East entrance and follow the hallway to the J elevator. Take the J elevator up to Level 1. Continue down the long hallway to the main [facility] Lobby. The Surgical Waiting Room will be on your Right. Proceed to check in and give them your Name. Directions to Surgical Suite from the Parking Garage Enter the [facility] lobby and proceed down the salgado to the left. At the end of the salgado, turn right. [facility] The [facility]ing Room will be on your Right. Proceed to check in and give them your Name. THANK YOU FOR CHOOSING [facility]! documented in this encounter OR Notes * OR Surgeon - Ochoa Hernández MD - 06/07/2023 10:39 AM EST [address] [address] OPERATIVE REPORT Name: Madyson Huffman OD Date: 06/07/2023 Time: 10:49 AM Date of Surgery: 06/07/2023 Pre Operative Diagnosis: Recurrent right pleural effusion Post Operative Diagnosis: Recurrent right pleural effusion Procedures: Right VATS (thoracoscopy) -- pleural biopsies, talc poudrage pleurodesis, and tunneled pleural catheter placement Surgeon: Ochoa Hernández MD FACS Assistants: Aayush Roland MD (R3) and Brenda Hutton PA-C Anesthesia: General anesthesia and 60 ml 0.25% bupivacaine infiltrated in the incisions and pleuralspace Findings: 1. Approximately 2800 ml clear dark red pleural fluid (sent to cytopathology). 2. Parietal pleural thickening in some areas, without obvious nodularity or masses. -- pleural biopsies obtained 3. Reasonably good, but not complete lung re-expansion. -- by definition, partially trapped lung 4. Talc poudrage performed (8 grams total). 5. Tunneled pleural catheter placed. Drains: Tunneled pleural catheter EBL: 10 mL Fluids: 350 mL crystalloid Urine: Not monitored Specimens: Right pleural fluid (cytopathology) Right parietal pleural biopsies (pathology) Complications: None Condition: Patient was awoken from anesthesia, extubated in the operating room, and taken to the recovery room in a stable condition. INDICATIONS AND PERTINENT HISTORY: Madyson Huffman OD ( ) is a 77 year old male with a symptomatic, recurrent pleural effusion of unknown etiology presenting for diagnostic and therapeutic thoracoscopic exploration. The rationale, risks, benefits, and alternatives to the proposed surgical procedure were discussed thoroughly with the patient. I specifically discussed the potential for ANY possible complication, including serious morbidity and/or mortality as a direct result of the operation. The more common or typical complications of the proposed procedure were discussed, as well as the realistic potential for human error on the part of the healthcare team. All of the patient's questions were answered to apparent satisfaction. The patient willingly provided both verbal and written informed consent. PROCEDURE IN DETAIL: The patient was seen and examined as appropriate in the preoperative holding area and the planned site of surgery marked. Upon arrival in the operating room a "Time Out" was performed by the collective operating room team to properly verify the patient's identity, the planned operative procedure, and the planned operative site(s). The patient's radiographs were displayed in the room throughout the procedure for confirmation and guidance as necessary. Appropriate antibiotic prophylaxis was administered within one hour prior to the surgery. Venous thromboprophylaxis was accomplished using bilateral venous compression devices. Monitored sedation wasadministered by the anesthesia staff. THORACOSCOPY: The patient was carefully placed in a lateral decubitus position with the right side of the chest facing the ceiling. Care was taken by the entire operating room team to comfortably pad all of the pressure points, including the head, neck, axilla, torso, and extremities using soft blankets, pillows, and foam pads as necessary. The table was flexed. The chest was prepped and draped in the usual sterile surgical fashion. Local anesthesia was injected at the incision sites (before, during and after). A 2-cm incision wasmade along the posterior axillary line and electrocautery was used to divide the chest wall musculature. The pleura was bluntly but carefully penetrated to create a pneumothorax and thereby push the underlying lung parenchyma and diaphragm muscle away from the incision. Electrocautery was used to lengthen the pleural opening and a finger tip was introduced into the pleural space. There were no pleural adhesions palpable near the incision inhibiting pleural entry. A large quantity of thin dark red pleural fluid was evacuated (2800 ml). A metal trocar and thoracoscope were introduced into the pleural space. The pleural space was explored, revealing areas of thickened parietal pleura without nodularity or mass lesions. The visceral pleura also appeared mildly thickened, at least on the middle and lower lobes. Intercostal nerve blocks were performed posterior (a total of 5 intercostal spaces injected). Multiple parietal pleural biopsies were obtained. Hemostasis was excellent. TALC POUDRAGE PLEURODESIS: A total of 8 grams sterile dry talc was dispersed throughout the pleural space. Anesthesia then inflated the lung, revealing a small but noticeable residual pleural space. Primarily, the lower lobe was partially trapped, as was the medial middle lobe. Given the residual pleural space, we proceeded to also perform tunneled pleural catheter placement. INDWELLING PLEURAL CATHETER PLACEMENT: A second incision was made medially to the original site. With the fenestrated end of the catheter attached onto the tunneler, both the tunneler and catheter were passed subcutaneously from the medial incision over to and out through the incision at the guidewire insertion site. The catheter was drawn through the tunnel until the polyester cuff passed just inside the incision, and the tunneler was removed from the catheter. The fenestrated end of the catheter was inserted directly into the pleural space through the original incision until all fenestrations were within the pleural space. The thoracoscope was used to verify adequate intra-pleural positioning of the catheter. The original incision was closed in layers with absorbable suture, and the catheter was secured to the skin with a simple 2-0 polypropylene ligatu re. A thin layer of Dermabond was applied as a protectant over the access site. The protective cap was placed over the valve into a locked position. The soft, foam catheter pad was placed around the catheter on the patient's chest. The catheter was wound into a loop and covered with gauze pads before being secured to the patient with the self-adhesive dressing. The patient was awakened from anesthesia and taken to the recovery room in a stable condition, having suffered no apparent untoward event. The sponge, needle and instrument count was reported to me as being correct by the perioperative staff prior to completion of skin closure. There were no complications during the surgery. ATTESTATION: I was present and scrubbed for the entire procedure. Was there a qualified resident that took part in the case? Yes - Resident was qualified to assist. documented in this encounter Miscellaneous Notes * Progress Notes - Post-Op Global - Zen Zamorano MD - 06/08/2023 10:30 AM EST AF VSS No complaints CXR with stable SQ emphysema, no significant pneumothorax Some right effusion or atelectasis Pain controlled A/P D/c IVF ambulate Poss home later today * Care Plan - Minna Zaldivar RN - 06/08/2023 2:31 AM EST Clinical Goal(s): Pt will report SOB (06/07/23 6775) Possible barriers to meeting goal(s)/advancing plan of care: recent surgery Stability of the patient: Moderately stable - low risk of patient condition declining or worsening Summary regarding today's goal(s): Met: Recommendations: continue hourly rounds, reinforce call taylor use, and encourage pt to report new orworsening symptoms documented in this encounter Plan of Treatment Upcoming Encounters Date Type Department Care Team (Late st Contact Info) Description 06/12/2023 10:00 AM EST Anticoagulation Pharmacy, [address] [place] [address] Pharmacist1, [facility] [address] [place] [address] 06/24/2023 11:20 AM EST Office Visit Family Practice [address] [place] [address] [address] [place] [address] Lito Pandey DO [address] [place] [address] 07/22/2023 11:00 AM EST Nutrition Services Nutrition Services [address] [place] [address] [address] [facility] [place] [address] Melani No RDN [address] [facility] [address] [place] [address] 08/16/2023 10:40 AM EST Office Visit Family Practice [address] [place] [address], [address] [place] [address] Lito Pandey, DO [address] [place] [address] 10/03/2023 11:00 AM EDT Telemedicine Endocrinology, [place] [address] [facility] [address] [place] [address] Geremias Hammonds, DO [address] [place] [address] 10/04/2023 11:20 AM EDT Office Visit Dermatology, [facility] [place] [address] [place] [address] Caitlin Yuan PA-C [address] [place] [address] 10/15/2023 1:40 PM EDT Office Visit Nephrology, [address] [address] Tami Wilson MD [address] [place] [phone] Pending Results Name Type Priority Associated Diagnoses Date /Time CYTOLOGY Pathology Routine Pleural effusion 06/07/2023 9:59 AM EST SURGICAL PATHOLOGY Pathology Routine Pleural effusion 06/07/2023 10:12 AM EST CULTURE, BLOOD Lab Routine 06/08/2023 12:50 AM EST CULTURE, BLOOD Lab Routine 06/08/2023 12:47 AM EST Scheduled Orders Name Type Priority Associated Diagnoses Orde r Schedule CYTOLOGY Pathology Routine Pleural effusion Release Upon Ordering for 1 Occurrences starting 06/07/2023, 1 completed SURGICAL PATHOLOGY Pathology Routine Pleural effusion Release Upon Ordering for 1 Occurrences starting 06/07/2023, 1 completed EKG EKG Routine Chest pain One Time for 1 Occurrences starting 06/08/2023 until 06/08/2023 Health Maintenance Due Date Last Done Comments [...] this encounter Medical Devices Implanted Type Area Molder Punch Device Identifier Shelf Expiration Date Model / Serial / Lot Cath Thermodilution 6fr - [id number] Implanted:Qty: 1 on 10/24/2022 by Rene Webber MD at [facility] [employer] KIESHA [id number] 06/06/2024 [id number] / / [id number] documented as of this encounter Procedures Procedure Name Priority Date/Time Associated Diagnosis Comments XR CHEST 1 VIEW Routine 06/08/2023 8:11 AM EST CULTURE, BLOOD Routine 06/08/2023 12:50 AM EST CULTURE, BLOOD Routine 06/08/2023 12:47 AM EST LACTATE,WHOLE BLOOD STAT 06/07/2023 1 1:34 PM EST XR CHEST 1 VIEW Routine 06/07/2023 2:16 PM EST XR CHEST 1 VIEW STAT 06/07/2023 12:10 PM EST XR CHEST 1 VIEW STAT 06/07/2023 11:06 AM EST documented in this encounter Results * XR CHEST 1 VIEW (06/08/2023 8:11 AM EST) Anatomical Region Laterality Modality Chest Computed Radiogr aphy 06/08/2023 8:28 AM EST Impressions 06/08/2023 8:25 AM EST IMPRESSION Probable small residual right pneumothorax, noting new/progressive right middle and lower lobe airspace disease, likely atelectasis. Narrative 06/08/2023 8:25 AM EST EXAM XR CHEST 1 VIEW - 06/08/2023 8:11 am HISTORY s/p right PleurX x catheter placement assess for pneumothorax COMPARISON Chest x-ray dated 06/07/2023 TECHNIQUE Portable semi upright AP view of the chest was obtained. FINDINGS Catheters: A right PleurX catheter remains in place. Tubes: None Foreign bodies: None seen There appears to remain a small right pneumothorax. There also remains a probable small right pleural effusion/pleural thickening. There is new/progressive airspace disease in the right middle and lower lobes, likely atelectasis. The cardiomediastinal silhouette is grossly stable in appearance. Extensive subcutaneous emphysema is again seen in the right chest wall. Procedure Note Leo Foy MD - 06/08/2023 EXAM XR CHEST 1 VIEW - 06/08/2023 8:11 am HISTORY s/p right PleurX x catheter placement assess for pneumothorax COMPARISON Chest x-ray dated 06/07/2023 TECHNIQUE Portable semi upright AP view of the chest was obtained. FINDINGS Catheters: A right PleurX catheter remains in place. Tubes: None Foreign bodies: None seen There appears to remain a small right pneumothorax. There also remains aprobable small right pleural effusion/pleural thickening. There isnew/progressive airspace disease in the right middle and lower lobes,likely atelectasis. The cardiomediastinal silhouette is grossly stable inappearance. Extensive subcutaneous emphysema is again seen in the rightchest wall. IMPRESSION IMPRESSION Probable small residual right pneumothorax, noting new/progressive rightmiddle and lower lobe airspace disease, likely atelectasis. Brenda Hutton PA-C RADIOLOGY ([facility]) * LACTATE,WHOLE BLOOD (06/07/2023 11:34 PM EST) Lactate, Whole Blood 1.9 0.4 - 2.0 mmol/L 06/07/2023 11:49 PM EST [facility] Blood Venous blood specimen / Unknown Venipuncture / Unknown 06/07/2023 11:34 PM EST 06/07/2023 11:47 PM EST Ochoa Hernández MD LAB BLOOD ORDERABLE S [facility] [address] [place] [address] * XR CHEST 1 VIEW (06/07/2023 2:16 PM EST) Anatomical Region Laterality Modality Chest Computed Radiogr aphy 06/07/2023 2:37 PM EST Impressions 06/07/2023 2:34 PM EST IMPRESSION 1. Moderate and slightly increased subcutaneous emphysema right chest wall and base right side of neck. 2. Small right pneumothorax unchanged. Narrative 06/07/2023 2:34 PM EST EXAM XR CHEST 1 VIEW-06/07/2023 2:16 pm HISTORY s/p right pleur X placement assessing subcutaneous emphysema COMPARISON Chest 06/07/2023 at 1201 hours. TECHNIQUE 1 view consisting of a portable AP semi-erect projection FINDINGS Right chest tube. Moderate subcutaneous emphysema right chest and base right side of neck slightly increased. Small right pneumothorax unchanged. Round mild hazy opacity right mid lung unchanged and probably fluid in lung fissure. Small right pleural effusion unchanged. Left lung and left pleural space clear. Procedure Note Abad Foote MD - 06/07/2023 EXAM XR CHEST 1 VIEW-06/07/2023 2:16 pm HISTORY s/p right pleur X placement assessing subcutaneous emphysema COMPARISON Chest 06/07/2023 at 1201 hours. TECHNIQUE 1 view consisting of a portable AP semi-erect projection FINDINGS Right chest tube. Moderate subcutaneous emphysema right chest and base right side of neckslightly increased. Small right pneumothorax unchanged. Round mild hazy opacity right midlung unchanged and probably fluid in lung fissure. Small right pleuraleffusion unchanged. Left lung and left pleural space clear. IMPRESSION IMPRESSION 1. Moderate and slightly increased subcutaneous emphysema right chest walland base right side of neck. 2. Small right pneumothorax unchanged. rBenda Hutton PA-C RADIOLOGY ([facility]) * XR CHEST 1 VIEW (06/07/2023 12:10 PM EST) Anatomical Region Laterality Modality Chest Computed Radiogr aphy 06/07/2023 1:26 PM EST Impressions 06/07/2023 1:24 PM EST IMPRESSION 1. No definite right pneumothorax. 2. Right pleural effusion has markedly decreased. 3. Right PleurX catheter. 4. No change in moderate right chest wall subcutaneous emphysema. Narrative 06/07/2023 1:24 PM EST EXAM XR CHEST 1 VIEW - 06/07/2023 12:10 pm HISTORY s/p right pleur-x catheter placement. Worsening subcutaneous emphysema noted on exam TECHNIQUE AP semi erect view of the chest at 12:01 COMPARISON 06/07/2023 at 11:03; 06/06/2023 at 10:04 FINDINGS Heart is normal size. Mediastinal contours are normal. Right mid lung opacity near the hilum persists. This could be atelectasis or could be fluid within a fissure. No definite right pneumothorax. Previous large volume of right pleural fluid on 06/06/2023 has been evacuated. Small residual right pleural effusion. The PleurX catheter in the right lateral chest is unchanged in position. Moderate subcutaneous emphysema in the right chest has developed since 06/06/2023, but is unchanged from the earlier examination. Procedure Note Ayo Fischer, DO - 06/07/2023 EXAM XR CHEST 1 VIEW - 06/07/2023 12:10 pm HISTORY s/p right pleur-x catheter placement. Worsening subcutaneous emphysemanoted on exam TECHNIQUE AP semi erect view of the chest at 12:01 COMPARISON 06/07/2023 at 11:03; 06/06/2023 at 10:04 FINDINGS Heart is normal size. Mediastinal contours are normal. Right mid lung opacity near the hilum persists. This could be atelectasisor could be fluid within a fissure. No definite right pneumothorax.Previous large volume of right pleural fluid on 06/06/2023 has beenevacuated. Small residual right pleural effusion. The PleurX catheter inthe right lateral chest is unchanged in position. Moderate subcutaneous emphysema in the right chest has developed since06/06/2023, but is unchanged from the earlier examination. IMPRESSION IMPRESSION 1. No definite right pneumothorax. 2. Right pleural effusion has markedly decreased. 3. Right PleurX catheter. 4. No change in moderate right chest wall subcutaneous emphysema. Brenda Hutton PA-C RADIOLOGY ([facility]) * XR CHEST 1 VIEW (06/07/2023 11:06 AM EST) Anatomical Region Laterality Modality Chest Computed Radiogr aphy 06/07/2023 11:3 3 AM EST Impressions 06/07/2023 11:31 AM EST IMPRESSION 1. Small right pneumothorax. 2. Most of right pleural fluid removed. Faint round opacity right mid lung most likely fluid in lung fissure. 3. Moderate subcutaneous emphysema. Narrative 06/07/2023 11:31 AM EST EXAM XR CHEST 1 VIEW-06/07/2023 11:06 am HISTORY s/p right pleurx catheter placement COMPARISON Chest 06/06/2023. TECHNIQUE 1 view consisting of a portable AP semi-erect projection FINDINGS Right chest tube. Small right pneumothorax. Most of the right pleural fluid removed. A faint round opacity right mid lung most likely fluid in lung fissure. Remainder right lung clear. Left lung clear. Left pleural space clear. Pulmonary vasculature not engorged. Cardiomediastinal silhouette normal. Moderate subcutaneous emphysema right chest wall and base right neck. Procedure Note Abad Foote MD - 06/07/2023 EXAM XR CHEST 1 VIEW-06/07/2023 11:06 am HISTORY s/p right pleurx catheter placement COMPARISON Chest 06/06/2023. TECHNIQUE 1 view consisting of a portable AP semi-erect projection FINDINGS Right chest tube. Small right pneumothorax. Most of the right pleural fluid removed. Afaint round opacity right mid lung most likely fluid in lung fissure.Remainder right lung clear. Left lung clear. Left pleural space clear.Pulmonary vasculature not engorged. Cardiomediastinal silhouette normal.Moderate subcutaneous emphysema right chest wall and base right neck. IMPRESSION IMPRESSION 1. Small right pneumothorax. 2. Most of right pleural fluid removed. Faint round opacity right midlung most likely fluid in lung fissure. 3. Moderate subcutaneous emphysema. Brenda Hutton PA-C RADIOLOGY ([facility]) documented in this encounter Visit Diagnoses Diagnosis Recurrent right pleural effusion- Primary Unspecified pleural effusion Pleural effusion Unspecified pleural effusion Chest pain Chest pain, unspecified Pulmonary HTN (HCC) Other chronic pulmonary heart diseases Paroxysmal atrial fibrillation (HCC) Atrial fibrillation Hyperthyroidism Thyrotoxicosis without mention of goiter or other cause, without mention of thyrotoxic crisis or storm Hepatic cirrhosis (HCC) Cirrhosis of liver without mention of alcohol Glaucoma Unspecified glaucoma Gastroesophageal reflux disease without esophagitis Esophageal reflux Dyslipidemia, goal LDL below 70 Other and unspecified hyperlipidemia Chronic anticoagulation Long-term (current) use of anticoagulants Essential hypertension with goal blood pressure less than 140/90 Trapped lung Pulmonary collapse Subcutaneous emphysema after procedure documented in this encounter Administered Medications Inactive Administered Medications - up to 3 most recent administrations Medication Order MAR Action Action Date Dose Rate Site Acetaminophen (Tylenol) tab 325 mg 325 mg, Oral, PRN Pain, Mild, Starting on Sat06/07/23 at 1052, Until 06/08/23 at 1918, For 1 dose, Maximum of 4 grams (4000 mg) per day., Post-op Acetaminophen (Tylenol) tab 975 mg 975 mg, Oral, PREOP, First dose on Sat06/07/23 at 0745, Last dose on Sat06/07/23 at 0745, For 1 dose, Maximum of 4 grams (4000 mg) per day. Avoid in patients with severe hepatic impairment or severe active liver disease. Administer 60 minutes prior to OR., Pre-Op Given 06/07/2023 8:05 AM EST 975 mg aspirin enteric coated tab 81 mg 81 mg, Oral, Daily(AM), First dose on 06/08/23 at 0900, Until Discontinued, This med should NOT be Crushed or Chewed Given 06/08/2023 8:14 AM EST 81 mg atorvaSTATin (Lipitor) tab 10 mg 10 mg, Oral, Daily(AM), First dose on 06/08/23 at 0900, Until Discontinued Given 06/08/2023 8:13 AM EST 10 mg doxazosin (Cardura) tab 2 mg 2 mg, Oral, BID (.AM/PM), First dose on 06/08/23 at 0900, Until Discontinued, Hold for SBP below 100 and notify service if dose is held Given 06/08/2023 8:14 AM EST 2 mg Empagliflozin (Jardiance) tab 10 mg 10 mg, Oral, Daily(AM), First dose on 06/08/23 at 0900, Until Discontinued Given 06/08/2023 8:14 AM EST 10 mg Furosemide (Lasix) tab 60 mg 60 mg, Oral, BID (.AM/PM), First dose on 06/08/23 at 0900, Until Discontinued Given 06/08/2023 8:13 AM EST 60 mg isolyte-S pH 7.4 infusion Intravenous, at 100 mL/hr, Plasma-LYTE 148, isolyte-S, and isolyte-S pH 7.4 are considered equivalent - including for MAR barcode scanning., CONTINUOUS, Starting on Sat06/07/23 at 0745, Until 06/08/23 at 1030, Pre-Op New Bag 06/08/2023 9:35 AM EST 100 mL/hr New Bag 06/07/2023 11:53 PM EST 100 mL/hr New Bag 06/07/2023 8:06 AM EST 100 mL/hr losartan (Cozaar) tab 25 mg 25 mg, Oral, Daily(AM), First dose on 06/08/23 at 0900, Until Discontinued Given 06/08/2023 8:13 AM EST 25 mg methIMAzole (Tapazole) tab 10 mg 10 mg, Oral, Daily(AM), First dose on 06/08/23 at 0900, Until Discontinued Given 06/08/2023 8:14 AM EST 10 mg metoprolol succinate XL (toPROL XL) tab 25 mg 25 mg, Oral, Daily(AM), First dose on 06/08/23 at 0900, Until Discontinued, Hold for HR less than 60 or SBP below 100 and notify service if dose is held This med should NOT be Crushed or Chewed. Given 06/08/2023 8:13 AM EST 25 mg oxyCODONE-acetaminophen 5-325 mg per tab (Percocet) 1 Tablet 1 Tablet, Oral, PRN Pain, Moderate, Starting on Sat06/07/23 at 1052, Until 06/08/23 at 0552, For 1 dose, Maximum of 4 grams (4000 mg) of acetaminophen per day, Post-op Given 06/08/2023 5:52 AM EST 1 Tablet traMADol ER (Ultram ER) tab 200 mg 200 mg, Oral, PREOP, First dose on Sat06/07/23 at 0745, Last dose on Sat06/07/23 at 0745, For 1 dose, Administer 60 minutes prior to OR, Pre-Op Given 06/07/2023 8:05 AM EST 200 mg documented in this encounter Active and Recently Administered Medications Times are shown in EST. Scheduled Medication Order 06/06/2023 06/07/2023 06/08/2023 Acetaminophen (Tylenol) tab 975 mg (COMPLETED)(Linked Group 1) 975 mg, Oral, PREOP, First dose on Sat06/07/23 at 0745, Last dose on Sat06/07/23 at 0745, For 1 dose, Maximum of 4 grams (4000 mg) per day. Avoid in patients with severe hepatic impairment or severe active liver disease. Administer 60 minutes prior to OR., Pre-Op 08 (Given - Provider: Carola Posada RN) aspirin enteric coated tab 81 mg 81 mg, Oral, Daily(AM), First dose on 06/08/23 at 0900, Until Discontinued, This med should NOT be Crushed or Chewed 08 (Given - Provid er: Phong Pimentel RN) atorvaSTATin (Lipitor) tab 10 mg 10 mg, Oral, Daily(AM), First dose on 06/08/23 at 0900, Until Discontinued 08 (Given - Provid er: Phong Pimentel RN) ceFAZolin in dextrose (Ancef) ivpb 2 g 2 g, IV Piggyback, PREOP, 1 dose, First dose on Sat06/07/23 at 0745, Administer 60 minutes prior to skin incision, Pre-Op 0745 (OR/Procedure - Provider: Rosa Schumacher RN) doxazosin (Cardura) tab 2 mg 2 mg, Oral, BID (.AM/PM), First dose on 06/08/23 at 0900, Until Discontinued, Hold for SBP below 100 and notify service if dose is held 0814 (Given - Provid er: Phong Pimentel RN) Empagliflozin (Jardiance) tab 10 mg 10 mg, Oral, Daily(AM), First dose on 06/08/23 at 0900, Until Discontinued 08 (Given - Provid er: Phong Pimentel RN) Famotidine (Pepcid) tab 20 mg 20 mg, Oral, QHS, First dose on 06/08/23 at 2200, Until Discontinued Furosemide (Lasix) tab 60 mg 60 mg, Oral, BID (.AM/PM), First dose on 06/08/23 at 0900, Until Discontinued 08 (Given - Provid er: Phong Pimentel RN) losartan (Cozaar) tab 25 mg 25 mg, Oral, Daily(AM), First dose on 06/08/23 at 0900, Until Discontinued 812 (Given - Provid er: Phong Pimentel RN) methIMAzole (Tapazole) tab 10 mg 10 mg, Oral, Daily(AM), First dose on 06/08/23 at 0900, Until Discontinued 0814 (Given - Provid er: Phong Pimentel RN) metoprolol succinate XL (toPROL XL) tab 25 mg 25 mg, Oral, Daily(AM), First dose on 06/08/23 at 0900, Until Discontinued, Hold for HR less than 60 or SBP below 100 and notify service if dose is held This med should NOT be Crushed or Chewed. 08 (Given - Provid er: Phong Pimentel RN) traMADol ER (Ultram ER) tab 200 mg (COMPLETED) 200 mg, Oral, PREOP, First dose on Sat06/07/23 at 0745, Last dose on Sat06/07/23 at 0745, For 1 dose, Administer 60 minutes prior to OR, Pre-Op 0805 (Given - Provider: Carola Posada RN) Continuous Medication Order 06/06/2023 06/07/202306/08/2023 isolyte-S pH 7.4 infusion (CANCELED) Intravenous, at 100 mL/hr, Plasma-LYTE 148, isolyte-S, and isolyte-S pH 7.4 are considered equivalent - including for MAR barcode scanning., CONTINUOUS, Starting on Sat06/07/23 at 0745, Until 06/08/23 at 1030, Pre-Op 0806 (New Bag - Provider: Carola Posada RN)2353 (New Bag - Provider: Minna Zaldivar RN) 0935 (New Bag - Provider: Phong Pimentel RN) PRN Medication Order 06/06/2023 06/07/2023 06/08/2023 Acetaminophen (Tylenol) tab 325 mg 325 mg, Oral, PRN Pain, Mild, Starting on Sat06/07/23 at 1052, Until 06/08/23 at 1918, For 1 dose, Maximum of 4 grams (4000 mg) per day., Post-op bupivacaine HCl (Sensorcaine) 0.25 % (PF) inj (CANCELED) ONCE PRN INTRA PROCEDURE, Starting on Sat06/07/23 at 1007, Until Sat06/07/23 at 1049, Intra-Op 1007 (Given - Provider: Ochoa Hernández MD - Comment: PRN intraop) oxyCODONE-acetaminophen 5-325 mg per tab (Percocet) 1 Tablet (COMPLETED) 1 Tablet, Oral, PRN Pain, Moderate, Starting on Sat06/07/23 at 1052, Until Discontinued, For 1 dose, Maximum of 4 grams (4000 mg) of acetaminophen per day, Post-op 0552 (Given - Provid er: Minna Zaldivar RN) talc 4 g intrapleural (CANCELED) ONCE PRN INTRA PROCEDURE, Starting on Sat06/07/23 at 1008, Until Sat06/07/23 at 1049, Intra-Op 1008 (Given - Provider: Ochoa Hernández MD) Linked Groups Order Group 1: Acetaminophen (Tylenol) tab 975 mg (COMPLETED)Jump to med 975 mg, Oral, PREOP, First dose on Sat06/07/23 at 0745, Last dose on Sat06/07/23 at 0745, For 1 dose, Maximum of 4 grams (4000 mg) per day. Avoid in patients with severe hepatic impairment or severe active liver disease. Administer 60 minutes prior to OR., Pre-Op Or Acetaminophen (Tylenol) 160 MG/5ML oral liquid 975 mg (COMPLETED) 975 mg, Oral, PREOP, First dose on Sat06/07/23 at 0745, Last dose on Sat06/07/23 at 0745, For 1 dose, Maximum of 4 grams (4000 mg) per day. Avoid in patients with severe hepatic impairment or severe active liver disease. Administer 60 minutes prior to OR., Pre-Op documented in this encounter Advance Directives Latest [...] the patient have Health Care Power of Hourly Caregiver? No Care Teams Air Operations Manager Relationship Specialty Start Date End Date Lito Pandey DO [address] [place] [id number] PCP - General Family Medicine 05/09/23 documented as of this encounter
--- OUTSIDE RECORDS SUMMARY | 2023-07-03 09:19 | External Medical Summary ---
Author Name Unknown Address Unknown Organization [id number][place] [facility] [address] [place] [id number] Laboratory Report Ordering Provider Test Date Status KARENEDGAR 06/07/2023 23:34:00 Final Observation Date Value Abnormality Reference (Units ) Status Lactic Acid, Whole Blood 06/07/2023 23:34:00 1.9 0.4-2.0 (mmol/L) Final Performing Location [facility] [facility] [place] [address] [place] [address]
--- OUTSIDE RECORDS SUMMARY | 2023-07-03 09:19 | External Medical Summary | Summary of Care ---
Author Name Unknown Organization [facility] Address [address] [place] [address] Phone [phone] Care Team Providers Care Event Designer Name Role Phone Lito Pandey DO Primary Care Provider [phone] Reason for Visit * Reason Onset Date Comments Advice 06/11/2023 Encounter Details Date Type Department Care Team (Late st Contact Info) Description 06/11/2023 Telephone Cardiology [facility], [place] [address] [place] [address] Ochoa Hernández MD [address] [place] [address] Advice Allergies Active Allergy Reactions Criticality Noted [...] patient is doing well and started some rn ante partum work. 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 [...] a little over a month ago at [facility] with ongoing findings suggestive high blood [...] Dr Santos Will obtain pulmonary notes from [facility] and testing done since 09/2020 re pulm HTN Erectile dysfunction is present will try sildenafil (and await pulm assessment of pulm HTN) Last Assessment & Plan: obtain pulmonary notes from [facility] and testing done since 09/2020 re [...] AF burden Paroxysmal atrial fibrillation 09/23/2019 Overview: [facility]: He has a history of persistent atrial [...] 06/08/2018 Overview: see May 06 2018 admissionto [facility] Cardiac Catheterization 05/2016 [facility] 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 Never true 05/09/20 Within the past 12 months, t he food you bought just didn't last and you didn't have money to get more. Never true 05/09/2023 Sex and Gender Information Value Date Recorded Sex Assigned at Male 03/23/2019 3:34 PM EDT Gender Identity Male 03/23/2019 3:34 PM EDT Sexual Orientation Straight 03/23/2019 3 :34 PM EDT Job Start Date Occupation Industry [...] encounter Miscellaneous Notes * Telephone Encounter - Laura Zafar PA-C - 06/12/2023 10:42 AM EST Thoracic Surgery Spoke with Brianda today. Reported drainage amounts since surgery: Wednesday 05/09 550 ml Thursday 05/10 175 ml Friday 05/11 50 ml Saturday 05/12 50 ml Drainage appears "dark red" in color when in the bottle but tushar colored when in the tubing. Brianda also noted that in the last few days Mr. Huffman has had red tinged drainage on his Pleur X dressing.It takes a majority of the day for the dressing to become saturated but then they are able to change it and drain him in the evening. She has been draining at 11 PM and asked if she could drain earlier. I advised that they may drain once daily at whenever time if convenient for them. With the quick decreased in fluid and drainage coming from around the tube I advised that we shouldget a CXR today v tomorrow to make sure he is well drained and the tube is not clogged. Will plan on a clinic visit Sunday 11/12 for tentative tPA. Laura Zafar PA-C * Telephone Encounter - Melani Bautista RN - 06/11/2023 12:11 PM EST Patients spouse Brianda calling in, patient was just admitted for pleurodesis and had a pleur x placed. Patients dressing the night before last when she took it off was soaked. She said she just checkedhis dressing now and it still has some blood seeping onto it. She is asking what she should do, patient is on coumadin. Patient can be reached at [phone]. Thank you Melani Bautista RN 06/11/2023 12:15 PM documented in this encounter Plan of Treatment Upcoming Encounters Date Type Department Care Team (Late st Contact Info) Description 06/14/2023 9:00 AM EST Office Visit Thoracic Surg [facility] [address] [place] [address] Laura Zafar PA-C [address] [facility] [place] [address] 06/17/2023 10:50 AM EST Anticoagulation Pharmacy, [place] [address] [place] [address] Pharmacist1, [facility] [place] [address] [place] [address] 06/24/2023 11:20 AM EST Office Visit Family Practice [address] [place] [address] [place] [address] [place] [phone] Lito Pandey DO [address] [place] [address] 07/22/2023 11:00 AM EST Nutrition Services Nutrition Services [address] [place] [address] [place] [address] [place] [address] Melani No, LASHAN 30 [facility] [address] [place] [address] 08/16/2023 10:40 AM EST Office Visit Family Practice [address] [place] [address] [place] [address] [place] [address] Lito Pandey DO [address] [place] [address] 10/03/2023 11:00 AM EDT Telemedicine Endocrinology, [place] 3 [facility] [address] [place] [address] Geremias Hammonds, DO [address] [place] [address] [address] [place] [address] 10/04/2023 11:20 AM EDT Office Visit Dermatology, [facility] [address] [place] [address] Caitlin Yuan PA-C [address] [facility] [address] [place] [address] 10/15/2023 1:40 PM EDT Office Visit Nephrology, [facility] [address] [place] [address] Tami Wilson MD [address] [place] [address] Pending Results Name Type Priority Associated Diagnoses Date /Time XR CHEST 2 VIEWS Medical Imaging Routine Pleural effusion on right 06/12/2023 11:00 AM EST Health Maintenance Due Date Last [...] this encounter Medical Devices Implanted Type Area Mallet And Die Cutter Device Identifier Shelf Expiration Date Model / Serial / Lot Cath Thermodilution 6fr - [id number] Implanted:Qty: 1 on 10/24/2022 by Rene Webber MD at [facility] [employer] [id number] 06/06/2024 [id number] / / [id number] documented as of this encounter Visit Diagnoses Diagnosis Pleural effusion on right- Primary Unspecified pleural effusion documented in this [...] the patient have Health Care Power of Aviation Maintenance Instructor? No Care Teams Event Designer Relationship Specialty Start Date End Date Lito Pandey DO [address] [place] [address] PCP - General Family Medicine 05/09/23 documented as of this encounter
--- OUTSIDE RECORDS SUMMARY | 2023-07-03 09:19 | External Medical Summary | Summary of Care ---
Author Name Unknown Organization [facility] Address [address] [place] [address] Phone [phone] Care Team Providers Care Supervisor Delivery Department Name Role Phone Lito Pandey DO Primary Care Provider [phone] Encounter Details Date Type Department Care Team (Latest Contact Info) Description 06/06/2023 9:59 AM EST - 06/06/2023 11:59 PM EST Hospital Encounter Radiology, [facility] [address] [place] [address] Arrived Discharge Disposition: Home - Self Care Allergies [...] by mouth. Once a week 0 8 Suspended LUTEIN 15-0.7 MG PO CAPS Take 1 Capsule by mouth once a week. 0 8 Suspended VITAMIN C 500 MG PO TABS 2 Tablets. 0 Suspended Coenzyme Q10 200 MG Capsule Take 1 Capsule by mouth in the morning. 0 Suspended Cholecalciferol (VITAMIN D) 1000 units Tablet Take 1 Tablet by mouth in the morning. Once a week. 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 30 Tab 11 0 Suspended Additional Information Sildenafil Citrate 20 MG Oral Tablet (Revatio) Use 2-5 tabs daily as needed for ED 50 Tab 5 1 Suspended Additional Information Famotidine 20 MG Oral Tablet (Pepcid)Indications :Gastroesophageal reflux disease without esophagitis Take 1 Tablet by mouth every night at bedtime. 90 Tablet 1 3 Suspended Additional Information Doxazosin Mesylate 2 MG Oral Tablet (Cardura)Indication s:HTN, goal below 130/80 Take one tablet three times daily by mouth. 90 Tablet 2 3 Suspended Metoprolol Succinate ER 25 MG Oral Tablet Extended Release 24 Hour (toPROL XL) Take 1 Tablet by mouth in the morning. 90 Tablet 3 3 Suspended Warfarin Sodium 5 MG Oral Tablet (Coumadin) TAKE 1 TABLET DAILY OR DIRECTED BY ANTICOAGULATION CLINIC 90 Tablet 1 3 Suspended Additional Information Patient not taking.Reported on 06/06/2023 Empagliflozin 10 MG Oral Tablet (Jardiance) Take 1 Tablet by mouth in the morning. 90 Tablet 3 3 Suspended Additional Information methIMAzole 5 MG Oral Tablet (Tapazole) 2 tablets or 10 mg by mouth daily since 04/18/2023 360 Tablet 3 3 Suspended Losartan Potassium 25 MG Oral Tablet (Cozaar)Indications :HTN, goal below 130/80 Take 1 Tablet by mouth in the morning. 90 Tablet 3 3 Suspended Additional Information Furosemide 20 MG Oral Tablet (Lasix)Indications: HTN, goal below 130/80 Take 3 Tablets by mouth in the morning and 3 Tablets before bedtime. 540 Tablet 3 3 Suspended Additional Information Patient taking differently:60 mg Oral BID (.AM/PM),Alternating 60/80mg in the AM, always 60mg PM, Reported on 05/09/2023 Spironolactone 25 MG Oral Tablet (Aldactone)Indicati ons:HTN, goal below 130/80 Take 0.5 Tablets by mouth daily. 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 0 Suspended Enoxaparin Sodium 80 MG/0.8ML Injection Solution Prefilled Syringe (Lovenox) Inject 70 mg under the skin in the morning and 70 mg before bedtime. As directed by Anticoagulation clinic.. 8 mL 0 3 Suspended Additional Information documented as of this encounter (statuses as of 06/07/2023) Active Problems Patient Care Coordination No te Formatting of this note migh t be different from the original. 11/05/2019dismissed from speech and home health 11/04/19. 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 He has instruction to [...] a little over a month ago at [facility] with ongoing findings suggestive high blood [...] AF burden Paroxysmal atrial fibrillation 09/23/2019 Overview: [facility]: He has a history of persistent atrial [...] admissionto 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 Advance directive discussed with patient 015 Overview: 1 POA Du 2 POA daughter Tammy [phone] POA father Ammon [phone] Urinary retention with incomplete bladder emptyi ng [...] Description 06/12/2023 10:00 AM EST Anticoagulation Pharmacy, [place] [address] [place] [address] Pharmacist1, [facility] [place] [address] [place] [address] 06/24/2023 11:20 AM EST Office Visit Family [address] [place] [address] Lito Pandey, DO [address] [place] [address] 07/22/2023 11:00 AM EST Nutrition Services Nutrition Services [address] [place] [address] [place] [address] [place] [phone] Melani No, LASHAN 30 [facility] [address] [place] [address] 08/16/2023 10:40 AM EST Office Visit Family Practice [address] [place] [address] [address] [place] [address] Lito Pandey DO [address] [place] [address] 10/03/2023 11:00 AM EDT Telemedicine Endocrinology, [place] 3 [facility] [address] [place] [address] Geremias Hammonds, DO [address] [place] [address] [place] [address] 10/04/2023 11:20 AM EDT Office Visit Dermatology, [place] [place] [address] [place] [address] Caitlin Yuan PA-C [address] [place] [address] [place] [address] 10/15/2023 1:40 PM EDT Office Visit Nephrology, [facility] 400 [place] [address] Tami Wilson MD [address] [place] [address] Scheduled Procedures Name Priority Associated Diagnoses Date/Ti [...] this encounter Medical Devices Implanted Type Area Warp Drawer Device Identifier Shelf Expiration Date Model / Serial / Lot Cath Thermodilution 6fr - [id number] Implanted:Qty: 1 on 10/24/2022 by Rene Webber MD at [facility] [employer] [id number] 06/06/2024 [id number] / / [id number] documented as of this encounter Procedures Procedure Name Priority Date/Time Associated Diagnosis Comments XR CHEST 1 VIEW Routine 06/06/2023 10:06 AM EST Pleural effusion documented in this encounter Results * XR CHEST 1 VIEW (06/06/2023 10:06 AM EST) Anatomical Region Laterality Modality Chest Computed Radiogr aphy 06/07/2023 7:51 AM EST Impressions 06/07/2023 7:49 AM EST IMPRESSION 1. Moderate right pleural effusion and underlying atelectasis/consolidation, slightly improved from previous x-ray. Narrative 06/07/2023 7:49 AM EST EXAM XR CHEST 1 VIEW-06/06/2023 10:06 am HISTORY Evalaute right pleural effusion COMPARISON 05/27/2023 x-ray. TECHNIQUE Frontal chest radiograph obtained. FINDINGS Stable cardiomediastinal silhouette. Moderate right pleural effusion with underlying atelectasis/consolidation, slightly improved from previous x-ray. No pneumothorax. Degenerative osseous changes. Procedure Note Sid Brothers MD - 06/07/2023 EXAM XR CHEST 1 VIEW-06/06/2023 10:06 am HISTORY Evalaute right pleural effusion COMPARISON 05/27/2023 x-ray. TECHNIQUE Frontal chest radiograph obtained. FINDINGS Stable cardiomediastinal silhouette. Moderate right pleural effusion with underlying atelectasis/consolidation,slightly improved from previous x-ray. No pneumothorax. Degenerative osseous changes. IMPRESSION IMPRESSION 1. Moderate right pleural effusion and underlyingatelectasis/consolidation, slightly improved from previous x-ray. Laura Zafar PA-C RADIOLOGY (RAD GENERAL) documented in this encounter Advance Directives Latest [...] the patient have Health Care Power of Flash Welding Machine Operator? No Care Teams Supervisor Delivery Department Relationship Specialty Start Date End Date Lito Pandey DO [address] [place] [address] PCP - General Family Medicine 05/09/23 documented as of this encounter
--- OUTSIDE RECORDS SUMMARY | 2023-07-03 09:19 | External Medical Summary | Summary of Care ---
Author Name Unknown Organization [facility] Address [address] [place] [address] Phone [phone] Care Team Providers Care Strategy Manager Name Role Phone Lito Pandey DO Primary Care Provider Encounter Details Date Type Department Care Team (Latest Contact Info) Description 05/21/2023 3:00 PM EST - 05/21/2023 11:59 PM EST Hospital Encounter Radiology [place] [address] [place] [address] Discharge Disposition: Home - Self [...] by mouth in the morning. 0 Suspended documented as of this encounter (statuses as [...] a little over a month ago at [facility] with ongoing findings suggestive high blood [...] Santos Will obtain pulmonary notes from [facility] and testing done since 09/2020 re pulm HTN Erectile dysfunction is present will try sildenafil (and await pulm assessment of pulm HTN) Last Assessment & Plan: obtain pulmonary notes from [facility] and testing done since 09/2020 re pulm [...] AF burden Paroxysmal atrial fibrillation 09/23/2019 Overview: [facility]: He has a history of persistent [...] Overview: see May 06 2018 admissionto [facility] Cardiac Catheterization 05/2016 [facility] 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 Advance directive discussed with patient 015 Overview: 1 POA Bethe 2 POA daughter Tammy [phone] POA father Ammon [phone] Urinary retention with incomplete bladder emptyi ng [...] Description 06/12/2023 10:00 AM EST Anticoagulation Pharmacy, [place] [address] [place] [address] Pharmacist1, [facility] [place] [address] [place] [phone] 06/24/2023 11:20 AM EST Office Visit Family Practice [address] [place] [address] [place] [address] [place] [address] Lito Pandey DO [address] [place] [phone] 07/22/2023 11:00 AM EST Nutrition Services Nutrition Services [address] [place] [address] [place] [address] [place] [address] Melani No, RDN 30 [facility] [place] [address] [place] [address] 08/16/2023 10:40 AM EST Office Visit Family Practice [address] [facility] [place] [address] [place] [address] Lito Pandey DO [address] [place] [phone] 10/03/2023 11:00 AM EDT Telemedicine Endocrinology, [place] [address] [facility] [address] [place] [address] Geremias Hammonds, DO [address] [place] [address] 10/04/2023 11:20 AM EDT Office Visit Dermatology, Joe Carballo [address] [place] [phone] Caitlin Yuan PA-C [address] [place] [address] [place] [address] 10/15/2023 1:40 PM EDT Office Visit Nephrology, [address] [place] [address] Tami Wilson MD 400 [place] [address] Scheduled Procedures Name Priority Associated Diagnoses [...] this encounter Medical Devices Implanted Type Area Edger Machine Helper Device Identifier Shelf Expiration Date Model / Serial / Lot Cath Thermodilution 6fr - [id number] Implanted:Qty: 1 on 10/24/2022 by Rene Webber MD at [facility] [place] [employer] [id number] 06/06/2024 [id number] / / [id number] documented as of this encounter Procedures Procedure Name Priority Date/Time Associated Diagnosis Comments RADIOLOGY EXAM - GENERAL RAD (IMAGES ONLY,NO REPORT) Routine 05/21/2023 3:00 PM EST documented in this encounter Results * RADIOLOGY EXAM - GENERAL RAD (IMAGES ONLY,NO REPORT) (05/21/2023 3:00 PM EST) 05/21/2023 2:56 PM EST Narrative Scheduling, Silent - 06/06/2023 10:08 AM EST This is an imaging study not interpreted or resulted by a [employer] or [employer] contracted radiologist. Ochoa Hernández MD RADIOLOGY (RAD [...] the patient have Health Care Power of Fish Peddler? No Care Teams Strategy Manager Relationship Specialty Start Date End Date Lito Pandey DO [address] [place] [address] PCP - General Family Medicine 05/09/23 documented as of this encounter
--- OUTSIDE RECORDS SUMMARY | 2023-07-03 09:19 | External Medical Summary ---
Author Name Unknown Address Unknown Organization : Laboratory Report Ordering Provider Test Date Status NEIL PRESTON 06/12/2023 10:16:11 Final Therapeutic ranges for non-o perative patients:
Prophylaxsis/treatment of DVT: (Range:2.0-3.0)
Treatment of pulmonary embolism:(Range:2.0-3.0)
Prevention of systemic embolism from:
-tissue heart valves
-acute myocardial infarction
-valvular heart disease
-atrial fibrillation
(Range: 2.0-3.0)
Mechanical prosthetic valves: (Range: 2.5-3.5) Observation Date Value Abnormality Reference (Units ) Status INR in Capillary blood by Coagulation assay 06/12/2023 10:16:11 1.8 (INR) Final Performing Location
--- OUTSIDE RECORDS SUMMARY | 2023-07-03 09:20 | External Medical Summary | Summary of Care ---
Author Name Unknown Organization [facility] Address [address] [place] [address] Phone [phone] Care Team Providers Care Bulk Clerk Name Role Phone Lito Pandey DO Primary Care Provider [phone] Encounter Details Date Type Department Care Team (Late st Contact Info) Description 05/31/2023 Orders Only Thoracic Surg [facility] [address] [place] [address] Ochoa Hernández MD [address] [place] [address] Allergies Active Allergy Reactions Criticality Noted Date Comments Omeprazole Other (Please comment) 05/25/2019 Pt reports it made him feel like med was affecting his heart health, felt like someone "pulled the plug". Penicillins Hives 03/31/2007 hives Clopidogrel Bisulfate Hives 05/21/2016 Pt on several new meds when hives developed, unclear which was the direct cause documented as of this encounter (statuses as of 06/06/2023) Medications Medication Sig Dispensed Refills Start Date [...] as of this encounter (statuses as of 06/06/2023) Active Problems Patient Care Coordination No te Formatting of this note migh t be different from the original. 11/05/2019dismissed from speech and home health 11/04/19. 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 [...] a little over a month ago at [facility] with ongoing findings suggestive high [...] pulmonary notes from [facility] and testing done since 09/2020 re pulm HTN Erectile dysfunction is present will try sildenafil (and await pulm assessment of pulm HTN) Last Assessment & Plan: obtain pulmonary notes from [facility] and testing done since 09/2020 re pulm [...] AF burden Paroxysmal atrial fibrillation 09/23/2019 Overview: [facility]: He has a history of persistent [...] 06 2018 admissionto [facility] Cardiac Catheterization 05/2016 [facility] 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 Advance directive discussed with patient 015 Overview: 1 POA Du 2 POA daughter Tammy [phone] POA father Ammon [phone] Urinary retention with incomplete bladder emptyi ng [...] as of this encounter (statuses as of 06/06/2023) Resolved Problems Problem Noted Date Diagnosed Date [...] as of this encounter (statuses as of 06/06/2023) Immunizations Name Administration Dates Next Due COVID-19 [...] Care Team (Late st Contact Info) Description 06/06/2023 9:59 AM EST Hospital Encounter Radiology, [address] [address] Arrived 06/07/2023 10:40 AM EST Office Visit Pulmonary Medicine, [address] [address] Gabriella Le, [address] [address] 06/12/2023 10:00 AM EST Anticoagulation Pharmacy, [place] [address] [place] [address] Pharmacist1, [facility] [place] [address] [place] [address] 06/24/2023 11:20 AM EST Office Visit Family Practice [address] [place] [address] [place] [address] [place] [address] Lito Pandey DO [address] [place] [address] 07/22/2023 11:00 AM EST Nutrition Services Nutrition Services [address] [place] [address] [place] [address] [place] [place] [phone] Melani No, RDN 30 [facility] [address] [place] [address] 08/16/2023 10:40 AM EST Office Visit Family Practice [address] [place] [address] [address] [place] [phone] Lito Pandey DO [address] [place] [phone] 10/03/2023 11:00 AM EDT Telemedicine Endocrinology, [place] 3 [facility] [address] [place] [address] Geremias Hammonds, [address] [place] [address] 10/04/2023 11:20 AM EDT Office Visit Dermatology, [place] [place] [address] [place] [address] Caitlin Yuan PA-C [address] [place] [address] [place] [address] 10/15/2023 1:40 PM EDT Office Visit Nephrology, [facility] [address] [place] [address] Tami Wilson MD [address] [place] [address] Health Maintenance Due Date Last Done Comments [...] this encounter Medical Devices Implanted Type Area Treating Plant Pumper Device Identifier Shelf Expiration Date Model / Serial / Lot Cath Thermodilution 6fr - [id number] Implanted:Qty: 1 on 10/24/2022 by Rene Webber MD at [facility] [employer] [id number] 06/06/2024 [id number] / / [id number] documented as of this encounter Procedures Procedure Name Priority Date/Time Associated Diagnosis Comments RADIOLOGY EXAM - GENERAL RAD (IMAGES ONLY,NO REPORT) Routine 05/31/2023 12:15 PM EST documented in this encounter Results * RADIOLOGY EXAM - GENERAL RAD (IMAGES ONLY,NO REPORT) (05/31/2023 12:15 PM EST) 05/31/2023 12:1 2 PM EST Narrative Scheduling, Silent - 06/06/2023 10:09 AM EST This is an imaging study not interpreted or resulted by a [employer] or [employer] contracted radiologist. Ochoa Hernández MD RADIOLOGY (RAD [...] the patient have Health Care Power of Chemical Weigher? No Care Teams Bulk Clerk Relationship Specialty Start Date End Date Lito Pandey DO [address] [place] [phone] PCP - General Family Medicine 05/09/23 documented as of this encounter
--- OUTSIDE RECORDS SUMMARY | 2023-07-03 09:20 | External Medical Summary | Summary of Care ---
Author Name Unknown Organization [facility] Address [address] [place] [address] Phone [phone] Care Team Providers Care Gate Shear Operator Name Role Phone Lito Pandey DO Primary Care Provider [phone] Encounter Details Date Type Department Care Team (Late st Contact Info) Description 04/25/2023 Orders Only Thoracic Surg [facility] [address] [place] [address] Ochoa Hernández MD [address] [place] [address] Allergies Active Allergy Reactions Criticality [...] by mouth. Once a week 0 10/01/2007 Active LUTEIN 15-0.7 MG PO CAPS One tablet by mouth every other day 0 10/01/2007 Active VITAMIN C 500 MG PO TABS [...] 0 Active aspirin enteric coated 81 MG TBECIndications:C erebrovascular accident (CVA) due to embolism of cerebral artery (HCC) Take 1 Tab by mouth daily. 30 Tab 11 10/06/2019 Active Sildenafil Citrate 20 MG Oral Tablet (Revatio) Use 2-5 tabs daily as needed for ED 50 Tab 5 04/13/2021 Active Additional Information Patient not taking.Reported on 03/29/2023 Famotidine 20 MG Oral Tablet (Pepcid)Indicatio ns:Gastroesophage al reflux disease without esophagitis Take 1 Tablet by mouth every night at bedtime. 90 Tablet 1 01/30/2023 Active Doxazosin Mesylate 2 MG Oral Tablet (Cardura)Indicati ons:HTN, goal below 130/80 Take one tablet three times daily by mouth. 90 Tablet 2 03/20/2023 Active Metoprolol Succinate ER 25 MG Oral Tablet Extended Release 24 Hour (toPROL XL) Take 1 Tablet by mouth in the morning. 90 Tablet 3 03/20/2023 Active Warfarin Sodium 5 MG Oral Tablet (Coumadin) TAKE 1 TABLET DAILY OR DIRECTED BY ANTICOAGULATION CLINIC 90 Tablet 1 03/26/2023 Active Empagliflozin 10 MG Oral Tablet (Jardiance) Take 1 Tablet by mouth in the morning. 90 Tablet 3 03/31/2023 Active methIMAzole 5 MG Oral Tablet (Tapazole) 2 tablets or 10 mg by mouth daily since 04/18/2023 360 Tablet 3 04/18/2023 Active Losartan Potassium 25 MG Oral Tablet (Cozaar)Indicatio ns:HTN, goal below 130/80 Take 1 Tablet by mouth in the morning. 90 Tablet 3 04/23/2023 Active Furosemide 20 MG Oral Tablet (Lasix)Indication s:HTN, goal below 130/80 Take 3 Tablets by mouth in the morning and 3 Tablets before bedtime. 540 Tablet 3 04/23/2023 Active Additional Information Patient taking differently:60 mg Oral BID (.AM/PM),Alternating 60/80mg in the AM, always 60mg PM, Reported on 05/09/2023 Spironolactone 25 MG Oral Tablet (Aldactone)Indica tions:HTN, goal below 130/80 Take 0.5 Tablets by mouth daily. One half tablet by mouth Saturday and fridays 45 Tablet 3 04/23/2023 Active documented as of this encounter (statuses as of 06/06/2023) Active Problems Patient Care Coordination No te Formatting of this note migh t be different from the original. 11/05/2019dismissed from speech and home health 11/04/19. 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 [...] a little over a month ago at [facility] with ongoing findings suggestive high [...] pulmonary notes from [facility] and testing done since 09/2020 re pulm HTN Erectile dysfunction is present will try sildenafil (and await pulm assessment of pulm HTN) Last Assessment & Plan: obtain pulmonary notes from [facility] and testing done since 09/2020 re pulm [...] burden Paroxysmal atrial fibrillation 09/23/2019 Overview: [facility]: He has a history of persistent atrial [...] 06 2018 admissionto [facility] Cardiac Catheterization 05/2016 [facility] 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 Advance directive discussed with patient 015 Overview: 1 POA Bethe 2 POA daughter Tammy [phone] POA father Ammon [phone] Urinary retention with incomplete bladder emptyi ng [...] 06/06/2023 9:59 AM EST Hospital Encounter Radiology, [place] [address] [place] [id number] Arrived 06/07/2023 10:40 AM EST Office Visit Pulmonary Medicine, [place] [address] [place] [address] Gabriella Le, [address] [place] [address] 06/12/2023 10:00 AM EST Anticoagulation Pharmacy, [place] [address] [place] [address] Pharmacist1, [facility] [place] [address] [address] 06/24/2023 11:20 AM EST Office Visit Family Practice [address] [place] [address] [address] [place] [address] Lito Pandey DO [address] [place] [place] [id number] 07/22/2023 11:00 AM EST Nutrition Services Nutrition Services [address] [place] [address] [address] [place] [address] Melani No, RDN 30 [facility] 11 [place] [address] 08/16/2023 10:40 AM EST Office Visit Family Practice [address] [place] [address] [address] [place] [phone] Lito Pandey DO [address] [place] [address] 10/03/2023 11:00 AM EDT Telemedicine Endocrinology, [place] 3 [facility] [address] [place] [address] Geremias Hammonds, DO [address] [place] [address] [place] [address] 10/04/2023 11:20 AM EDT Office Visit Dermatology, [facility] [place] [address] [place] [address] Caitlin Yuan PA-C [address] [place] [address] 10/15/2023 1:40 PM EDT Office Visit Nephrology, [facility] [address] [place] [address] Tami Wilson MD [address] [place], [place] [phone] Health Maintenance Due Date Last Done Comments [...] this encounter Medical Devices Implanted Type Area Bowling Ball Grader Device Identifier Shelf Expiration Date Model / Serial / Lot Cath Thermodilution 6fr - [id number] Implanted:Qty: 1 on 10/24/2022 by Rene Webber [place] [facility] [place] [employer] [id number] 06/06/2024 [id number] / / [id number] documented as of this encounter Procedures Procedure [...] study not interpreted or resulted by a Web Designed Roomser or Web Designed Rooms contracted radiologist. Ochoa Heránndez MD RADIOLOGY (RAD GENE RAL) documented in [...] the patient have Health Care Power of Photo Equipment Technician? No Care Teams Gate Shear Operator Relationship Specialty Start Date End Date Lito Pandey DO [address] [place] [place] [id number] PCP - General Family Medicine 05/09/23 documented as of this encounter
--- OUTSIDE RECORDS SUMMARY | 2023-07-03 09:20 | External Medical Summary | Summary of Care ---
Author Name Unknown Organization [facility] Address [address] [place] [address] Phone [phone] Care Team Providers Care Button Broacher Name Role Phone Lito Pandey DO Primary Care Provider [phone] Reason for Visit * Reason Comments Outpatient Testing Encounter Details Date Type Department Care Team (Late st Contact Info) Description 06/06/2023 1:10 PM EST Laboratory Outpatient Laboratory, [place] [address] [place] [address] [place], Lab B1a [address] [place] [address] Recurrent right pleural effusion Allergies Active Allergy [...] ANTICOAGULATION CLINIC 90 Tablet 1 3 Active Additional Information Patient not taking.Reported on 06/06/2023 [...] 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 He has instruction to continue [...] a little over a month ago at [facility] with ongoing findings suggestive high blood [...] pulmonary notes from [facility] and testing done since 09/2020 re pulm HTN Erectile dysfunction is present will try sildenafil (and await pulm assessment of pulm HTN) Last Assessment & Plan: obtain pulmonary notes from [facility] and testing done since 09/2020 re pulm [...] Paroxysmal atrial fibrillation 09/23/2019 Overview: [facility]: He has a history of [...] 06 2018 admissionto [facility] Cardiac Catheterization 05/2016 [facility] 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 Advance directive discussed with patient 015 Overview: 1 POA Du 2 POA daughter Tammy [phone] POA father Ammon [phone] Urinary retention with incomplete bladder emptyi ng [...] Care Team (Late st Contact Info) Description 06/07/2023 10:40 AM EST Office Visit Pulmonary Medicine, [place] [address] [place] [address] Gabriella Le, [address] [place] [address] 06/12/2023 10:00 AM EST Anticoagulation Pharmacy, [place] [address] [place] [address] Pharmacist1, [facility] [place] [address] [place] [address] 06/24/2023 11:20 AM EST Office Visit Family Practice [address] [place] [address] [place] [address] [place] [address] Lito Pandey, [address] [place] [address] 07/22/2023 11:00 AM EST Nutrition Services Nutrition Services [address] [place] [address] [place] [address] [place] [phone] Melani No, RDN 30 [facility] [address] [place] [address] 08/16/2023 10:40 AM EST Office Visit Family Practice [address] [place] [address] [place] [address] [place] [address] Lito Pandey DO [address] [place] [phone] 10/03/2023 11:00 AM EDT Telemedicine Endocrinology, [place] [address] [facility] [address] [place] [address] Geremias Hammonds, [address] [place] [address] 10/04/2023 11:20 AM EDT Office Visit Dermatology, [facility] [place] [address] [place], [place] [phone] Caitlin Yuan PA-C [address] [place] [phone] 10/15/2023 1:40 PM EDT Office Visit Nephrology, [facility] [address] [place], [place] [phone] Tami Wilson MD 400 [place], [place] [phone] Pending Results Name Type Priority Associated Diagnoses Date /Time TYPE AND SCREEN Lab Routine Recurrent right pleural effusion 06/06/2023 12:42 PM EST Health Maintenance Due Date Last [...] this encounter Medical Devices Implanted Type Area Acoustic Intelligence Specialist Device Identifier Shelf Expiration Date Model / Serial / Lot Cath Thermodilution 6fr - [id number] Implanted:Qty: 1 on 10/24/2022 by Rene Webber MD at [facility] [place] [employer] [id number] 06/06/2024 [id number] / / [id number] documented as of this encounter Visit Diagnoses Diagnosis Recurrent right pleural effusion Unspecified pleural effusion [...] the patient have Health Care Power of Shirt Finisher? No Care Teams Button Broacher Relationship Specialty Start Date End Date Lito Pandey DO [address] [employer] [place] [phone] PCP - General Family Medicine 05/09/23 documented as of this encounter
--- OUTSIDE RECORDS SUMMARY | 2023-07-03 09:20 | External Medical Summary | Summary of Care ---
Author Name Unknown Organization [facility] Address [address] [place] [address] Phone [phone] Care Team Providers Care Cooker Sulfate Name Role Phone Lito Pandey DO Primary Care Provider [phone] Encounter Details Date Type Department Care Team (Latest Contact Info) Description 05/31/2023 12:15 PM EST - 05/31/2023 11:59 PM EST Hospital Encounter Radiology [place] [address] [place] [address] Discharge Disposition: Home - Self [...] ago at [facility] with ongoing findings suggestive high blood pressure [...] Santos Will obtain pulmonary notes from [facility] and testing done since 09/2020 re pulm HTN Erectile dysfunction is present will try sildenafil (and await pulm assessment of pulm HTN) Last Assessment & Plan: obtain pulmonary notes from [facility] and testing done since 09/2020 re [...] AF burden Paroxysmal atrial fibrillation 09/23/2019 Overview: [facility]: He has a history of persistent [...] Overview: see May 06 2018 admissionto [facility] Cardiac Catheterization 05/2016 [facility] 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 Advance directive discussed with patient 015 Overview: 1 POA Bethe 2 POA daughter Tammy [phone] POA father Ammon [phone] Urinary retention with incomplete bladder emptyi ng [...] Description 06/12/2023 10:00 AM EST Anticoagulation Pharmacy, [place] [address] [place] [address] Pharmacist1, [facility] [place] [address] [place] [id number] 06/24/2023 11:20 AM EST Office Visit Family Practice [address] [place] [address] [place] [address] [place] [address] Lito Pandey DO [address] [place] [id number] 07/22/2023 11:00 AM EST Nutrition Services Nutrition Services [address] [place] [address] [place] [address] [place] [address] Melani No, RDN 30 [facility] [address] [place] [address] 08/16/2023 10:40 AM EST Office Visit Family Practice 65 [facility] [place] [address] [place] [address] Lito Pandey DO [address] [place] [phone] 10/03/2023 11:00 AM EDT Telemedicine Endocrinology, [place] [address] [facility] [address] [place] [address] Geremias Hammonds, DO [address] [place] [address] 10/04/2023 11:20 AM EDT Office Visit Dermatology, [place] [address] [place] [phone] Caitlin Yuan PA-C [address] [place] [address] 10/15/2023 1:40 PM EDT Office Visit Nephrology, [address] [place] [address] Tami Wilson MD [address] [place] [address] Scheduled Procedures Name Priority Associated [...] this encounter Medical Devices Implanted Type Area Oakes Machine Operator Device Identifier Shelf Expiration Date Model / Serial / Lot Cath Thermodilution 6fr - [id number] Implanted:Qty: 1 on 10/24/2022 by Rene Webber MD at [facility] [employer] [id number] 06/06/2024 [id number] / / [id number] documented as of this encounter Procedures Procedure [...] study not interpreted or resulted by a [employer] or [employer] contracted radiologist. Ochoa Hernández MD RADIOLOGY (RAD [...] the patient have Health Care Power of Transport Driver? No Care Teams Cooker Sulfate Relationship Specialty Start Date End Date Lito Pandey DO [address] [place] [phone] PCP - General Family Medicine 05/09/23 documented as of this encounter
--- OUTSIDE RECORDS SUMMARY | 2023-07-03 09:20 | External Medical Summary | Summary of Care ---
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 [...] over a month ago at [facility] with ongoing findings suggestive high blood [...] Dr Santos Will obtain pulmonary notes from [facility] and testing done since 09/2020 re pulm HTN Erectile dysfunction is present will try sildenafil (and await pulm assessment of pulm HTN) Last Assessment & Plan: obtain pulmonary notes from [facility] and testing done since 09/2020 re [...] Paroxysmal atrial fibrillation 09/23/2019 Overview: [facility]: He has a history of [...] 06/08/2018 Overview: see May 06 2018 admissionto [facility] Cardiac Catheterization 05/2016 [facility] [place] 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 Advance directive discussed with patient 015 Overview: 1 POA Du 2 POA daughter Tammy [phone] POA father Ammon [phone] Urinary retention with incomplete bladder emptyi ng [...] 06/06/2023 9:59 AM EST Hospital Encounter Radiology, [address] [address] Arrived 06/07/2023 10:40 AM EST Office Visit Pulmonary Medicine, [address] [address] Gabriella Le, [address] [address] 06/12/2023 10:00 AM EST Anticoagulation Pharmacy, [place] [address] [place] [address] Pharmacist1, [facility] [place] [address] [place] [address] 06/24/2023 11:20 AM EST Office Visit Family Practice [address] [place] [address] [place] [address] [place] [address] Lito Pandey DO [address] [place] [address] 07/22/2023 11:00 AM EST Nutrition Services Nutrition Services [address] [place] [address] [place] [address] [place] [phone] Melani No, RDN 30 [facility] [address] [place] [address] 08/16/2023 10:40 AM EST Office Visit Family Practice [address] [place] [address] [address] [place] [phone] Lito Pandey DO [address] [place] [address] [id number] 10/03/2023 11:00 AM EDT Telemedicine Endocrinology, [place] 3 [facility] [address] [place] [address] Geremias Hammonds, [address] [place] [address] 10/04/2023 11:20 AM EDT Office Visit Dermatology, [facility] [place] [address] [place] [address] Caitlin Yuan PA-C [address] [place] [address] 10/15/2023 1:40 PM EDT Office Visit Nephrology, [facility] [address] [place] [address] Tami Wilson MD [address] [place] [address] Health Maintenance Due Date Last Done Comments [...] this encounter Medical Devices Implanted Type Area Willower Device Identifier Shelf Expiration Date Model / Serial / Lot Cath Thermodilution 6fr - [id number] Implanted:Qty: 1 on 10/24/2022 by Rene Webber MD at [facility] [employer] [id number] 06/06/2024 [id number] / / [id number] documented as of this encounter Procedures Procedure Name Priority Date/Time Associated Diagnosis Comments RADIOLOGY EXAM - GENERAL RAD (IMAGES ONLY,NO REPORT) Routine 06/01/2023 12:40 PM EST documented in this encounter Results * RADIOLOGY EXAM - GENERAL RAD (IMAGES ONLY,NO REPORT) (06/01/2023 12:40 PM EST) 06/01/2023 12:3 8 PM EST Narrative Scheduling, [place] - 06/06/2023 10:09 AM EST This is an imaging study not interpreted or resulted by a [employer] or [employer] contracted radiologist. Ochoa Hernández MD RADIOLOGY (RAD [...] the patient have Health Care Power of Rn Admit? No Care Teams Avionics Repair Technician Relationship Specialty Start Date End Date Lito Pandey DO [address] [place] [address] [place] [phone] PCP - General Family Medicine 05/09/23 documented as of this encounter
--- OUTSIDE RECORDS SUMMARY | 2023-07-03 09:20 | External Medical Summary | Summary of Care ---
Author Name Unknown Organization [facility] Address [address] [place] [address] Phone [phone] Care Team Providers Care Airbrush Artist Technical Name Role Phone Lito Pandey DO Primary Care Provider Reason for Visit * Reason Comments NEW PATIENT * Evaluate & Treat - Unlimited Visits (Within 10 days (routine)) - Authorized Specialty Diagnoses / Procedures Referred By Contact Referred To Contact Thoracic and Cardiac Surgery / Cardiothoracic Surgery Diagnoses Recurrent right pleural effusion Lito Pandey DO [address] [place] [address] Referral ID Status Reason Start Date Expiration Date Visits Requested Visits Authorized [id number] Authorized Specialty Services Required [phone] Encounter Details Date Type Department Care Team (Late st Contact Info) Description 06/06/2023 10:00 AM EST Office Visit Thoracic Surg [facility] [address] [place] [address] Ochoa Hernández MD [address] [place] [address] Recurrent right pleural effusion* Allergies [...] 1 Active Famotidine 20 MG Oral Tablet (Pepcid)Indications :Gastroesophageal [...] Anticoagulation clinic.. 8 mL 0 3 Active Magnesium 200 MG Tablet Take 0.5 Tablets by mouth in the morning. 0 06/06/20 23 Discontin ued(Medic ation/Dos e Changed) documented as of this encounter (statuses as of 06/06/2023) Active Problems Patient Care Coordination No te Formatting of this note migh t be different from the original. 11/05/2019dismissed from speech and home health 11/04/19. 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 [...] Dr Santos Will obtain pulmonary notes from [facility] and testing done since 09/2020 re pulm HTN Erectile dysfunction is present will try sildenafil (and await pulm assessment of pulm HTN) Last Assessment & Plan: obtain pulmonary notes from [facility] and testing done since 09/2020 re [...] AF burden Paroxysmal atrial fibrillation 09/23/2019 Overview: [facility]: He has a history of [...] 06/08/2018 Overview: see May 06 2018 admissionto [facility] Cardiac Catheterization 05/2016 [facility] 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 Advance directive discussed with patient 015 Overview: 1 POA Bethe 2 POA daughter Tammy [phone] POA father Ammon [phone] Urinary retention with incomplete bladder emptyi ng [...] pt requests continuation PSA Results: PSA(ng/mL) Wyatt Dt/Stephen Resulted Value [...] 09/14/2009 11/30/2021 Overview: PSA Results: PSA(ng/mL) Wyatt Dt/Tripshare Resulted Value Status 03/23/19 4:50P 03/24/19 1.03 [...] Sign Reading Time Taken Comments Blood Pressure 110/62 06/06/2023 10:34 AM EST Pulse 76 06/06/2023 10:34 AM EST Temperature - - Respiratory Rate - - Oxygen Saturation 98% 06/06/2023 10: 34 AM EST Inhaled Oxygen Concentration - - Weight 71.5 kg (157 lb 11.2 oz) 023 10:34 AM EST Height 167 cm (5' 5.75") 06/06/2023 10: 34 AM EST Body Mass Index 25.65 06/06/2023 10:34 AM EST documented in this encounter Functional [...] as of this encounter Progress Notes * Lesvia Bee RN - 06/06/2023 1:51 PM EST Met with patient and to discuss pre and post op surgery information. Offered 06/07/23 for surgery and this was accepted. He will receive a call today between 1pm-7pm with what time to be at [facility] the morning of surgery. Directions to surgery check in provided. Discussed antibacterial soap and instructed on use, provided bottle in clinic. No vitamins, minerals OTC supplements or NSAIDs, can use tylenol if needed. He stated that he did not bring any of his morning medications with him, thought he wouldn't need any prior to surgery or he could get them here. I made him aware that he would get whatever medications he needed once admitted after surgery. Medications discussed. He took his lovenox this morning, bridge for coumadin. He will not take a dose tonight or tomorrow morning. He did not bring any of his medications with him, so will not take any in the morning. I did explain that he may need to be given his toprol XL tomorrow morning since anesthesia likes patients to gettheir beta larissa. Will have type and screen done today, all other labs and EKG are up to date. He plans on staying at the [facility] this evening, I did provide him with a voucher. All questions answered to best of my ability. They verbalized understanding and agreement to the above. Lesvia Bee RN MSN [facility] Thoracic Surgery Nurse Navigator [facility] * Ochoa Hernández MD - 06/06/2023 8:14 AM EST THORACIC SURGERY CLINIC @ [facility] 06/06/2023 I have reviewed the advanced practitioner [...] He has undergone four prior thoracenteses at [facility] with good relief (not perfect) and benign cytology. 4. Chronic anticoagulation (usually warfarin) for atrial fibrillation. Currently on an enoxaparin bridge for procedures. Other medical comorbidities as noted in today's note by Ms. Zafar, including heart failure. 5. I have discussed this case with Dr. Santos, his trace evidence technician, and we are in agreement with the [...] Hernández MD FACS System Chief, Thoracic Surgery [facility] [place] [address] documented in this encounter Plan of Treatment Upcoming Encounters Date Type Department Care Team (Late st Contact Info) Description 06/07/2023 8:29 AM EST [facility] [address] [place] [address] Ochoa Hernández MD [address] [place] [address] 06/07/2023 8:29 AM EST - 06/07/2023 10:53 AM EST Surgery OR [facility], OPERATING ROOM [facility], [facility] [address] [place] [address] Ochoa Hernández MD [address] [place] [address] THORACOSCOPY W/PLEURA BIOPSY 06/07/2023 10:40 AM EST Office Visit Pulmonary Medicine, [place] [address] [place] [address] Gabriella Le DO [address] [place] [address] 06/12/2023 10:00 AM EST Anticoagulation Pharmacy, [place] [address] [place] [address] Pharmacist1, [facility] [place] [address] [place] [address] 06/24/2023 11:20 AM EST Office Visit Family Practice [address] [place] [address] [address] [place] [address] Lito Pandey DO [address] [place] [phone] 07/22/2023 11:00 AM EST Nutrition Services Nutrition Services [address] [place] [address] [address] [place] [address] Melani No, ALFREDO 30 [facility] [address] [place] [address] 08/16/2023 10:40 AM EST Office Visit Family Practice [address] [place] [address] [address] [place] [address] Lito Pandey, DO [address] [place] [address] 10/03/2023 11:00 AM EDT Telemedicine Endocrinology, [place] 3 [facility] [address] [place] [address] Geremias Hammonds, DO [address] [place] [address] 10/04/2023 11:20 AM EDT Office Visit Dermatology, [place] [facility] [address] [facility] [address] [place] [phone] Caitlin Yuan PA-C [address] [place] [address] [place] [address] 10/15/2023 1:40 PM EDT Office Visit Nephrology, [facility] [address] [place], [place] [phone] Tami Wilson MD [address] [place] [address] Scheduled Procedures Name Priority Associated Diagnoses Date/Ti me THORACOSCOPY W/PLEURA BIOPSY Pleural effusion 06/07/2023 8:29 AM EST INSERTION INDWELLING PLEURAL CATH Pleural effusion 06/07/2023 8:29 AM EST Health Maintenance Due Date Last Done Comments Hepatitis C Screening 1963 Hepatitis B (1 of 3 - Risk 3-dose series) 2003 COVID-19 Vaccine ( season) 2023 01/31/2022, 09/08/2020, 08/11/2020 Depression Screening 05/09/2024 05/09/2023 GFR 05/28/2024 05/28/2023, 1108/2022, 04/18/2023, Additional history exists Albumin/Creatinine Ratio 05/09/2026 [...] this encounter Medical Devices Implanted Type Area Publication Manager Device Identifier Shelf Expiration Date Model / Serial / Lot Cath Thermodilution 6fr - [id number] Implanted:Qty: 1 on 10/24/2022 by Rene Webber MD at [facility] [employer] [id number] 06/06/2024 [id number] / / [id number] documented as of this encounter Results * ABO/RH (06/06/2023 12:47 PM EST) ABO B 06/06/2023 3:56 PM EST LABORATORY [facility] BLOOD BANK Rh Positive 06/06/2023 3:56 PM EST LABORATORY [facility] BLOOD BANK Blood Venous blood specimen / Unknown Venipuncture / Unknown 06/06/2023 12:47 PM EST 06/06/2023 3:34 PM EST Ochoa Hernández MD LAB BLOOD BANK TEST ORDERABLES Performing Organization Address City/State/[facility] Co de Phone Number LABORATORY [facility] BLOOD BANK [address] [place] [address] * TYPE AND SCREEN (06/06/2023 12:42 PM EST) ABO B 06/06/2023 1:52 PM EST LABORATORY [facility] BLOOD BANK Rh Positive 06/06/2023 1:52 PM EST LABORATORY [facility] BLOOD BANK Red Blood Cell Antibody Screen Negative 06/06/2023 1:52 PM EST LABORATORY [facility] BLOOD BANK Specimen Expiration Date 06/10/2023 23:59 06/06/2023 1:52 PM EST LABORATORY [facility] BLOOD BANK Blood Venous blood specimen / Unknown Venipuncture / Unknown 06/06/2023 12:42 PM EST 06/06/2023 12:56 PM EST Ochoa Hernández MD LAB BLOOD BANK TEST ORDERABLES LABORATORY [facility] BLOOD BANK [address] [facility] [place] [address] documented in this encounter Visit Diagnoses Diagnosis Recurrent right pleural effusion- Primary Unspecified pleural effusion Pleural effusion Unspecified pleural effusion documented in this [...] the patient have Health Care Power of President Practicing Urologist? No Care Teams Airbrush Artist Technical Relationship Specialty Start Date End Date Lito Pandey DO [address] [place] [address] PCP - General Family Medicine 05/09/23 documented as of this encounter
--- OUTSIDE RECORDS SUMMARY | 2023-07-03 09:20 | External Medical Summary | Summary of Care ---
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 [...] Dr Santos Will obtain pulmonary notes from [facility] and testing done since 09/2020 re pulm HTN Erectile dysfunction is present will try sildenafil (and await pulm assessment of pulm HTN) Last Assessment & Plan: obtain pulmonary notes from [facility] and testing done since 09/2020 [...] AF burden Paroxysmal atrial fibrillation 09/23/2019 Overview: [facility]: He has a history of persistent [...] 06/08/2018 Overview: see May 06 2018 admissionto [facility] Cardiac Catheterization 05[place]2016 [facility] 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 Advance directive discussed with patient 015 Overview: 1 POA Bethe 2 POA daughter Tammy [phone] POA father Ammon [phone] Urinary retention with incomplete bladder emptyi ng [...] Description 06/12/2023 10:00 AM EST Anticoagulation Pharmacy, [place] [address] [place] [address] Pharmacist1, [facility] [place] [address] [place] [phone] 06/24/2023 11:20 AM EST Office Visit Family Practice [address] [place] [address] [place] [address] [place] [address] Lito Pandey DO [address] [place] [phone] 07/22/2023 11:00 AM EST Nutrition Services Nutrition Services [address] [place] [address] [place] [address] [place] [address] Melani No, RDN 30 [facility] [place] [address] [place] [address] 08/16/2023 10:40 AM EST Office Visit Family Practice [address] [facility] [place] [address] [place] [address] Lito Pandey DO [address] [place] [phone] 10/03/2023 11:00 AM EDT Telemedicine Endocrinology, [facility] [address] [facility] [address] [place] [address] Geremias Hammonds, DO [address] [place] [address] 10/04/2023 11:20 AM EDT Office Visit Dermatology, [place] [address] [place] [phone] Caitlin Yuan PA-C [address] [place] [address] [place] [address] 10/15/2023 1:40 PM EDT Office Visit Nephrology, [address] [place] [address] Tami Wilson MD [address] [place] [address] Scheduled Procedures Name Priority Associated [...] this encounter Medical Devices Implanted Type Area Plywood Patcher Device Identifier Shelf Expiration Date Model / Serial / Lot Cath Thermodilution 6fr - [id number] Implanted:Qty: 1 on 10/24/2022 by Rene Webber MD at [facility] [employer] [id number] 06/06/2024 [id number] / / [id number] documented as of this encounter Procedures Procedure [...] study not interpreted or resulted by a CaseRailser or [employer] contracted radiologist. Ochoa Hernández MD RADIOLOGY (RAD [...] the patient have Health Care Power of International Recruiter? No Care Teams Patient Observer Relationship Specialty Start Date End Date Lito Pandey DO [address] [place] [address] PCP - General Family Medicine 05/09/23 documented as of this encounter
--- OUTSIDE RECORDS SUMMARY | 2023-07-03 09:20 | External Medical Summary | Summary of Care ---
Author Name Unknown Organization [facility] Address [address] [place] [address] Phone [phone] Care Team Providers Care Manager Utilization Name Role Phone Lito Pandey DO Primary Care Provider [phone] Reason for Visit * Reason Comments Dosage Adjustment Via Phone (anticoag Cl inic) Encounter Details Date Type Department Care Team (Latest Contact Info) Description 06/06/2023 5:10 PM EST Anticoagulation Pharmacy, [place] [address] [place] [address] Pharmacist1, [facility] [place] [address] [place] [phone] Paroxysmal atrial fibrillation (HCC)*; Cerebrovascular disease, arteriosclerotic, [...] 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 Scheduled for thoracoscopy tomorrow, 06/07. Currently on Lovenox 70mg q12h, holding warfarin. Last Lovenox dose this morning. Instructed to hold Lovenox tonight and tomorrow morning, and resume per bridging instructions below or as directed by doctor performing procedure: 06/07/23 Post-Procedure bridging instructions: 06/07 - Coumadin 7.5mg bedtime 06/08 - Coumadin 7.5mg bedtime, Lovenox 70mg 8PM only 06/09 - Coumadin 7.5mg bedtime, Lovenox 70mg 8AM & 8PM 12 - Lovenox 70mg 8AM & 8PM, resume Coumadin 2.5mg MF/5mg all other days Patient aware of plan. Will send MyG to patient with above bridging instructions. Yoni Matias RPh Clinical Pharmacist 06/06/2023, 4:46 PM documented in this encounter Plan of Treatment Upcoming Encounters Date Type Department Care Team (Late st Contact Info) Description 06/07/2023 8:29 AM EST Hospital Encounter OR [facility], OPERATING ROOM [facility], [address] [address] Ochoa Hernández MD [address] [place] [address] 06/07/2023 8:29 AM EST - 06/07/2023 10:53 AM EST Surgery [facility], OPERATING ROOM [facility] [address] [place] [address] Ochoa Hernández MD [address] [place] [address] THORACOSCOPY W/PLEURA BIOPSY 06/07/2023 10:40 AM EST Office Visit Pulmonary Medicine, [place] [address] [place] [address] Gabriella Le [address] [place] [address] 06/12/2023 10:00 AM EST Anticoagulation Pharmacy, [place] [address] [place] [address] Pharmacist1, [facility] [place] [address] [place] [address] 06/24/2023 11:20 AM EST Office Visit Family Practice [address] [place] [address] [address] [place] [phone] Lito Pandey DO [address] [place] [address] 07/22/2023 11:00 AM EST Nutrition Services Nutrition Services [address] [place] [address] [address] [place] [phone] Melani No, LASHAN 30 [facility] [address] [place] [address] 08/16/2023 10:40 AM EST Office Visit Family Practice [address] [place] [address] [address] [place] [phone] Lito Pandey DO [address] [place] [address] 10/03/2023 11:00 AM EDT Telemedicine Endocrinology, [place] 3 [facility] [address] [place] [address] Geremias Hammonds, DO [address] [place] [address] 10/04/2023 11:20 AM EDT Office Visit Dermatology, [place] [facility] [place] [address] [place] [place] [phone] Caitlin Yuan PA-C [address] [place] [address] 10/15/2023 1:40 PM EDT Office Visit Nephrology, [facility] [address] [place] [address] Tami Wilson MD [address] [place] [address] Scheduled Procedures Name Priority Associated Diagnoses Date/Ti [...] this encounter Medical Devices Implanted Type Area [employer] Spacelift Device Identifier Shelf Expiration Date Model / Serial / Lot Cath Thermodilution 6fr - [id number] Implanted:Qty: 1 on 10/24/2022 by Rene Webber MD at [facility] [employer] [id number] 06/06/2024 [id number] / / [id number] documented as of this encounter Visit Diagnoses Diagnosis Paroxysmal atrial fibrillation (HCC)- Primary Atrial fibrillation Cerebrovascular disease, arteriosclerotic, post-stroke Cerebral atherosclerosis Pleural effusion Unspecified pleural effusion documented in [...] the patient have Health Care Power of Loading Machine Tool Setter? No Care Teams Manager Utilization Relationship Specialty Start Date End Date Lito Pandey DO [address] [place] [phone] PCP - General Family Medicine 05/09/23 documented as of this encounter
--- OUTSIDE RECORDS SUMMARY | 2023-07-03 09:21 | External Medical Summary | Summary of Care ---
Author Name Unknown Organization [facility] Address [address] [place] [address] Phone [phone] Care Team Providers Care Upholstery Restorer Name Role Phone Lito Pandey DO Primary Care Provider [phone] Reason for Visit * Reason Onset Date Comments Encounter Created in Error 05/31/2023 Encounter Details Date Type Department Care Team (Late st Contact Info) Description 05/31/2023 Telephone Access Center, [place] [address] [facility] *DO NOT REMOVE THIS DEPARTMENT* [place] [address] Services, Scheduling [address] [place] [address] Encounter Created in Error Allergies Active Allergy Reactions Criticality Noted Date Comments Omeprazole Other (Please comment) 05/25/2019 Pt reports it made him feel like med was affecting his heart health, felt like someone "pulled the plug". Penicillins Hives 03/31/2007 hives Clopidogrel Bisulfate Hives 05/21/2016 Pt on several new meds when hives developed, unclear which was the direct cause documented as of this encounter (statuses as of 06/03/2023) Medications Medication Sig Dispensed Refills Start Date End Date Status GLUCOSAMINE CHONDRO COMPLEX 500-400 MG PO TABS Take 1 Tablet by mouth. Once a week 0 09/30/200 8 Active LUTEIN 15-0.7 MG PO CAPS [...] as of this encounter (statuses as of 06/03/2023) Active Problems Patient Care Coordination No te Formatting of this note migh t be different from the original. 11/05/2019dismissed from speech and home health 11/04/19. 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 [...] as of this encounter (statuses as of 06/03/2023) Resolved Problems Problem Noted Date Diagnosed Date [...] 10/07/17 4:40P 10/08/17 1.00 FINAL 10/04/16 4:12P 3/30/17 1.04 FINAL 10/07/17 4:40P 10/08/17 1.00 FINAL [...] as of this encounter (statuses as of 06/03/2023) Immunizations Name Administration Dates Next Due COVID-19 [...] encounter Miscellaneous Notes * Telephone Encounter - Charlene Araujo LPN - 06/03/2023 10:31 AM EST See encounter from 05/28/23 * Telephone Encounter - Mark Berg MD - 05/31/2023 11:29 PM EST Please let's call patient on Saturday and find out how he is doing May need to schedule patient for pleurx catheter placement on Saturday Thank you * Telephone Encounter - Nimisha Thrasher OSA - 05/31/2023 4:57 PM EST Error documented in this encounter Plan of Treatment Upcoming Encounters Date Type Department Care Team (Late st Contact Info) Description 06/05/2023 10:20 AM EST Anticoagulation Pharmacy, [place] [address] [place] [address] Pharmacist1, [facility] [place] [address] [place] [address] 06/06/2023 10:00 AM EST Office Visit Thoracic Surg [facility] [address] [place] [address] Ochoa Hernández MD [address] [place], [place] [phone] 06/07/2023 10:40 AM EST Office Visit Pulmonary Medicine, [place] [address] [place] [address] Gabriella Le Lacey, DO [address] [place] [address] 06/24/2023 11:20 AM EST Office Visit Family Practice [address] [place] [address] [address] [place] [phone] Lito Pandey [address] [place] [address] 07/22/2023 11:00 AM EST Nutrition Services Nutrition Services [address] [place] [address] [address] [place] [address] Melani No, LASHAN 30 [facility] 11 [place] [address] 08/16/2023 10:40 AM EST Office Visit Family [address] [place] [address] Lito Pandey [address] [place] [address] 10/03/2023 11:00 AM EDT Telemedicine Endocrinology, [address] [place] [address] Geremias Hammnods, DO [address] [place] [address] [address] [place] [address] 10/04/2023 11:20 AM EDT Office Visit Dermatology, [place] [address] [place] [address] [place] [phone] Caitlin Yuan PA-C [address] [place] [address] [place] [phone] 10/15/2023 1:40 PM EDT Office Visit Nephrology, [address] [place] [address] Tami Wilson MD [address] [place] [address] [place] [phone] Health Maintenance Due Date Last Done Comments [...] this encounter Medical Devices Implanted Type Area Scraper Loader Operator Device Identifier Shelf Expiration Date Model / Serial / Lot Cath Thermodilution 6fr - [id number] Implanted:Qty: 1 on 10/24/2022 by Rene Webber MD at [facility] [employer] [id number] 06/06/2024 [id number] / / [id number] documented as of this encounter Advance Directives [...] the patient have Health Care Power of Vehicle Detailer? No Care Teams Upholstery Restorer Relationship Specialty Start Date End Date Lito Pandey DO [address] [place] [address] PCP - General Family Medicine 05/09/23 documented as of this encounter
--- OUTSIDE RECORDS SUMMARY | 2023-07-03 09:21 | External Medical Summary ---
Author Name Unknown Address Unknown Organization K01:[facility] [place] [address] [place] [address] Laboratory Report Ordering Provider Test Date Status EDGAR JONES 06/06/2023 12:47:42 Final Observation Date Value Abnormality Reference (Units ) Status ABO 06/06/2023 12:47:42 B Final RH 06/06/2023 12:47:42 Positive Final Performing Location [facility] [address] [place] [address]
--- OUTSIDE RECORDS SUMMARY | 2023-07-03 09:21 | External Medical Summary | Summary of Care ---
Author Name Unknown Organization [facility] Address [address] [place] [address] Phone [phone] Care Team Providers Care Editor Trade Journal Name Role Phone Lito Pandey DO Primary Care Provider [phone] Reason for Visit * Reason Comments Dosage Adjustment In Person (Anticoag Cl inic) Encounter Details Date Type Department Care Team (Latest Contact Info) Description 06/05/2023 10:20 AM EST Anticoagulation Pharmacy, [place] [address] [place] [address] Pharmacist1, [facility] [place] [address] [place] [phone] Paroxysmal atrial fibrillation (HCC)*; Cerebrovascular disease, arteriosclerotic, [...] as of this encounter (statuses as of 06/05/2023) Medications Medication Sig Dispensed Refills Start Date [...] Anticoagulation clinic.. 8 mL 0 3 Active Enoxaparin Sodium 80 MG/0.8ML Injection Solution Prefilled Syringe (Lovenox) Inject 70 mg under the skin in the morning and 70 mg before bedtime. As directed by Anticoagulation clinic.. 16 mL 0 3 06/05/20 23 Discontin ued(Refil l) documented as of this encounter (statuses as of 06/05/2023) Active Problems Patient Care Coordination No te [...] little over a month ago at [facility] with ongoing findings suggestive high blood [...] Dr Santos Will obtain pulmonary notes from [facility] and testing done since 09/2020 re pulm HTN Erectile dysfunction is present will try sildenafil (and await pulm assessment of pulm HTN) Last Assessment & Plan: obtain pulmonary notes from [facility] and testing done since 09/2020 re pulm [...] Paroxysmal atrial fibrillation 09/23/2019 Overview: [facility]: He has a history of persistent [...] 06/08/2018 Overview: see May 06 2018 admissionto [facility] Cardiac Catheterization 05/2016 [facility] 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 Advance directive discussed with patient 015 Overview: 1 POA Bethe 2 POA daughter Tammy [phone] POA father Ammon [phone] Urinary retention with incomplete bladder emptyi ng [...] as of this encounter (statuses as of 06/05/2023) Resolved Problems Problem Noted Date Diagnosed Date [...] as of this encounter (statuses as of 06/05/2023) Immunizations Name Administration Dates Next Due COVID-19 [...] of this encounter Progress Notes * Yoni Matias, [facility] - 06/05/2023 10:39 AM EST Medication Therapy Disease Management - Anticoagulation Patient: Madyson Munozlesvia Huffman OD | : 1945 Subjective Patient-Reported Symptoms: Patient Findings Positives: Change in health (recurrent right pleural effusion requing thoracentesis), Upcoming invasive procedure (Thoracic surgery 06/07), Change in medications (Contue Warfarin hold until upcoming thoracic surgery Saturday, corrently on Lovenox 70mg BID, 9 doses remaining) Negatives: Signs/symptoms of thrombosis, Signs/symptoms of bleeding, Change in alcohol use, Change in activity, Missed doses, Extra doses, Change in diet/appetite, Bruising Objective Current Warfarin Dose: on HOLD until procedure 06/07/23 As of 06/05/2023 INR Result As of 06/05/2023 INR goal: 2.0-3.0 INR used for dosing: Not completed today due to HOLD status and on Lovenox Assessment & Plan Warfarin Plan As of 06/05/2023 Full warfarin instructions: Next INR check: 06/12/2023 Repeat PT/INR in 1 week(s) Weekly dose: continue warfarin HOLD Additional Dosing Information: Description 06/07/23 Post-Procedure bridging instructions: 06/07 - Coumadin 7.5mg bedtime 06/08 - Coumadin 7.5mg bedtime, Lovenox 70mg 8PM only 06/09 - Coumadin 7.5mg bedtime, Lovenox 70mg 8AM & 8PM 06/10 - Lovenox 70mg 8AM & 8PM, resume Coumadin 2.5mg MF/5mg all other days Prefers every 2-3 weeks Dental procedure to be rescheduled. Tanner Boswell, EDUARD, would like INR to be obtained on two days prior and be < 3.0. Fax results to [phone] *Methimazole started 12/07/22* Yoni Matias RPh Clinical Pharmacist 06/05/2023, 10:39 AM documented in this encounter Plan of Treatment Upcoming Encounters Date Type Department Care Team (Late st Contact Info) Description 06/06/2023 10:00 AM EST Office Visit Thoracic Surg [facility], [place] [address] [place] [address] Ochoa Hernández MD [address] [place] [address] 06/07/2023 10:40 AM EST Office Visit Pulmonary Medicine, [place] [address] [place] [address] Gabriella Le [address] [place] [address] 06/12/2023 10:00 AM EST Anticoagulation Pharmacy, [place] [address] [place] [address] Pharmacist1, [facility] [place] [address] [place] [address] 06/24/2023 11:20 AM EST Office Visit Family Practice [address] [place] [address], [place] [address] [place] [address] Lito Pandey DO [address] [place] [address] 07/22/2023 11:00 AM EST Nutrition Services Nutrition Services 65 [facility] [address] [place] [address] Melani No, RDN 30 [facility] [place] [address] [place] [address] 08/16/2023 10:40 AM EST Office Visit Family Practice 65 [facility] [address] [place] [phone] Lito Pandye DO [address] [place] [address] 10/03/2023 11:00 AM EDT Telemedicine Endocrinology, [address] [place] [address] Geremias Hammonds, [address] [place] [address] 10/04/2023 11:20 AM EDT Office Visit Dermatology, [place] [facility] [address] [facility] [address] [place] [address] Caitlin Yuan PA-C 27 [facility] [address] [place] [address] 10/15/2023 1:40 PM EDT Office Visit Nephrology, [facility] [id number] Tami Wilson MD 400 [facility] [place] [phone] Health Maintenance Due Date Last Done Comments [...] this encounter Medical Devices Implanted Type Area Waiter/Waitress Tourist Class Device Identifier Shelf Expiration Date Model / Serial / Lot Cath Thermodilution 6fr - [id number] Implanted:Qty: 1 on 10/24/2022 by Rene Webber MD at [facility] [employer] KIESHA [id number] 06/06/2024 [id number] / / [id number] documented as of this encounter Visit Diagnoses [...] the patient have Health Care Power of Grinder Set Up Operator Surface? No Care Teams Editor Trade Journal Relationship Specialty Start Date End Date Lito Pandey DO [address] [place] [address] PCP - General Family Medicine 05/09/23 documented as of this encounter
--- OUTSIDE RECORDS SUMMARY | 2023-07-03 09:21 | External Medical Summary ---
Author Name Unknown Address Unknown Organization K01:[facility] [place] [address] [place] [address] Laboratory Report Ordering Provider Test Date Status KARENEDGAR 06/06/2023 12:42:16 Final Observation Date Value Abnormality Reference (Units ) Status ABO 06/06/2023 12:42:16 B Final RH 06/06/2023 12:42:16 Positive Final RED BLOOD CELL ANTIBODY SCREEN 06/06/2023 12:42:16 Negative Final SPECIMEN EXPIRATION DATE 06/06/2023 12:42:16 06/10/2023 23:59 Final Performing Location [facility] [address] [place] [address]
--- OUTSIDE RECORDS SUMMARY | 2023-07-03 09:21 | External Medical Summary | Summary of Care ---
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 He has instruction to continue [...] a little over a month ago at [facility] with ongoing findings suggestive high [...] Dr Santos Will obtain pulmonary notes from [facility] and testing done since 09/2020 re pulm HTN Erectile dysfunction is present will try sildenafil (and await pulm assessment of pulm HTN) Last Assessment & Plan: obtain pulmonary notes from [facility] and testing done since 09/2020 [...] atrial fibrillation 09/23/2019 Overview: 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 [...] Description 06/05/2023 10:20 AM EST Anticoagulation Pharmacy, [place] [address] [place] [phone] Pharmacist1, [facility] [place] [address] [place] [address] 06/06/2023 10:00 AM EST Office Visit Thoracic Surg [facility], [place] [address] [place] [address] Ochoa Hernández MD [address] [place] [address] 06/07/2023 10:40 AM EST Office Visit Pulmonary Medicine, [place] [address] [place] [address] Gabriella Le, [address] [place] [address] 06/24/2023 11:20 AM EST Office Visit Family Practice [address] [place] [address] [place] [address] [place] [address] Lito Pandey DO [address] [place] [address] 07/22/2023 11:00 AM EST Nutrition Services Nutrition Services [address] [place] [address] [place] [address] [place] [address] Melani No RDN 30 [facility] [address] [place] [address] 08/16/2023 10:40 AM EST Office Visit Family Practice [place] [address] [place] [address] Lito Pandey, DO [address] [place] [address] 10/03/2023 11:00 AM EDT Telemedicine Endocrinology, [place] 3 [facility] [address] [place] [address] Geremias Hammonds, DO [address] [place] [address] 10/04/2023 11:20 AM EDT Office Visit Dermatology, [facility] [place] 27 [facility] [place] [address] [place] [address] Caitlin Yuan PA-C [address] [address] [place] [address] 10/15/2023 1:40 PM EDT Office Visit Nephrology, [facility] [address] [place], [place] [phone] Tami Wilson MD [address] [place] [address] Health Maintenance Due Date Last [...] this encounter Medical Devices Implanted Type Area Layout Man Device Identifier Shelf Expiration Date Model / Serial / Lot Cath Thermodilution 6fr - [id number] Implanted:Qty: 1 on 10/24/2022 by Rene Webber [place] [facility] [employer] KIESHA [id number] 06/06/2024 [id number] / / [id number] documented as of this encounter Procedures Procedure Name Priority Date/Time Associated Diagnosis Comments RADIOLOGY SCANNED RESULT 06/01/2023 documented in this encounter Results * RADIOLOGY SCANNED RESULT (06/01/2023) 06/01/2023 No Physician Data Unknown DIAGNOSTIC RAD IOLOGY SERVICES documented in this encounter Advance Directives Latest [...] the patient have Health Care Power of Home Visits Nurse? No Care Teams Commercial Credit Reviewer Relationship Specialty Start Date End Date Lito Pandey DO [address] [place] [address] PCP - General Family Medicine 05/09/23 documented as of this encounter
--- OUTSIDE RECORDS SUMMARY | 2023-07-03 09:21 | External Medical Summary | Summary of Care ---
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 [...] Will obtain pulmonary notes from [facility] and testing done since 09/2020 re pulm HTN Erectile dysfunction is present will try sildenafil (and await pulm assessment of pulm HTN) Last Assessment & Plan: obtain pulmonary notes from [facility] and testing done since 09/2020 re [...] AF burden Paroxysmal atrial fibrillation 09/23/2019 Overview: [facility]: He has a history of [...] see May 06 2018 admissionto [facility] Cardiac Catheterization 05/2016 [facility] 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 He will arrive to [facility] earlier to obtain an updated CXR prior to his clinic visit. Directions provided. Discussed the possibility of a tentative OR date 06/07. If this is not available at the time of clinic visit, we will then schedule for another date. I advised that he contact his Manager Student Services or present to the nearest ED if [...] patient on Date (venkat/kimmie/yymickiy): 05/29/2023 at Time ([facility]): 1320 documented in this encounter Plan of Treatment Upcoming Encounters Date Type Department Care Team (Late st Contact Info) Description 06/05/2023 10:20 AM EST Anticoagulation Pharmacy, [place] [address] [place] [address] Pharmacist1, [facility] [place] [address] [place] [phone] 06/06/2023 10:00 AM EST Office Visit Thoracic Surg [facility], [place] [address] [place] [address] Ochoa Hernández MD [address] [place], [place] [phone] 06/07/2023 10:40 AM EST Office Visit Pulmonary Medicine, [place] [address], [place] [phone] Gabriella Le, [address] [place], [place] [phone] 06/24/2023 11:20 AM EST Office Visit Family Practice [address] [place] [address] [address] [place] [address] Lito Pandey DO [address] [place] [address] 07/22/2023 11:00 AM EST Nutrition Services Nutrition Services [address] [place] [address] [place] [address] [place] [phone] Melani No, LASHAN 30 [facility] [address] [place] [address] 08/16/2023 10:40 AM EST Office Visit Family Practice [address] [place] [address] [place] [address] [place] [address] Lito Pandey DO [address] [place] [address] 10/03/2023 11:00 AM EDT Telemedicine Endocrinology, [place] 3 [facility] [address] [place] [address] Geremias Hammonds, [address] [place] [address] 10/04/2023 11:20 AM EDT Office Visit Dermatology, [facility] [place] [address] [place] [address] Caitlin Yuan PA-C [address] [place] [address] 10/15/2023 1:40 PM EDT Office Visit Nephrology, [facility] [address] [place] [address] Tami Wilson MD [address] [place], [place] [phone] Scheduled Orders Name Type Priority Associated Diagnoses [...] this encounter Medical Devices Implanted Type Area Administrative Support Manager Device Identifier Shelf Expiration Date Model / Serial / Lot Cath Thermodilution 6fr - [id number] Implanted:Qty: 1 on 10/24/2022 by Rene Webber MD at [facility] [employer] KIESHA [id number] 06/06/2024 [id number] / / [id number] documented as of this encounter Visit Diagnoses [...] the patient have Health Care Power of Sap Bpc Developer? No Care Teams Telegraph Office Route Aide Relationship Specialty Start Date End Date Lito Pandey DO [address] [place] [phone] PCP - General Family Medicine 05/09/23 documented as of this encounter
--- OUTSIDE RECORDS SUMMARY | 2023-07-03 09:21 | External Medical Summary | Summary of Care ---
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 [...] 06/06/2023 9:59 AM EST Hospital Encounter Radiology, [address] [address] Arrived 06/07/2023 10:40 AM EST Office Visit Pulmonary Medicine, [address] [address] Gabriella Le, [address] [address] 06/12/2023 10:00 AM EST Anticoagulation Pharmacy, [place] [address] [place] [address] Pharmacist1, [facility] [place] [address] [place] [address] 06/24/2023 11:20 AM EST Office Visit Family Practice [address] [place] [address] [place] [address] [place] [address] Lito Pandey DO [address] [place] [place] [address] 07/22/2023 11:00 AM EST Nutrition Services Nutrition Services [address] [place] [address] [place] [address] [place] [phone] Melani No, RDN 30 [facility] [address] [place] [address] 08/16/2023 10:40 AM EST Office Visit Family Practice [address] [place] [address] [address] [place] [phone] Lito Pandey DO [address] [place] [phone] 10/03/2023 11:00 AM EDT Telemedicine Endocrinology, [place] 3 [facility] [address] [place] [address] Geremias Hammonds, [address] [place] [address] 10/04/2023 11:20 AM EDT Office Visit Dermatology, [facility] [place] [address] [place] [address] [place] [id number] Caitlin Yuan PA-C [address] [place] [id number] 10/15/2023 1:40 PM EDT Office Visit Nephrology, [facility] 400 [place] [address] Tami Wilson MD [address] [place] [address] Health Maintenance Due Date Last Done Comments [...] this encounter Medical Devices Implanted Type Area Associate Vice President Device Identifier Shelf Expiration Date Model / Serial / Lot Cath Thermodilution 6fr - [id number] Implanted:Qty: 1 on 10/24/2022 by Rene Webber MD at [facility] [place] [employer] KIESHA [id number] 06/06/2024 [id number] / / [id number] documented as of this encounter Procedures Procedure [...] study not interpreted or resulted by a Mobile Media Contenter or [place] contracted radiologist. Ochoa Hernández MD RADIOLOGY (RAD [...] the patient have Health Care Power of Tooth Clerk? No Care Teams Dietetic Technician Registered Relationship Specialty Start Date End Date Lito Pandey DO [address] [place] [phone] PCP - General Family Medicine 05/09/23 documented as of this encounter
== END 2023-05-24 16:08 | disposition home or self-care (01) | DRG 187 ==
LOC: OBSVTOIN 10:56 → SUATTDRO 10:56 → INTOOBSV 10:56 → 3N 10:56

== ENCOUNTER 2023-05-31 11:53 | Observation (INO) ==
--- OUTSIDE RECORDS SUMMARY | 2023-05-31 12:02 | External Medical Summary | Summary of Care ---
Author Name Unknown Organization [facility] Address [address] [place] [address] Phone [phone] Care Team Providers Care Rn Lactation Consultant Name Role Phone Liot Pandey DO Primary Care Provider Encounter Details Date Type Department Care Team (Latest Contact Info) Description 05/23/2023 6:30 PM EST - 05/23/2023 11:59 PM EST Hospital Encounter Radiology Film File [address] [place] [address] Discharge Disposition: Home - Self Care Allergies Active Allergy Reactions Criticality Noted Date Comments Omeprazole Other (Please comment) 05/25/2019 Pt reports it made him feel like med was affecting his heart health, felt like someone "pulled the plug". Penicillins Hives 03/31/2007 hives Clopidogrel Bisulfate Hives 05/21/2016 Pt on several new meds when hives developed, unclear which was the direct cause documented as of this encounter (statuses as of 05/30/2023) Medications Medication Sig Dispensed Refills Start Date End Date Status GLUCOSAMINE CHONDRO COMPLEX 500-400 MG PO TABS Take 1 Tablet by mouth. Once a week 0 8 Active LUTEIN 15-0.7 MG PO CAPS One tablet by mouth every other day 0 8 Active VITAMIN C 500 MG PO TABS 2 Tablets. 0 Active Magnesium 200 MG Tablet Take 0.5 Tablets by mouth in the morning. 0 Active Coenzyme Q10 200 MG Capsule Take 1 Capsule by mouth in the morning. 0 Active Cholecalciferol (VITAMIN D) 1000 units Tablet Take 1 Tablet by mouth in the morning. Once a week. 0 Active aspirin enteric coated 81 MG TBECIndications:Cere brovascular accident (CVA) due to embolism of cerebral artery (HCC) Take 1 Tab by mouth daily. 30 Tab 11 0 Active Sildenafil Citrate 20 MG Oral Tablet (Revatio) Use 2-5 tabs daily as needed for ED 50 Tab 5 1 Active Additional Information Patient not taking.Reported on 03/29/2023 Famotidine 20 MG Oral Tablet (Pepcid)Indications: Gastroesophageal reflux disease without esophagitis Take 1 Tablet by mouth every night at bedtime. 90 Tablet 1 3 Active Doxazosin Mesylate 2 MG Oral Tablet (Cardura)Indications :HTN, goal below 130/80 Take one tablet three times daily by mouth. 90 Tablet 2 3 Active Metoprolol Succinate ER 25 MG Oral Tablet Extended Release 24 Hour (toPROL XL) Take 1 Tablet by mouth in the morning. 90 Tablet 3 3 Active Warfarin Sodium 5 MG Oral Tablet (Coumadin) TAKE 1 TABLET DAILY OR DIRECTED BY ANTICOAGULATION CLINIC 90 Tablet 1 3 Active Empagliflozin 10 MG Oral Tablet (Jardiance) Take 1 Tablet by mouth in the morning. 90 Tablet 3 3 Active methIMAzole 5 MG Oral Tablet (Tapazole) 2 tablets or 10 mg by mouth daily since 04/18/2023 360 Tablet 3 3 Active Losartan Potassium 25 MG Oral Tablet (Cozaar)Indications: HTN, goal below 130/80 Take 1 Tablet by mouth in the morning. 90 Tablet 3 3 Active Furosemide 20 MG Oral Tablet (Lasix)Indications:H TN, goal below 130/80 Take 3 Tablets by mouth in the morning and 3 Tablets before bedtime. 540 Tablet 3 3 Active Additional Information Patient taking differently:60 mg Oral BID (.AM/PM),Alternating 60/80mg in the AM, always 60mg PM, Reported on 05/09/2023 Spironolactone 25 MG Oral Tablet (Aldactone)Indicatio ns:HTN, goal below 130/80 Take 0.5 Tablets by mouth daily. One half tablet by mouth Saturday and fridays 45 Tablet 3 3 Active Atorvastatin Calcium 10 MG Oral Tablet (Lipitor)Indications :Acute ischemic cerebrovascular accident (CVA) involving middle cerebral artery territory (HCC),HTN, goal below 130/80,Hypertensive kidney disease with stage 3 chronic kidney disease (HCC) TAKE 1 TABLET DAILY 90 Tablet 1 3 Active Garlic 100 MG Oral Tablet Take 1 Tablet by mouth in the morning. 0 Active documented as of this encounter (statuses as of 05/30/2023) Active Problems Patient Care Coordination No te Formatting of this note migh t be different from the original. 11/05/2019dismissed from speech and home health 11/04/19. 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 own therapy. OT was dismissed 10/30/19. Problem Noted Date Diagnosed Date Hepatic cirrhosis 05/09/2023 Severe tricuspid regurgitation 05/09/2023 Pleural effusion on right 05/09/2023 Hyperthyroidism 02/27/2023 Glaucoma 12/01/2021 Essential hypertension with goal blood pressure less than 140/90 11/30/2021 Gastroesophageal reflux disease without esophagi tis 11/30/2021 Pulmonary HTN 02/15/2021 Overview: 02/15/2021 Has had ECHO and commented relatively unchanged compared to the 1 performed a little over a month ago at [facility] with ongoing findings suggestive high blood pressure in the lungs (pulmonary hypertension). This was a new finding during his recent hospital stay, and at that time was felt to be due to pneumonia. Pt was suggested to see pulmonary and reports has been seen Dr Santos. Had testing pt reports CT was clear so thought etiology was viral Pt reports has been discharged by pulmonary Dr Santos Will obtain pulmonary notes from [facility] and testing done since 09/2020 re pulm HTN Erectile dysfunction is present will try sildenafil (and await pulm assessment of pulm HTN) Last Assessment & Plan: obtain pulmonary notes from [facility] and testing done since 09/2020 re pulm HTN Erectile dysfunction is present will try sildenafil await pulm assessment of pulm HTN Oropharyngeal dysphagia 09/21/2020 Overview: Has had swallowing eval before discharge will see ENT Cerebrovascular disease, arteriosclerotic, post- stroke 09/23/2019 Overview: He had a stroke on 05/16/19, embolism right parietal lobe junction 2.6 cm. He was switched from Eliquis to Xarelto post-stroke, and added atorvastatin. He wore Zio in June which showed predominant sinus, frequent PAC's 7.5% burden, and <1% AF burden Paroxysmal atrial fibrillation 09/23/2019 Overview: [facility]: He has a history of persistent atrial fibrillation and flutter diagnosed in April 2018. Echo at that time showed and EF 45-50%. He had DCCV in August 2018, but relapsed back into AF later that month. He had two cardioversions in September 2018, but only stayed in NSR for about 24 hours. He had an echo here in September which showed EF 65% and severely enlarged LA. He underwent PVI 11/04/2018. Atherosclerosis of aortic arch 09/23/2019 Overview: 09/23/2019 see ECHO Status post circumferential ablation of pulmonar y vein 05/25/2019 Voice impairment 03/23/2019 Overview: 02/15/2021 Seen by ENT in October and suggested stroboscopy but apt was not set up. Has fu ENT 04/13/21 Ptosis of both eyelids 03/23/2019 Bradycardia, sinus 08/07/2018 Chronic anticoagulation 06/19/2018 Last Assessment & Plan: Will continue anticoagulation with warfarin and asa 81 History of chest pain 06/08/2018 Overview: see May 06 2018 admissionto [facility] [place] [facility] 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 Advance directive discussed with patient 015 Overview: 1 POA Bethe 2 POA daughter Tammy [phone] POA father Ammon [phone] Urinary retention with incomplete bladder emptyi ng 10/04/2011 Overview: 02/15/21 Stream is a little slow but satisfactory on doxazosin 6 mg a day Takes 4 mg tablet daily at 8 pm (then an additional 2 mg at bedtime) Nocturia more (drinks fluids till bedtime ) No etoh or sign caffeine (drinks decaf but started some green tea) 10/04/2011 135 mL Sensorineural hearing loss, bilateral 01/28/2008 Dyslipidemia, goal LDL below 70 10/01/2007 documented as of this encounter (statuses as of 05/30/2023) Resolved Problems Problem Noted Date Diagnosed Date Resolved Date Acute ischemic cerebrovascul ar accident (CVA) involving middle cerebral artery territory 05/09/2023 05/27/2023 Chronic kidney disease, stage 3a 01/14/2023 05/23/2023 Overview: Per CKD protocol Elevated transaminase level 04/14/2020 11/30/2021 Overview: ALT Results: Lab Results Component Value Date/Time ALT - [facility] 35 02/15/2021 11:44 AM ALT - [facility] 54 (H) 04/14/2020 12:22 PM ALT - [facility] 51 (H) 01/04/2020 08:16 AM ALT - [facility] 29 03/23/2019 04:50 PM 04/14/20 12:22P 04/14/20 54* FINAL 01/04/20 8:16A 01/04/20 51* FINAL started on atorva 05/201903/23/19 4:50P 03/24/19 29 FINAL 06/26/18 12:31P 06/26/18 31 FINAL 05/10/16 8:35A 05/10/16 31 FINAL 10/08/13 12:18P 10/08/13 24 FINAL 10/04/11 10:55A 10/04/11 24 FINAL 09/08/10 7:30A 09/08/10 36 FINAL 04/23/07 8:23A 04/24/07 26 FINAL Anxiety state 05/25/2019 11/30/2021 Overview: 05/25/2019 will defer any med rx ,( disc w pt ) Hypertensive kidney disease with stage 3 chronic kidney disease 05/19/2019 04/14/2020 First degree AV block 03/23/20192021 Stage 3b chronic kidney disease 03/23/2019 05/23/2023 History of atrial fibrillation 08/07/2018 12/01/2021 History of atrial flutter 05/09/2018 History of first degree AV block 04/17/2018 05/19/2019 Encounter for anticoagulatio n discussion and counseling 04/17/2018 03/17/2019 History of diplopia 11/13/2017 12/02/19 22 Risk of myocardial infarctio n or stroke 7.5% or greater in next 10 years 10/17/2017 11/30/2021 Overview: 03/23/2019 LDL (CALCULATED)(mg/dL) Wyatt Dt/Tm Resulted Value Status 06/26/18 12:31P 06/26/18 76 FINAL 10/17/2017 Declines statin Hyponatremia 02/20/2016 12/14/2019 Overview: Sodium Results: SODIUM(mmol/L) Wyatt Dt/Tm Resulted Value Status 03/23/19 4:50P 03/24/19 138 FINAL 04/15/18 10:05A 04/15/18 136 FINAL 04/02/18 8:32A 04/02/18 134* FINAL Sodium Results: SODIUM(mmol/L) Wyatt Dt/Tm Resulted Value Status 02/16/16 1:22P 02/16/16 131* FINAL 09/19/15 10:11A 09/19/15 137 FINAL 10/09/12 9:57A 10/09/12 135 FINAL HTN, goal below 130/80 02/16/201611/30 Overview: 02/15/21 well controlled on metoprolol 25 ER losartan 50 daily doxazosin 6 mg a day 04/11/2017 will sub Losartan for Grey d/t cough grey added p hosp 02/16/2016 will increase DOzxazosin To 1/2 qd ( has been taking 3x/week) Last Assessment & Plan: well controlled on metoprolol 25 ER losartan 50 daily doxazosin 6 mg a day Erectile dysfunction 08/09/2014 022 Overview: 02/15/21Erectile dysfunction is present Discussed sildenafil and common side effects . Will start 10/04/2016 Libido good ,erections ok Last Assessment & Plan: Try sildenafil and monitor BPH sxs Also await pulm assessment of pulm HTN Family hx of prostate cancer 10/08/2013 11/30/2021 Overview: 12/14/2019 father of prostate ca pt requests continuation PSA Results: PSA(ng/mL) Wyatt Dt/Tm Resulted Value Status 03/23/19 4:50P 03/24/19 1.03 FINAL 10/07/17 4:40P 10/08/17 1.00 FINAL 10/04/16 4:12P 10/04/16 1.04 FINAL 10/07/17 4:40P 10/08/17 1.00 FINAL 10/04/16 4:12P 10/04/16 1.04 FINAL PSA SCREENING(ng/mL) Wyatt Dt/Tm Resulted Value Status 09/19/15 10:11A 09/20/15 0.96 FINAL Father with met ca at ago of 88 (was not treated in his 70s when ) Trochanteric bursitis 03/22/20102021 JOINT PAIN-SHAVONLDER R 03/22/2010 10/03/19 Overview: 03/22/2010 will try Capsaicin /heat Screening for prostate cancer 09/14/2009 11/30/2021 Overview: PSA Results: PSA(ng/mL) Wyatt Dt/Tm Resulted Value Status 03/23/19 4:50P 03/24/19 1.03 FINAL 10/07/17 4:40P 10/08/17 1.00 FINAL 10/04/16 4:12P 10/04/16 1.04 FINAL 10/07/17 4:40P 10/08/17 1.00 FINAL 10/04/16 4:12P 10/04/16 1.04 FINAL PSA SCREENING(ng/mL) Wyatt Dt/Tm Resulted Value Status 09/19/15 10:11A 09/20/15 0.96 FINAL 10/08/13 12:18P 10/08/13 0.78 FINAL 10/09/12 9:57A 10/09/12 0.82 FINAL 10/04/11 10:55A 10/04/11 0.99 FINAL Xerotic Dermatitis Legs 04/28/200911/06 Screening for prostate cancer 04/15/2009 04/28/2009 Overview: Modified by Screening Dx Protocol #6. Favor Labial Melanotic Macule L Lower LIp 12/10/2008 11/30/2021 Screening for prostate cancer 10/07/2008 11/18/2008 Overview: Resolved per Screening Diagnosis Protocol #6 Subjective tinnitus 01/28/2008 03/17/20 19 EXOSTOSIS EXT,RIGHT TM,STABLE 01/28/2008 03/17/2019 Chronic rhinitis 01/28/2008 11/30/2021 Chest pain 10/01/2007 11/13/2017 Overview: 10/17/2007 ECHO enhanced exercise stress in normal (at 16METS!) Screening for prostate cancer 03/31/2007 09/15/2008 Overview: Resolved per Screening Diagnosis Protocol #6 Screen for colon cancer 03/31/200711/06 Overview: 03/2019 cologuard neg 11/23/2007 colon is normal. Repeat colonoscopy for screening in [address] De La Rosa Hearing loss 03/31/2007 12/12/2008 JOINT PAIN-SHLDER L 03/31/2007 10/03/19 19 Overview: 09/14/2009 Seen by [facility] orth[facility]ist for it , and the surgery was recommended , but pt was turned off by prospects of not being able to work x 2 mths and unclear benefits of surgery Getting better if progress is slow pt will call for PT ref Urinary frequency 03/31/2007 12/01/2021 Overview: 04/17/2018 satisfactory 10/17/2017 improved to 1/n on 8mg Doxaz 03/22/2010 reduced noct to 4/n(8) NONSPECIF SKIN ERUPT NEC rt cheek 03/31/2007 12/10/2008 DERMATOPHYTOSIS OF NAIL rt foot 03/31/2007 12/10/2008 Overview: Undecylenic acid recc will discuss oral rx with derm ESOPHAGEAL REFLUX no sxs wit h lifestyle modification 03/31/2007 11/30/2021 Overview: 04/14/2020 no symptoms but noted some inflammation of the vocal cords 03/2019 ENT couldn't tolerate omeprazole (strange reaction) 03/22/2010 no sxs 04/15/2009 No LATASHA sxs with lifestyle modification not eating late now 10/01/2007 denies any sign reflux sxs Off meds This may be since changed his lifestyle and doesn't eat late. 03/31/2007 tums help . Given lifestyle mod documented as of this encounter (statuses as of 05/30/2023) Immunizations Name Administration Dates Next Due COVID-19 mRNA, LNP-s, No Pre serve, 2-Dose Series (Moderna) 09/08/2020,08/11/2020 COVID-19, mRNA, LNP-s, PF, B ooster, 100mcg/0.5mg (Moderna) 01/31/2022 Pneumococcal Conjugate Vacc, 13 Valent (Prevnar) 05/11/2016 Pneumococcal Polysaccharide PPV23 (Pneumovax) 05/12/2016,01/11/2009 SEASONAL INFLUENZA, PF, 6 M & Above, IM , (FLULAVAL or FLUZONE) 03/23/2019,04/11/2017 Season Influenza, Quad, PF, Adjuvanted, 65+ Yrs, IM (FLUAD) 04/14/2020 Seasonal Influenza Virus Vac cine, Unspecified Formulation 04/14/2020,03/23/2019,03/06/2018,04/11,05/12/2016,05/11/2016,04/05/2016 ,02/17/2015,06/10/2014,04/09/2013,03/09,03/22/2010,05/05/2009, 8,05/14/2006 Seasonal Influenza, Quadriva lent Hd (Fluzone Hd) 03/19/2023,03/15/2022,04/20/2021 Seasonal Influenza, Quadriva lent, No Preserve, IM 05/11/2016,04/05/2016 Seasonal Influenza, Split, I IV3, With Preserve, Inj 02/17/2015,06/10/2014,04/09/2013,04/01,03/22/2010,05/05/2009,04/07/2008 ,05/14/2006 Seasonal Influenza, Trivalen t, Adjuvanted, 65+ yrs 03/06/2018 TD - Tetanus/Diptheria (ADULT) 12/25/2006 TDAP (age 10 and older)(Boostrix) 08/05/2017 Varicella Zoster Vaccine (Adult) 12/03/2008 Zoster Vaccine Recombinant (Shingrix) 04/21/2020 ,12/14/2019 documented as of this encounter Social History Tobacco Use Types Packs/Day Years Used Date Smoking Tobacco: Former Cigarettes 1 1 Q uit: 7 Smokeless Tobacco: Never Alcohol Use Standard Drinks/Week Comments Yes 1 (1 standard drink = 0.6 oz pur e alcohol) weekly AUDIT-C Answer Date Recorded Frequency of Alcohol Consumption 2-3 times a wee k 08/13/2018 Average Number of Drinks Not on file 019 Frequency of Binge Drinking Not on file 12/2018 PHQ-2 Answer Date Recorded PHQ Adult Total Score 0 05/09/2023 Hunger Vital Sign Answer Date Recorded Within the past 12 months, y ou worried that your food would run out before you got the money to buy more. Never true 05/09/20 23 Within the past 12 months, t he food you bought just didn't last and you didn't have money to get more. Never true 05/09/2023 Sex and Gender Information Value Date Recorded Sex Assigned at Male 03/23/2019 3:34 PM EDT Gender Identity Male 03/23/2019 3:34 PM EDT Sexual Orientation Straight 03/23/2019 3: 34 PM EDT Job Start Date Occupation Industry Not on file Not on file Not on file documented as of this encounter Functional Status Functional Status Response Date of Assess ment Are you deaf or do you have serious difficulty h earing? Yes 05/10/2016 Are you blind or do you have serious difficulty seeing, even when wearing glasses? No 05/10/2016 Do you have serious difficul ty walking or climbing stairs? (5 years old or older) No 05/10/2016 Do you have difficulty dress ing or bathing? (5 years old or older) No 05/10/2016 Because of a physical, menta l, or emotional condition, do you have difficulty doing errands alone such as visiting a doctor s office or shopping? (15 years old or older) No 05/10/20 16 Cognitive Status Response Date of Assessm ent Because of a physical, menta l, or emotional condition, do you have serious difficulty concentrating, remembering, or making decisions? (5 years old or older) Yes-trouble remembering 05/10/2016 documented as of this encounter Plan of Treatment Upcoming Encounters Date Type Department Care Team (Late st Contact Info) Description 06/05/2023 10:20 AM EST Anticoagulation Pharmacy, [place] [address] [place] [phone] [address], [facility] [place] [address] [place] [phone] 06/06/2023 10:00 AM EST Office Visit Thoracic Surg [facility], [place] [address] [place] [address] Ochoa Hernández MD [address] [place] [address] 06/07/2023 10:40 AM EST Office Visit Pulmonary Medicine, [place] [address], [place] [phone] Gabriella Le, [address] [place] [address] 06/24/2023 11:20 AM EST Office Visit Family Practice [address] [place] [address] [address] [place] [address] Lito Pandey DO [address] [place] [phone] 07/22/2023 11:00 AM EST Nutrition Services Nutrition Services [address] [place] [address] [address] [place] [phone] Melani No, ALFREDO [address] [facility] [address] [place] [place] [phone] 08/16/2023 10:40 AM EST Office Visit Family Practice [address] [place] [address] [address] [place] [phone] Lito Pandey DO [address] [place] [phone] 10/03/2023 11:00 AM EDT Telemedicine Endocrinology, [place] [address] [facility] [address] [place] [address] Geremias Hammonds, [address] [place] [phone] 10/04/2023 11:20 AM EDT Office Visit Dermatology, [place] [facility] [place] [address] [place] [address] Caitlin Yuan PA-C [address] [place] [address] 10/15/2023 1:40 PM EDT Office Visit Nephrology, [facility] [address] [place] [address] Tami Wilson MD [address] [place] [address] Health Maintenance Due Date Last Done Comments Hepatitis C Screening 1963 Hepatitis B (1 of 3 - Risk 3-dose series) 2003 COVID-19 Vaccine ( season) 2023 01/31/2022, 09/08/2020, 08/11/2020 Depression Screening 05/09/2024 05/09/2023 GFR 05/28/2024 05/28/2023, 08/2022, 04/18/2023, Additional history exists Albumin/Creatinine Ratio 05/09/2026 05/09/2023 DTaP,Tdap,and Td Vaccines (2 - Td or Tdap) 08/05/2027 08/05/2017, 12/25/2006 Pneumococcal Vaccine: 65+ Years Completed 05/12/2016, 05/11/2016, 01/11/2009 Influenza Vaccine (FLU shot) Completed 06/2023, 03/15/2022, 04/20/2021, Additional history exists GARDASIL-HPV IMMUNIZATION SERIES Aged Out No longer eligible based on patient's age to complete this topic MENINGOCOCCAL (MENACTRA/MENVEO) Aged Out No longer eligible based on patient's age to complete this topic documented as of this encounter Medical Devices Implanted Type Area Websphere Consultant Device Identifier Shelf Expiration Date Model / Serial / Lot Cath Thermodilution 6fr - [id number] Implanted:Qty: 1 on 10/24/2022 by Rene Webber MD at [facility] [id number] KIESHA [id number] 06/06/2024 [id number] / / [id number] documented as of this encounter Procedures Procedure Name Priority Date/Time Associated Diagnosis Comments RADIOLOGY EXAM - GENERAL RAD (IMAGES ONLY,NO REPORT) Routine 05/23/2023 6:30 PM EST documented in this encounter Results * RADIOLOGY EXAM - GENERAL RAD (IMAGES ONLY,NO REPORT) (05/23/2023 6:30 PM EST) 05/23/2023 6:28 PM EST Narrative Scheduling, Silent - 05/29/2023 9:33 AM EST This is an imaging study not interpreted or resulted by a [facility] or [employer] contracted radiologist. Lito Pandey DO RADIOLOGY (RAD GENER AL) documented in this encounter Advance Directives Latest Code Status on File Code Status Date Activated Date Inactivated Comments Full Code 05/10/2016 11:24 AM 05/11/2016 4:48 PM This order reflects the patients wishes and were consensually agreed upon. Question Answer Comments Discussion of Advance Directives occurred with: Not Discussed Does the patient have a Living Will? No Does the patient have Health Care Power of Toy Mechanic? No Care Teams Rn Lactation Consultant Relationship Specialty Start Date End Date Lito Pandey DO [address] [place] [phone] PCP - General Family Medicine 05/09/23 documented as of this encounter
--- OUTSIDE RECORDS SUMMARY | 2023-05-31 12:02 | External Medical Summary | Summary of Care ---
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 [...] a little over a month ago at [facility] with ongoing findings suggestive high blood [...] Dr Santos Will obtain pulmonary notes from [facility] and testing done since 09/2020 re pulm HTN Erectile dysfunction is present will try sildenafil (and await pulm assessment of pulm HTN) Last Assessment & Plan: obtain pulmonary notes from [facility] and testing done since 09/2020 re pulm [...] AF burden Paroxysmal atrial fibrillation 09/23/2019 Overview: [facility]: He has a history of persistent atrial [...] 06/08/2018 Overview: see May 06 2018 admissionto [facility] Cardiac Catheterization 05/2016 [facility] 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 Advance directive discussed with patient 015 Overview: 1 POA Bethe 2 POA daughter Tammy [phone] POA father Ammon [phone] Urinary retention with incomplete bladder emptyi ng [...] Description 06/05/2023 10:20 AM EST Anticoagulation Pharmacy, [place] [address] [place] [address] Pharmacist1, [facility] [place] [address] [place] [id number] 06/06/2023 10:00 AM EST Office Visit Thoracic Surg [facility], [place] [address] [place] [address] Ochoa Hernández MD [address] [place] [address] 06/07/2023 10:40 AM EST Office Visit Pulmonary Medicine, [place] [address], [place] [id number] Gabriella Le, [address] [place] [address] 06/24/2023 11:20 AM EST Office Visit Family Practice [address] [place] [address] [address] [place] [address] Lito Pandey DO [address] [place] [id number] 07/22/2023 11:00 AM EST Nutrition Services Nutrition Services [address] [place] [address] [address] [place] [phone] Melani No, ALFREDO 30 [facility] [address] [place] [address] 08/16/2023 10:40 AM EST Office Visit Family Practice [address] [place] [address] [address] [place] [phone] Lito Pandey DO [address] [place] [address] 10/03/2023 11:00 AM EDT Telemedicine Endocrinology, [place] 3 [facility] [address] [place] [address] Geremias Hammonds, [address] [place] [address] 10/04/2023 11:20 AM EDT Office Visit Dermatology, [place] [address] [place] [address] [place] [address] Caitlin Yuan PA-C [address] [place] [address] [place] [address] 10/15/2023 1:40 PM EDT Office Visit Nephrology, [facility] [address] [place] [address] Tami Wilson MD 400 [place] [address] Health Maintenance Due Date Last Done Comments [...] this encounter Medical Devices Implanted Type Area Fringe Weaver Device Identifier Shelf Expiration Date Model / Serial / Lot Cath Thermodilution 6fr - [id number] Implanted:Qty: 1 on 10/24/2022 by Rene Webber MD at [facility] [employer] KIESHA [id number] 06/06/2024 [id number] / / [id number] documented as of this encounter Procedures Procedure Name Priority Date/Time Associated Diagnosis Comments RADIOLOGY EXAM - GENERAL RAD (IMAGES ONLY,NO REPORT) Routine 05/24/2023 10:20 AM EST documented in this encounter Results * RADIOLOGY EXAM - GENERAL RAD (IMAGES ONLY,NO REPORT) (05/24/2023 10:20 AM EST) 05/24/2023 10:1 8 AM EST Narrative Scheduling, Silent - 05/29/2023 9:30 AM EST This is an imaging study not interpreted or resulted by a [facility] or [email or web address] contracted radiologist. Lito Pandey DO RADIOLOGY (RAD [...] the patient have Health Care Power of System Auditor? No Care Teams Radio Equipment Installer Relationship Specialty Start Date End Date Lito Pandey DO [address] [place] [address] PCP - General Family Medicine 05/09/23 documented as of this encounter
--- OUTSIDE RECORDS SUMMARY | 2023-05-31 12:02 | External Medical Summary | Summary of Care ---
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 [...] Dr Santos Will obtain pulmonary notes from [facility] and testing done since 09/2020 re pulm HTN Erectile dysfunction is present will try sildenafil (and await pulm assessment of pulm HTN) Last Assessment & Plan: obtain pulmonary notes from [facility] and testing done since 09/2020 re pulm [...] AF burden Paroxysmal atrial fibrillation 09/23/2019 Overview: [facility]: He has a history of persistent atrial [...] 06/08/2018 Overview: see May 06 2018 admissionto [facility] Cardiac Catheterization 05/2016 [facility] 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 Advance directive discussed with patient 015 Overview: 1 POA Bethe 2 POA daughter Tammy [phone] POA father Ammon [phone] Urinary retention with incomplete bladder emptyi ng [...] Description 06/05/2023 10:20 AM EST Anticoagulation Pharmacy, [place] [address] [place] [address] Pharmacist1, [facility] [place] [address] [place] [phone] 06/06/2023 10:00 AM EST Office Visit Thoracic Surg [facility], [place] [address] [place] [address] Ochoa Hernández MD [address] [place] [address] 06/07/2023 10:40 AM EST Office Visit Pulmonary Medicine, [place] [address] [place], [place] [phone] Gabriella Le, [address] [place] [address] 06/24/2023 11:20 AM EST Office Visit Family Practice [address] [place] [address] [address] [place] [address] Lito Pandey DO [address] [place] [phone] 07/22/2023 11:00 AM EST Nutrition Services Nutrition Services [address] [place] [address] [address] [place] [phone] Melani No, ALFREDO 30 [facility] [address] [place] [address] 08/16/2023 10:40 AM EST Office Visit Family Practice [address] [place] [address] [address] [place] [phone] Lito Pandey DO [address] [place] [address] 10/03/2023 11:00 AM EDT Telemedicine Endocrinology, [place] 3 [facility] [address] [place] [address] Geremias Hammonds, [address] [place] [address] 10/04/2023 11:20 AM EDT Office Visit Dermatology, [place] [address] [place] [place] [address] Caitlin Yuan PA-C [address] [place] [address] [place] [address] 10/15/2023 1:40 PM EDT Office Visit Nephrology, [facility] 400 [place] [address] Tami Wilson MD 400 [place] [address] Health Maintenance Due Date Last Done Comments [...] this encounter Medical Devices Implanted Type Area Contact Center Professional Device Identifier Shelf Expiration Date Model / Serial / Lot Cath Thermodilution 6fr - [id number] Implanted:Qty: 1 on 10/24/2022 by Rene Webber MD at [facility] [employer] KIESHA [id number] 06/06/2024 [id number] / / [id number] documented as of this encounter Procedures Procedure Name Priority Date/Time Associated Diagnosis Comments RADIOLOGY EXAM - CT (IMAGES ONLY, NO REPORT) Routine 05/23/2023 4:20 PM EST documented in this encounter Results * RADIOLOGY EXAM - CT (IMAGES ONLY, NO REPORT) (05/23/2023 4:20 PM EST) 05/23/2023 4:19 PM EST Narrative Scheduling, Silent - 05/29/2023 9:37 AM EST This is an imaging study not interpreted or resulted by a [facility] or [employer] contracted radiologist. Lito Pandey DO RAD CT documented in this encounter Advance Directives Latest [...] the patient have Health Care Power of Solar Photovoltaic Designer? No Care Teams Material Carrier Relationship Specialty Start Date End Date Lito Pandey DO [address] [place] [address] PCP - General Family Medicine 05/09/23 documented as of this encounter
--- OUTSIDE RECORDS SUMMARY | 2023-05-31 12:03 | External Medical Summary | Summary of Care ---
Author Name Unknown Organization [facility] Address [address] [place] [address] Phone [phone] Care Team Providers Care Product Management Internship Name Role Phone Lito Pandey DO Primary Care Provider Encounter Details Date Type Department Care Team (Late st Contact Info) Description 05/28/2023 1:15 PM EST Nurse Only Family Practice [address], [place] [address] [place] [address] [facility] Prac [address] [place] [place] [address] Allergies Active Allergy Reactions Criticality Noted Date Comments Omeprazole Other (Please comment) 05/25/2019 Pt reports it made him feel like med was affecting his heart health, felt like someone "pulled the plug". Penicillins Hives 03/31/2007 hives Clopidogrel Bisulfate Hives 05/21/2016 Pt on several new meds when hives developed, unclear which was the direct cause documented as of this encounter (statuses as of 05/29/2023) Medications Medication Sig Dispensed Refills Start Date [...] by mouth in the morning. 0 Active Enoxaparin Sodium 80 MG/0.8ML Injection Solution Prefilled Syringe (Lovenox) Inject 70 mg under the skin in the morning and 70 mg before bedtime. As directed by Anticoagulation clinic.. 16 mL 0 3 Active documented as of this encounter (statuses as of 05/29/2023) Active Problems Patient Care Coordination No te Formatting of this note migh t be different from the original. 11/05/2019dismissed from speech and home health 11/04/19. 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 [...] a little over a month ago at [facility] with ongoing findings suggestive high blood pressure [...] Dr Santos Will obtain pulmonary notes from [facility] and testing done since 09/2020 re pulm HTN Erectile dysfunction is present will try sildenafil (and await pulm assessment of pulm HTN) Last Assessment & Plan: obtain pulmonary notes from [facility] and testing done since 09/2020 re pulm [...] AF burden Paroxysmal atrial fibrillation 09/23/2019 Overview: [facility]: He has a history of persistent [...] 06/08/2018 Overview: see May 06 2018 admissionto [facility] Cardiac Catheterization 05/2016 [facility] 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 Advance directive discussed with patient 015 Overview: 1 POA Du 2 POA daughter Tammy [phone] POA father Ammon [phone] Urinary retention with incomplete bladder emptyi ng [...] as of this encounter (statuses as of 05/29/2023) Resolved Problems Problem Noted Date Diagnosed Date [...] 06/26/18 12:31P 06/26/18 31 FINAL 05/10/16 8:35A 11/3/16 31 FINAL 10/08/13 12:18P 10/08/13 24 FINAL [...] 138 FINAL 04/15/18 10:05A 04/15/18 136 FINAL 9/26/18 8:32A 04/02/18 134* FINAL Sodium Results: SODIUM(mmol/L) [...] 70s when ) Trochanteric bursitis 03/22/20102021 JOINT PAIN-SHLDER R 03/22/2010 10/03/19 19 Overview: 03/22/2010 will try Capsaicin /heat Screening [...] as of this encounter (statuses as of 05/29/2023) Immunizations Name Administration Dates Next Due COVID-19 [...] Tobacco: Former Cigarettes 1 1 Q uit: 1958 Smokeless Tobacco: Never Alcohol Use Standard Drinks/Week [...] remembering 05/10/2016 documented as of this encounter Progress Notes * Mayuri Hewitt LPN - 05/29/2023 12:15 PM EST Pt had very small bleeding open area on L arm. Pt on blood thinners. Bleedings stopped, dressings applied. No concerns noted. Advise to return to clinic if bleeding continued. documented in this encounter Plan of Treatment Upcoming Encounters Date Type Department Care Team (Late st Contact Info) Description 06/05/2023 10:20 AM EST Anticoagulation Pharmacy, [place] [address] [place] [address] Pharmacist1, [facility] [place] [address] [place] [address] 06/07/2023 10:40 AM EST Office Visit Pulmonary Medicine, [place] [address] [place] [address] [facility] [address] [place] [address] 06/24/2023 11:20 AM EST Office Visit Family Practice 65 [place] [address] [place] [phone] Lito Pandey DO [address] [place] [address] 07/22/2023 11:00 AM EST Nutrition Services Nutrition Services 65 [address] [place] [address] Melani oN, RDN 30 [facility] [place] [address] [place] [address] 08/16/2023 10:40 AM EST Office Visit Family Practice [address] [place] [address], [place] [address] [place] [phone] Lito Pandey, DO [address] [place] [address] 10/03/2023 11:00 AM EDT Telemedicine Endocrinology, [place] 3 [facility] [address] [place] [address] Geremias Hammonds, [address] [place] [address] [place] [address] 10/04/2023 11:20 AM EDT Office Visit Dermatology, [place] [address] [place] [address] [place] [address] Caitlin Yuan PA-C 27 [facility] 140 [place] [address] 10/15/2023 1:40 PM EDT Office Visit Nephrology, [facility] [address] [place], [place] [phone] Tami Wilson MD 400 [place] [address] Health Maintenance Due Date Last Done Comments [...] this encounter Medical Devices Implanted Type Area Oil Field Caser Device Identifier Shelf Expiration Date Model / Serial / Lot Cath Thermodilution 6fr - [id number] Implanted:Qty: 1 on 10/24/2022 by Rene Webber MD at [facility] [employer] KIESHA [id number] 06/06/2024 [id number] / / [id number] documented as of this encounter Advance Directives Latest Code Status on File Code Status Date Activated Date Inactivated Comments Full Code 05/10/2016 11:24 AM 05/11/2016 4:48 PM This order reflects the patients wishes and were consensually agreed upon. Question Answer Comments Discussion of Advance Directives occurred with: Not Discussed Does the patient have a Living Will? No Does the patient have Health Care Power of Bus Dispatcher Interstate? No Care Teams Product Management Internship Relationship Specialty Start Date End Date Lito Pandey DO [address] [place] [address] PCP - General Family Medicine 05/09/23 documented as of this encounter
--- OUTSIDE RECORDS SUMMARY | 2023-05-31 12:03 | External Medical Summary | Summary of Care ---
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 [...] a little over a month ago at [facility] with ongoing findings suggestive high blood pressure [...] Dr Santos Will obtain pulmonary notes from [facility] and testing done since 09/2020 re pulm HTN Erectile dysfunction is present will try sildenafil (and await pulm assessment of pulm HTN) Last Assessment & Plan: obtain pulmonary notes from [facility] and testing done since 09/2020 re pulm [...] burden Paroxysmal atrial fibrillation 09/23/2019 Overview: [facility]: He has a history of persistent [...] 06/08/2018 Overview: see May 06 2018 admissionto [facility] Cardiac Catheterization 05/2016 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 (15 years old or older) No 11/03/20 16 Cognitive Status Response Date of Assessm ent Because of a physical, menta l, or emotional condition, do you have serious difficulty concentrating, remembering, or making decisions? (5 years old or older) Yes-trouble remembering 05/10/2016 documented as of this encounter Plan of Treatment Upcoming Encounters Date Type Department Care Team (Late st Contact Info) Description 06/05/2023 10:20 AM EST Anticoagulation Pharmacy, [place] [address] [place] [address] Pharmacist1, [facility] [place] [address] [place] [address] 06/07/2023 10:40 AM EST Office Visit Pulmonary Medicine, [place] [address] [place] [address] Gabriella Le, [facility] [place] [address] 06/24/2023 11:20 AM EST Office Visit Family Practice [address] [place] [address] [place] [address] [place] [phone] Lito Pandey DO [address] [place] [phone] 07/22/2023 11:00 AM EST Nutrition Services Nutrition Services [address] [place] [address] [place] [address] [place] [phone] Melani No, RDN 30 [facility] 11 [place] [address] 08/16/2023 10:40 AM EST Office Visit Family Practice [address] [place] [address] [place] [address] [place] [phone] Lito Pandey DO [address] [place] [id number] 10/03/2023 11:00 AM EDT Telemedicine Endocrinology, [place] [address] [address] Geremias Hammonds, DO [address] [place] [address] [place] [address] 10/04/2023 11:20 AM EDT Office Visit Dermatology, [place] [address] [place] [address] Caitlin Yuan PA-C 27 [facility] 140 [place] [address] 10/15/2023 1:40 PM EDT Office Visit Nephrology, [facility] [address] [place], [place] [phone] Tami Wilson MD 400 [place] [address] Health Maintenance Due Date Last Done Comments [...] this encounter Medical Devices Implanted Type Area Addiction Specialist Device Identifier Shelf Expiration Date Model / Serial / Lot Cath Thermodilution 6fr - [id number] Implanted:Qty: 1 on 10/24/2022 by Rene Webber MD at [facility] [employer] KIESHA [id number] 06/06/2024 [id number] / / [id number] documented as of this encounter Procedures Procedure [...] interpreted or resulted by a [facility] or [employer] contracted radiologist. Lito Pandey DO RAD CT [...] the patient have Health Care Power of Ux Design Manager? No Care Teams Vice Chairman Relationship Specialty Start Date End Date Lito Pandey DO [address] [place] [address] PCP - General Family Medicine 05/09/23 documented as of this encounter
--- OUTSIDE RECORDS SUMMARY | 2023-05-31 12:03 | External Medical Summary | Summary of Care ---
Author Name Unknown Organization [facility] Address [address] [place] [address] Phone [phone] Care Team Providers Care Printed Circuit Board Panels Deburrer Name Role Phone Lito Pandey DO Primary Care Provider [phone] Reason for Visit * Reason Onset Date Comments Medication Refill 05/29/2023 Encounter Created in Error 05/29/2023 Encounter Details Date Type Department Care Team (Late st Contact Info) Description 05/29/2023 Refill Pulmonary Medicine [place] [address] [place] [phone] Momo Jones PA-C 400 [facility] [address] Allergies Active Allergy Reactions Criticality Noted Date [...] 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 [...] a little over a month ago at [facility] with ongoing findings suggestive high blood [...] Dr Santos Will obtain pulmonary notes from [facility] and testing done since 09/2020 re pulm HTN Erectile dysfunction is present will try sildenafil (and await pulm assessment of pulm HTN) Last Assessment & Plan: obtain pulmonary notes from [facility] and testing done since 09/2020 re pulm [...] AF burden Paroxysmal atrial fibrillation 09/23/2019 Overview: : He has a history of persistent atrial [...] 06/08/2018 Overview: see May 06 2018 admissionto [facility] Cardiac Catheter[place] 05[place]2016 [facility] 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 Advance directive discussed with patient 015 Overview: 1 POA Bethe 2 POA daughter Tammy [phone] POA father Ammon [phone] Urinary retention with incomplete bladder emptyi ng [...] bursitis 03/22/20102021 JOINT PAIN-SHLDER R 03/22/2010 10/03/19 Overview: 03/22/2010 will try [...] rt foot 03/31/2007 12/10/2008 Overview: Undecylenic acid rec will discuss oral rx with derm ESOPHAGEAL [...] Description 06/05/2023 10:20 AM EST Anticoagulation Pharmacy, [place] [address] [place] [address] Pharmacist1, [facility] [place] [address] [place] [address] 06/07/2023 10:40 AM EST Office Visit Pulmonary Medicine, [place] [address] [place] [address] [facility] [address] [place] [address] 06/24/2023 11:20 AM EST Office Visit Family Practice [address] [place] [address] [place] [address] [place] [address] Lito Pandey DO [address] [place] [address] 07/22/2023 11:00 AM EST Nutrition Services Nutrition Services [address] [place] [address] [place] [address] [place] [phone] Melani No, ALFREDO 30 [facility] [address] [place] [address] 08/16/2023 10:40 AM EST Office Visit Family Practice [address] [place] [address] [place] [address] [place] [address] Lito Pandey, DO [address] [place] [address] 10/03/2023 11:00 AM EDT Telemedicine Endocrinology, [place] 3 [facility] 220 [place] [address] Geremias Hammonds, DO [address] [place] [address] [place] [address] 10/04/2023 11:20 AM EDT Office Visit Dermatology, [place] [address] [place] [address] [place] [address] Caitlin Yuan PA-C [address] [place] [address] [place] [address] 10/15/2023 1:40 PM EDT Office Visit Nephrology, [facility] 400 [place], [place] [phone] Tami Wilson MD 400 [place] [address] Health Maintenance Due Date Last Done Comments [...] this encounter Medical Devices Implanted Type Area Professional Athlete Device Identifier Shelf Expiration Date Model / Serial / Lot Cath Thermodilution 6fr - [id number] Implanted:Qty: 1 on 10/24/2022 by Rene Webber MD at [facility] [place] [employer] KIESHA [id number] 06/06/2024 [id number] / / [id number] documented as of this encounter Advance Directives [...] the patient have Health Care Power of Check Processing Clerk? No Care Teams Printed Circuit Board Panels Deburrer Relationship Specialty Start Date End Date Lito Pandey DO [address] [place] [phone] PCP - General Family Medicine 05/09/23 documented as of this encounter
--- OUTSIDE RECORDS SUMMARY | 2023-05-31 12:03 | External Medical Summary | Summary of Care ---
Author Name Unknown Organization [facility] Address [address] [place] [address] Phone [phone] Care Team Providers Care Hairspring Studder Name Role Phone Lito Pandey DO Primary Care Provider [phone] Reason for Visit * Reason Onset Date Comments Advice 05/28/2023 Encounter Details Date Type Department Care Team (Late st Contact Info) Description 05/28/2023 Telephone Family Practice [facility] [place] [address] [place] [address] Lito Pandey DO [address] [place] [address] Advice Allergies Active Allergy Reactions Criticality Noted Date Comments Omeprazole Other (Please comment) 05/25/2019 Pt reports it made him feel like med was affecting his heart health, felt like someone "pulled the plug". Penicillins Hives 03/31/2007 hives Clopidogrel Bisulfate Hives 05/21/2016 Pt on several new meds when hives developed, unclear which was the direct cause documented as of this encounter (statuses as of 05/28/2023) Medications Medication Sig Dispensed Refills Start Date [...] as of this encounter (statuses as of 05/28/2023) Active Problems Patient Care Coordination No te Formatting of this note migh t be different from the original. 11/05/2019dismissed from speech and home health 11/04/19. 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 [...] Dr Santos Will obtain pulmonary notes from [facility] and testing done since 09/2020 re pulm HTN Erectile dysfunction is present will try sildenafil (and await pulm assessment of pulm HTN) Last Assessment & Plan: obtain pulmonary notes from [facility] and testing done since 09/2020 re [...] AF burden Paroxysmal atrial fibrillation 09/23/2019 Overview: [facility]: He has a history of persistent [...] 06/08/2018 Overview: see May 06 2018 admissionto [facility] Cardiac Catheterization 05/2016 C 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 See telephone encounter today to patient. Yoni Matias PharmD Clinical Pharmacist [facility] 05/28/2023 5:07 PM * Telephone Encounter - Lito Pandey DO - 05/28/2023 2:57 PM EST Spoke with patient. Patient complains of continued symptoms of dyspnea on exertion and bending. Patient complains of nonproductive cough when lying flat. Patient denies chest pain, palpitations or leg edema. Patient denies fever. Lab studies reviewed, INR level 1.2. Full lab report pending. Patient is taking Lasix 60 mg twice daily with 80 mg on a.m. alternate days. Patient took Lasix 80 mg this morning. Scheduling is working to triage pulmonary appointment possibly sooner than 06/04/2023. Chest x-ray again reviewed with patient showing large right pleural effusion. Patient will need follow up with protocol manager and thoracic surgeon possible repeat thoracentesis versus pleurodesis. Advise continue treatment with Lovenox bridge pending additional discussion with protocol manager for possible scheduled procedure. Patient will need refill of Lovenox sent to pharmacy. We will discuss further with [facility] pharmacist for anticoagulation management. Patient advised ER if symptoms worsen. documented in this encounter Plan of Treatment Upcoming Encounters Date Type Department Care Team (Late st Contact Info) Description 05/28/2023 5:10 PM EST Anticoagulation Pharmacy, [place] [address] [place] [address] Pharmacist[address], [facility] [address] [place] [address] Paroxysmal atrial fibrillation (HCC)*; Cerebrovascular disease, arteriosclerotic, post-stroke 06/05/2023 10:20 AM EST Anticoagulation Pharmacy, [place] [address] [place] [address] Pharmac[address]1, [facility] [address] [place] [phone] 06/07/2023 10:40 AM EST Office Visit Pulmonary Medicine, [address] [address] Gabriella [place] [address] [place] [address] 06/24/2023 11:20 AM EST Office Visit Family Practice [address] [place] [address] [place] [address] [place] [address] Lito Pandey DO [address] [place] [address] 07/22/2023 11:00 AM EST Nutrition Services Nutrition Services [address] [place] [address] [place] [address] [place] [phone] Melani No, RDN 30 [facility] 11 [place] [address] 08/16/2023 10:40 AM EST Office Visit Family Practice [facility] [place] [address] [place] [phone] Lito Pandey DO [address] [place] [id number] 10/03/2023 11:00 AM EDT Telemedicine Endocrinology, [place] [facility] [address] [place] [address] Geremias Hammonds, DO [address] [place] [address] [place] [address] 10/04/2023 11:20 AM EDT Office Visit Dermatology, [facility] [place] [address] [place] [address] Caitlin Yuan PA-C [address] [place] [address] 10/15/2023 1:40 PM EDT Office Visit Nephrology, [facility] [address] [place], [place] [phone] Tami Wilson MD 400 [place], [place] [phone] Health Maintenance Due Date Last Done Comments Hepatitis C Screening 1963 Hepatitis B (1 of 3 - Risk 3-dose series) 2003 COVID-19 Vaccine ( season) 2023 01/31/2022, 09/08/2020, 08/11/2020 Depression Screening 05/09/2024 05/09/2023 GFR 05/09/2024 05/09/2023, 04/07, 03/29/2023, Additional history exists Albumin/Creatinine Ratio 05/09/2026 05/09/2023 [...] Medical Devices Implanted Type Area Contact Center Agent Device Identifier Shelf Expiration Date Model / Serial / Lot Cath Thermodilution 6fr - [id number] Implanted:Qty: 1 on 10/24/2022 by Rene Webber MD at [facility] [employer] [id number] 06/06/2024 [id number] / / [id number] documented as of this encounter Advance Directives [...] the patient have Health Care Power of Cracker Off? No Care Teams Hairspring Studder Relationship Specialty Start Date End Date Lito Pandey DO [address] [place] [address] PCP - General Family Medicine 05/09/23 documented as of this encounter
--- OUTSIDE RECORDS SUMMARY | 2023-05-31 12:03 | External Medical Summary | Summary of Care ---
Author Name Unknown Organization [facility] Address [address] [place] [address] Phone [phone] Care Team Providers Care Collection Support Specialist Name Role Phone Lito Pandey DO Primary Care Provider Reason for Visit * Reason Onset Date Comments Test Results 05/29/2023 Encounter Details Date Type Department Care Team (Late st Contact Info) Description 05/29/2023 Tele[address] 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 [...] a little over a month ago at [facility] with ongoing findings suggestive high blood pressure [...] Dr Santos Will obtain pulmonary notes from [facility] and testing done since 09/2020 re pulm HTN Erectile dysfunction is present will try sildenafil (and await pulm assessment of pulm HTN) Last Assessment & Plan: obtain pulmonary notes from [facility] and testing done since 09/2020 [...] AF burden Paroxysmal atrial fibrillation 09/23/2019 Overview: [facility]: He has a history of persistent [...] 06/08/2018 Overview: see May 06 2018 admissionto [facility] Cardiac Catheterization 05/2016 C 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 Advance directive discussed with patient 015 Overview: 1 POA Bethe 2 POA daughter Tammy [phone] POA father Ammon [phone] Urinary retention with incomplete bladder emptyi ng [...] Description 06/05/2023 10:20 AM EST Anticoagulation Pharmacy, [place] [address] [place] [address] Pharmacist1, [facility] [place] [address] [place] [address] 06/06/2023 10:00 AM EST Office Visit Thoracic Surg [facility], [place] [address] [place] [address] Ochoa Hernández MD [address] [place] [address] 06/07/2023 10:40 AM EST Office Visit Pulmonary Medicine, [place] [address] [place] [address] Gabriella Le [address] [place] [address] 06/24/2023 11:20 AM EST Office Visit Family Practice [address] [place] [address] [address] [place] [address] Lito Pandey DO [address] [place] [address] 07/22/2023 11:00 AM EST Nutrition Services Nutrition Services 65 [facility] [address] [facility] [place] [address] Melani No, RDN 30 [facility] [place] [address] [place] [address] 08/16/2023 10:40 AM EST Office Visit Family Practice [address] [place] [address], [place] [address] [place] [address] Lito Pandey, DO [address] [place] [address] 10/03/2023 11:00 AM EDT Telemedicine Endocrinology, [place] 3 [facility] [address] [place] [address] Geremias Hammonds, DO [address] [place] [address] 10/04/2023 11:20 AM EDT Office Visit Dermatology, [facility] [place] [address] [place] [phone] Caitlin uYan PA-C [address] [place] [address] 10/15/2023 1:40 PM EDT Office Visit Nephrology, [facility] [address] [place], [place] [address] Tami Wilson MD 400 [place], [place] [phone] Health Maintenance Due Date Last Done Comments Hepatitis C Screening 1963 Hepatitis B (1 of 3 - Risk 3-dose series) 2003 COVID-19 Vaccine ( season) 2023 01/31/2022, 09/08/2020, 08/11/2020 Depression Screening 05/09/2024 05/09/2023 GFR 05/28/2024 05/28/2023, 11/0 08/2022, 04/18/2023, Additional history exists Albumin/Creatinine Ratio [...] this encounter Medical Devices Implanted Type Area Trumpet Player Device Identifier Shelf Expiration Date Model / Serial / Lot Cath Thermodilution 6fr - [id number] Implanted:Qty: 1 on 10/24/2022 by Rene Webber MD at [facility] [place] [employer] K[employer]HA [id number] 06/06/2024 [id number] / / [id number] documented as of this encounter Advance Directives [...] the patient have Health Care Power of Consumer Insight Manager? No Care Teams Collection Support Specialist Relationship Specialty Start Date End Date Lito Pandey DO [address] [place] [phone] PCP - General Family Medicine 05/09/23 documented as of this encounter
--- OUTSIDE RECORDS SUMMARY | 2023-05-31 12:03 | External Medical Summary | Summary of Care ---
Author Name Unknown Organization [facility] Address [address] [place] [address] Phone [phone] Care Team Providers Care Business Services Tech Name Role Phone Lito Pandey DO Primary Care Provider Reason for Visit * Reason Onset Date Comments Test Results 05/29/2023 Encounter Details Date Type Department Care Team (Late st Contact Info) Description 05/29/2023 Telephone Family Practice 65 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 He has instruction to continue [...] a little over a month ago at [facility] with ongoing findings suggestive high blood [...] Dr Santos Will obtain pulmonary notes from [facility] and testing done since 09/2020 re pulm HTN Erectile dysfunction is present will try sildenafil (and await pulm assessment of pulm HTN) Last Assessment & Plan: obtain pulmonary notes from [facility] and testing done since 09/2020 re [...] AF burden Paroxysmal atrial fibrillation 09/23/2019 Overview: [facility]: He has a history of persistent atrial [...] 06/08/2018 Overview: see May 06 [address] 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 Lab studies showed CKD 3 with slight decrease in renal function compared to prior study Patient advised to use dose Lasix 60 mg twice daily Remainder of lab studies unremarkable. Discussed with patient follow up with Pulmonary and thoracic surgeon for further evaluation treatment of right pleural effusion. Patient has scheduled appointments on 06/06/2023 for evaluation by thoracic surgeon and 06/07/2023 for VATS procedure and pleural biopsy. . documented in this encounter Plan of Treatment Upcoming Encounters Date Type Department Care Team (Late st Contact Info) Description 06/05/2023 10:20 AM EST Anticoagulation Pharmacy, [place] [address] [place] [address] Pharmacist1, [facility] [place] [address] [place] [address] 06/06/2023 10:00 AM EST Office Visit Thoracic Surg [facility], [place] [address] [place] [address] Ochoa Hernández MD [address] [place] [address] 06/07/2023 10:40 AM EST Office Visit Pulmonary Medicine, [place] [address] [place] [address] Gabriella Le DO [address] [place] [address] 06/24/2023 11:20 AM EST Office Visit Family [address] [place] [phone] Lito Pandey [address] [place] [address] 07/22/2023 11:00 AM EST Nutrition Services Nutrition Services 65 [facility] [address] [place] [address] Melani No, LASHAN 30 [facility] 11 [place] [address] 08/16/2023 10:40 AM EST Office Visit [address] [place] [address] Lito Pandey [address] [place] [address] 10/03/2023 11:00 AM EDT Telemedicine Endocrinology, [address] [address] Geremias Hammonds, DO [address] [place] [address] [place] [address] 10/04/2023 11:20 AM EDT Office Visit Dermatology, [facility] [place] [address] [place] [place] [phone] Caitlin Yuan PA-C [address] [place] [address] [place] [id number] 10/15/2023 1:40 PM EDT Office Visit Nephrology, [address] [place] [address] Tami Wilson MD 400 [place] [address] Health Maintenance Due Date Last Done Comments Hepatitis C Screening 1963 Hepatitis B (1 of 3 - Risk 3-dose series) 2003 COVID-19 Vaccine (4 - season) 2023 01/31/2022, 09/08/2020, 08/11/2020 Depression Screening [...] this encounter Medical Devices Implanted Type Area Engineering Drawings Checker Device Identifier Shelf Expiration Date Model / Serial / Lot Cath Thermodilution 6fr - [id number] Implanted:Qty: 1 on 10/24/2022 by Rene Webber MD at [facility] [place] [id number] 06/06/2024 [id number] / / [id number] documented as of this encounter Advance Directives [...] the patient have Health Care Power of Director Call? No Care Teams Business Services Tech Relationship Specialty Start Date End Date Lito Pandey DO [address] [place] [address] PCP - General Family Medicine 05/09/23 documented as of this encounter
--- OUTSIDE RECORDS SUMMARY | 2023-05-31 12:03 | External Medical Summary | Summary of Care ---
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 Advance directive discussed with patient 015 Overview: 1 POA Du 2 POA daughter Tammy [phone] POA father Ammon [phone] Urinary retention with incomplete bladder emptyi ng [...] Description 06/05/2023 10:20 AM EST Anticoagulation Pharmacy, [place] [address] [place] [address] Pharmacist1, [facility] [place] [address] [place] [address] 06/07/2023 10:40 AM EST Office Visit Pulmonary Medicine, [place] [address] [place] [address] Gabriella Le, [facility] [address] 06/24/2023 11:20 AM EST Office Visit Family Practice [address] [place] [address] [place] [address] [place] [id number] Lito Pandey DO [address] [place] [phone] 07/22/2023 11:00 AM EST Nutrition Services Nutrition Services [address] [place] [address] [place] [address] [place] [phone] Melani No, RDN 30 [facility] 11 [place] [address] 08/16/2023 10:40 AM EST Office Visit Family Practice [address] [place] [address] [place] [address] [place] [phone] Lito Pandey DO [address] [place] [id number] 10/03/2023 11:00 AM EDT Telemedicine Endocrinology, [place] [address] [address] Geremias Hammonds, DO [address] [place] [address] [place] [address] 10/04/2023 11:20 AM EDT Office Visit Dermatology, [facility] [place] [address] [place] [place] [address] Caitlin Yuan PA-C 27 [facility] 140 [place] [address] 10/15/2023 1:40 PM EDT Office Visit Nephrology, [facility] 400 [place], [place] [address] Tami Wilson MD 400 [place] [address] Health Maintenance Due Date Last Done Comments [...] this encounter Medical Devices Implanted Type Area Pelts Skinner Device Identifier Shelf Expiration Date Model / Serial / Lot Cath Thermodilution 6fr - [id number] Implanted:Qty: 1 on 10/24/2022 by Rene Webber MD at [facility] [employer] [id number] 06/06/2024 [id number] / / [id number] documented as of this encounter Procedures Procedure [...] interpreted or resulted by a [facility] or [employer] contracted radiologist. Lito Pandey DO RADIOLOGY (RAD [...] the patient have Health Care Power of Continuous Absorption Process Operator? No Care Teams Cupola Melter Relationship Specialty Start Date End Date Lito Pandey DO [address] [place] [address] PCP - General Family Medicine 05/09/23 documented as of this encounter
--- OUTSIDE RECORDS SUMMARY | 2023-05-31 12:03 | External Medical Summary | Summary of Care ---
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 and testing done since 09/2020 re pulm HTN Erectile dysfunction is present will try sildenafil (and await pulm assessment of pulm HTN) Last Assessment & Plan: obtain pulmonary notes from [facility] and testing done since 09/2020 re [...] AF burden Paroxysmal atrial fibrillation 09/23/2019 Overview: [facility]: He has a history of persistent atrial [...] Overview: see May 06 [address] 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 [place] [address] 06/24/2023 11:20 AM EST Office Visit Family Practice [address] [place] [address] [place] [address] [place] [phone] Lito Pandey DO [address] [place] [phone] 07/22/2023 11:00 AM EST Nutrition Services Nutrition Services [address] [place] [address] [place] [address] [place] [phone] Melani No, RDN 30 [facility] 11 [place] [address] 08/16/2023 10:40 AM EST Office Visit Family Practice [address] [place] [address] [place] [address] [place] [phone] Lito Pandey DO [address] [place] [phone] 10/03/2023 11:00 AM EDT Telemedicine Endocrinology, [place] [address] [address] Geremias Hammonds, DO [address] [place] [address] [place] [address] 10/04/2023 11:20 AM EDT Office Visit Dermatology, [facility] [place] [address] [place] [place] [address] Caitlin Yuan PA-C 27 [facility] 140 [place] [address] 10/15/2023 1:40 PM EDT Office Visit Nephrology, [facility] 400 [place], [place] [phone] Tami Wilson MD 400 [place] [address] Health Maintenance Due Date Last Done Comments [...] this encounter Medical Devices Implanted Type Area It Solutions Architect Device Identifier Shelf Expiration Date Model / Serial / Lot Cath Thermodilution 6fr - [id number] Implanted:Qty: 1 on 10/24/2022 by Rene Webber MD at [facility] [place] [place] [employer] [id number] 06/06/2024 [id number] / / [id number] documented as of this encounter Procedures Procedure [...] interpreted or resulted by a [facility] or [employer] contracted radiologist. Lito Pandey DO RADIOLOGY (RAD [...] the patient have Health Care Power of Human Resources Specialist? No Care Teams Dynamics Ax Developer Relationship Specialty Start Date End Date Lito Pandey DO [address] [place] [address] PCP - General Family Medicine 05/09/23 documented as of this encounter
--- OUTSIDE RECORDS SUMMARY | 2023-05-31 12:03 | External Medical Summary | Summary of Care ---
Author Name Unknown Organization [facility] Address [address] [place] [address] Phone [phone] Care Team Providers Care Dean Of Women Name Role Phone Lito Pandey DO Primary Care Provider [phone] Reason for Visit * Reason Onset Date Comments Referral 05/29/2023 Encounter Details Date Type Department Care Team (Late st Contact Info) Description 05/29/2023 New Patient Triage (MINE ENGINEERING MANAGER USE ONLY) Thoracic [facility]urg [facility] [address] [place] [address] Laura Zafar PA-C [address] [place] [address] Referral Allergies Active Allergy Reactions Criticality Noted Date [...] 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 [...] a little over a month ago at [facility] with ongoing findings suggestive high blood pressure [...] Dr Santos Will obtain pulmonary notes from [facility] and testing done since 09/2020 re pulm HTN Erectile dysfunction is present will try sildenafil (and await pulm assessment of pulm HTN) Last Assessment & Plan: obtain pulmonary notes from [facility] and testing done since 09/2020 re [...] AF burden Paroxysmal atrial fibrillation 09/23/2019 Overview: [facility]: He has a history of persistent [...] 06/08/2018 Overview: see May 06 2018 admissionto [facility] Cardiac Catheterization 05/[address] 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 Huffman was referred to Thoracic Surgery for evaluation of recurrent right sided pleural effusion. He has undergone three thoracenteses total: in September 2022, 04/25/23, and 05/23/2023. Cytology benign. 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 Currently on a Lovenox bridge. He was placed on this in preparation for thoracentesis and remains on Lovenox in preparation for a possible procedurefrom Thoracic Surgery. Offered patient to be seen in clinic 06/06/2023 at 10:00 AM to discuss surgical option of VATS withpleural biopsy. He will arrive to [facility] earlier to obtain an updated CXR prior to his clinic visit. Directions provided. Discussed the possibility of a tentative OR date 06/07. If this is not available at the time of clinic visit, we will then schedule for another date. I advised that he contact his Independent Living Specialist or present to the nearest ED if necessary if his shortness of breath significantly worsened. I explained that he may need another thoracostenosis in the interim if this is the case. Does patient need to be seen?: Yes Modality: Office visit Urgency: Within 10 days (routine) Discussed care plan with patient or proxy?: Yes Spoke with patient myself. Communicated with patient on Date (venkat/kimmie/yymickiy): 05/29/2023 at Time ([facility]): 1320 documented in this encounter Plan of Treatment Upcoming Encounters Date Type Department Care Team (Late st Contact Info) Description 06/05/2023 10:20 AM EST Anticoagulation Pharmacy, [place] [address] [place] [id number] Pharmacist1, [facility] [place] [address] [place] [id number] 06/06/2023 10:00 AM EST Office Visit Thoracic Surg [facility], [place] [address] [place] [address] Ochoa Hernández MD [address] [place], [place] [id number] 06/07/2023 10:40 AM EST Office Visit Pulmonary Medicine, [place] [address] [place], [place] [phone] Gabriella Le, [address] [place], [place] [phone] 06/24/2023 11:20 AM EST Office Visit Family Practice [address] [place] [address] [address] [place] [address] Lito Pandey DO [address] [place] [address] 07/22/2023 11:00 AM EST Nutrition Services Nutrition Services [address] [place] [address] [place] [address] [place] [phone] Melani No, LASHAN 30 [facility] [address] [place] [address] 08/16/2023 10:40 AM EST Office Visit Family Practice [address] [place] [address] [place] [address] [place] [address] Lito Pandey DO [address] [place] [address] 10/03/2023 11:00 AM EDT Telemedicine Endocrinology, [place] [address] [facility] [address] [place] [address] Geremias Hammonds, [address] [place] [address] 10/04/2023 11:20 AM EDT Office Visit Dermatology, [place] [address] [place] [address] [place] [address] Caitlin Yuan PA-C [address] [place] [address] [place] [address] 10/15/2023 1:40 PM EDT Office Visit Nephrology, [facility] [address] [place] [address] Tami Wilson MD [address] [place], [place] [phone] Scheduled Orders Name Type Priority Associated Diagnoses Orde r Schedule XR CHEST 1 VIEW Medical Imaging Routine Pleural effusion Ordered: 05/29/2023 Health Maintenance Due Date Last Done Comments [...] this encounter Medical Devices Implanted Type Area Levers Lace Machine Operator Device Identifier Shelf Expiration Date Model / Serial / Lot Cath Thermodilution 6fr - [id number] Implanted:Qty: 1 on 10/24/2022 by Reen Webber MD at [facility] [employer] KIESHA [id number] 06/06/2024 [id number] / / [id number] documented as of this encounter Visit Diagnoses Diagnosis Pleural effusion- Primary Unspecified pleural effusion documented in this encounter Advance Directives Latest [...] the patient have Health Care Power of Cashier Greeter? No Care Teams Dean Of Women Relationship Specialty Start Date End Date Lito Pandey DO [address] [place] [phone] PCP - General Family Medicine 05/09/23 documented as of this encounter
--- OUTSIDE RECORDS SUMMARY | 2023-05-31 12:03 | External Medical Summary | Summary of Care ---
Author Name Unknown Organization [facility] Address [address] [place] [address] Phone [phone] Care Team Providers Care Vendor Analyst Name Role Phone Lito Pandey DO Primary Care Provider [phone] Reason for Visit * Reason Onset Date Comments Referral 05/29/2023 Encounter Details Date Type Department Care Team (Late st Contact Info) Description 05/29/2023 New Patient Triage (TRAINING PROGRAM ASSISTANT USE ONLY) [facility]urg [facility] [address] [place] [address] Laura Zafar PA-C [address] [place] [address] Referral Allergies Active Allergy Reactions [...] 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 He has instruction to continue [...] a little over a month ago at [facility] with ongoing findings suggestive high blood pressure [...] Dr Santos Will obtain pulmonary notes from [facility] and testing done since 09/2020 re pulm HTN Erectile dysfunction is present will try sildenafil (and await pulm assessment of pulm HTN) Last Assessment & Plan: obtain pulmonary notes from [facility] and testing done since 09/2020 re pulm [...] AF burden Paroxysmal atrial fibrillation 09/23/2019 Overview: [facility]: He has a history of [...] 06/08/2018 Overview: see May 06 2018 admissionto [facility] Cardiac Catheterization 05/2016 [place] 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 Huffman was referred to Thoracic Surgery for evaluation of recurrent right sided pleural effusion. He has undergone three thoracenteses total: in September 2022, 04/25/23, and 05/23/2023. 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 Currently on a Lovenox bridge. He was placed on this in preparation for thoracentesis and remains on Lovenox in preparation for a possible procedurefrom Thoracic Surgery. Offered patient to be seen in clinic 06/06/2023 at 10:00 AM to discuss surgical option of VATS withpleural biopsy. He will arrive to [facility] earlier to obtain an updated CXR prior to his clinic visit. Directions provided. I advised that he contact his Boat Outboard Engine Mechanic or present to the nearest ED if necessary if his shortness of breath significantly worsened. I explained that he may need another thoracostenosis in the interim if this is the case. Does patient need to be seen?: Yes Modality: Office visit Urgency: Within 10 days (routine) Discussed care plan with patient or proxy?: Yes Spoke with patient myself. Communicated with patient on Date (mm/kimmie/yyyy): 05/29/2023 at Time ([facility]): 1320 documented in this encounter Plan of Treatment Upcoming Encounters Date Type Department Care Team (Late st Contact Info) Description 06/05/2023 10:20 AM EST Anticoagulation Pharmacy, [place] [address] [place] [address] Pharmacist1, [facility] [place] [address] [place] [id number] 06/06/2023 10:00 AM EST Office Visit [facility] [place] [address] [place] [address] Ochoa Hernández MD [address] [place] [address] 06/07/2023 10:40 AM EST Office Visit Pulmonary Medicine, [place] [address] [place] [address] Gabriella Le, [facility] [address] 06/24/2023 11:20 AM EST Office Visit Family Practice [address] [place] [address] [place] [address] [place] [address] Lito Pandey DO [address] [place] [address] 07/22/2023 11:00 AM EST Nutrition Services Nutrition Services [address] [place] [address] [place] [address] [place] [address] Melani No, ALFREDO [facility] [address] [place] [address] 08/16/2023 10:40 AM EST Office Visit Family Practice 65 [facility] [place] [address] [place] [address] Lito Pandey DO [address] [place] [phone] 10/03/2023 11:00 AM EDT Telemedicine Endocrinology, [place] 3 [facility] [address] [place] [address] Geremias Hammonds, [address] [place] [address] 10/04/2023 11:20 AM EDT Office Visit Dermatology, [place] [address] [place] [address] [place] [address] Caitlin Yuan PA-C [address] [place] [address] [place] [address] 10/15/2023 1:40 PM EDT Office Visit Nephrology, [facility] [address] [place] [address] Tami Wilson MD [address] [place], [place] [phone] Scheduled Orders Name Type Priority Associated Diagnoses [...] this encounter Medical Devices Implanted Type Area Meter Record Clerk Device Identifier Shelf Expiration Date Model / Serial / Lot Cath Thermodilution 6fr - [id number] Implanted:Qty: 1 on 10/24/2022 by Rene Webber MD at [facility] [employer] KIESHA [id number] 06/06/2024 [id number] / / [id number] documented as of this encounter Visit Diagnoses [...] the patient have Health Care Power of Grain Merchandiser? No Care Teams Vendor Analyst Relationship Specialty Start Date End Date Lito Pandey DO [address] [place] [address] PCP - General Family Medicine 05/09/23 documented as of this encounter
--- OUTSIDE RECORDS SUMMARY | 2023-05-31 12:04 | External Medical Summary | Summary of Care ---
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 He has instruction to continue [...] a little over a month ago at [facility] with ongoing findings suggestive high blood pressure [...] Dr Santos Will obtain pulmonary notes from [facility] and testing done since 09/2020 re pulm HTN Erectile dysfunction is present will try sildenafil (and await pulm assessment of pulm HTN) Last Assessment & Plan: obtain pulmonary notes from [facility] and testing done since 09/2020 re pulm [...] Paroxysmal atrial fibrillation 09/23/2019 Overview: [facility]: He has a history of persistent [...] 06/08/2018 Overview: see May 06 2018 admissionto [facility] Cardiac Catheterization 05/2016 [place] 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 Patient will need follow up with gas station operator and thoracic surgeon possible repeat thoracentesis versus pleurodesis. Advise continue treatment with Lovenox bridge pending additional discussion with gas station operator for possible scheduled procedure. Patient will need refill of Lovenox sent to pharmacy. We will discuss further with [facility] pharmacist for anticoagulation management. Patient advised ER if symptoms worsen. documented in this encounter Plan of Treatment Upcoming Encounters Date Type Department Care Team (Late st Contact Info) Description 05/28/2023 5:10 PM EST Anticoagulation Pharmacy, [place] [address] [place] [address] Pharmacist1, [facility] [address] [place] [address] Paroxysmal atrial fibrillation (HCC)*; Cerebrovascular disease, arteriosclerotic, post-stroke 06/05/2023 10:20 AM EST Anticoagulation Pharmacy, [place] [address] [place] [address] Pharmacist1, [facility] [address] [place] [phone] 06/07/2023 10:40 AM EST Office Visit Pulmonary Medicine, [address] [address] [address] [address] 06/24/2023 11:20 AM EST Office Visit Family Practice [address] [place] [address] [place] [address] [place] [address] Lito Pandey DO [address] [place] [address] 07/22/2023 11:00 AM EST Nutrition Services Nutrition Services [address] [place] [address] [place] [address] [place] [phone] Melani No, RDN 30 [facility] [address] [place] [address] 08/16/2023 10:40 AM EST Office Visit Family Practice 65 [facility] [place] [address] [place] [phone] Lito Pandey DO [address] [place] [id number] 10/03/2023 11:00 AM EDT Telemedicine Endocrinology, [place] 3 [facility] [address] [place] [address] Geremias Hammonds, DO [address] [place] [address] [place] [address] 10/04/2023 11:20 AM EDT Office Visit Dermatology, [place] [address] [place] [address] [place] [address] Caitlin Yuan PA-C [address] [place] [address] [place] [address] 10/15/2023 1:40 PM EDT Office Visit Nephrology, [facility] [address] [place], [place] [phone] Tami Wilson MD [address] [place], [place] [address] Health Maintenance Due Date Last Done Comments [...] this encounter Medical Devices Implanted Type Area Carbon Electrodes Supervisor Device Identifier Shelf Expiration Date Model / Serial / Lot Cath Thermodilution 6fr - [id number] Implanted:Qty: 1 on 10/24/2022 by Rene Webber MD at [facility] [employer] KIESHA [id number] 06/06/2024 [id number] / / [id number] documented as of this encounter Advance Directives [...] the patient have Health Care Power of Funder? No Care Teams Housekeeper/Custodian/Laundry Worker Relationship Specialty Start Date End Date Lito Pandey DO [address] [place] [phone] PCP - General Family Medicine 05/09/23 documented as of this encounter
--- OUTSIDE RECORDS SUMMARY | 2023-05-31 12:04 | External Medical Summary ---
Author Name Unknown Address Unknown Organization K01:[facility] - [address] [place] [address] Laboratory Report Ordering Provider Test Date Status KRISTY GRIFFITH 05/28/2023 12:36:18 Final Observation Date Value Abnormality Reference (Units ) Status Phosphate 05/28/2023 12:36:18 3.7 2.5-4.8 (m g/dL) Final Performing Location [facility] - [address] [place] [address]
--- OUTSIDE RECORDS SUMMARY | 2023-05-31 12:04 | External Medical Summary | Summary of Care ---
Author Name Unknown Organization [facility] Address [address] [place] [address] Phone [phone] Care Team Providers Care Care Provider Name Role Phone Lito Pandey DO Primary Care Provider [phone] Reason for Referral * Evaluate & Treat - Unlimited Visits (Within 10 days (routine)) - Authorized Specialty Diagnoses / Procedures Referred By Contact Referred To Contact Thoracic and Cardiac Surgery / Cardiothoracic Surgery Diagnoses Recurrent right pleural effusion Lito Pandey DO [address] [place] [address] Referral ID Status Reason Start Date Expiration Date Visits Requested Visits Authorized [id number] Authorized Specialty Services Required 3 [phone] Question Answer Referral Priority Within 10 days (routine) Where should this appointment be scheduled? [facility] Reason for Referral? Other Does your patient require surgical evaluation and/or treatment for a disease of the chest, other than heart disease? Yes Comments Recurrent right pleural effusion * Evaluate & Treat - Unlimited Visits (Within 10 days (routine)) - Authorized Specialty Diagnoses / Procedures Referred By Contbobbi t Referred To Contact Pulmonary Diseases / Pulmonary Diagnoses Recurrent right pleural effusion Lito Pandey DO [address] [place] [address] Referral ID Status Reason Start Date Expiration Date Visits Requested Visits Authorized [id number] Authorized Specialty Services Required 3 [phone] Question Answer Referral Priority Within 10 days (routine) Where should this appointment be scheduled? [facility] Reason for Referral? Other Comments Recurrent right pleural effusion Reason for Visit * Reason Onset Date Comments Hospital Follow-Up Hospital Follow-Up 05/27/2023 Encounter Details Date Type Department Care Team (Late st Contact Info) Description 05/27/2023 2:20 PM EST Office Visit Family Practice [facility], [place] [address] [place] [address] Lito Pandey DO [address] [address] Hospital discharge follow-up*; Recurrent right pleural effusion; Cerebrovascular disease, arteriosclerotic, post-stroke; Paroxysmal atrial fibrillation (HCC); Severe tricuspid regurgitation; Anticoagulation management encounter Allergies Active Allergy Reactions Criticality Noted Date Comments Omeprazole Other (Please comment) 05/25/2019 Pt reports it made him feel like med was affecting his heart health, felt like someone "pulled the plug". Penicillins Hives 03/31/2007 hives Clopidogrel Bisulfate Hives 05/21/2016 Pt on several new meds when hives developed, unclear which was the direct cause documented as of this encounter (statuses as of 05/27/2023) Medications Medication Sig Dispensed Refills Start Date End Date Status GLUCOSAMINE CHONDRO COMPLEX 500-400 MG PO TABS Take 1 Tablet by mouth. 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 30 Tab 11 10/06/19 Active Sildenafil Citrate 20 MG Oral Tablet (Revatio) Use 2-5 tabs daily as needed for ED 50 Tab 5 04/13/20 Active Additional Information Patient not taking.Reported on 03/29/2023 Famotidine 20 MG Oral Tablet (Pepcid)Indications :Gastroesophageal reflux disease without esophagitis Take 1 Tablet by mouth every night at bedtime. 90 Tablet 1 01/31/20 23 Active Doxazosin Mesylate 2 MG Oral Tablet (Cardura)Indication s:HTN, goal below 130/80 Take one tablet three times daily by mouth. 90 Tablet 2 03/20/20 23 Active Metoprolol Succinate ER 25 MG Oral Tablet Extended Release 24 Hour (toPROL XL) Take 1 Tablet by mouth in the morning. 90 Tablet 3 03/20/20 Active Warfarin Sodium 5 MG Oral Tablet (Coumadin) TAKE 1 TABLET DAILY OR DIRECTED BY ANTICOAGULATION CLINIC 90 Tablet 1 03/26/20 23 Active Empagliflozin 10 MG Oral Tablet (Jardiance) Take 1 Tablet by mouth in the morning. 90 Tablet 3 03/31/20 23 Active methIMAzole 5 MG Oral Tablet (Tapazole) 2 tablets or 10 mg by mouth daily since 04/18/2023 360 Tablet 3 04/18/20 Active Losartan Potassium 25 MG Oral Tablet (Cozaar)Indications :HTN, goal below 130/80 Take 1 Tablet by mouth in the morning. 90 Tablet 3 04/23/20 Active Furosemide 20 MG Oral Tablet (Lasix)Indications: HTN, goal below 130/80 Take 3 Tablets by mouth in the morning and 3 Tablets before bedtime. 540 Tablet 3 04/23/20 Active Additional Information Patient taking differently:60 mg Oral BID (.AM/PM),Alternating 60/80mg in the AM, always 60mg PM, Reported on 05/09/2023 Spironolactone 25 MG Oral Tablet (Aldactone)Indicati ons:HTN, goal below 130/80 Take 0.5 Tablets by mouth daily. One half tablet by mouth Saturday and fridays 45 Tablet 3 04/23/20 Active Atorvastatin Calcium 10 MG Oral Tablet (Lipitor)Indication s:Acute ischemic cerebrovascular accident (CVA) involving middle cerebral artery territory (HCC),HTN, goal below 130/80,Hypertensive kidney disease with stage 3 chronic kidney disease (HCC) TAKE 1 TABLET DAILY 90 Tablet 1 04/29/20 23 Active Garlic 100 MG Oral Tablet Take 1 Tablet by mouth in the morning. 0 Active [place]-3 Fatty Acids (FISH OIL) 1000 MG Capsule Take 1 Capsule by mouth in the morning. 0 023 Discontinued documented as of this encounter (statuses as of 05/27/2023) Active Problems Patient Care Coordination No te Formatting of this note migh t be different from the original. 11/05/2019dismissed from speech and home health 11/04/19. 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 [...] a little over a month ago at [facility] with ongoing findings suggestive high blood pressure [...] Dr Santos Will obtain pulmonary notes from [facility] and testing done since 09/2020 re pulm HTN Erectile dysfunction is present will try sildenafil (and await pulm assessment of pulm HTN) Last Assessment & Plan: obtain pulmonary notes from [facility] and testing done since 09/2020 [...] 06/08/2018 Overview: see May 06 2018 admissionto [facility] [place] [facility] 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 Advance directive discussed with patient 015 Overview: 1 POA Bethe 2 POA daughter Tammy [phone] POA father Ammon [phone] Urinary retention with incomplete bladder emptyi ng 10/04/2011 Overview: 8/11/21 Stream is a little slow but satisfactory [...] as of this encounter (statuses as of 05/27/2023) Resolved Problems Problem Noted Date Diagnosed Date [...] 04/17/2018 03/17/2019 History of diplopia 11/13/2017 12/02/19 Risk of myocardial infarctio n or stroke [...] Wyatt Dt/Tm Resulted Value Status 09/19/15 10:11A 3/15/16 0.96 FINAL Father with met ca at [...] as of this encounter (statuses as of 05/27/2023) Immunizations Name Administration Dates Next Due COVID-19 [...] 1 Q uit: 1958 Smokeless Tobacco: Never Tobacco Cessation:Counseling Given: Yes Alcohol Use Standard Drinks/Week Comments Yes 1 [...] on file documented as of this encounter Last Filed Vital Signs Vital Sign Reading Time Taken Comments Blood Pressure 90/56 05/27/2023 2:33 PM EST Pulse 76 05/27/2023 2:33 PM EST Temperature 36.5 C (97.7 F) 05/27/2023 2:33 PM ES T Respiratory Rate - - Oxygen Saturation 95% 05/27/2023 2:33 PM EST Inhaled Oxygen Concentration - - Weight 71.5 kg (157 lb 11.2 oz) 05/27/2023 2:33 PM EST Height - - Body Mass Index 24.33 05/09/2023 1:14 PM EDT documented in this encounter Functional Status Functional Status Response [...] remembering 05/10/2016 documented as of this encounter Patient Instructions * Patient Instructions* Lito Pandey, DO - 05/27/2023 3:11 PM EST Taking Medicine Safely Medicine is given to help treat or prevent illness. But if you don't take it correctly, it might not help. It might even harm you. Your doctor or pharmacist can help you learn the right way to take your medicine. Listed below are some tips to help you take medicine safely. Safety Tips Have a routine for taking each medicine. Make it part of something you do each day, such as brushing your teeth or eating a meal. When you go to the hospital or your doctor's office, bring all your current medicines in their original boxes or bottles. If you can't do that, bring an up-to-date list of your medicines. Do not stop taking a prescription medicine unless your doctor tells you to. Doing so could make your condition worse. Do not share medicines. Let your doctor and pharmacist know of any allergies you have. Taking prescription medicines with alcohol, street drugs, herbs, supplements, or even some fplt-gkl-mqdcsdo medicines can be harmful. Talk to your doctor or pharmacist before using any of these things while taking a prescription medicine. When filling your prescriptions, try using the same pharmacy for all your medicines. If not, let the pharmacist know what medicines you are already on. Keep medicines out of the reach of children and pets. Do not use medicine that has or that doesn't look or smell right. Get rid of it properly. To find out the right way to get rid of medicine: Call your [facility] or [facility] government's household trash and recycling service and ask if a drug take-back program is available in your community. Call your local pharmacy and ask the right way to get rid of the medicine. Go to http://www.fda.gov/ForConsumers/ConsumerUpdates/ysj927171 to learn how to get rid of medicines safely. Using Generic Medicines Medicines have brand names and generic (chemical) names. When a medicine is first made, it is sold only under its brand name. Later, it can be made and sold as a generic. Generic medicines cost less than brand-name medicines and most work just as well. Most people can use the generic medicine instead of the brand-name medicine, unless their doctor says otherwise. 0819-1231 [facility], [address] [place] [address], [place] [address]. All rights reserved. This information is not intended as a substitute for professional medical care. Always follow your healthcare professional's instructions. Coping with Your Diagnosis of a Chronic Health Condition If you have a chronic health condition, you have a problem that may not go away over time. Heart disease, asthma, arthritis, and diabetes are just a few of the chronic conditions that exist. Right now, these conditions have no known cure. But you can take an active role in managing your health. Coping with Your Diagnosis If you've just learned about your health condition, you may be angry, depressed, or afraid. Or you might feel relieved just to know what's wrong. Even if you've known about your health problem for a while, adjusting to it can be hard. But learning about your condition can help you cope. Look for books at your local library. If you have access to a computer, check the Internet. Or contact a group that focuses on your specific problem. Accepting Change Change is hard for most people. Yet right now you may be facing many changes. What you eat or the way you work may change. Your moods, and even your symptoms, might vary from day to day. Although it isn't easy, learning to accept change can help you feel more in control. Taking Control Feeling you have control can make living with your condition easier. Discuss treatment options withyour health care provider. The more you know, the more active you can be in your care. Moving Forward You may wonder whether you will be able to do the things you've always done. That depends on your age, the condition you have, and your goals. To make the most of each day, try to build caring relationships, be active, and eat right. Also, do your best to keep a sense of humor. [place] [address]. All rights reserved. This information is not intended as a substitute for professional medical care. Always follow your healthcare professional's instructions. Taking an Active Role in Your Medicines Take the time to learn about your medicine. For instance, why are you taking it? What does it do? Work with your doctor or other health care providers to get the answers you need. Talk to your pharmacist about how to take each medicine, and ask for a fact sheet on each one. Ask Questions About Your Medicine What is the name of the medicine? Why do I need to take it? When should I take it? How should I take it: with water? with food? on an empty stomach? How much do I take? What do I do if I miss a dose? What side effects could it cause and which ones should I call the doctor about? Are there any foods or medicines I should avoid while taking this medicine? Keeping track of your medications? Name of medicine: Taken for: Dose: Time(s) to take it: Take an Active Role Fill all your prescriptions at the same pharmacy. This keeps your medicine history in one place. Talk to the pharmacist. Make sure you understand how to take each medicine. Ask for a fact sheet about each one. Tell your doctor and pharmacist about all the prescription and zgcf-nww-jtimgyf medicines you take.This includes vitamins and herbal remedies. Tell your doctor and pharmacist if you have any medical conditions or allergies to any medicine or food, or if you are or . Keep a list of all your medicines. Use the sample to the right as a guide for the type of information needed. Leeann Ibarra[address] [address]. All rights reserved. This information is not intended as a substitute for professional medical care. Always follow your healthcare professional's instructions. documented in this encounter Progress Notes * Lito Pandey DO - 05/27/2023 3:11 PM EST SUBJECTIVE: B Ammon Nardis OD is a 77 year old male. Chief Complaint Patient presents with Hospital Follow-Up Recent Admission: Patient was recently admitted to [facility]. The date of discharge was of 05/24/2023. Discharge report received and reviewed. HPI: Is a 77-year-old male with history of recurring right pleural effusion, severe tricuspid regurgitation, pulmonary hypertension, chronic HFpEF, paroxysmal atrial fibrillation, chronic anticoagulation, multiple CVAs, GERD and BPH. Patient was a direct admission on 05/23/2023 from referral pulmonary office for evaluation and management of recurrent right-sided pleural effusion. Patient had prior right-sided thoracentesis 2.2 L. Patient then 2 weeks post thoracentesis reported wheeze shortnessa breath. Patient had gained 8 lb since prior thoracentesis. Chest x-ray on 05/21/2023 showed reaccumulated right pleural effusion. Patient underwent thoracentesis with improvement in his shortness abreath. Pleural fluid culture and pathology pending. Patient discharged on Lovenox bridge until Coumadin levels were therapeutic. Patient denies chest pain palpitations or leg edema. Complains of nonproductive cough. Patient denies sputum or fever. 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 Once a week 0 LUTEIN 15-0.7 MG PO CAPS One tablet by mouth every other day 0 VITAMIN C 500 MG PO TABS 2 Tablets. Magnesium 200 MG Tablet Take 0.5 Tablets by mouth in the morning. Coenzyme Q10 200 MG Capsule Take 1 Capsule by mouth in the morning. Cholecalciferol (VITAMIN D) 1000 units Tablet Take 1 Tablet by mouth in the morning. Once a week. aspirin enteric coated 81 MG TBEC Take 1 Tab by mouth daily. 30 Tab 11 Famotidine 20 MG Oral Tablet (Pepcid) Take 1 Tablet by mouth every night at bedtime. 90 Tablet 1 Doxazosin Mesylate 2 MG Oral Tablet (Cardura) Take one tablet three times daily by mouth. 90 Tablet2 Metoprolol Succinate ER 25 MG Oral Tablet Extended Release 24 Hour (toPROL XL) Take 1 Tablet by mouth in the morning. 90 Tablet 3 Warfarin Sodium 5 MG Oral Tablet (Coumadin) TAKE 1 TABLET DAILY OR DIRECTED BY ANTICOAGULATION CLINIC 90 Tablet 1 Empagliflozin 10 MG Oral Tablet (Jardiance) Take 1 Tablet by mouth in the morning. 90 Tablet 3 methIMAzole 5 MG Oral Tablet (Tapazole) 2 tablets or 10 mg by mouth daily since 04/18/2023 360 Tablet 3 Losartan Potassium 25 MG Oral Tablet (Cozaar) Take 1 Tablet by mouth in the morning. 90 Tablet 3 Furosemide 20 MG Oral Tablet (Lasix) Take 3 Tablets by mouth in the morning and 3 Tablets before bedtime. (Patient taking differently: Take 3 Tablets by mouth in the morning and 3 Tablets before bedtime. Alternating 60/80mg in the AM, always 60mg PM.) 540 Tablet 3 Spironolactone 25 MG Oral Tablet (Aldactone) Take 0.5 Tablets by mouth daily. One half tablet by mouth Saturday and fridays 45 Tablet 3 Atorvastatin Calcium 10 MG Oral Tablet (Lipitor) TAKE 1 TABLET DAILY 90 Tablet 1 Garlic 100 MG Oral Tablet Take 1 Tablet by mouth in the morning. Sildenafil Citrate 20 MG Oral Tablet (Revatio) Use 2-5 tabs daily as needed for ED (Patient not taking: Reported on 03/29/2023) 50 Tab 5 No current facility-administered medications for this visit. Current and discharge medications have been reconciled. Review of patient's allergies indicates: Allergen Reactions Omeprazole Other (Please comment) Pt reports it made him feel like med was affecting his heart health, felt like someone "pulled the plug". Penicillin [Penicillins] Hives hives Plavix [Clopidogrel Bisulfate] Hives Pt on several new meds when hives developed, unclear which was the direct cause OBJECTIVE: BP 90/56 | Pulse 76 | Temp 36.5 C (97.7 F) | Wt 71.5 kg (157 lb 11.2 oz) | SpO2 95% | BMI 24.33kg/m | BSA 1.85 m Review Of Systems: Skin: negative Eyes: negative Ears/Nose/Throat: negative Respiratory: As per HPI Cardiovascular: negative Gastrointestinal: negative Genitourinary: negative Musculoskeletal: pt denies significant joint pain or stiffness Neurologic: negative Psychiatric: negative Hematologic/Lymphatic/Immunologic: negative Endocrine: negative PHYSICAL EXAM: BP 90/56 | Pulse 76 | Temp 36.5 C (97.7 F) | Wt 71.5 kg (157 lb 11.2 oz) | SpO2 95% | BMI 24.33kg/m | BSA 1.85 m General: alert, healthy, and no distress Head: Normocephalic, No masses, lesions, tenderness or abnormalities Eye Exam: PERRLA, extraocular movements intact, conjunctiva are pink and non- injected, sclera clear Ears: External ears normal, Canals clear, TM's Normal Nose: no mucosal erythema, no mucosal edema, no purulent discharge Oropharynx: no exudate, no erythema, lips, buccal mucosa, and tongue normal, and mucous membranes are moist Neck: supple, no adenopathy, no bruits, thyroid normal size, non-tender, without nodularity Lymph: no palpable lymphadenopathy Heart: regular rate & rhythm, 2/6 systolic ejection murmur and no gallops Lungs: chest symmetric with normal AP diameter, no chest deformities noted, no chest wall tenderness, decreased breath sounds with dullness to percussion right mid and lower lung, no rales rhonchi orwheeze Pulses: carotid=2/4 w/o bruits Abdomen: abdomen soft, non-tender, normal bowel sounds, and no masses or organomegaly Back: back symmetric, no curvature, no costovertebral angle tenderness, range of motion is normal Extremities: less than 2 second capillary refill, no joint deformities, effusion, or inflammation Neuro Exam: alert & oriented x 3 with fluent speech, no focal motor/sensory deficits, gait normal, reflexes normal and symmetric Skin: skin color, texture, turgor are normal, small skin tear left forearm no evidence of infectionecchymosis of abdomen ASSESSMENT: Hospital discharge follow-up (Primary) - DISCH MED RECON CUR MED LIS Recurrent right pleural effusion - DISCH MED RECON CUR MED LIS - CBC WITH WBC DIFFERENTIAL; Future; Expected date: 05/27/2023 - COMPREHENSIVE METABOLIC PANEL; Future; Expected date: 05/27/2023 - MAGNESIUM; Future; Expected date: 05/27/2023 - PHOSPHORUS; Future; Expected date: 05/27/2023 - XR CHEST 2 VIEWS - PULMONARY REFERRAL OP - THORACIC SURGERY REFERRAL OP Cerebrovascular disease, arteriosclerotic, post-stroke - DISCH MED RECON CUR MED LIS Paroxysmal atrial fibrillation (HCC) - DISCH MED RECON CUR MED LIS Severe tricuspid regurgitation - DISCH MED RECON CUR MED LIS Anticoagulation management encounter Continue present medication as per hospital discharge Lovenox 70 mg subcutaneous q.12 hours Lasix 60 mg twice daily Spironolactone 12.5 mg p.o. Saturday Monitor daily weights PLAN: Continue present medication(s): Study(ies) ordered: CXR Referral(s) to: pulmonology,thoracic surgery Schedule labs: cbc,calcium magnesium.phosphorous cmp Follow up in 1 month(s). I spent a total of 40-54 minutes (exact time 40 mins) minutes on the date of service in preparation, delivery, and documentation of the care provided to Madyson Huffman OD excluding any time spent in performance of separately billed services. Lito Pandey DO Patient location: CLINIC. I was in the same facility as the patient. After connecting through [employer], patient was verified with two unique identifiers. Patient (or authorized legal professional healthcare representative)was then informed that this was a Telemedicine visit and being conducted confidentially over securelines. My office door was closed. No one else was in the room with me. Patient acknowledged consentand understanding of privacy and security of the Telemedicine visit, and gave permission to have a telemedicine presenter stay in the room in order to assist with the history and to conduct the exam as needed. I informed the patient that I have reviewed their record in [facility] and presented the opportunity for them to ask any questions regarding the visit today. The patient agreed to participate. documented in this encounter Plan of Treatment Upcoming Encounters Date Type Department Care Team (Late st Contact Info) Description 06/04/2023 2:20 PM EST [facility] [address] [phone] Mark Berg MD [address] [address] 06/05/2023 10:20 AM EST Anticoagulation Pharmacy, [place] [address] [address] Pharmacist1, [facility] [place] [address] [place] [address] 06/24/2023 11:20 AM EST Office Visit Family Practice [address] [place] [address] [address] [address] Lito Pandey, DO [address] [place] [address] 07/22/2023 11:00 AM EST Nutrition Services Nutrition Services [address] [place] [address] [address] [facility] [place] [address] Melani No, ALFREDO [address] [facility] [address] [address] 08/16/2023 10:40 AM EST Office Visit Family Practice [address] [place] [address] [address] [id number] Lito Pandey, DO [address] [place] [address] 10/03/2023 11:00 AM EDT Telemedicine Endocrinology, [place] [address] [facility] [address] [place] [address] Geremias Hammonds, DO [address] [place] [address] 10/04/2023 11:20 AM EDT Office Visit Dermatology, [place] [address] [place] [address] Caitlin Yuan PA-C [address] [place] [place] [address] 10/15/2023 1:40 PM EDT Office Visit Nephrology, [facility] [address] [place] [address] Tami Wilson MD [address] [place] [address] Scheduled Orders Name Type Priority Associated Diagnoses Orde r Schedule CBC WITH WBC DIFFERENTIAL Lab Routine Recurrent right pleural effusion Expected: 05/27/2023 (Approximate), Expires: 05/27/2024 COMPREHENSIVE METABOLIC PANEL Lab Routine Recurrent right pleural effusion Expected: 05/27/2023 (Approximate), Expires: 05/26/2024 MAGNESIUM Lab Routine Recurrent right pleural effusion Expected: 05/27/2023 (Approximate), Expires: 05/26/2024 PHOSPHORUS Lab Routine Recurrent right pleural effusion Expected: 05/27/2023 (Approximate), Expires: 05/26/2024 Scheduled Referrals Name Type Priority Associated Diagnoses Orde r Schedule PULMONARY REFERRAL OP Referral Within 10 days (routine) Recurrent right pleural effusion Ordered: 05/27/2023 THORACIC SURGERY REFERRAL OP Referral Within 10 days (routine) Recurrent right pleural effusion Ordered: 05/27/2023 Health Maintenance Due Date Last Done Comments [...] this encounter Medical Devices Implanted Type Area Nursing Aide Device Identifier Shelf Expiration Date Model / Serial / Lot Cath Thermodilution 6fr - [id number] Implanted:Qty: 1 on 10/24/2022 by Rene Webber MD at [facility] [place] [employer] [id number] 06/06/2024 [id number] / / [id number] documented as of this encounter Procedures Procedure Name Priority Date/Time Associated Diagnosis Comments XR CHEST 2 VIEWS Routine 05/27/2023 4:07 PM EST Recurrent right pleural effusion documented in this encounter Results * XR CHEST 2 VIEWS (05/27/2023 4:07 PM EST) Anatomical Region Laterality Modality Chest Digital Radiogra phy 05/27/2023 4:35 PM EST Impressions 05/27/2023 4:33 PM EST IMPRESSION New large right pleural effusion. [place], the above report is included in the radiology department communication/reporting system with results relayed to ordering clinician and notification of patient. Narrative 05/27/2023 4:33 PM EST EXAM XR CHEST 2 VIEWS-05/27/2023 4:07 pm HISTORY right plerual effusion COMPARISON Chest two views dated 09/21/2022; chest two views dated 09/04/2022; chest two views dated 05/10/2016 TECHNIQUE PA/lateral FINDINGS Lungs are well-expanded without pneumothorax. Slight apical pleural thickening noted. There is a new large right pleural effusion. The bulk of this effusion extends to a level of that of approximally pacheco. There is suspect somewhat underlying parenchymal density reflecting atelectasis or perhaps less likely inflammatory/infectious infiltrate etcetera. There is no significant left pleural effusion. There is otherwise no parenchymal consolidation or pulmonary vascular congestion. Cardiac silhouette size is difficult to assess due to right hemithorax opacification but is again thought to be enlarged. Thoracic aorta atherosclerotic with calcification and is tortuous. Visualized osseous thorax demonstrates degenerative change. Procedure Note Mehdi Martinez MD - 05/27/2023 EXAM XR CHEST 2 VIEWS-05/27/2023 4:07 pm HISTORY right plerual effusion COMPARISON Chest two views dated 09/21/2022; chest two views dated 09/04/2022; chesttwo views dated 05/10/2016 TECHNIQUE PA/lateral FINDINGS Lungs are well-expanded without pneumothorax. Slight apical pleuralthickening noted. There is a new large right pleural effusion. The bulk of this effusionextends to a level of that of approximally pacheco. There is suspectsomewhat underlying parenchymal density reflecting atelectasis or perhapsless likely inflammatory/infectious infiltrate etcetera. There is no significant left pleural effusion. There is otherwise no parenchymal consolidation or pulmonary vascularcongestion. Cardiac silhouette size is difficult to assess due to righthemithorax opacification but is again thought to be enlarged. Thoracic aorta atherosclerotic with calcification and is tortuous. Visualized osseous thorax demonstrates degenerative change. IMPRESSION IMPRESSION New large right pleural effusion. [place], the above report is included in theradiology department communication/reporting system with results relayedto ordering clinician and notification of patient. [facility] [place] DO RADIOLOGY (RAD GENER AL) documented in this encounter Visit Diagnoses Diagnosis Hospital discharge follow-up- Primary Other follow-up examination Recurrent right pleural effusion Unspecified pleural effusion Cerebrovascular disease, arteriosclerotic, post-stroke Cerebral atherosclerosis Paroxysmal atrial fibrillation (HCC) Atrial fibrillation Severe tricuspid regurgitation Diseases of tricuspid valve Anticoagulation management encounter Encounter for therapeutic drug monitoring documented in this encounter Advance Directives Latest [...] the patient have Health Care Power of Topology Professor? No Care Teams Care Provider Relationship Specialty Start Date End Date Lito Pandey DO [address] [place] [phone] PCP - General Family Medicine 05/09/23 documented as of this encounter
--- OUTSIDE RECORDS SUMMARY | 2023-05-31 12:04 | External Medical Summary ---
Author Name Unknown Address Unknown Organization K01:[facility] [place] [address] [place] [address] Laboratory Report Ordering Provider Test Date Status SHALONDA RYDER 05/28/2023 12:36:18 Final Observation Date Value Abnormality Reference (Units ) Status MYCODE SPECIMEN-SST 05/28/2023 12:36:18 Freezing of extracted DNA, whole blood and/or serum. Final Performing Location [facility] [place] - [address] [place] [address]
--- OUTSIDE RECORDS SUMMARY | 2023-05-31 12:04 | External Medical Summary | Summary of Care ---
Author Name Unknown Organization [facility] Address [address] [place] [address] Phone [phone] Care Team Providers Care House Cleaner Name Role Phone Lito Pandey DO Primary Care Provider [phone] Reason for Visit * Reason Comments Dosage Adjustment In Person (Anticoag Cl inic) Encounter Details Date Type Department Care Team (Latest Contact Info) Description 05/27/2023 3:20 PM EST Anticoagulation Pharmacy, [place] [address] [place] [address] Pharmacist1, [facility] [place] [address] [place] [phone] Paroxysmal atrial fibrillation (HCC)*; Cerebrovascular disease, arteriosclerotic, post-stroke; 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 [...] a little over a month ago at [facility] with ongoing findings suggestive high blood [...] Dr Santos Will obtain pulmonary notes from [facility] and testing done since 09/2020 re pulm HTN Erectile dysfunction is present will try sildenafil (and await pulm assessment of pulm HTN) Last Assessment & Plan: obtain pulmonary notes from [facility] and testing done since 09/2020 re pulm [...] AF burden Paroxysmal atrial fibrillation 09/23/2019 Overview: [facility]: He has a history of persistent atrial [...] 06/08/2018 Overview: see May 06 2018 admissionto [facility] Cardiac Catheterization 05/2016 [facility] 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 Medication Therapy Disease Management - Anticoagulation Patient: Madyson Huffman OD | : 1945 Subjective Patient-Reported Symptoms: Patient Findings Positives: Change in medications (thoracentsis 05/23, given vitamin k prior to procedure, currentlybridging with Lovenox) Negatives: Signs/symptoms of thrombosis, Signs/symptoms of bleeding, Change in health, Change in alcohol use, Change in activity, Upcoming invasive procedure, Missed doses, Extra doses, Change in diet/appetite, Bruising Objective Current Warfarin Dose As of 05/27/2023 Warfarin maintenance plan: 2.5 mg (5 mg x 0.5) every Fri; 5 mg (5 mg x 1) all other days INR Result As of 05/27/2023 INR goal: 2.0-3.0 INR used for dosin.1 (05/27/2023) Assessment & Plan Warfarin Plan As of 05/27/2023 Full warfarin instructions: 05/27: 10 mg; Otherwise 2.5 mg every Fri; 5 mg all other days Next INR check: 06/05/2023 Repeat PT/INR in 9 day(s) Weekly dose: not changed Additional Dosing Information: Description Prefers every 2-3 weeks Dental procedure to be rescheduled. Tanner Boswell DMD, would like INR to be obtained on two days prior and be < 3.0. Fax results to [phone] *Methimazole started 12/07/22* Yoni Matias RPh Clinical Pharmacist 05/27/2023, 3:27 PM documented in this encounter Plan of Treatment Upcoming Encounters Date Type Department Care Team (Late st Contact Info) Description 06/04/2023 2:20 PM EST Office Visit Pulmonary Medicine [place] [address] [place] [phone] Mark Berg MD [address] [place] [address] 06/05/2023 10:20 AM EST Anticoagulation Pharmacy, [place] [address] [place] [address] Pharmacist1, [facility] [place] [address] [place] [phone] 06/24/2023 11:20 AM EST Office Visit Family Practice [address] [place] [address] [place] [address] [place] [address] Lito Pandey, DO [address] [place] [address] 07/22/2023 11:00 AM EST Nutrition Services Nutrition Services [place] [address] [place] [address] Melani No, RDN 30 [facility] [address] [place] [address] 08/16/2023 10:40 AM EST Office Visit Family Practice [facility] [place] [address] [place] [phone] Lito Pandey DO [address] [place] [phone] 10/03/2023 11:00 AM EDT Telemedicine Endocrinology, [place] [address] [facility] [address] [facility] [place] [address] Geremias Hammonds, DO [address] [place] [address] 10/04/2023 11:20 AM EDT Office Visit Dermatology, [place] [facility] [place] [address] [place] [address] Caitlin Yuan PA-C [address] [address] [place] [address] 10/15/2023 1:40 PM EDT Office Visit Nephrology, [facility] [address] [place] [address] Tami Wilson MD [address] [place] [address] Health Maintenance Due Date Last Done Comments [...] this encounter Medical Devices Implanted Type Area Winding Machine Operator Device Identifier Shelf Expiration Date Model / Serial / Lot Cath Thermodilution 6fr - [id number] Implanted:Qty: 1 on 10/24/2022 by Rene Webber MD at [facility] [employer] [id number] 06/06/2024 [id number] / / [id number] documented as of this encounter Procedures Procedure Name Priority Date/Time Associated Diagnosis Comments INR FINGERSTICK, POINT OF CARE STAT 05/27/2023 3:31 PM EST Paroxysmal atrial fibrillation (HCC) Cerebrovascular disease, arteriosclerotic, post-stroke 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 documented in this encounter Results * INR FINGERSTICK, POINT OF CARE (05/27/2023 3:31 PM EST) Fingerstick INR 1.1 INR 3:32 PM EST LAB[facility]ATORY [place] [address] Blood 05/27/2023 3:31 PM EST 05/27/2023 3:32 PM EST Narrative [facility] 46-89 - 05/27/2023 3:32 PM EST Therapeutic ranges for non-operative patients: Prophylaxsis/treatment of DVT: (Range:2.0-3.0) Treatment of pulmonary embolism:(Range:2.0-3.0) Prevention of systemic embolism from: -tissue heart valves -acute myocardial infarction -valvular heart disease -atrial fibrillation (Range: 2.0-3.0) Mechanical prosthetic valves: (Range: 2.5-3.5) Millie Carter [facility] LAB POINT OF CARE TEST DOCKED DEVICE UNSOLICITED RESULTS [address] [phone] documented in this encounter Visit Diagnoses Diagnosis Paroxysmal atrial fibrillation (HCC)- Primary Atrial fibrillation Cerebrovascular disease, arteriosclerotic, post-stroke Cerebral atherosclerosis Anticoagulation management encounter Encounter for therapeutic drug monitoring retirement current use of anticoagulant therapy documented in this encounter Advance Directives Latest [...] the patient have Health Care Power of Data Processing Supervisor? No Care Teams House Cleaner Relationship Specialty Start Date End Date Lito Pandey DO [address] [place] [phone] PCP - General Family Medicine 05/09/23 documented as of this encounter
--- OUTSIDE RECORDS SUMMARY | 2023-05-31 12:04 | External Medical Summary ---
Author Name Unknown Address Unknown Organization K01:[facility] [place] [address] [facility] [place] [address] Laboratory Report Ordering Provider Test Date Status KRISTY GRIFFITH 05/28/2023 12:36:18 Final Observation Date Value Abnormality Reference (Units ) Status BUN 05/28/2023 12:36:18 36 Above high normal 6-20 (mg/dL) Final Creatinine 05/28/2023 12:36:18 1.6 Above high normal 0.6-1.2 (mg/dL) Final Glomerular filtration rate/1.73 sq M.predicted [Volume Rate/Area] in Serum, Plasma or Blood by Creatinine-based formula (CKD-EPI) 05/28/2023 12:36:18 45 Below low normal >=60 (mL/min) Final eGFR is calculated based on the CKD-EPI 2020 equation SODIUM 05/28/2023 12:36:18 135 135-146 (m mol/L) Final Potassium 05/28/2023 12:36:18 4.5 3.5-5.1 (m mol/L) Final Cl 05/28/2023 12:36:18 97 Below low normal 98- 107 (mmol/L) Final CO2 05/28/2023 12:36:18 27 22-32 (mmo l/L) Final Anion gap 05/28/2023 12:36:18 11 7-15 (mmol /L) Final Glucose 05/28/2023 12:36:18 88 70-120 (mg /dL) Final Albumin 05/28/2023 12:36:18 3.8 3.8-5.0 (g /dL) Final AST (Aspartate aminotransferase) 05/28/2023 12:36:18 50 10-50 (U/L) Fin al Alk Phos 05/28/2023 12:36:18 184 Above high normal 35 -130 (U/L) Final Bilirubin, Total 05/28/2023 12:36:18 1.0 <=1 .2 (mg/dL) Final Calcium 05/28/2023 12:36:18 8.7 8.4-10.2 ( mg/dL) Final Protein 05/28/2023 12:36:18 6.4 6.0-8.3 (g /dL) Final ALT (Alanine aminotransferase) 05/28/2023 12:36:18 41 10-50 (U/L) Oziel pat Performing Location [facility] [place] [address] [facility] [address]
--- OUTSIDE RECORDS SUMMARY | 2023-05-31 12:04 | External Medical Summary | Summary of Care ---
Author Name Unknown Organization [facility] Address [address] [place] [address] Phone [phone] Care Team Providers Care Supervisor Electronic Testing Name Role Phone Lito Pandey DO Primary Care Provider [phone] Reason for Visit * Reason Comments Dosage Adjustment Via Phone (anticoag Cl inic) Encounter Details Date Type Department Care Team (Latest Contact Info) Description 05/28/2023 5:10 PM EST Anticoagulation Pharmacy, [place] [address] [place] [address] Pharmacist1, [facility] [place] [address] [place] [phone] Paroxysmal atrial fibrillation (HCC)*; Cerebrovascular disease, arteriosclerotic, post-stroke Allergies Active Allergy Reactions Criticality Noted Date [...] 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 has instruction to continue [...] over a month ago at [facility] with ongoing findings suggestive high blood pressure [...] Dr Santos Will obtain pulmonary notes from [facility] and testing done since 09/2020 re pulm HTN Erectile dysfunction is present will try sildenafil (and await pulm assessment of pulm HTN) Last Assessment & Plan: obtain pulmonary notes from [facility] and testing done since 09/2020 re pulm [...] AF burden Paroxysmal atrial fibrillation 09/23/2019 Overview: [facility]: He has a history of [...] 06/08/2018 Overview: see May 06 2018 admissionto [facility] Cardiac Catheterization 05/2016 [facility] 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 INR 1.2 today and continuing Lovenox 70mg every 12 hours. Has enough Lovenox for tonight and tomorrow morning. Discussed plan to hold Coumadin and continue Lovenox until Pulmonology appointment 06/04 and possible scheduled procedure. Further bridging instructions will be provided once procedure is scheduled. 10 day Lovenox prescription sent to [facility] pharmacy. Yoni Matias RPh Clinical Pharmacist 05/28/2023, 4:26 PM documented in this encounter Plan of Treatment Upcoming Encounters Date Type Department Care Team (Late st Contact Info) Description 06/05/2023 10:20 AM EST Anticoagulation Pharmacy, [place] [address] [place] [address] Pharmacist1, [facility] [place] [address] [place] [address] 06/07/2023 10:40 AM EST Office Visit Pulmonary Medicine, [place] [address] [place] [address] Gabriella Le DO [address] [place] [address] 06/24/2023 11:20 AM EST Office Visit [address] [place] [phone] Lito Pandey DO [address] [place] [phone] 07/22/2023 11:00 AM EST Nutrition Services Nutrition Services [address] [place] [address] [address] [place] [phone] Melani No, LASHAN 30 [facility] [address] [place] [address] 08/16/2023 10:40 AM EST Office Visit [address] [place] [address] Lito Pandey DO [address] [place] [address] 10/03/2023 11:00 AM EDT Telemedicine Endocrinology, [address] [address] Geremias Hammonds, [address] [place] [address] 10/04/2023 11:20 AM EDT Office Visit Dermatology, [place] [place] [address] [place] [address] Caitlin Yuan PA-C [address] [place] [address] 10/15/2023 1:40 PM EDT Office Visit Nephrology, [address] [place] [address] Tami Wilson MD [address] [place] [address] Health Maintenance Due Date Last Done Comments Hepatitis C Screening 1963 Hepatitis B (1 of 3 - Risk 3-dose series) 2003 COVID-19 Vaccine (4 - 2022- season) 2023 01/31/2022, 09/08/2020, 08/11/2020 Depression Screening [...] this encounter Medical Devices Implanted Type Area Greenhouse Technician Device Identifier Shelf Expiration Date Model / Serial / Lot Cath Thermodilution 6fr - [id number] Implanted:Qty: 1 on 10/24/2022 by Rene Webber MD at [facility] [place] [employer] [id number] 06/06/2024 [id number] / / [id number] documented as of this encounter Visit Diagnoses Diagnosis Paroxysmal atrial fibrillation (HCC)- Primary Atrial fibrillation Cerebrovascular disease, arteriosclerotic, post-stroke Cerebral atherosclerosis documented in this encounter Advance Directives Latest [...] the patient have Health Care Power of Social Service Assistant? No Care Teams Supervisor Electronic Testing Relationship Specialty Start Date End Date Lito Pandey DO [address] [place] [address] PCP - General Family Medicine 05/09/23 documented as of this encounter
--- OUTSIDE RECORDS SUMMARY | 2023-05-31 12:04 | External Medical Summary | Summary of Care ---
Author Name Unknown Organization [facility] Address [address] [place] [address] Phone [phone] Care Team Providers Care Roving Can Tender Name Role Phone Lito Pandey DO Primary Care Provider [phone] Reason for Referral * Evaluate & Treat - Unlimited Visits (Within 10 days (routine)) - Authorized Specialty Diagnoses / Procedures Referred By Contact Referred To Contact Thoracic and Cardiac Surgery / Cardiothoracic Surgery Diagnoses Recurrent right pleural effusion Lito Pandey DO [address] [address] Referral ID Status Reason Start Date Expiration Date Visits Requested Visits Authorized [id number] Authorized Specialty Services Required 3 999 999 [...] right pleural effusion Lito Pandey DO [address] [address] Referral ID Status Reason Start Date Expiration Date Visits Requested Visits Authorized [id number] Authorized Specialty Services Required 3 999 999 [...] PM EST Office Visit Family Practice [facility], [place] [address] [address] Lito Pandey DO [address] [place] [address] Hospital discharge follow-up*; Recurrent right pleural effusion; [...] by mouth in the morning. 0 Active Eminence-3 Fatty Acids (FISH OIL) 1000 MG Capsule Take 1 Capsule by mouth in the morning. 0 023 Discontinued documented as of this encounter (statuses as of 05/27/2023) Active Problems Patient Care Coordination No te Formatting of this note migh t be different from the original. 11/05/2019dismissed from speech and home health 11/04/19. 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 [...] a little over a month ago at [facility] with ongoing findings suggestive high blood pressure [...] Dr Santos Will obtain pulmonary notes from [facility] and testing done since 09/2020 re pulm HTN Erectile dysfunction is present will try sildenafil (and await pulm assessment of pulm HTN) Last Assessment & Plan: obtain pulmonary notes from [facility] and testing done since 09/2020 re pulm [...] AF burden Paroxysmal atrial fibrillation 09/23/2019 Overview: [facility]: He has a history of persistent [...] 06/08/2018 Overview: see May 06 2018 admissionto [facility] Cardiac Catheterization 05/2016 [facility] 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 Talk to your [...] to get rid of medicine: Call your [facility] or [facility] government's household trash and recycling service and ask if a drug take-back program is available in your community. Call your local pharmacy and ask the right way to get rid of the medicine. Go to http://www.fda.gov/ForConsumers/ConsumerUpdates/egq593429 to learn how to get rid of [...] brand-name medicine, unless their doctor says otherwise. 4985-1251 [facility], [address] [place] [address], [place] [address]. All rights reserved. This information is not [...] to keep a sense of humor[place] [address]. All rights reserved. This information is not [...] and pharmacist about all the prescription and xahx-rjn-jyxhxsh medicines you take.This includes vitamins and herbal remedies. Tell your doctor and pharmacist if you have any medical conditions or allergies to any medicine or food, or if you are or . Keep a list of all your medicines. Use the sample to the right as a guide for the type of information needed. Leeann Ibar[address] [address]. All rights reserved. This information is not intended as a substitute for professional medical care. Always follow your healthcare professional's instructions. documented in this encounter Progress Notes * Lito Pandey DO - 05/27/2023 3:11 PM EST SUBJECTIVE: B Ammon Nardis OD is a 77 year old male. Chief Complaint Patient presents with Hospital Follow-Up Recent Admission: Patient was recently admitted to [facility]. The date of discharge was of 05/24/2023. [...] facility as the patient. After connecting through [employer], patient was verified with two unique identifiers. Patient (or authorized legal enrollment eligibility representative)was then informed that this was a [...] that I have reviewed their record in [facility] and presented the opportunity for them to ask any questions regarding the visit today. The patient agreed to participate. documented in this encounter Plan of Treatment Upcoming Encounters Date Type Department Care Team (Late st Contact Info) Description 06/04/2023 2:20 PM EST [facility] [address] [phone] Mark Berg MD [address] [address] 06/05/2023 10:20 AM EST Anticoagulation Pharmacy, [place] [address] [address] Pharmacist1, [facility] [place] [address] [address] 06/24/2023 11:20 AM EST Office Visit Family Practice [address] [place] [address] [address] [place] [address] Lito Pandey, DO [address] [place] [address] 07/22/2023 11:00 AM EST Nutrition Services Nutrition Services [address] [place] [address] [address] [facility] [place] [address] Melani No, ALFREDO 30 [facility] [address] [place] [address] 08/16/2023 10:40 AM EST Office Visit Family Practice [address] [place] [address] [address] [place] [phone] Lito Pandey, DO [address] [address] 10/03/2023 11:00 AM EDT Telemedicine Endocrinology, [place] [address] [facility] [address] [place] [address] Geremias Hammonds, DO [address] [place] [address] 10/04/2023 11:20 AM EDT Office Visit Dermatology, [facility] [place] [address] [place] [address] Caitlin Yuan PA-C [address] [place] [address] 10/15/2023 1:40 PM EDT Office Visit Nephrology, [facility] [address] [place] [address] Tami Wilson MD 400 [place] [address] Scheduled Orders Name Type Priority Associated Diagnoses [...] this encounter Medical Devices Implanted Type Area Railcar Mechanic Device Identifier Shelf Expiration Date Model / Serial / Lot Cath Thermodilution 6fr - [id number] Implanted:Qty: 1 on 10/24/2022 by Rene Webber MD at [facility] [employer] [id number] 06/06/2024 [id number] / / [id number] documented as of this encounter Procedures Procedure [...] relayedto ordering clinician and notification of patient. [facility] DO RADIOLOGY (RAD GENER AL) documented in [...] the patient have Health Care Power of Housekeeper Supervisor? No Care Teams Roving Can Tender Relationship Specialty Start Date End Date Lito Pandey DO [address] [phone] PCP - General Family Medicine 05/09/23 documented as of this encounter
--- OUTSIDE RECORDS SUMMARY | 2023-05-31 12:04 | External Medical Summary | Summary of Care ---
Author Name Unknown Organization [facility] Address [address] [place] [address] Phone [phone] Care Team Providers Care Cutter Grinder Name Role Phone Lito Pandey DO Primary Care Provider [phone] Reason for Visit * Reason Comments Outpatient Testing Encounter Details Date Type Department Care Team (Late st Contact Info) Description 05/28/2023 12:30 PM EST Laboratory Laboratory, [address] [place] [address] [facility], Lab [address] [place], [place] [id number] Paroxysmal atrial fibrillation (HCC); Cerebrovascular disease, arteriosclerotic, post-stroke; Anticoagulation management encounter; group home current use of anticoagulant therapy; Hyperthyroidism; MyCode Research Other*[id number]; Hypermagnesemia; Recurrent right pleural effusion Allergies Active Allergy Reactions Criticality Noted Date [...] a little over a month ago at [facility] with ongoing findings suggestive high blood pressure [...] Santos Will obtain pulmonary notes from [facility] and testing done since 09/2020 re pulm HTN Erectile dysfunction is present will try sildenafil (and await pulm assessment of pulm HTN) Last Assessment & Plan: obtain pulmonary notes from [facility] and testing done since 09/2020 re [...] AF burden Paroxysmal atrial fibrillation 09/23/2019 Overview: [facility]: He has a history of [...] Overview: see May 06 2018 admissionto [facility] Cardiac Catheterization 05/2016 [facility] 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 Advance directive discussed with patient 015 Overview: 1 POA Betbrayden 2 POA daughter Tammy [phone] POA father Ammon [phone] Urinary retention with incomplete bladder emptyi ng [...] Description 06/05/2023 10:20 AM EST Anticoagulation Pharmacy, [place] [address] [phone] Pharmacist1, [facility] [place] [address] [place] [address] 06/07/2023 10:40 AM EST Office Visit Pulmonary Medicine, [place] [address] [place] [address] Gabriella Le, [address] [place] [address] 06/24/2023 11:20 AM EST Office Visit Family Practice [address] [place] [address] [address] [phone] Lito Pandey DO [address] [place] [address] 07/22/2023 11:00 AM EST Nutrition Services Nutrition Services [address] [place] [address] [place] [address] [place] [address] Melani No, ALFREDO 30 [facility] [address] [place] [address] 08/16/2023 10:40 AM EST Office Visit Family Practice [address] [place] [address] [place] [address] [phone] Lito Pandey DO [address] [place] [address] 10/03/2023 11:00 AM EDT Telemedicine Endocrinology, [place] 3 [facility] [address] [place] [address] Geremias Hammonds, DO [address] [address] 10/04/2023 11:20 AM EDT Office Visit Dermatology, [facility] [place] [address] [place] [phone] Caitlin Yuan PA-C [address] [place] [address] 10/15/2023 1:40 PM EDT Office Visit Nephrology, [address] [place] [address] Tami Wilson MD [address] [place], [place] [phone] Pending Results Name Type Priority Associated Diagnoses Date /Time PT INR Lab Routine Paroxysmal atrial fibrillation (HCC) Cerebrovascular disease, arteriosclerotic, post-stroke Anticoagulation management encounter group home current use of anticoagulant therapy 05/28/2023 12:36 PM EST TSH Lab Routine Hyperthyroidism 05/28/2023 12:36 PM EST T4, FREE Lab Routine Hyperthyroidism 05/28/2023 12:36 PM EST T3, FREE Lab Routine Hyperthyroidism 05/28/2023 12:36 PM EST MYCODE SUBSEQUENT ADULT Lab Routine MyCode Research Other*[id number] 05/28/2023 12:36 PM EST MAGNESIUM Lab Routine Hypermagnesemia 05/28/2023 12:36 PM EST CBC WITH WBC DIFFERENTIAL Lab Routine Recurrent right pleural effusion 05/28/2023 12:36 PM EST COMPREHENSIVE METABOLIC PANEL Lab Routine Recurrent right pleural effusion 05/28/2023 12:36 PM EST PHOSPHORUS Lab Routine Recurrent right pleural effusion 05/28/2023 12:36 PM EST MYCODE SST1 Lab Routine My[employer] Research Other*[id number] 05/28/2023 12:36 PM EST MYCODE SST2 Lab Routine My[employer] Research Other*[id number] 05/28/2023 12:36 PM EST CBC Lab Routine Recurrent right pleural effusion 05/28/2023 12:36 PM EST DIFFERENTIAL, AUTOMATED Lab Routine Recurrent right pleural effusion 05/28/2023 12:36 PM EST BILIRUBIN, DIRECT Lab Routine Hyperthyroidism 05/28/2023 12:36 PM EST Health Maintenance Due Date Last Done Comments [...] this encounter Medical Devices Implanted Type Area Real Estate Loan Officer Device Identifier Shelf Expiration Date Model / Serial / Lot Cath Thermodilution 6fr - [id number] Implanted:Qty: 1 on 10/24/2022 by Rene Webber MD at [facility] [place] [employer] [id number] 06/06/2024 [id number] / / [id number] documented as of this encounter Visit Diagnoses Diagnosis Paroxysmal atrial fibrillation (HCC) Atrial fibrillation Cerebrovascular disease, arteriosclerotic, post-stroke Cerebral atherosclerosis Anticoagulation management encounter Encounter for therapeutic drug monitoring terminal make up operator current use of anticoagulant therapy Hyperthyroidism Thyrotoxicosis without mention of goiter or other cause, without mention of thyrotoxic crisis or storm My[employer] Research Other*[id number] Hypermagnesemia Disorders of magnesium metabolism Recurrent right pleural effusion Unspecified pleural effusion documented in this encounter [...] the patient have Health Care Power of Extrusion Manager? No Care Teams Cutter Grinder Relationship Specialty Start Date End Date Lito Pandey DO [address] [phone] PCP - General Family Medicine 05/09/23 documented as of this encounter
--- OUTSIDE RECORDS SUMMARY | 2023-05-31 12:04 | External Medical Summary ---
Author Name Unknown Address Unknown Organization : Laboratory Report Ordering Provider Test Date Status NEIL PRESTON 05/27/2023 15:31:19 Final Therapeutic ranges for non-o perative patients:
Prophylaxsis/treatment of DVT: (Range:2.0-3.0)
Treatment of pulmonary embolism:(Range:2.0-3.0)
Prevention of systemic embolism from:
-tissue heart valves
-acute myocardial infarction
-valvular heart disease
-atrial fibrillation
(Range: 2.0-3.0)
Mechanical prosthetic valves: (Range: 2.5-3.5) Observation Date Value Abnormality Reference (Units ) Status INR in Capillary blood by Coagulation assay 05/27/2023 15:31:19 1.1 (INR) Final Performing Location
--- OUTSIDE RECORDS SUMMARY | 2023-05-31 12:04 | External Medical Summary ---
Author Name Unknown Address Unknown Organization K01:LABORATORY [facility] [place] - [address] [place] [address] Laboratory Report Ordering Provider Test Date Status WILMER ANDERSON 05/28/2023 12:36:18 Final Observation Date Value Abnormality Reference (Units ) Status TSH 05/28/2023 12:36:18 5.31 Above high normal 0. 27-4.20 (uIU/mL) Final Performing Location LABORATORY C - [address] [place] [address]
--- OUTSIDE RECORDS SUMMARY | 2023-05-31 12:04 | External Medical Summary ---
Author Name Unknown Address Unknown Organization K1F:LABORATORY [facility] - [address] [place] [address] Laboratory Report Ordering Provider Test Date Status WILMER ANDERSON 05/28/2023 12:36:18 Final Observation Date Value Abnormality Reference (Units ) Status Bilirubin, Direct 05/28/2023 12:36:18 0.3 0. 0-0.3 (mg/dL) Final Performing Location LABORATORY [facility] - [address] [place] [address]
--- OUTSIDE RECORDS SUMMARY | 2023-05-31 12:04 | External Medical Summary ---
Author Name Unknown Address Unknown Organization K01:LABORATORY C - [address] [place] [address] Laboratory Report Ordering Provider Test Date Status KRISTY GRIFFITH 05/28/2023 12:36:18 Final Observation Date Value Abnormality Reference (Units ) Status Magnesium 05/28/2023 12:36:18 2.6 1.5-2.6 (m g/dL) Final Performing Location [facility]ORY [facility] - [address] [place] [address]
--- OUTSIDE RECORDS SUMMARY | 2023-05-31 12:04 | External Medical Summary ---
Author Name Unknown Address Unknown Organization K01:[facility]ORY [facility] [place] [address] [place] [address] Laboratory Report Ordering Provider Test Date Status SHALONDA RYDER 05/28/2023 12:36:18 Final Observation Date Value Abnormality Reference (Units ) Status MYCODE SPECIMEN-SST 05/28/2023 12:36:18 Freezing of extracted DNA, whole blood and/or serum. Final Performing Location [facility] [place] [address] [place] [address]
--- OUTSIDE RECORDS SUMMARY | 2023-05-31 12:04 | External Medical Summary ---
Author Name Unknown Address Unknown Organization K01:LABORATORY [facility] - [facility] [address] [address] [facility] [address] Laboratory Report Ordering Provider Test Date Status KRISTY GRIFFITH 05/28/2023 12:36:18 Final Observation Date Value Abnormality Reference (Units ) Status WBC, Total 05/28/2023 12:36:18 10.72 4.00-10.80 (K/uL) Final RBC 05/28/2023 12:36:18 4.47 4.50-5.25 (M/uL) Final Hemoglobin 05/28/2023 12:36:18 14.8 14.0-16.8 (g/dL) Final HCT 05/28/2023 12:36:18 44.4 40.0-48.4 (%) Final MCV 05/28/2023 12:36:18 99.3 82.0-99.5 (fL) Final MCH 05/28/2023 12:36:18 33.1 27.0-34.0 (pg) Final MCHC 05/28/2023 12:36:18 33.3 32.0-36.0 (g/dL) Final RDW 05/28/2023 12:36:18 14.2 11.5-15.5 (%) Final Platelets 05/28/2023 12:36:18 244 140-400 (K/uL) Final MPV 05/28/2023 12:36:18 10.1 6.6-11.1 (fL) Final Nucleated erythrocytes/100 leukocytes [Ratio] in Blood by Automated count 05/28/2023 12:36:18 0 <=0 (/100 WBCs) Final Performing Location LABORATORY [facility] - [address] [facility] [address]
--- OUTSIDE RECORDS SUMMARY | 2023-05-31 12:04 | External Medical Summary | Summary of Care ---
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 [...] a little over a month ago at [facility] with ongoing findings suggestive high blood pressure [...] Dr Santos Will obtain pulmonary notes from [facility] and testing done since 09/2020 re pulm HTN Erectile dysfunction is present will try sildenafil (and await pulm assessment of pulm HTN) Last Assessment & Plan: obtain pulmonary notes from [facility] and testing done since 09/2020 [...] AF burden Paroxysmal atrial fibrillation 09/23/2019 Overview: [facility]: He has a history of persistent [...] 06/08/2018 Overview: see May 06 2018 admissionto [facility] Cardiac Catheterization 05/2016 [facility] 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 Chest x-ray showed new large right pleural effusion. Patient advised to follow with reinforced steel placing supervisor and thoracic surgeon for further evaluation and treatment. Spoke with [facility] pharmacist. Patient advised to continue Lovenox bridge and not start Coumadin yet pending further recommendations for possible additional thoracentesis procedure or pleurodesis. documented in this encounter Plan of Treatment Upcoming Encounters Date Type Department Care Team (Late st Contact Info) Description 06/04/2023 2:20 PM EST Office Visit Pulmonary Medicine [place] [address] [phone] Mark Berg MD [address] [address] 06/05/2023 10:20 AM EST Anticoagulation Pharmacy, [place] [address] [address] Pharmacist1, [facility] [place] [address] [place] [address] 06/24/2023 11:20 AM EST Office Visit Family Practice [address] [place] [address] [address] [place] [address] Lito Pandey DO [address] [place] [address] 07/22/2023 11:00 AM EST Nutrition Services Nutrition Services [address] [place] [address] [place] [address] [phone] Melani No, RDN 30 [facility] [address] [place] [address] 08/16/2023 10:40 AM EST Office Visit Family Practice [address] [place] [address], [place] [address] [phone] Lito Pandey, DO [address] [phone] 10/03/2023 11:00 AM EDT Telemedicine Endocrinology, [place] 3 [facility] [address] [place] [address] Geremias Hammonds, [facility] [place] [address] 10/04/2023 11:20 AM EDT Office Visit Dermatology, [facility] [place] [address] [facility] [address] [place] [address] Caitlin Yuan PA-C 27 [facility] [address] [place] [address] 10/15/2023 1:40 PM EDT Office Visit Nephrology, [facility] [address] [place], [place] [phone] Tami Wilson MD [address] [place], [place] [phone] Health Maintenance Due Date Last Done Comments [...] this encounter Medical Devices Implanted Type Area Chocolate Finisher Device Identifier Shelf Expiration Date Model / Serial / Lot Cath Thermodilution 6fr - [id number] Implanted:Qty: 1 on 10/24/2022 by Rene Webber MD at [facility] [employer] [id number] 06/06/2024 [id number] / / [id number] documented as of this encounter Advance Directives [...] the patient have Health Care Power of Financial Planning Analyst? No Care Teams Senior Stereo Compiler Team Lead Relationship Specialty Start Date End Date Lito Pandey DO [address] [address] PCP - General Family Medicine 05/09/23 documented as of this encounter
--- OUTSIDE RECORDS SUMMARY | 2023-05-31 12:04 | External Medical Summary ---
Author Name Unknown Address Unknown Organization K01:LABORATORY C - [address] [place] [address] Laboratory Report Ordering Provider Test Date Status WLIMER ANDERSON 05/28/2023 12:36:18 Final Observation Date Value Abnormality Reference (Units ) Status T4, Free 05/28/2023 12:36:18 0.9 0.9-1.7 (n g/dL) Final Performing Location LAB[facility] - [address] [place] [address]
--- OUTSIDE RECORDS SUMMARY | 2023-05-31 12:04 | External Medical Summary ---
Author Name Unknown Address Unknown Organization K1F:LABORATORY [facility] - [address] [place] [address] Laboratory Report Ordering Provider Test Date Status MOHANDOLORESKala 05/28/2023 12:36:18 Final Warfarin Therapy
INR: 2 .0-3.0 conventional anticoagulation
INR: 2.5- 3.5 high intensity anticoagulation Observation Date Value Abnormality Reference (Units ) Status PT 05/28/2023 12:36:18 15.0 11.6-15.2 (seconds) Final INR 05/28/2023 12:36:18 1.2 0.8-1.2 Final Performing Location LABORATORY [facility] - [address] [place] [address]
--- OUTSIDE RECORDS SUMMARY | 2023-05-31 12:04 | External Medical Summary ---
Author Name Unknown Address Unknown Organization K01:LABORATORY [facility] - [address] [place] [address] Laboratory Report Ordering Provider Test Date Status WILMER ANDERSON 05/28/2023 12:36:18 Final Observation Date Value Abnormality Reference (Units ) Status T3, Free 05/28/2023 12:36:18 2.6 2.5-4.3 (p g/mL) Final Performing Location LAB[facility]ORY [facility] - [address] [place] [address]
--- OUTSIDE RECORDS SUMMARY | 2023-05-31 12:05 | External Medical Summary | Summary of Care ---
Author Name Unknown Organization [facility] Address [address] [place] [address] Phone [phone] Care Team Providers Care Turn Down Man Name Role Phone Lito Pandey DO Primary Care Provider [phone] Reason for Visit * Reason Comments Dosage Adjustment Via Phone (anticoag Cl inic) Encounter Details Date Type Department Care Team (Latest Contact Info) Description 05/24/2023 5:10 PM EST Anticoagulation Pharmacy, [place] [address] [place] [address] Pharmacist1, [facility] [place] [address] [place] [phone] Paroxysmal atrial fibrillation (HCC)*; Cerebrovascular disease, arteriosclerotic, [...] as of this encounter (statuses as of 05/24/2023) Medications Medication Sig Dispensed Refills Start Date [...] the morning. Once a week. 0 Active [place]-3 Fatty Acids (FISH OIL) 1000 MG Capsule Take 1 Capsule by mouth in the morning. 0 Active aspirin enteric coated 81 MG [...] as of this encounter (statuses as of 05/24/2023) Active Problems Patient Care Coordination No te Formatting of this note migh t be different from the original. 11/05/2019dismissed from speech and home health 11/04/19. 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 own therapy. OT was dismissed 10/30/19. Problem Noted Date Diagnosed Date Hepatic cirrhosis 05/09/2023 Acute ischemic cerebrovascul ar accident (CVA) involving middle cerebral artery territory 05/09/2023 Severe tricuspid regurgitation 05/09/2023 Pleural effusion [...] Will obtain pulmonary notes from [facility] and testing done since 09/2020 re pulm HTN Erectile dysfunction is present will try sildenafil (and await pulm assessment of pulm HTN) Last Assessment & Plan: obtain pulmonary notes from [facility] and testing done since 09/2020 re [...] AF burden Paroxysmal atrial fibrillation 09/23/2019 Overview: [facility]: He has a history of persistent [...] see May 06 [address] [facility] Cardiac Catheterization 05/2016 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 Advance directive discussed with patient 015 Overview: 1 POA Bethe 2 POA daughter Tammy [phone] POA father Ammon [phone] Urinary retention with incomplete bladder emptyi ng [...] as of this encounter (statuses as of 05/24/2023) Resolved Problems Problem Noted Date Diagnosed Date Resolved Date Chronic kidney disease, stage 3a 01/14/2023 05/23/2023 [...] as of this encounter (statuses as of 05/24/2023) Immunizations Name Administration Dates Next Due COVID-19 [...] Progress Notes * Yoni Matias RPh - 05/24/2023 2:52 PM EST Medication Therapy Disease Management - Anticoagulation Patient: B Ammon Harrisoncoreen OD | : 1945 Patient Phone Numbers Spoke with patient. Reports being discharged from [facility] due to admission for thoracentesis 05/23. Reports warfarin was held 2 doses and vitamin K was administered prior to procedure. Reports Lovenox and coumadin were restarted post-procedure yesterday. Continue Lovenox BID (prescribed by [facility] provider) and warfarin daily. Patient reports [facility] requests patient receive INR check Saturday. Scheduled patient for INR fingerstick in [place] Sunday 05/27. Yoni Matias RPh Clinical Pharmacist 05/24/2023, 2:52 PM documented in this encounter Plan of Treatment Upcoming Encounters Date Type Department Care Team (Late st Contact Info) Description 05/27/2023 10:00 AM EST Anticoagulation Pharmacy, [place] [address] [place] [address] Pharmacist1, [facility] [place] [address] [place] [address] 07/22/2023 11:00 AM EST Nutrition Services Nutrition Services [address] [place] [address] [address] [place] [phone] Melani No, ALFREDO [address] [facility] [address] [place] [address] 08/16/2023 10:40 AM EST Office Visit Family Practice [address] [place], [place] [address] [place] [phone] Lito Pandey, DO [address] [place] [phone] 10/03/2023 11:00 AM EDT Telemedicine Endocrinology, [place] [address] [place] [address] [place] [address] Geremias Hammonds, DO [address] [place] [address] 10/04/2023 11:20 AM EDT Office Visit Dermatology, [facility] [place] [address] [facility] [place] [address] [place] [address] Caitlin Yuan PA-C [address] [facility] [place] [address] [place] [address] 10/15/2023 1:40 PM EDT Office Visit Nephrology, [facility] [address] [place], [place] [phone] Tami Wilson MD [address] [place], [place] [phone] Health Maintenance Due Date Last Done Comments Hepatitis C Screening 1963 Hepatitis B (1 of 3 - Risk 3-dose series) 2003 COVID-19 Vaccine ( season) 2023 01/31/2022, 09/08/2020, 08/11/2020 CKD HGB USE SMARTSET 19525 09/22/202309/21, 09/11/2022, 09/11/2022, Additional history exists CKD PHOS USE SMARTSET 34609 02/07/2024 08/0 08/2022, 02/01/2023, 04/15/2018, Additional history exists Depression Screening 05/09/2024 05/09/2023 GFR 05/09/2024 05/09/2023, [...] this encounter Medical Devices Implanted Type Area 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 No Care Teams Turn Down Man Relationship Specialty Start Date End Date Lito Pandey DO [address] [place] [phone] PCP - General Family Medicine 05/09/23 documented as of this encounter
--- NOTE | 2023-05-31 12:26 | XRay Report ---
SINGLE VIEW CHEST CLINICAL HISTORY: Atypical chest pain FINDINGS: An AP, portable, upright chest radiograph is compared to study dated 05/24/2023 and correla kate with chest CT dated 05/23/2023. The heart is mildly enlarged noting atherosclerotic calcification of the thoracic aorta. The pulmonary vasculature is noncongested. There is a large right pleural eff usion with near complete atelectasis of the right lung and opacification of the right hemithorax. The left lung appears clear. There is mild leftward shift of mediastinum. No pneumothorax is seen. The s keletal structures are osteopenic. The bony thorax is grossly intact. IMPRESSION: 1. Large right pleural effusion with near complete atelectasis of the right lung and opacification of the right hemithorax. 2. The left lung appears clear. 3. Mild cardiomegaly. ACT 112: Negative or not required by law. Electronically signed by: Rasheed Zhao M.D. 05/31/2023 12:24 PM
[2023-05-31 12:37] LABS: Basophils # (auto) 0.08 K/uL (0.00-0.20); Basophils % (auto) 0.8 %; Eosinophils # (auto) 0.43 K/uL (0.00-0.50); Eosinophils % (auto) 4.2 %; Hematocrit (blood only) 43.4 % (42.0-52.0); Hemoglobin 15.4 g/dl (14.0-18.0); Immature Granulocytes # (auto) 0.07 K/uL (0.01-0.20); Immature Granulocytes % (auto) 0.7 %; Lymphocytes # (auto) 1.91 K/uL (1.20-3.40); Lymphocytes % (auto) 18.5 %; Mean Corpuscular Hemoglobin 33.2 pg (25.0-34.0); Mean Corpuscular Hgb Conc 35.5 g/dL (32.0-36.0); Mean Corpuscular Volume 93.5 fL (80.0-100.0); Mean Platelet Volume 8.9 fL (9.4-12.4); Monocytes # (auto) 0.87 K/uL (0.11-0.59); Monocytes % (auto) 8.4 %; Neutrophils # (auto) 6.94 K/uL (1.40-6.50); Neutrophils % (auto) 67.4 %; Platelet Count 223 K/uL (130-400); RDW Coefficient of Variation 14.1 % (11.5-14.5); RDW Standard Deviation 48.1 fL (36.4-46.3); Red Blood Count 4.64 M/uL (4.70-6.10)
[2023-05-31 12:51] LABS: Alanine Aminotransferase 36 U/L (7-52); Albumin Globulin Ratio 1.2 (0.9-2); Albumin Level 3.6 gm/dl (3.4-5.0); Alkaline Phosphatase 160 U/L (34-104); Anion Gap 7 (3-11); Aspartate Aminotransferase 42 U/L (13-39); BUN Creatinine Ratio 22.9 (10-20); Blood Urea Nitrogen 33 mg/dl (6-23); Calcium 8.7 mg/dl (8.6-10.3); Carbon Dioxide 28 mmol/L (21-32); Chloride 101 mmol/L (98-107); Est GFR (African American) 53.2 ml/min; Est GFR (Non-African American) 45.9 ml/min; Globulin 3.1 gm/dl (2.5-4.0); Glucose 95 mg/dl (70-99(Fasting)); Potassium 3.9 mmol/L (3.5-5.1); Sodium 136 mmol/L (136-145); Total Protein 6.7 gm/dl (6.0-8.3)
[2023-05-31 12:56] LABS: Troponin I High Sensitivity 10.9 pg/ml (0-20)
[2023-05-31 13:05] LABS: Partial Thromboplastin Ratio 1.3; Partial Thromboplastin Time 37.4 Seconds (21.0-31.0); Prothrombin Time 11.3 Seconds (9.0-12.0)
--- NOTE | 2023-05-31 13:12 | Electrocardiogram Report ---
Test Reason : Blood Pressure : / mmHG Vent. Rate : 068 BPM Atrial Rate : 068 BPM P-R Int : 268 ms QRS Dur : 090 ms QT Int : 396 ms P-R-T Axes : 042 035 006 degrees QTc Int : 421 ms Sinus rhythm with 1st degree A-V block with Premature atrial complexes Poor R wave progression, consider anterior DC vs. lead placement vs. LVH Abnormal ECG When compared with ECG of 15-SEP-2020 11:35, Borderline criteria for Anterior infarct are now Present Nonspecific T wave abnormality now evident in Inferior leads T wave inversion now evident in Lateral leads Confirmed by Mirza Vasquez ([id number]) on 05/31/2023 1:12:17 PM Referred By: REFERRED SELF Confirmed By:Mirza Vasquez
--- NOTE | 2023-05-31 14:05 | Emergency Department Note ---
Impression & Plan Pleural effusion ED Provider Note CHIEF COMPLAINT: Shortness of breath HPI: This is a 77-year-old male with history of recurrent pleural effusion, pulm hypertension, hypothyroidism, severe tricuspid regurg, heart failure with preserved EF, CVA presenting for shortness of breath. Over the past few days patient has noticed recurrent shortness of breath and dyspnea. States that he will feels winded just going to the bathroom and back to his bed. He notes he is having tachypnea as result of this. His pulse ox at home is downtrending into the low 80s with exertion. He has had thoracentesis x 2. Supposed to be scheduled with a thoracic surgeon next week at [facility]. ROS: See above HPI for pertinent positives & negatives. A total of 10 systems reviewed and were otherwise negative. PAST MEDICAL HISTORY: See Below PAST SURGICAL HISTORY: See Below FAMILY HISTORY: See Below SOCIAL HISTORY: See Below HOME MEDICATIONS: See Below ALLERGIES: See Below VITALS: See Below PHYSICAL EXAMINATION: General: resting comfortably in no acute distress Head: Normocephalic and atraumatic Eyes: Normal inspection, extraocular muscles intact Ear, nose, throat: Normal external exam Neck: Normal range of motion Respiratory: Significantly reduced lung sounds to the right lung Cardiovascular: Regular rate/rhythm, no murmur GI: soft, nontender, no guarding or rebound Extremities: nontender, moves all extremities Neuro: The patient awake and alert, appropriately conversive, no focal deficits, symmetric faces Skin: Warm, dry, and intact MEDICAL DECISION MAKING: This is a 77-year-old male with history as above presenting for shortness of breath. Patient had a chest x-ray done at triage which is independently interpreted by me as complete whiteout of the right lung, significant large pleural effusion with atelectasis. Appears to be a recurrence of patient's pleural effusions. He has had previous thoracentesis with pulmonary, Dr. Santos. Otherwise basic lab work is reassuring, EKG is reviewed as below with negative troponin, aching ACS less likely. Discussed with Dr. Santos who states that based on patient's current Lovenox status, will require thoracentesis blood in 12+ hours. Patient will be admitted with thoracentesis done by Dr. Santos, likely in a.m. Will hold Lovenox. Patient's lab work shows a creatinine of 1.44, at previous baseline. Isolated AST elevation, slight alk phos elevation. Troponin 10.9. External records reviewed by me; discharge summary from 05/24 showing patient's previous thoracentesis as well as plan for outpatient follow-up to thoracic surgeon. Triage Nursing notes reviewed. Prior medical records reviewed Vital Signs: reviewed and remarkable for no significant abnormalities Differential diagnosis: Pleural effusion, pneumonia, low concern for PE, ACS ER treatment provided: See below Diagnostics interpreted by me: ECG: ECG independently interpreted by me with normal sinus rhythm, rate of 68, normal axis, first-degree AV block, normal QRS, normal QTc, no ST segment elevations consistent with STEMI criteria, occasional PAC Cardiac Monitoring: An order was placed for continuous cardiac monitoring. The monitor shows a rate of 70 with sinus rhythm Laboratory studies: As stated above and show below. Imaging studies: See below. Radiographic imaging was reviewed by myself Consultation(s): None Past Med/Surg History Medical History (Updated 05/31/23 @ 16:23 by Ok Smith MD) Hyperthyroidism Paroxysmal atrial fibrillation Severe tricuspid regurgitation Chronic heart failure with preserved ejection fraction (HFpEF) History of CVA (cerebrovascular accident) Hypertension BPH (benign prostatic hyperplasia) HTN (hypertension) Surgical History (Updated 05/31/23 @ 14:50 by Dulce Ceron PA-C) History of thoracentesis Thoracentesis 04/25/2023, 05/23/23 Hx of prior ablation treatment [place] [facility]x of tonsillectomy Family History Other Hypertension Stroke Social History Smoking Status: Never smoker Second Hand Exposure: No; Do You Dip or Chew Tobacco: No; Hx Alcohol Use: Yes Alcohol type: beer and wine Hx Substance Use: No Preferred Language: Slovak Communication Ability: Effective Visual Impairment: No Limitations Hearing Ability: Normal Weighter Required: No Beliefs That Will Affect Care: None marital status: Current Living Situation: Spouse Feels Safe at Home: Yes Assistive Devices: None Allergies Allergies Allergy/AdvReac Type Severity Reaction Status Date / Time Penicillins Allergy Severe Hives Verified 05/17/23 13:02 clopidogrel [From Plavix] Allergy Intermediate hives Verified 05/17/23 13:02 omeprazole AdvReac Severe PAIN IN Verified 05/17/23 13:02 CHEST, PASSED OUT. Home Meds Home Medications Medication Instructions Recorded Confirmed cholecalciferol (vitamin D3) 25 1,000 unit PO WK 05/14/19 05/31/23 mcg (1,000 unit) capsule (Vitamin D3) aspirin 81 mg tablet,delayed 81 mg PO DAILY 09/13/20 05/31/23 release atorvastatin 10 mg tablet (Lipitor) 10 mg PO QAM 09/13/20 05/31/23 coenzyme Q10 200 mg capsule 200 mg PO DAILY 09/13/20 05/31/23 famotidine 20 mg tablet 20 mg PO DAILY 10/15/22 05/31/23 ascorbic acid (vitamin C) 500 mg 1,000 mg PO WK 04/08/23 05/31/23 tablet (Vitamin C) doxazosin 2 mg tablet (Cardura) 2 mg PO TID 04/08/23 05/31/23 empagliflozin 10 mg tablet 10 mg PO QAM 04/08/23 05/31/23 (Jardiance) furosemide 20 mg tablet 60 mg PO BID 04/08/23 05/31/23 glucosamine-chondroitin 167 mg-133 1 cap PO WK 04/08/23 05/31/23 mg capsule losartan 25 mg tablet (Cozaar) 25 mg PO QAM 04/08/23 05/31/23 magnesium 200 mg tablet 100 mg PO WK 04/08/23 05/31/23 spironolactone 25 mg tablet 12.5 mg PO MOWEFR 04/08/23 05/31/23 warfarin 5 mg tablet 0 mg PO FR 05/17/23 05/31/23 warfarin 5 mg tablet 0 mg PO SUMOTUWETHSA 05/17/23 05/31/23 garlic 100 mg tablet 100 mg PO DAILY 05/23/23 05/31/23 methimazole 5 mg tablet 10 mg PO DAILY 05/23/23 05/31/23 Vitamin E 1 cap PO WK 05/31/23 05/31/23 enoxaparin 80 mg/0.8 mL 0.7 mg subcut BID 05/31/23 05/31/23 subcutaneous syringe Previous Rx's Medication Instructions Recorded metoprolol succinate 25 mg 25 mg PO QAM #30 tabs 09/15/20 tablet,extended release 24 hr Results & Data (ED) Vital Signs Vital Signs - 24 hr 05/31/23 11:57 05/31/23 12:20 05/31/23 14:08 Temperature 36.8 C Temperature Source Temporal Artery Scan Pulse Rate 80 70 Respiratory Rate 18 Blood Pressure 101/63 Blood Pressure Mean 75 Pulse Oximetry 97 97 Oxygen Delivery Method Room Air Room Air Sepsis Recent Fever Within 48 Hours No Sepsis New/Unexplained Change in Mental Status No Sepsis Action Taken by Nursing No Action Required Laboratory Data 05/31/23 12:18 05/31/23 12:18 Lab Results 05/31/23 Range/Units 12:18 WBC 10.30 (4.8-10.8) K/ul RBC 4.64 L (4.70-6.10) M/uL Hgb 15.4 (14.0-18.0) g/dl Hct 43.4 (42.0-52.0) % MCV 93.5 (80.0-100.0) fL MCH 33.2 (25.0-34.0) pg MCHC 35.5 (32.0-36.0) g/dL RDW Std Deviation 48.1 H (36.4-46.3) fL RDW Coeff of Saira 14.1 (11.5-14.5) % Plt Count 223 (130-400) K/uL MPV 8.9 L (9.4-12.4) fL Immature Gran % (Auto) 0.7 % Neut % (Auto) 67.4 % Lymph % (Auto) 18.5 % [place] % (Auto) 8.4 % Eos % (Auto) 4.2 % Baso % (Auto) 0.8 % Neut # (Auto) 6.94 H (1.40-6.50) K/uL Lymph # (Auto) 1.91 (1.20-3.40) K/uL [place] # (Auto) 0.87 H (0.11-0.59) K/uL Eos # (Auto) 0.43 (0.00-0.50) K/uL Baso # (Auto) 0.08 (0.00-0.20) K/uL Immature Gran # (Auto) 0.07 (0.01-0.20) K/uL PT 11.3 (9.0-12.0) Seconds INR 1.0 (0.9-1.1) APTT 37.4 H (21.0-31.0) Seconds PTT Ratio 1.3 Sodium 136 (136-145) mmol/L Potassium 3.9 (3.5-5.1) mmol/L Chloride 101 (98-107) mmol/L Carbon Dioxide 28 (21-32) mmol/L Anion Gap 7 (3-11) BUN 33 H (6-23) mg/dl Creatinine 1.44 H (0.6-1.4) mg/dl Est Cr Clr Drug Dosing Not Reportable Est GFR ( Amer) 53.2 ml/min Est GFR (Non-Af Amer) 45.9 ml/min BUN/Creatinine Ratio 22.9 H (10-20) Glucose 95 (70-99(Fasting)) mg/dl Calcium 8.7 (8.6-10.3) mg/dl Total Bilirubin 1.0 (0.2-1.0) mg/dl AST 42 H (13-39) U/L ALT 36 (7-52) U/L Alkaline Phosphatase 160 H (34-104) U/L Troponin I High Sens 10.9 (0-20) pg/ml Total Protein 6.7 (6.0-8.3) gm/dl Albumin 3.6 (3.4-5.0) gm/dl Globulin 3.1 (2.5-4.0) gm/dl Albumin/Globulin Ratio 1.2 (0.9-2) Imaging Data Radiologist's Impression: Chest X-Ray 05/31/23 12:01 SINGLE VIEW CHEST CLINICAL HISTORY: Atypical chest pain FINDINGS: An AP, portable, upright chest radiograph is compared to study dated 05/24/2023 and correlated with chest CT dated 05/23/2023. The heart is mildly enlarged noting atherosclerotic calcification of the thoracic aorta. The pulmonary vasculature is noncongested. There is a large right pleural effusion with near complete atelectasis of the right lung and opacification of the right hemithorax. The left lung appears clear. There is mild leftward shift of mediastinum. No pneumothorax is seen. The skeletal structures are osteopenic. The bony thorax is grossly intact. IMPRESSION: 1. Large right pleural effusion with near complete atelectasis of the right lung and opacification of the right hemithorax. 2. The left lung appears clear. 3. Mild cardiomegaly. ACT 112: Negative or not required by law. Electronically signed by: Rasheed Zhao M.D. 05/31/2023 12:24 PM Discharge Plan Visit Data Chief Complaint: Shortness of Breath/Dyspnea Stated Complaint: SOB ED Provider: Ok Smith Discharge Problem: Pleural effusion Forms Stand Alone Forms: My [facility] Prescriptions Prescriptions: No Action famotidine 20 mg tablet 20 mg PO DAILY spironolactone 25 mg tablet 12.5 mg PO MOWEFR furosemide 20 mg tablet 60 mg PO BID Jardiance 10 mg tablet 10 mg PO QAM doxazosin [Cardura] 2 mg tablet 2 mg PO TID glucosamine-chondroitin 167-133 mg capsule 1 cap PO WK Rx Instructions: pt takes one time weekly magnesium 200 mg tablet 100 mg PO WK cholecalciferol (vitamin D3) [Vitamin D3] 1,000 unit Capsule 1,000 unit PO WK atorvastatin [Lipitor] 10 mg tablet 10 mg PO QAM aspirin 81 mg Tablet,Delayed Release (Dr/Ec) 81 mg PO DAILY Rx Instructions: pt states he takes in the morning coenzyme Q10 200 mg Capsule 200 mg PO DAILY metoprolol succinate 25 mg tablet extended release 24 hr 25 mg PO QAM Qty: 30 2RF ascorbic acid (vitamin C) [Vitamin C] 500 mg tablet 1,000 mg PO WK losartan [Cozaar] 25 mg tablet 25 mg PO QAM warfarin 5 mg tablet 0 mg PO FR Rx Instructions: Not currently taking warfarin 5 mg tablet 0 mg PO SUMOTUWETHSA Rx Instructions: Not currently taking enoxaparin 80 mg/0.8 mL syringe 0.7 mg subcut BID Vitamin E 1 cap PO WK garlic 100 mg Tablet 100 mg PO DAILY methimazole 5 mg tablet 10 mg PO DAILY Referrals Referrals: Lito Pandey DO [Primary Care Provider] -
--- NOTE | 2023-05-31 14:57 | History & Physical Report ---
Date of Service May 31, 2023 Assessment & Plan (1) Recurrent pleural effusion on right: Plan: This is a 77 y/o male with chronic HFpEF, PAF on chronic AC, HTN, dyslipidemia, hyperthyroidism, pulmonary HTN, hx of multiple CVAs, GERD, BPH, and other history as outlined who presents today with worsening dyspnea on exertion. Imaging in the ED consistent with worsening of known right pleural effusion. ED provider spoke with geriatric psychiatrist who is agreeable to repeat thoracentesis tomorrow after Lovenox has been held tonight. Outpatient notes and prior admission notes extensively reviewed. - Med surg observation overnight - Hold Lovenox tonight and tomorrow AM - plan to resume Lovenox after thoracentesis, warfarin on hold until thoracic surgery evaluation and possible procedure next week - Consult pulmonology for thoracentesis tomorrow - AM labs - CBC, BMP, coags (2) Paroxysmal atrial fibrillation: Plan: Rate controlled on beta-larissa Warfarin currently on hold in anticipation of upcoming procedure - resume bridging Lovenox after thoracentesis (3) Severe tricuspid regurgitation: (4) Chronic heart failure with preserved ejection fraction (HFpEF): (5) Hypertension: (6) Pulmonary hypertension: (7) Hyperthyroidism: Plan: Chronic, stable - TSH 3.08 05/09/2023 Continue methimazole Plan Continue other home medications as appropriate Pt seen and reviewed with attending physician, Dr. Khan. Plan of care discussed and as outlined above DVT Prophylaxis: SCDs while Lovenox on hold Marleen Ceron PA-C History of Present Illness Chief Complaint: trouble breathing with exertion Primary Care Provider: Lito Pandey DO This is a 77 y/o male with chronic HFpEF, PAF on chronic AC, HTN, dyslipidemia, hyperthyroidism, pulmonary HTN, hx of multiple CVAs, GERD, BPH, and other history as outlined who presents today with worsening dyspnea on exertion. Pt has a recurrent right pleural effusion, and most recently underwent thoracentesis on 05/23/23 with removal of 2L of fluid. He is scheduled to see thoracic surgery next week as an outpatient. He has been on Lovenox bridge with Coumadin on hold until he sees thoracic surgery next due to anticipated need for a VATS with pleural biopsy, potentially as soon as 06/07/23. Pt reports only partial relief of respiratory symptoms after his thoracentesis last week. This relief lasted about three days before he noted worsening dyspnea with exertion again. Last night, he became winded just with getting up to use the bathroom - it took ten minutes of rest to get his breathing back to baseline. He notes orthopnea. Due to the worsening symptoms he came to the ED for potential repeat thoracentesis. He denies fevers, chills, chest pain, N/V. He has seemed more weak and tired per his family. He notes an inability to take a deep breath. 02/26/2023 -admitted to [facility] for 2 weeks due to severe volume overload treated with furosemide infusion, diuresing off 20 pounds of fluid. Underwent right heart cath and echocardiogram that showed tricuspid regurgitation was graded as mild compared to severe. 04/25/2023 -s/p right-sided thoracentesis for 2.2L 05/23/2023 - s/p right-sided thoracentesis for 2L Allergies Allergy/AdvReac Type Severity Reaction Status Date / Time Penicillins Allergy Severe Hives Verified 05/17/23 13:02 clopidogrel [From Plavix] Allergy Intermediate hives Verified 05/17/23 13:02 omeprazole AdvReac Severe PAIN IN Verified 05/17/23 13:02 CHEST, PASSED OUT. Home Medications Medication Instructions Recorded Confirmed Type cholecalciferol (vitamin D3) 25 1,000 unit PO DAILY 05/14/19 05/31/23 History mcg (1,000 unit) capsule (Vitamin D3) aspirin 81 mg tablet,delayed 81 mg PO DAILY 09/13/20 05/31/23 History release atorvastatin 10 mg tablet (Lipitor) 10 mg PO QAM 09/13/20 05/31/23 History coenzyme Q10 200 mg capsule 200 mg PO DAILY 09/13/20 05/31/23 History metoprolol succinate 25 mg 25 mg PO QAM #30 tabs 09/15/20 05/31/23 Rx tablet,extended release 24 hr famotidine 20 mg tablet 20 mg PO DAILY 10/15/22 05/31/23 History ascorbic acid (vitamin C) 500 mg 1,000 mg PO DAILY 04/08/23 05/31/23 History tablet (Vitamin C) doxazosin 2 mg tablet (Cardura) 2 mg PO TID 04/08/23 05/31/23 History empagliflozin 10 mg tablet 10 mg PO QAM 04/08/23 05/31/23 History (Jardiance) furosemide 20 mg tablet 60 mg PO BID 04/08/23 05/31/23 History glucosamine-chondroitin 167 mg-133 1 cap PO WK 04/08/23 05/31/23 History mg capsule losartan 25 mg tablet (Cozaar) 25 mg PO QAM 04/08/23 05/31/23 History magnesium 200 mg tablet 100 mg PO DAILY 04/08/23 05/31/23 History spironolactone 25 mg tablet 12.5 mg PO MOWEFR 04/08/23 05/31/23 History warfarin 5 mg tablet 0 mg PO FR 05/17/23 05/31/23 History warfarin 5 mg tablet 0 mg PO SUMOTUWETHSA 05/17/23 05/31/23 History garlic 100 mg tablet 100 mg PO DAILY 05/23/23 05/31/23 History methimazole 5 mg tablet 10 mg PO DAILY 05/23/23 05/31/23 History Vitamin E 1 cap PO WK 05/31/23 05/31/23 History enoxaparin 80 mg/0.8 mL 0.7 mg subcut BID 05/31/23 05/31/23 History subcutaneous syringe Past Med/Surg History Medical History (Updated 05/31/23 @ 16:42 by Dulce Ceron PA-C) Hyperthyroidism Paroxysmal atrial fibrillation Severe tricuspid regurgitation Chronic heart failure with preserved ejection fraction (HFpEF) History of CVA (cerebrovascular accident) Hypertension BPH (benign prostatic hyperplasia) HTN (hypertension) Surgical History (Updated 05/31/23 @ 14:50 by Dulce Ceron PA-C) History of thoracentesis Thoracentesis 04/25/2023, 05/23/23 Hx of prior ablation treatment History of cardiac catheterization 2016 at [facility] Hx of tonsillectomy Family History Other Hypertension Stroke Social History Smoking Status: Former smoker Second Hand Exposure: No; Do You Dip or Chew Tobacco: No; Tobacco Cessation Education Requested by Patient: No Hx Alcohol Use: Yes Alcohol type: wine Hx Substance Use: No Preferred Language: Yoruba Communication Ability: Effective Visual Impairment: No Limitations Hearing Ability: Normal Scaling Machine Operator Required: No Beliefs That Will Affect Care: None marital status: Current Living Situation: Family Current Living Situation Comment: and kids Other Information That Helps Us Care for You: No Feels Safe at Home: Yes Safety Concerns: Feels Safe At This Time Assistive Devices: None Review of Systems Review of Systems: All systems reviewed & are unremarkable except as noted in HPI & below Constitutional: + fatigue and + weakness; no fever and n o chills Ear, Nose, Mouth, Throat: no nasal congestion, no nasal discharge and no sore throat Respiratory: as per Subjective / HPI; no cough Cardiovascular: no chest pain, no palpitations and no syncope Gastrointestinal: no abdominal pain, no nausea, no vomiting and no diarrhea/loose stools Integumentary: bruising at the Lovenox injection sites Neurologic: no seizure-like activity, no headache(s) and no confusion Physical Exam Physical Exam: General: awake, alert, NAD HEENT: no scleral icterus Neck: trachea mid-line Heart: irregularly irregular Lungs: clear on the left, markedly diminished to absent on right Abd: soft, +BS Extremities: trace LE edema Skin: multiple areas of ecchymosis on UE Neuro: no focal deficits; oriented x 3; moving all extremities; no dysarthria Results & Data Results & Data Vital Signs (Past 12 Hours) Vital Signs Temp Pulse Resp BP Pulse Ox O2 Del Method 05/31/23 14:08 97 Room Air 05/31/23 12:20 70 05/31/23 11:57 36.8 C 80 18 101/63 97 Room Air Laboratory Results Laboratory Results - last 24 hr 05/31/23 12:18 WBC 10.30 RBC 4.64 L Hgb 15.4 Hct 43.4 MCV 93.5 MCH 33.2 MCHC 35.5 RDW Std Deviation 48.1 H RDW Coeff of Saira 14.1 Plt Count 223 MPV 8.9 L Immature Gran % (Auto) 0.7 Neut % (Auto) 67.4 Lymph % (Auto) 18.5 [place] % (Auto) 8.4 Eos % (Auto) 4.2 Baso % (Auto) 0.8 Neut # (Auto) 6.94 H Lymph # (Auto) 1.91 [place] # (Auto) 0.87 H Eos # (Auto) 0.43 Baso # (Auto) 0.08 Immature Gran # (Auto) 0.07 PT 11.3 INR 1.0 APTT 37.4 H PTT Ratio 1.3 Sodium 136 Potassium 3.9 Chloride 101 Carbon Dioxide 28 Anion Gap 7 BUN 33 H Creatinine 1.44 H Est Cr Clr Drug Dosing Not Reportable Est GFR ( Amer) 53.2 Est GFR (Non-Af Amer) 45.9 BUN/Creatinine Ratio 22.9 H Glucose 95 Calcium 8.7 Total Bilirubin 1.0 AST 42 H ALT 36 Alkaline Phosphatase 160 H Troponin I High Sens 10.9 Total Protein 6.7 Albumin 3.6 Globulin 3.1 Albumin/Globulin Ratio 1.2 Diagnostic Findings Chest X-Ray 05/31/23 12:01 SINGLE VIEW CHEST CLINICAL HISTORY: Atypical chest pain FINDINGS: An AP, portable, upright chest radiograph is compared to study dated 05/24/2023 and correlated with chest CT dated 05/23/2023. The heart is mildly enlarged noting atherosclerotic calcification of the thoracic aorta. The pulmonary vasculature is noncongested. There is a large right pleural effusion with near complete atelectasis of the right lung and opacification of the right hemithorax. The left lung appears clear. There is mild leftward shift of mediastinum. No pneumothorax is seen. The skeletal structures are osteopenic. The bony thorax is grossly intact. IMPRESSION: 1. Large right pleural effusion with near complete atelectasis of the right lung and opacification of the right hemithorax. 2. The left lung appears clear. 3. Mild cardiomegaly. ACT 112: Negative or not required by law. Electronically signed by: Rasheed Zhao M.D. 05/31/2023 12:24 PM Supervising Physician Co-Signing Physician Notes Pt seen and examined by me, care coordinated w/ Marleen Ceron PA-C, pls defer to her note above for further detail. Pt is a 77 y/o M with chronic HFpEF, PAF on chronic AC, HTN, dyslipidemia, hyperthyroidism, pulmonary HTN, hx of multiple CVAs, GERD, BPH, who presents today with worsening dyspnea on exertion. Pt has a recurrent right pleural effusion, and most recently underwent thoracentesis 10 days ago. He is scheduled to see thoracic surgery next week as an outpatient at [facility]. He has been on Lovenox bridge with Coumadin on hold until he sees thoracic surgery next due to anticipated need for a VATS with pleural biopsy, potentially as soon as 06/07/23. He denies fevers, chills, chest pain, N/V. He notes an inability to take a deep breath. Currently sitting up in bed in NAD, on RA, taking shallow breaths but breathing comfortably. Awake, alert oriented , able to answer questions appropriately. Decreased breath sounds on the right. No wheezing. Heart sounds regular. Abdomen, soft, nontender. No LE edema. Moves extremities. Pulmonary medicine contacted. [facility]w. [facility] MD Bill (5) Hypertension Hypertension type: unspecified Qualified Code(s): I10 - Essential (primary) hypertension
[2023-05-31] MEDS ORDERED: SPIRONOLACTONE 12.5 MG TAB PO SCH (17:15)
[2023-05-31] MEDS ORDERED: ACETAMINOPHEN 325 MG TAB PO PRN (17:15)
[2023-05-31] MEDS: FUROSEMIDE 20 MG TAB PO SCH (18:12)
[2023-05-31] MEDS: DOXAZosin MESYLATE TAB 2 MG TAB PO SCH (21:15)
--- OUTSIDE RECORDS SUMMARY | 2023-06-01 07:47 | External Medical Summary | Summary of Care ---
Author Name Unknown Organization [facility] Address [address] [place] [address] Phone [phone] Care Team Providers Care Integration Manager Name Role Phone Lito Pandey DO Primary Care Provider [phone] Reason for Visit * Reason Onset Date Comments Referral 05/29/2023 Encounter Details Date Type Department Care Team (Late st Contact Info) Description 05/29/2023 New Patient Triage (OLEO HASHER AND RENDERER USE ONLY) [facility] [address] [place] [address] Laura Zafar PA-C [address] [place] [address] Referral Allergies Active Allergy Reactions [...] as of this encounter (statuses as of 05/31/2023) Medications Medication Sig Dispensed Refills Start Date [...] as of this encounter (statuses as of 05/31/2023) Active Problems Patient Care Coordination No te Formatting of this note migh t be different from the original. 11/05/2019dismissed from speech and home health 11/04/19. 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 He has instruction to [...] a little over a month ago at [facility] with ongoing findings suggestive high blood [...] Santos Will obtain pulmonary notes from [facility] and testing done since 09/2020 re pulm HTN Erectile dysfunction is present will try sildenafil (and await pulm assessment of pulm HTN) Last Assessment & Plan: obtain pulmonary notes from [facility] and testing done since 09/2020 re pulm [...] burden Paroxysmal atrial fibrillation 09/23/2019 Overview: [facility]: He has a history of [...] Overview: see May 06 2018 admissionto [facility] Cardiac Catheterization 05/2016 [facility] 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 Advance directive discussed with patient 015 Overview: 1 POA Bethe 2 POA daughter Tammy [phone] POA father Ammon [phone] Urinary retention with incomplete bladder emptyi ng [...] as of this encounter (statuses as of 05/31/2023) Resolved Problems Problem Noted Date Diagnosed Date [...] as of this encounter (statuses as of 05/31/2023) Immunizations Name Administration Dates Next Due COVID-19 [...] Recurrent pleural effusion Enter order ID here: [id number] Specialty specific documentation: Cardiac and Thoracic Surgery [...] VATS withpleural biopsy. He will arrive to [facility] earlier to obtain an updated CXR prior to his clinic visit. Directions provided. Discussed the possibility of a tentative OR date 06/07. If this is not available at the time of clinic visit, we will then schedule for another date. I advised that he contact his Corporate Securities Research Analyst or present to the nearest ED if [...] patient on Date (venkat/kimmie/yymickiy): 05/29/2023 at [facility] ([facility] 1320 documented in this encounter Plan of Treatment Upcoming Encounters Date Type Department Care Team (Late st Contact Info) Description 06/05/2023 10:20 AM EST Anticoagulation Pharmacy, [place] [address] [place] [address] Pharmacist1, [facility] [place] [address] [place] [phone] 06/06/2023 10:00 AM EST Office Visit Thoracic Surg [facility], [place] [address] [place] [address] Ochoa Hernández MD [address], [place] [phone] 06/07/2023 10:40 AM EST Office Visit Pulmonary Medicine, [place] [address], [place] [phone] Gabriella Le, [address], [place] [phone] 06/24/2023 11:20 AM EST Office Visit Family Practice [address] [place] [address] [address] [place] [address] Lito Pandey DO [address] [place] [address] 07/22/2023 11:00 AM EST Nutrition Services Nutrition Services [address] [place] [address] [place] [address] [place] [phone] Melani No, [place] [address] [facility] [address] [place] [id number] 08/16/2023 10:40 AM EST Office Visit Family Practice [address] [place] [address] [place] [address] [place] [address] Lito Pandey DO [address] [place] [address] 10/03/2023 11:00 AM EDT Telemedicine Endocrinology, [place] [address] [facility] [address] [place] [address] Geremias Hammonds, [address] [place] [address] 10/04/2023 11:20 AM EDT Office Visit Dermatology, [place] [address] [place] [address] Caitlin Yuan PA-C [address] [place] [address] 10/15/2023 1:40 PM EDT Office Visit Nephrology, [facility] [address] [place] [address] Tami Wilson MD [address] [place], [place] [id number] Scheduled Orders Name Type Priority Associated Diagnoses [...] this encounter Medical Devices Implanted Type Area Ccie Device Identifier Shelf Expiration Date Model / Serial / Lot Cath Thermodilution 6fr - [id number] Implanted:Qty: 1 on 10/24/2022 by Rene Webber MD at [facility] [employer] [place] [id number] 06/06/2024 [id number] / / [id number] documented as of this encounter Visit Diagnoses [...] the patient have Health Care Power of Wedding Coordinator? No Care Teams Integration Manager Relationship Specialty Start Date End Date Lito Pandey DO [address] [place] [phone] PCP - General Family Medicine 05/09/23 documented as of this encounter
--- OUTSIDE RECORDS SUMMARY | 2023-06-01 07:47 | External Medical Summary | Summary of Care ---
Author Name Unknown Organization [facility] Address [address] [place] [address] Phone [phone] Care Team Providers Care Electrical Technician Instructor Name Role Phone Lito Pandey DO Primary Care Provider [phone] Reason for Visit * Reason Onset Date Comments Referral 05/29/2023 Encounter Details Date Type Department Care Team (Late st Contact Info) Description 05/29/2023 New Patient Triage (CLIENT RENEWAL SPECIALIST USE ONLY) [facility] [address] [place] [address] Laura Zafar PA-C [address] [place] [address] Referral Allergies Active Allergy Reactions [...] 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 [...] a little over a month ago at [facility] with ongoing findings suggestive high blood [...] Santos Will obtain pulmonary notes from [facility] and testing done since 09/2020 re pulm HTN Erectile dysfunction is present will try sildenafil (and await pulm assessment of pulm HTN) Last Assessment & Plan: obtain pulmonary notes from [facility] and testing done since 09/2020 [...] AF burden Paroxysmal atrial fibrillation 09/23/2019 Overview: [facility]: He has a history of [...] Overview: see May 06 2018 admissionto [facility] [place]iac [place]ter[place] [facility] 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 Advance directive discussed with patient 015 Overview: 1 POA Bethe 2 POA daughter Tammy [phone] POA father Ammon [phone] Urinary retention with incomplete bladder emptyi ng [...] Recurrent pleural effusion Enter order ID here: [id number] Specialty specific documentation: Cardiac and Thoracic Surgery [...] VATS withpleural biopsy. He will arrive to [facility] earlier to obtain an updated CXR prior to his clinic visit. Directions provided. Discussed the possibility of a tentative OR date 06/07. If this is not available at the time of clinic visit, we will then schedule for another date. I advised that he contact his Tubing Oiler or present to the nearest ED if [...] patient on Date (venkat/kimmie/yymickiy): 05/29/2023 at [facility] 1320 documented in this encounter Plan of Treatment Upcoming Encounters Date Type Department Care Team (Late st Contact Info) Description 06/05/2023 10:20 AM EST Anticoagulation Pharmacy, [place] [address] [place] [address] Pharmacist1, [facility] [place] [address] [place] [phone] 06/06/2023 10:00 AM EST Office Visit Thoracic Surg [facility], [place] [address] [place] [address] Ochoa Hernández MD [address], [place] [phone] 06/07/2023 10:40 AM EST Office Visit Pulmonary Medicine, [place] [address] [place], [place] [phone] Gabriella Le, [address], [place] [phone] 06/24/2023 11:20 AM EST Office Visit Family Practice [address] [place] [address] [address] [place] [address] Lito Pandey DO [address] [place] [address] 07/22/2023 11:00 AM EST Nutrition Services Nutrition Services [address] [place] [address] [place] [address] [place] [phone] Melani No, LASHAN 30 [facility] [address] [place] [address] 08/16/2023 10:40 AM EST Office Visit Family Practice [address] [place] [address] [place] [address] [place] [address] Lito Pandey DO [address] [place] [address] 10/03/2023 11:00 AM EDT Telemedicine Endocrinology, [place] [address] [facility] [address] [place] [address] Geremias Hammonds, [address] [place] [address] 10/04/2023 11:20 AM EDT Office Visit Dermatology, [place] [place] [address] [place] [address] Caitlin Yuan PA-C [address] [place] [address] 10/15/2023 1:40 PM EDT Office Visit Nephrology, [facility] [address] [place] [address] Tami Wilson MD [address] [place], [place] [phone] Scheduled Orders Name Type Priority Associated Diagnoses [...] this encounter Medical Devices Implanted Type Area Hospice Aide Device Identifier Shelf Expiration Date Model / Serial / Lot Cath Thermodilution 6fr - [id number] Implanted:Qty: 1 on 10/24/2022 by Rene Webber MD at [facility]S [facility] [employer] [place] [id number] 06/06/2024 [id number] / / [id number] documented as of this encounter Visit Diagnoses [...] the patient have Health Care Power of Doubler Operator? No Care Teams Electrical Technician Instructor Relationship Specialty Start Date End Date Lito Pandey DO [address] [place] [phone] PCP - General Family Medicine 05/09/23 documented as of this encounter
--- OUTSIDE RECORDS SUMMARY | 2023-06-01 07:47 | External Medical Summary | Summary of Care ---
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 He has instruction to [...] Dr Santos Will obtain pulmonary notes from [facility] and testing done since 09/2020 re pulm HTN Erectile dysfunction is present will try sildenafil (and await pulm assessment of pulm HTN) Last Assessment & Plan: obtain pulmonary notes from [facility] and testing done since 09/2020 [...] Paroxysmal atrial fibrillation 09/23/2019 Overview: [facility]: He has a history of [...] 06/08/2018 Overview: see May 06 2018 admissionto [facility] Cardiac [place]2016 [facility] 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 He will arrive to [facility] earlier to obtain an updated CXR prior to his clinic visit. Directions provided. Discussed the possibility of a tentative OR date 06/07. If this is not available at the time of clinic visit, we will then schedule for another date. I advised that he contact his Dependency Program Director or present to the nearest ED if [...] patient on Date (venkat/kimmie/yymickiy): 05/29/2023 at Time ([facility] 1320 documented in this encounter Plan of Treatment Upcoming Encounters Date Type Department Care Team (Late st Contact Info) Description 06/05/2023 10:20 AM EST Anticoagulation Pharmacy, [place] [address] [place] [place] [id number] Pharmacist1, [facility] [place] [address] [place] [place] [id number] 06/06/2023 10:00 AM EST Office Visit Thoracic Surg [facility], [place] [address] [place] [address] Ochoa Hernández MD [address], [place] [phone] 06/07/2023 10:40 AM EST Office Visit Pulmonary Medicine, [place] [address], [place] [phone] Gabriella Le, [address], [place] [phone] 06/24/2023 11:20 AM EST Office Visit Family Practice [address] [place] [address] [address] [place] [address] Lito Pandey DO [address] [place] [address] 07/22/2023 11:00 AM EST Nutrition Services Nutrition Services [address] [place] [address] [place] [address] [place] [phone] Melani No, LASHAN 30 [facility] [address] [place] [id number] 08/16/2023 10:40 AM EST Office Visit Family Practice [address] [place] [address] [place] [address] [place] [address] Lito Pandey DO [address] [place] [address] 10/03/2023 11:00 AM EDT Telemedicine Endocrinology, [place] [address] [facility] [address] [place] [address] Geremias Hammonds, [address] [place] [address] 10/04/2023 11:20 AM EDT Office Visit Dermatology, [place] [facility] [place] [address] [address] [place] [address] Caitlin Yuan PA-C [address] [place] [address] 10/15/2023 1:40 PM EDT Office Visit Nephrology, [facility] [address] [place] [address] Tami Wilson MD [address] [place], [place] [phone] Scheduled Orders Name Type Priority Associated Diagnoses [...] this encounter Medical Devices Implanted Type Area Manager Business Management Device Identifier Shelf Expiration Date Model / Serial / Lot Cath Thermodilution 6fr - [id number] Implanted:Qty: 1 on 10/24/2022 by Rene Webber MD at [facility] [employer] KIESHA [id number] 06/06/2024 [id number] / / [id number] documented as of this encounter Visit Diagnoses [...] the patient have Health Care Power of Court Assistant? No Care Teams Blast Setter Relationship Specialty Start Date End Date Lito Pandey DO [address] [place] [phone] PCP - General Family Medicine 05/09/23 documented as of this encounter
--- OUTSIDE RECORDS SUMMARY | 2023-06-01 07:47 | External Medical Summary | Summary of Care ---
Author Name Unknown Organization [facility] Address [address] [place] [address] Phone [phone] Care Team Providers Care Sound Mixer Name Role Phone Lito Pandey DO Primary Care Provider [phone] Reason for Visit * Reason Onset Date Comments Referral 05/29/2023 Encounter Details Date Type Department Care Team (Late st Contact Info) Description 05/29/2023 New Patient Triage (RUBBLE PLACER USE ONLY) [facility] [address] [place] [address] Laura Zafar PA-C [address] [place] [address] Referral Allergies Active Allergy Reactions [...] 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 with ongoing findings suggestive high blood [...] Dr Santos Will obtain pulmonary notes from [facility] and testing done since 09/2020 re pulm HTN Erectile dysfunction is present will try sildenafil (and await pulm assessment of pulm HTN) Last Assessment & Plan: obtain pulmonary notes from [facility] and testing done since 09/2020 re [...] AF burden Paroxysmal atrial fibrillation 09/23/2019 Overview: [facility]: He has a history of persistent [...] 06/08/2018 Overview: see May 06 2018 admissionto [facility] Cardiac Catheterization 05/2016 [facility] 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 He will arrive to [facility] earlier to obtain an updated CXR prior to his clinic visit. Directions provided. Discussed the possibility of a tentative OR date 06/07. If this is not available at the time of clinic visit, we will then schedule for another date. I advised that he contact his Television Repairman or present to the nearest ED if [...] patient on Date (venkat/kimmie/yymickiy): 05/29/2023 at Time ([facility]): 1320 documented in this encounter Plan of Treatment Upcoming Encounters Date Type Department Care Team (Late st Contact Info) Description 06/05/2023 10:20 AM EST Anticoagulation Pharmacy, [place] [address] [place] [id number] Pharmacist1, [facility] [place] [address] [place] [phone] 06/06/2023 10:00 AM EST Office Visit Thoracic Surg [facility], [place] [address] [place] [address] Ochoa Hernández MD [address] [place], [place] [phone] 06/07/2023 10:40 AM EST Office Visit Pulmonary Medicine, [place] [address] [place], [place] [phone] Gabriella Le, [address] [place], [place] [phone] 06/24/2023 11:20 AM EST Office Visit Family Practice [address] [place] [address] [address] [place] [place] [address] Lito Pandey DO [address] [place] [address] 07/22/2023 11:00 AM EST Nutrition Services Nutrition Services [address] [place] [address] [place] [address] [place] [place] [phone] Melani No, LASHAN 30 [facility] [address] [place] [address] 08/16/2023 10:40 AM EST Office Visit Family Practice [address] [place] [address] [place] [address] [place] [address] Lito Pandey DO [address] [place] [address] 10/03/2023 11:00 AM EDT Telemedicine Endocrinology, [place] [address] [facility] [address] [place] [address] Geremias Hammonds, [address] [place] [address] 10/04/2023 11:20 AM EDT Office Visit Dermatology, [facility] [place] [address] [place] [address] Caitlin Yuan PA-C [address] [place] [address] 10/15/2023 1:40 PM EDT Office Visit Nephrology, [facility] [address] [place] [address] Tami Wilson MD [address] [place], [place] [phone] Scheduled Orders Name Type Priority Associated Diagnoses [...] this encounter Medical Devices Implanted Type Area Telecommunications Project Manager Device Identifier Shelf Expiration Date Model / Serial / Lot Cath Thermodilution 6fr - [id number] Implanted:Qty: 1 on 10/24/2022 by Rene Webber MD at [facility] [employer] KIESHA [id number] 06/06/2024 [id number] / / [id number] documented as of this encounter Visit Diagnoses [...] the patient have Health Care Power of Air Drill Operator? No Care Teams Sound Mixer Relationship Specialty Start Date End Date Lito Pandey DO [address] [place] [phone] PCP - General Family Medicine 05/09/23 documented as of this encounter
[2023-06-01 07:58] LABS: Basophils # (auto) 0.07 K/uL (0.00-0.20); Basophils % (auto) 0.8 %; Eosinophils # (auto) 0.45 K/uL (0.00-0.50); Eosinophils % (auto) 5.2 %; Hematocrit (blood only) 40.4 % (42.0-52.0); Hemoglobin 14.3 g/dl (14.0-18.0); Immature Granulocytes # (auto) 0.05 K/uL (0.01-0.20); Immature Granulocytes % (auto) 0.6 %; Lymphocytes # (auto) 1.52 K/uL (1.20-3.40); Lymphocytes % (auto) 17.7 %; Mean Corpuscular Hgb Conc 35.4 g/dL (32.0-36.0); Mean Corpuscular Volume 93.3 fL (80.0-100.0); Mean Platelet Volume 8.9 fL (9.4-12.4); Monocytes # (auto) 0.82 K/uL (0.11-0.59); Monocytes % (auto) 9.5 %; Neutrophils # (auto) 5.68 K/uL (1.40-6.50); Neutrophils % (auto) 66.2 %; Platelet Count 200 K/uL (130-400); RDW Coefficient of Variation 14.1 % (11.5-14.5); RDW Standard Deviation 48.4 fL (36.4-46.3); Red Blood Count 4.33 M/uL (4.70-6.10); White Blood Count 8.59 K/ul (4.8-10.8)
[2023-06-01] MEDS: DOXAZosin MESYLATE TAB 2 MG TAB PO SCH ×2 (08:03→13:34)
[2023-06-01] MEDS: FUROSEMIDE 20 MG TAB PO SCH (08:05)
[2023-06-01 08:10] LABS: BUN Creatinine Ratio 22.2 (10-20); Calcium 8.5 mg/dl (8.6-10.3); Creatinine Clr Calc Pharmacy 41.5 ml/min; Est GFR (African American) 57.5 ml/min; Est GFR (Non-African American) 49.6 ml/min
[2023-06-01 08:17] LABS: Partial Thromboplastin Ratio 1.1; Partial Thromboplastin Time 30.2 Seconds (21.0-31.0); Prothrombin Time 11.2 Seconds (9.0-12.0)
[2023-06-01] MEDS ORDERED: METOPROLOL SUCC 25MG EXT REL TAB PO SCH (09:00)
[2023-06-01] MEDS ORDERED: FAMOTIDINE 20 MG TAB PO SCH (09:00)
[2023-06-01] MEDS ORDERED: ASPIRIN 81 MG ECTAB PO SCH (09:00)
[2023-06-01] MEDS ORDERED: ATORVASTATIN 10 MG TAB PO SCH (09:00)
[2023-06-01] MEDS ORDERED: EMPAGLIFLOZIN 10 MG TAB PO SCH (09:00)
[2023-06-01] MEDS ORDERED: CHOLECALCIFEROL 1,000 UNITS 25 MCG TAB PO SCH (09:00)
[2023-06-01] MEDS ORDERED: methIMAzole 5 MG TABLET PO SCH (09:00)
[2023-06-01] MEDS ORDERED: LOSARTAN POTASSIUM 25 MG TAB PO SCH (09:00)
[2023-06-01] MEDS ORDERED: NON-FORMULARY MEDICATION (Magnesium 200 mg tablet) PO SCH (09:00)
--- NOTE | 2023-06-01 11:40 | Pulmonary Consultation ---
Date of Consultation June 01, 2023 Assessment & Plan (1) Recurrent pleural effusion on right: (2) Dyspnea on exertion: (3) Orthopnea: (4) Pulmonary hypertension: Plan IMPRESSION: 77-year-old male with a significant past medical history of recurrent RIGHT-sided pleural effusion with negative cytology presents with reaccumulation of the pleural fluid prior to undergoing his thoracic surgery evaluation at [facility] RECOMMENDATIONS: 1. RIGHT-sided pleural effusion - Recurrent effusion with relatively rapid reaccumulation since last drainage on 05/22/2023. Patient remains symptomatic with significant dyspnea exertion as well as orthopnea. Will plan on proceeding with therapeutic thoracentesis today to offer him some relief in anticipation that he can hopefully be evaluated by thoracic surgery for definitive intervention. I discussed alternative options with him to include placement of a Pleurx catheter although these are not typically indicated for benign etiologies and placing an indwelling pigtail drain with attempts to potentially transfer the patient emergently to an inpatient service at [facility]. The patient would like to proceed with therapeutic thoracentesis and be dismissed from the hospital and keep his follow-up appointments. 2. Can resume Lovenox tomorrow Will check chest x-ray post procedure and if this is unremarkable the patient can be dismissed from the hospital and follow-up with thoracic surgery at [facility]. History of Present Illness Attending Physician: Marcio Khan MD History of Present Illness Asked by hospitalist service to evaluate this patient with recurrent pleural effusion. History is obtained from discussion with the patient as well as review the electronic medical record. The patient is a 77-year-old male well-known to me from the pulmonary clinic. He has a history of recurrent pleural effusions and underwent thoracentesis about 10 days ago. He is already scheduled to meet with [facility] thoracic surgery this week for consideration of video-assisted thoracoscopic evaluation with potential pleurodesis and biopsies. He presented to the emergency room last evening with increasing shortness of breath. Chest x-ray demonstrated reaccumulation of the pleural fluid with opacification of the right hemithorax. Unfortunately the patient was fully anticoagulated on Lovenox. He is typically on Coumadin for atrial fibrillation but has been on a bridge pending evaluation for procedures. He was admitted to the hospitalist service while Lovenox was held in anticipation of thoracentesis today. Patient states that he got relief after his last thoracentesis for about 5 days. He does not report any fevers chills or night sweats. No trauma. His medical history and review of systems is unchanged from prior Allergies Allergy/AdvReac Type Severity Reaction Status Date / Time Penicillins Allergy Severe Hives Verified 05/17/23 13:02 clopidogrel [From Plavix] Allergy Intermediate hives Verified 05/17/23 13:02 omeprazole AdvReac Severe PAIN IN Verified 05/17/23 13:02 CHEST, PASSED OUT. Home Medications Medication Instructions Recorded Confirmed Type cholecalciferol (vitamin D3) 25 1,000 unit PO DAILY 05/14/19 05/31/23 History mcg (1,000 unit) capsule (Vitamin D3) aspirin 81 mg tablet,delayed 81 mg PO DAILY 09/13/20 05/31/23 History release atorvastatin 10 mg tablet (Lipitor) 10 mg PO QAM 09/13/20 05/31/23 History coenzyme Q10 200 mg capsule 200 mg PO DAILY 09/13/20 05/31/23 History metoprolol succinate 25 mg 25 mg PO QAM #30 tabs 09/15/20 05/31/23 Rx tablet,extended release 24 hr famotidine 20 mg tablet 20 mg PO DAILY 10/15/22 05/31/23 History ascorbic acid (vitamin C) 500 mg 1,000 mg PO DAILY 04/08/23 05/31/23 History tablet (Vitamin C) doxazosin 2 mg tablet (Cardura) 2 mg PO TID 04/08/23 05/31/23 History empagliflozin 10 mg tablet 10 mg PO QAM 04/08/23 05/31/23 History (Jardiance) furosemide 20 mg tablet 60 mg PO BID 04/08/23 05/31/23 History glucosamine-chondroitin 167 mg-133 1 cap PO WK 04/08/23 05/31/23 History mg capsule losartan 25 mg tablet (Cozaar) 25 mg PO QAM 04/08/23 05/31/23 History magnesium 200 mg tablet 100 mg PO DAILY 04/08/23 05/31/23 History spironolactone 25 mg tablet 12.5 mg PO MOWEFR 04/08/23 05/31/23 History warfarin 5 mg tablet 0 mg PO FR 05/17/23 05/31/23 History warfarin 5 mg tablet 0 mg PO SUMOTUWETHSA 05/17/23 05/31/23 History garlic 100 mg tablet 100 mg PO DAILY 05/23/23 05/31/23 History methimazole 5 mg tablet 10 mg PO DAILY 05/23/23 05/31/23 History Vitamin E 1 cap PO WK 05/31/23 05/31/23 History enoxaparin 80 mg/0.8 mL 0.7 mg subcut BID 05/31/23 05/31/23 History subcutaneous syringe Patient History Medical History (Updated 05/31/23 @ 16:42 by Dulce Ceron PA-C) Hyperthyroidism Paroxysmal atrial fibrillation Severe tricuspid regurgitation Chronic heart failure with preserved ejection fraction (HFpEF) History of CVA (cerebrovascular accident) Hypertension BPH (benign prostatic hyperplasia) HTN (hypertension) Surgical History (Updated 05/31/23 @ 14:50 by Dulce Ceron PA-C) History of thoracentesis Thoracentesis 04/25/2023, 05/23/23 Hx of prior ablation treatment History of cardiac catheterization 2016 at [facility] Hx of tonsillectomy Family History Other Hypertension Stroke Social History Smoking Status: Former smoker Second Hand Exposure: No; Do You Dip or Chew Tobacco: No; Tobacco Cessation Education Requested by Patient: No Hx Alcohol Use: Yes Alcohol type: wine Hx Substance Use: No Preferred Language: Chadian Communication Ability: Effective Visual Impairment: No Limitations Hearing Ability: Normal Stone Finisher Required: No Beliefs That Will Affect Care: None marital status: Current Living Situation: Family Current Living Situation Comment: and kids Other Information That Helps Us Care for You: No Feels Safe at Home: Yes Safety Concerns: Feels Safe At This Time Assistive Devices: None Review of Systems 2 Review of Systems: All systems reviewed & are unremarkable except as noted in Subjective Physical Exam 2 Constitutional: WD/WN, vitals as above Neck: trachea midline, no thyromegaly Respiratory: no respiratory distress, no labored breathing, no cough and not tachypneic Auscultation: + diminished lung sounds Decreased breath sounds at the right lung base with dullness to percussion Cardiovascular: Rate/Rhythm: regular rhythm Heart Sounds: normal S1, normal S2 and + murmur Extremities: + edema Gastrointestinal (Abdomen): normal bowel sounds, soft, nontender, no hepatosplenomegaly Musculoskeletal: Extremities: extremities normal to inspection Skin: no rashes, warm and dry Neurologic: Nonfocal exam Lymphatic: no cervical lymphadenopathy Results & Data Results & Data Vital Signs (Past 12 Hours) Vital Signs Temp Pulse Resp BP Pulse Ox O2 Del Method 06/01/23 08:30 Room Air 06/01/23 07:20 36.7 C 77 18 124/79 92 Room Air Laboratory Results 06/01/23 07:30 06/01/23 07:30 Diagnostic Findings Chest x-ray from the ER yesterday was independently reviewed. It demonstrates opacification of the right hemithorax with slight mediastinal deviation PG Care Time/CCT Total # of Minutes Spent Total Time Spent with Patient: Total time spent is greater than 50% in coordination of care (as documented) at patient's floor/unit and/or counseling patient: Coding Level of Care Code 31952 INT INP/OBS CARE 2/55MIN Diagnoses Recurrent pleural effusion on right J90 Dyspnea on exertion R06.09 Orthopnea R06.01 Pulmonary hypertension I27.20
--- NOTE | 2023-06-01 11:42 | Procedure Note ---
Procedure Note Date of Service June 01, 2023 Note Procedure: therapeutic ultrasound-guided catheter thoracentesis, right Head Of Sales: Dr. Aayush Santos Indication: Pleural effusion Consent: Signed by patient and verified with timeout prior to procedure Anesthesia: 8 mL's 1% lidocaine without epinephrine local. Procedure: Consent was verified and timeout performed. Appropriate imaging studies were reviewed prior to the procedure. Patient was placed in a seated position. Dullness to percussion was appreciated throughout the right hemithorax. Previous thoracenteses sites were noted. Site appropriate for thoracentesis was selected. The skin was prepped and draped in normal sterile fashion. Lidocaine was used for local analgesia. Fluid was aspirated via the finder needle. A small skin randall was made with the scalpel and the catheter over the needle apparatus was advanced over the rib into the pleural space. Using the syringe one-way valve system, a total of 2700 mL's of tushar cloudy fluid was removed. Procedure was terminated due to patient coughing. The catheter was removed and observed to be intact. A sterile dressing was applied. Post procedure chest x- ray was ordered. Fluid was not sent The patient tolerated the procedure well without obvious complication Coding CPT Codes Pulmonary/Thoracic - Pulmonary and Thoracic: 78083 Thoracentesis w/o imaging ([id number]) [facility] Procedure Codes (Charges) Pulmonary/Thoracic Procedure 1: Pulmonary and Thoracic: 09491 Thoracentesis w/o imaging
--- NOTE | 2023-06-01 13:10 | XRay Report ---
XR chest 1V portable HISTORY: Status post right thoracentesis. COMPARISON: Chest 05/31/2023. FINDINGS: Interval improvement in the now moderate right pleural effusion status post thoracentesis. No pneumothorax. The heart remains mildly enlarged. The left lung is clear. IMPRESSION: Decrease in size in the moderate right pleural effusion status post thoracentesis. No pneumothorax. ACT 112: Negative or not required by law. Electronically signed by: Javier Alejandra M.D. 06/01/2023 1:09 PM
--- NOTE | 2023-06-01 13:42 | Discharge Summary ---
Date of Service June 01, 2023 Admission HPI Per Admitting Provider This is a 77 y/o male with chronic HFpEF, PAF on chronic AC, HTN, dyslipidemia, hyperthyroidism, pulmonary HTN, hx of multiple CVAs, GERD, BPH, and other history as outlined who presents today with worsening dyspnea on exertion. Pt has a recurrent right pleural effusion, and most recently underwent thoracentesis on 05/23/23 with removal of 2L of fluid. He is scheduled to see thoracic surgery next week as an outpatient. He has been on Lovenox bridge with Coumadin on hold until he sees thoracic surgery next due to anticipated need for a VATS with pleural biopsy, potentially as soon as 06/07/23. Pt reports only partial relief of respiratory symptoms after his thoracentesis last week. This relief lasted about three days before he noted worsening dyspnea with exertion again. Last night, he became winded just with getting up to use the bathroom - it took ten minutes of rest to get his breathing back to baseline. He notes orthopnea. Due to the worsening symptoms he came to the ED for potential repeat thoracentesis. He denies fevers, chills, chest pain, N/V. He has seemed more weak and tired per his family. He notes an inability to take a deep breath. 02/26/2023 -admitted to [facility] for 2 weeks due to severe volume overload treated with furosemide infusion, diuresing off 20 pounds of fluid. Underwent right heart cath and echocardiogram that showed tricuspid regurgitation was graded as mild compared to severe. 04/25/2023 -s/p right-sided thoracentesis for 2.2L 05/23/2023 - s/p right-sided thoracentesis for 2L Admission Exam Per Admitting Provider General: awake, alert, NAD HEENT: no scleral icterus Neck: trachea mid-line Heart: irregularly irregular Lungs: clear on the left, markedly diminished to absent on right Abd: soft, +BS Extremities: trace LE edema Skin: multiple areas of ecchymosis on UE Neuro: no focal deficits; oriented x 3; moving all extremities; no dysarthria Principal Diagnosis Recurrent pleural effusion Discharge Exam General: awake, alert, in NAD HEENT: no scleral icterus Neck: trachea mid-line Heart: irregularly irregular Lungs: CTAB Abd: soft, +BS Extremities: trace LE edema Skin: multiple areas of ecchymosis on UE Neuro: no focal deficits; oriented x 3; moving all extremities; no dysarthria Discharge Data Allergies Allergy/AdvReac Type Severity Reaction Status Date / Time Penicillins Allergy Severe Hives Verified 05/17/23 13:02 clopidogrel [From Plavix] Allergy Intermediate hives Verified 05/17/23 13:02 omeprazole AdvReac Severe PAIN IN Verified 05/17/23 13:02 CHEST, PASSED OUT. Consultations 05/31/23 14:43 ED Decision to Admit Stat 05/31/23 17:15 Consult Pulmonology Routine Hospital Course (1) Recurrent pleural effusion on right: This is a 77 y/o male with chronic HFpEF, PAF on chronic AC, HTN, dyslipidemia, hyperthyroidism, pulmonary HTN, hx of multiple CVAs, GERD, BPH, and other history as outlined who presents with worsening dyspnea on exertion. Imaging in the ED consistent with worsening of known right pleural effusion. ED provider spoke with sole edge inker machine who is agreeable to repeat thoracentesis. Pt is now s/p thoracentesis (06/01/2023). He feels well. Discussed w/ Dr. Santos - pt can be discharged and resume Lovenox tomorrow (06/02/23). Cont. to hold coumadin as previously discussed (on hold until thoracic surgery evaluation and possible procedure next week) (2) Paroxysmal atrial fibrillation: Rate controlled on beta-larissa Warfarin currently on hold in anticipation of upcoming procedure - resume bridging Lovenox after thoracentesis (3) Severe tricuspid regurgitation: (4) Chronic heart failure with preserved ejection fraction (HFpEF): (5) Hypertension: (6) Pulmonary hypertension: (7) Hyperthyroidism: Chronic, stable - TSH 3.08 05/09/2023 Continue methimazole Plan Continue other home medications as appropriate Total Time Total Time Spent Total Time Spent (In Minutes): 40 Discharge Plan Discharge Items Patient Disposition: Home - Self-Care Reason For Visit: RECURRENT RT PLEURAL EFFUSION Discharge Diagnosis: Recurrent pleural effusion Activity: Per Instructions section Non-emergency contact: Primary Care Provider, Surgeon, Specialist and Scouring Machine Operator Call non-emergency contact if: you have any medication questions and your symptoms worsen Follow-up/Referrals: Lito Pandey DO [Primary Care Provider] - Diet: Heart Healthy Addtl Attending Provider Instructions: Follow up with thoracic surgery as already scheduled. You can resume Lovenox tomorrow. As previously discussed, do not take coumadin. Pending Studies at Discharge: No Stand-Alone Forms: My [facility], Smoking Cessation Medications and DC Order Prescriptions: New oxycodone 5 mg tablet 2.5 mg PO BID PRN (Reason: pain) Qty: 5 0RF Continued famotidine 20 mg tablet 20 mg PO DAILY spironolactone 25 mg tablet 12.5 mg PO MOWEFR furosemide 20 mg tablet 60 mg PO BID Jardiance 10 mg tablet 10 mg PO QAM doxazosin [Cardura] 2 mg tablet 2 mg PO TID glucosamine-chondroitin 167-133 mg capsule 1 cap PO WK Rx Instructions: pt takes one time weekly magnesium 200 mg tablet 100 mg PO DAILY cholecalciferol (vitamin D3) [Vitamin D3] 1,000 unit Capsule 1,000 unit PO DAILY atorvastatin [Lipitor] 10 mg tablet 10 mg PO QAM aspirin 81 mg Tablet,Delayed Release (Dr/Ec) 81 mg PO DAILY Rx Instructions: pt states he takes in the morning coenzyme Q10 200 mg Capsule 200 mg PO DAILY metoprolol succinate 25 mg tablet extended release 24 hr 25 mg PO QAM Qty: 30 2RF ascorbic acid (vitamin C) [Vitamin C] 500 mg tablet 1,000 mg PO DAILY losartan [Cozaar] 25 mg tablet 25 mg PO QAM Vitamin E 1 cap PO WK garlic 100 mg Tablet 100 mg PO DAILY methimazole 5 mg tablet 10 mg PO DAILY Held warfarin 5 mg tablet 0 mg PO FR Hold Instructions: Resume on 06/06/23. Rx Instructions: Not currently taking warfarin 5 mg tablet 0 mg PO SUMOTUWETHSA Hold Instructions: Resume on 06/06/23. Rx Instructions: Not currently taking enoxaparin 80 mg/0.8 mL syringe 0.7 mg subcut BID Hold Instructions: Resume on 06/02/23. Discharge Orders: Discharge Order (Routine); Ordered 06/01/23 Ordered By: Marcio hKan Admission Data Admit Date/Time: 05/31/23 15:20 Attending Provider: Marcio Khan Admit Provider: Marcio Khan Primary Care Provider: Lito Pandey Other Providers: Marcio Khan; Aayush Santos Other Interventions: Discharge Summary Assessment (RN) Last Done: 06/01/23 13:19
== END 2023-06-01 14:14 | disposition home or self-care (01) ==
LOC: 3N 11:53 → ED 11:53 → 3N 16:57